=== PATIENT | male | born 1955 | race Caucasian/White ===

== ENCOUNTER 2020-04-01 22:59 | Inpatient (IN) | payer OTHER, SELFPAY ==
[2020-04-01 23:00] VITALS: BP 103/87; PULSE 112; RESP 13; TEMP 36.2; O2SAT 100; BMI 22.0
--- NOTE | 2020-04-01 23:01 | ECG_ITS ---
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
--- NOTE | 2020-04-01 23:01 | CTR_ITS ---
PROCEDURE INFORMATION: Exam: CT Head Without Contrast Exam date and time: 04/01/2020 11:46 PM Age: 64 years old Clinical indication: Altered mental status/memory loss; Confusion or disorientation; Additional info: Od TECHNIQUE: Imaging protocol: Computed tomography of the head without contrast. Radiation optimization: All CT scans at this facility use at least one of these dose optimization techniques: automated exposure control; mA and/or kV adjustment per patient size (includes targeted exams where dose is matched to clinical indication); or iterative reconstruction. COMPARISON: No relevant prior studies available. RADIATION DOSE METRICS: Total DLP (mGy-cm): 761.42 FINDINGS: Brain: No acute intracranial hemorrhage or mass effect. No definite acute infarct by CT. MRI could be more sensitive/specific for detection, as clinically directed. Cerebral ventricles: Ventricle size is normal for age. Bones/joints: No definite acute skull fracture. Paranasal sinuses: Included paranasal sinuses are essentially clear. Mastoid air cells: No significant acute finding. CT/CT head wo con* [id number] IMPRESSION: 1. No acute intracranial hemorrhage or mass effect. 2. No definite acute infarct by CT, see above. 3. Other findings discussed above. Radiation Dose CTDIVOL = (mGy): DLP = 761.42 (mGy-cm)
--- NOTE | 2020-04-01 23:01 | XRR_ITS ---
PROCEDURE INFORMATION: Exam: XR Chest, 1 View Exam date and time: 04/01/2020 11:12 PM Age: 64 years old Clinical indication: Device placement; Ett placement (vent status); Additional info: Od TECHNIQUE: Imaging protocol: XR of the chest Views: 1 view. COMPARISON: No relevant prior studies available. FINDINGS: Tubes, catheters and devices: Enteric tube loop position within the gastric fundus tip projected medially. Endotracheal tube tip resides 6.1 cm above the josselin. Lungs: Prominent pulmonary hyperinflation. Pleural space: Unremarkable. No pleural effusion. No pneumothorax. Heart/Mediastinum: Unremarkable. No cardiomegaly. Bones/joints: Degenerative arthritis of both shoulders. Calcified granuloma right lung. XR/XR chest 1V portable [id number] IMPRESSION: Hyperinflation.
--- NOTE | 2020-04-01 23:03 | W.ED.OVERDOS ---
HPI - Overdose General: Chief Complaint: Overdose Stated Complaint: UNRESPONSIVE / POSS OD Time Seen by Provider: 04/01/20 23:01 Source: EMS Mode of arrival: EMS Limitations: altered mental status History of Present Illness: HPI Narrative: 64-year-old male who was found by after he overdosed. Patient took an unknown amount of Xanax and Benadryl. He had an empty Benadryl bottle along with a Xanax bottle next to him. He was prescribed 0.5 mg of Xanax. called EMS and when EMS arrived patient was completely unresponsive with respiration 4-6 times per minute. They did give him Narcan with no response. Patient was intubated. Patient initially hypotensive but given IV fluids and blood pressure now 103/87. No history is available from patient due to altered mental status. Review of Systems General: Reports: ROS unobtainable due to medical condition [facility] ED PFSH: Medical History Chronic epigastric pain Gastritis Nausea and vomiting Physical deconditioning Surgical History History of bilateral carpal tunnel release History of circumcision History of colonoscopy Normal repeat in 10 years History of esophagogastroduodenoscopy (EGD) (02/26/17) Reflux, esophagitis, Gastritis History of hip replacement, total Right History of knee replacement Right History of laparoscopic cholecystectomy Family History Grandfather Cancer Grandmother Cancer Denies family history of Anesthesia complication Bleeding disorder Social History Smoking and tobacco status: former smoker Second hand smoke exposure: No Alcohol intake: former Desire information about alcohol rehabilitation?: No Adopted: No Caregiver/support person: Yes Lives independently: Yes Household members: spouse Housing: House Marital status: Highest education level completed: High School Graduate service: No Current occupational status: disabled Current occupational exposures/hazards: No Pets and animals: No History of recent travel: No Leisure activites: exercise Sexually active: Yes Current gender identity: Male and Female Verito/Yarsani: Sabianism Special verito needs: No Agree to transfusion: No Financial difficulty paying for basics: Not Very Hard Physical Exam Const: COMMON NORMALS: negative for patient oriented x3 OTHER: Patient is unresponsive and intubated HENMT: COMMON NORMALS: normocephalic and atraumatic HEAD & SCALP: normocephalic and atraumatic Eye: COMMON NORMALS: Equal, round and reactive pupils present and EOMs intact bilaterally PUPIL: Yes Equal, round and reactive pupils present Neck/C-Spine: COMMON NORMALS: full ROM and supple Chest: COMMONS NORMALS: normal inspection of the chest and normal palpation of entire chest wall Resp: COMMON NORMALS: normal respiratory effort, No retractions, No use of accessory muscles and clear to auscultation bilaterally AUSCULTATION: clear to auscultation bilaterally Cardio: COMMON NORMALS: regular rate, regular rhythm and No murmurs present (Cardio) RATE: regular rate RHYTHM: regular rhythm GI: COMMON NORMALS: Normal to inspection, nondistended, normoactive bowel sounds present, Soft to palpation, non-tender and no masses PALPATION: Yes Soft to palpation Extremity: COMMON NORMALS: normal to inspection and full ROM Neuro: COMMON NORMALS: negative for patient oriented x3 and negative for moves all extremities Psych: COMMON NORMALS: negative for mental status grossly normal Skin: COMMON NORMALS: no rashes or lesions noted and no wounds GENERAL SKIN EXAM: no rashes or lesions noted Course Vital Signs: Vital signs: Vital Signs Temperature 97.4 F L 04/02/20 02:00 Pulse Rate 102 H 04/02/20 02:58 Respiratory Rate 14 04/02/20 02:58 Blood Pressure 95/77 04/02/20 02:58 Pulse Oximetry 100 04/02/20 02:58 MDM - Overdose MDM Narrative: Medical decision making narrative: Patient presents here with an overdose and was intubated by EMS. Patient's vital signs here been stable. He does have an elevated lactate along with slightly elevated liver enzymes. He does have a history of hepatitis C. Patient's EKG is normal with no prolonged QT. I spoke to hospitalist will admit to the ICU. Lab Data: Labs: Lab Results 04/01/20 04/01/20 04/01/20 Range/Units 23:00 23:00 23:00 WBC 11.7 H (4.0-10.0) 10^3/ uL RBC 5.59 H (4.1-5.3) 10^6/u L Hgb 16.9 H (11.7-16.6) g/dL Hct 54.7 H (42.0-52.0) % MCV 97.9 H (80-94) fL MCH 30.2 (28.0-34.0) pg MCHC 30.9 (30.0-36.0) g/dL RDW 13.3 (12.1-15.1) % Plt Count 196 (130-400) 10^3/c mm MPV 9.2 (7.4-10.4) fL Neut % (Auto) 80.4 % Lymph % (Auto) 11.7 % [place] % (Auto) 2.3 % Eos % (Auto) 0.5 % Baso % (Auto) 0.7 % Neut # (Auto) 9.38 H (1.8-7.7) 10^3/u L Lymph # (Auto) 1.4 (0.8-4.8) 10^3/u L [place] # (Auto) 0.3 (0.2-0.9) 10^3/u L Eos # (Auto) 0.1 (0.0-0.8) 10^3/u L Baso # (Auto) 0.1 (0.0-0.1) 10^3/u L Nucleated RBC % (a uto) 0.2 % Nucleated RBCs # 0.0 /100WBC PT (12.1-14.9) SECO NDS INR (0.8-1.2) Specimen Type Sample Site ABG pH (7.35-7.45) ABG pCO2 (35-45) mmHg ABG pO2 (80.0-100.0) mmH g ABG HCO3 (22-26) mmol/L ABG O2 Saturation ABG Base Excess (-2.0-2.0) mmol/ L Canelo Test A-a O2 Gradient (5-10) mmHg Hematocrit (42-52) % Hgb O2 Saturation (95-100) % Carboxyhemoglobin (0.4-20.1) %THgb Methemoglobin (0.4-1.5) % Total Hemoglobin (14-18) g/dL Ionized Calcium (1.1-1.4) mmol/L O2 Delivery Device O2 Liters/Min % FiO2 % PEEP cmH20 Nurse Discharge ID Sodium 141 (136-145) mmol/L Potassium 3.8 (3.5-5.1) mmol/L Chloride 101 (98-107) mmol/L Carbon Dioxide 22 (22-29) mmol/L Anion Gap 21.8 H (5-19) BUN 10 (8-23) mg/dL Creatinine 1.3 H (0.7-1.2) mg/dL GFR Calculation 55.8 L (90-130) mL/min Glucose 30 L* (65-115) mg/dL POC Glucose (70-110) mg/dL Calculated Osmolal ity 287 (285-295) mOsm/k g Lactic Acid 6.4 H* (0.5-2.2) mmol/L Calcium 9.1 (8.5-10.5) mg/dL Total Bilirubin 1.0 (0.15-1.2) mg/dL AST 932 H (0-40) U/L ALT 999 H (0-41) U/L Alkaline Phosphata se 160 H (40-130) IU/L Total Protein 6.5 L (6.6-8.7) g/dL Albumin 3.9 (3.5-5.2) g/dL Globulin 2.6 (1.3-4.6) g/dL Salicylates < 0.3 L (3-10) mg/dL Urine Opiates Scre en (Negative) ng/mL Acetaminophen < 5.0 L (10-30) ug/mL Ur Barbiturates Sc reen (Negative) ng/mL Ur Phencyclidine S crn (Negative) ng/mL Ur Amphetamines Sc reen (Negative) ng/mL U Benzodiazepines Scrn (Negative) ng/mL Urine Cocaine Scre en (Negative) ng/mL U Marijuana (THC) Screen (Negative) ng/mL Ethyl Alcohol < 10 (0-10) mg/dL 04/01/20 04/01/20 04/02/20 Range/Units 23:10 23:28 00:04 WBC (4.0-10.0) 10^3/ uL RBC (4.1-5.3) 10^6/u L Hgb (11.7-16.6) g/dL Hct (42.0-52.0) % MCV (80-94) fL MCH (28.0-34.0) pg MCHC (30.0-36.0) g/dL RDW (12.1-15.1) % Plt Count (130-400) 10^3/c mm MPV (7.4-10.4) fL Neut % (Auto) % Lymph % (Auto) % [place] % (Auto) % Eos % (Auto) % Baso % (Auto) % Neut # (Auto) (1.8-7.7) 10^3/u L Lymph # (Auto) (0.8-4.8) 10^3/u L [place] # (Auto) (0.2-0.9) 10^3/u L Eos # (Auto) (0.0-0.8) 10^3/u L Baso # (Auto) (0.0-0.1) 10^3/u L Nucleated RBC % (a uto) % Nucleated RBCs # /100WBC PT 15.40 H (12.1-14.9) SECO NDS INR 1.18 (0.8-1.2) Specimen Type Arterial Sample Site Radial, left ABG pH 7.20 L (7.35-7.45) ABG pCO2 50.1 H (35-45) mmHg ABG pO2 190.0 H (80.0-100.0) mmH g ABG HCO3 19.6 L (22-26) mmol/L ABG O2 Saturation 99.6 ABG Base Excess -8.8 L (-2.0-2.0) mmol/ L Canelo Test Pos A-a O2 Gradient 22.7 H (5-10) mmHg Hematocrit 54.9 H (42-52) % Hgb O2 Saturation 98.1 (95-100) % Carboxyhemoglobin 0.7 (0.4-20.1) %THgb Methemoglobin 0.8 (0.4-1.5) % Total Hemoglobin 17.9 (14-18) g/dL Ionized Calcium 1.2 (1.1-1.4) mmol/L O2 Delivery Device Vent O2 Liters/Min 16.0 % FiO2 60.0 % PEEP 8.0 cmH20 Nurse Discharge ID Jlg Sodium 144.0 H (136-145) mmol/L Potassium 3.5 (3.5-5.1) mmol/L Chloride (98-107) mmol/L Carbon Dioxide (22-29) mmol/L Anion Gap (5-19) BUN (8-23) mg/dL Creatinine (0.7-1.2) mg/dL GFR Calculation (90-130) mL/min Glucose 11.0 L (65-115) mg/dL POC Glucose (70-110) mg/dL Calculated Osmolal ity (285-295) mOsm/k g Lactic Acid (0.5-2.2) mmol/L Calcium (8.5-10.5) mg/dL Total Bilirubin (0.15-1.2) mg/dL AST (0-40) U/L ALT (0-41) U/L Alkaline Phosphata se (40-130) IU/L Total Protein (6.6-8.7) g/dL Albumin (3.5-5.2) g/dL Globulin (1.3-4.6) g/dL Salicylates (3-10) mg/dL Urine Opiates Scre en Negative (Negative) ng/mL Acetaminophen (10-30) ug/mL Ur Barbiturates Sc reen Negative (Negative) ng/mL Ur Phencyclidine S crn Negative (Negative) ng/mL Ur Amphetamines Sc reen Negative (Negative) ng/mL U Benzodiazepines Scrn Positive H (Negative) ng/mL Urine Cocaine Scre en Negative (Negative) ng/mL U Marijuana (THC) Screen Positive H (Negative) ng/mL Ethyl Alcohol (0-10) mg/dL 04/02/20 04/02/20 Range/Units 00:05 00:29 WBC (4.0-10.0) 10^3/ uL RBC (4.1-5.3) 10^6/u L Hgb (11.7-16.6) g/dL Hct (42.0-52.0) % MCV (80-94) fL MCH (28.0-34.0) pg MCHC (30.0-36.0) g/dL RDW (12.1-15.1) % Plt Count (130-400) 10^3/c mm MPV (7.4-10.4) fL Neut % (Auto) % Lymph % (Auto) % [place] % (Auto) % Eos % (Auto) % Baso % (Auto) % Neut # (Auto) (1.8-7.7) 10^3/u L Lymph # (Auto) (0.8-4.8) 10^3/u L [place] # (Auto) (0.2-0.9) 10^3/u L Eos # (Auto) (0.0-0.8) 10^3/u L Baso # (Auto) (0.0-0.1) 10^3/u L Nucleated RBC % (a uto) % Nucleated RBCs # /100WBC PT (12.1-14.9) SECO NDS INR (0.8-1.2) Specimen Type Sample Site ABG pH (7.35-7.45) ABG pCO2 (35-45) mmHg ABG pO2 (80.0-100.0) mmH g ABG HCO3 (22-26) mmol/L ABG O2 Saturation ABG Base Excess (-2.0-2.0) mmol/ L Canelo Test A-a O2 Gradient (5-10) mmHg Hematocrit (42-52) % Hgb O2 Saturation (95-100) % Carboxyhemoglobin (0.4-20.1) %THgb Methemoglobin (0.4-1.5) % Total Hemoglobin (14-18) g/dL Ionized Calcium (1.1-1.4) mmol/L O2 Delivery Device O2 Liters/Min % FiO2 % PEEP cmH20 Nurse Discharge ID Sodium (136-145) mmol/L Potassium (3.5-5.1) mmol/L Chloride (98-107) mmol/L Carbon Dioxide (22-29) mmol/L Anion Gap (5-19) BUN (8-23) mg/dL Creatinine (0.7-1.2) mg/dL GFR Calculation (90-130) mL/min Glucose (65-115) mg/dL POC Glucose 295 H 222 H (70-110) mg/dL Calculated Osmolal ity (285-295) mOsm/k g Lactic Acid (0.5-2.2) mmol/L Calcium (8.5-10.5) mg/dL Total Bilirubin (0.15-1.2) mg/dL AST (0-40) U/L ALT (0-41) U/L Alkaline Phosphata se (40-130) IU/L Total Protein (6.6-8.7) g/dL Albumin (3.5-5.2) g/dL Globulin (1.3-4.6) g/dL Salicylates (3-10) mg/dL Urine Opiates Scre en (Negative) ng/mL Acetaminophen (10-30) ug/mL Ur Barbiturates Sc reen (Negative) ng/mL Ur Phencyclidine S crn (Negative) ng/mL Ur Amphetamines Sc reen (Negative) ng/mL U Benzodiazepines Scrn (Negative) ng/mL Urine Cocaine Scre en (Negative) ng/mL U Marijuana (THC) Screen (Negative) ng/mL Ethyl Alcohol (0-10) mg/dL Imaging Data^: CXR: Attestation: I personally reviewed and interpreted this imaging study as follows: Radiologist's impression: no acute abnormality CT Abd/Pel: Attestation: I personally reviewed and interpreted this imaging study as follows: Radiologist's impression: [employer] [address] [address] Scan Report Signed Patient: Michoacano Ball Unit #: [id number] : 1955 Age/Sex: 64 / M ADM Date: 04/01/20 Loc: ER Room/Bed: Attending Dr: Ordering Provider/Ordering MD: Amy Juarez MD Date of Service: 04/01/20 Procedure(s): CT head wo con* [id number] Accession Number(s): [id number] Report Number: [id number] PROCEDURE INFORMATION: Exam: CT Head Without Contrast Exam date and time: 04/01/2020 11:46 PM Age: 64 years old Clinical indication: Altered mental status/memory loss; Confusion or disorientation; Additional info: Od TECHNIQUE: Imaging protocol: Computed tomography of the head without contrast. Radiation optimization: All CT scans at this facility use at least one of these dose optimization techniques: automated exposure control; mA and/or kV adjustment per patient size (includes targeted exams where dose is matched to clinical indication); or iterative reconstruction. COMPARISON: No relevant prior studies available. RADIATION DOSE METRICS: Total DLP (mGy-cm): 761.42 FINDINGS: Brain: No acute intracranial hemorrhage or mass effect. No definite acute infarct by CT. MRI could be more sensitive/specific for detection, as clinically directed. Cerebral ventricles: Ventricle size is normal for age. Bones/joints: No definite acute skull fracture. Paranasal sinuses: Included paranasal sinuses are essentially clear. Mastoid air cells: No significant acute finding. CT/CT head wo con* [id number] IMPRESSION: 1. No acute intracranial hemorrhage or mass effect. 2. No definite acute infarct by CT, see above. 3. Other findings discussed above. EKG Data^: EKG 1: Attestation: I personally reviewed and interpreted this EKG as follows: EKG interpretation date: 04/01/20 EKG interpretation time: 23:29 Interpretation: sinus tach hr [address] or t wave abnormalities qrs 105 qtc 427 Critical Care Time Critical Care Time: Critical Care Time: Yes Total Critical Care Time: 35 Attestation: This case had a high probability of a clinically significant, sudden, or life threatening deterioration of this patient's condition which required my full and direct attention, intervention and personal management. Discharge Plan Discharge Patient Disposition: Admitted As Inpatient Admit Provider: Iglesia Shafer Clinical Impression: Drug overdose, Hypoglycemia Condition: Stable Coding Level of Care Code ED Slot Machine Key Person for Chg Fwd Exam Comprehensive
[2020-04-01 23:10] VITALS: BP 103/87; PULSE 112; RESP 12; RESP 16; O2SAT 100
[2020-04-01 23:29] LABS: Basophils # 0.1 10^3/uL (0.0-0.1); Basophils % 0.7 %; Eosinophils # 0.1 10^3/uL (0.0-0.8); Eosinophils % 0.5 %; Hematocrit 54.7 % (42.0-52.0); Hemoglobin 16.9 g/dL (11.7-16.6); Lymphocytes # 1.4 10^3/uL (0.8-4.8); Lymphocytes % 11.7 %; Mean Corpuscular HGB Conc 30.9 g/dL (30.0-36.0); Mean Corpuscular Hemoglobin 30.2 pg (28.0-34.0); Mean Corpuscular Volume 97.9 fL (80-94); Mean Platelet Volume 9.2 fL (7.4-10.4); Monocytes # 0.3 10^3/uL (0.2-0.9); Monocytes % 2.3 %; Neutrophils # 9.38 10^3/uL (1.8-7.7); Neutrophils % 80.4 %; Nucleated Red Blood Cells % 0.2 %; Platelet Count 196 10^3/cmm (130-400); Red Blood Count 5.59 10^6/uL (4.1-5.3); Red Cell Distribution Width 13.3 % (12.1-15.1); White Blood Count 11.7 10^3/uL (4.0-10.0)
[2020-04-01 23:42] LABS: ABG PCO2 50.1 mmHg (35-45); Alveolar-Arterial Oxygen Gradi 22.7 mmHg (5-10); Arterial Blood Gas Hematocrit 54.9 % (42-52); Base Excess ABG -8.8 mmol/L (-2.0-2.0); Blood Gas Allen Test Pos; Blood Gas Sample Site Radial, left; Blood Gas Sample Type Arterial; Carboxyhemoglobin 0.7 %THgb (0.4-20.1); HCO3 ABG 19.6 mmol/L (22-26); HGB O2 Sat 98.1 % (95-100); Ionized Calcium Level - ABG 1.2 mmol/L (1.1-1.4); Methemoglobin 0.8 % (0.4-1.5); Oxygen Device VENT; Oxygen Saturation ABG 99.6; Potassium Level - ABG 3.5 mmol/L (3.5-5.0); Total Hemoglobin 17.9 g/dL (14-18)
[2020-04-01] MEDS: sodium chloride 0.9% 1,000 ML 999 ML IV (23:43)
[2020-04-01 23:46] VITALS: RESP 16
[2020-04-01 23:48] LABS: Albumin Level 3.9 g/dL (3.5-5.2); Alkaline Phosphatase 160 IU/L (40-130); Anion Gap 21.8 (5-19); Blood Urea Nitrogen 10 mg/dL (8-23); Calcium 9.1 mg/dL (8.5-10.5); Carbon Dioxide 22 mmol/L (22-29); Chloride 101 mmol/L (98-107); Globulin 2.6 g/dL (1.3-4.6); Glomerular Filtration Rate 55.8 mL/min (90-130); Osmolality Calculated 287 mOsm/kg (285-295); Potassium 3.8 mmol/L (3.5-5.1); Sodium 141 mmol/L (136-145); Total Protein 6.5 g/dL (6.6-8.7)
[2020-04-01 23:52] LABS: Acetaminophen < 5.0 ug/mL (10-30); Alcohol Level < 10 mg/dL (0-10); Glucose 30 mg/dL (65-115); Salicylate < 0.3 mg/dL (3-10)
[2020-04-01 23:53] LABS: Lactic Sepsis W/Reflex 6.4 mmol/L (0.5-2.2)
--- NOTE | 2020-04-01 23:53 | PC.NURSE ---
lactic 6.4
[2020-04-02] VITALS (87 sets, daily range): BP systolic 67–124; BP diastolic 52–98; PULSE 85–108; RESP 14–21; TEMP 36.1–38.3; O2SAT 92–100; BMI 15.5
[2020-04-02 00:01] LABS: Alanine Aminotransferase 999 U/L (0-41)
[2020-04-02 00:07] LABS: Aspartate Amino Transferase 932 U/L (0-40)
[2020-04-02] MEDS: dextrose 50% syringe 50 mL 100 ML IVP (00:17)
[2020-04-02 00:30] LABS: INR 1.18 (0.8-1.2)
[2020-04-02 00:31] LABS: Amphetamines Screen Urine Negative (Negative); Barbiturates Screen Urine Negative (Negative); Benzodiazepines Screen Urine Positive (Negative); Cocaine Screen Urine Negative (Negative); Opiate Screen Urine Negative (Negative); PCP Screen Urine Negative (Negative); THC Screen Urine Positive (Negative)
[2020-04-02 00:41] LABS: Glucose Point of Care 295 mg/dL (70-110)
[2020-04-02 00:41] LABS: Glucose Point of Care 222 mg/dL (70-110)
[2020-04-02 01:14] LABS: Reflex Lactate Order REFLEX LACTIC ORDERD
[2020-04-02 01:40] LABS: Glucose Point of Care 139 mg/dL (70-110)
[2020-04-02 02:04] LABS: Lactic Acid level (Lactate) 7.4 mmol/L (0.5-2.2)
--- NOTE | 2020-04-02 02:32 | P.HP_ITS ---
Providers/Chief Complaint Admitting Physician: Iglesia Shafer Primary Care Provider: Richard Ulrich Chief Complaint: UNRESPONSIVE / POSS OD History of Present Illness 64-year-old gentleman is being admitted from ER to ICU, brought here after he was intubated by EMS due to respiratory suppression, obtundation, with lack of response to Narcan after he overdosed on unknown amount of Xanax and Benadryl with both bottles next to him. He has a history of prescribed 0.5 mg Xanax per report. EMS was called by his , due to unresponsiveness, with respiratory suppression with breathing rate down to 4-6 breaths/min. In ER he was initially hypotensive, received fluid resuscitation. Blood pressure was as low as 91/73. Responded to 2 L of fluid with blood pressure 115/90. On presentation noted in respiratory acidosis, CO2 50.1. pH 7.2, PO2 190. Noted also hypoglycemia, glucose of 34 which she received D50 push. Does not have history of diabetes. History of hepatitis C is reported. Noted creatinine 1.3, BUN 10. Lactic acid 6.4-7.4. AST 932, ALT 999, alk phos 160. T bili 1. INR 1.18. Platelets 196,000. WBC 11.7, hemoglobin 16.9. He is currently obtunded, on mechanical ventilation, 35% FiO2, PEEP of 8, RR 16, VT 400. Chest x-ray pending read, appears with hyperinflation, no obvious infiltrates. Noncontrast Head CT without acute abnormality. EKG without QRS widening. Sinus tachycardia. Review of Systems General: Reports: ROS unobtainable due to mental status Medications/Allergies Home Medications Medication Instructions Recorded Confirmed Last Taken Type ibuprofen 200 mg tablet 200 mg PO ONCE tab 04/12/19 04/12/19 Unknown History omega-3 fatty acids 1,000 mg 1,000 mg PO ONCE cap 04/12/19 04/12/19 Unknown History capsule pantoprazole 40 mg tablet,delayed 40 mg PO ONCE 04/12/19 04/12/19 Unknown History release tamsulosin 0.4 mg capsule 0.4 mg PO ONCE 04/12/19 04/12/19 Unknown History vitamin E mixed 1,000 unit capsule 1,000 unit PO DAILY cap 04/12/19 04/12/19 Unknown History Allergies Allergy/AdvReac Type Severity Reaction Status Date / Time citalopram Allergy Unknown Verified 04/01/20 23:10 codeine Allergy ADR-Itching Verified 04/01/20 23:10 esomeprazole [From Nexium] Allergy Unknown Verified 04/01/20 23:10 ketorolac [From Toradol] Allergy Unknown Verified 04/01/20 23:10 omeprazole Allergy Unknown Verified 04/01/20 23:10 Penicillins Allergy Unknown Verified 04/01/20 23:10 ranitidine AdvReac ADR-Headach Verified 04/01/20 23:10 e PFSH Acute PFSH: Medical History Chronic epigastric pain Gastritis Nausea and vomiting Physical deconditioning Surgical History History of bilateral carpal tunnel release History of circumcision History of colonoscopy Normal repeat in 10 years History of esophagogastroduodenoscopy (EGD) (02/26/17) Reflux, esophagitis, Gastritis History of hip replacement, total Right History of knee replacement Right History of laparoscopic cholecystectomy Family History Grandfather Cancer Grandmother Cancer Denies family history of Anesthesia complication Bleeding disorder Social History Smoking and tobacco status: former smoker Second hand smoke exposure: No Alcohol intake: former Desire information about alcohol rehabilitation?: No Adopted: No Caregiver/support person: Yes Lives independently: Yes Household members: spouse Housing: House Marital status: Highest education level completed: High School Graduate service: No Current occupational status: disabled Current occupational exposures/hazards: No Pets and animals: No History of recent travel: No Leisure activites: exercise Sexually active: Yes Current gender identity: Male and Female Verito/Hoahaoism: Rastafarian Special verito needs: No Agree to transfusion: No Financial difficulty paying for basics: Not Very Hard Vitals/I&O/Wt Last Vital Signs Temp 97.1 F L 04/01/20 23:00 Pulse 102 H 04/02/20 01:45 Resp 16 04/02/20 02:26 BP 115/90 04/02/20 01:45 Pulse Ox 99 04/02/20 01:45 Weight last 48 hrs Weight 65.771 kg Physical Exam Const: COMMON NORMALS: no acute distress; negative for patient oriented x3 ORIENTATION/CONSCIOUSNESS: Yes patient obtunded OTHER: Intubated HENMT: COMMON NORMALS: oropharynx normal Neck/C-Spine: GENERAL: Yes JVD Resp: COMMON NORMALS: normal respiratory effort and clear to auscultation bilaterally AUSCULTATION: clear to auscultation bilaterally Cardio: COMMON NORMALS: no JVD, regular rhythm, S1 normal heart sound present, S2 normal heart sound present and No murmurs present (Cardio) RHYTHM: regular rhythm HEART SOUNDS: S1 normal heart sound present and S2 normal heart sound present GI: COMMON NORMALS: Normal to inspection, nondistended, normoactive bowel sounds present, Soft to palpation and non-tender PALPATION: Yes Soft to palpation Extremity: COMMON NORMALS: no joint enlargement and no pedal edema Neuro: COMMON NORMALS: patient oriented x3 and moves all extremities Skin: COMMON NORMALS: no rashes or lesions noted GENERAL SKIN EXAM: no rashes or lesions noted and dry skin Urinary Catheter Management^: [place]: Cath Placed During This Visit: yes Urinary Catheter Date of Insertion: 04/02/20 Urinary Catheter Time of Insertion: 00:11 Data : 04/01/20 23:00 04/01/20 23:00 A&P Assessment and plan (1) Drug overdose: Xanax and benadryl with resultant hypoxic respiratory failure, acute encephalopathy secondary to drug overdose, hypercapnia, metabolic derangements, hypotension, appears also with resultant acute kidney injury, hepatocellular injury. Mildly hypothermic, temp 97.4. Blood pressure improved with fluid boluses. Monitor. Warming blankets. Monitor endorgan injury. Continue respiratory support, intubated by EMS. Monitor mental status. If becoming restless, add sedation. Due to possible anticholinergic effect of Benadryl Place, [place] catheter. Monitor JONATHAN. Will require psychiatric assessment once he is more stable, clearance, possibly admission to psychiatric unit. Status: Acute (2) Hypoglycemia: Severe hypoglycemia with glucose as low as 30 on presentation. Unclear duration of hypoglycemia. Does not appear to have history of diabetes, but appears to have perhaps history of liver disease. Reported history of hepatitis C (although unconfirmed, please confirm with his in the morning.) Would suspect that hypoglycemia may be secondary to acute hepatocellular injury with chronic liver disease. Improved with D50. Monitor glucose. Hypoglycemia protocol. Status: Acute (3) GI bleed: Noted small amount of bloody discharge in NG tube in ER. Appears to have history of GERD. On Protonix at home. Also reported taking ibuprofen. Possible trauma from gastric tube insertion. At this time started on PPI twice daily. Hold NSAIDs, and would recommend discontinuation. Recheck hemoglobin this morning. Monitor for any additional bleeding. Status: Acute (4) Transaminitis: Not entirely clear reason. History of hepatitis C is reported to me by ER physician. Please confirm this with his in the morning. Given he was hypotensive, may suspect element of shock liver, given also acute kidney injury, encephalopathy among other organ injury. INR is 1.18. Tylenol level is low. Will reassess liver parameters. Assess hepatobiliary ultrasound. Monitor for recovery of mental status. Hepatitis panel. Recheck tylenol level. CK checked and normal. Suspect hypoglycemia and lactic acidosis are related to acute hepatocellular injury on chronic liver disease. Status: Acute (5) Acute kidney injury: Received fluid challenge. Continue gentle IV hydration. Reassess renal function. Hold NSAIDs, and would DC entirely. Status: Acute (6) Hypotension: Improved. Gentle IV hydration D5-0.45. Monitor blood pressures. Supportive care. Status: Acute (7) Hypothermia: Warming blankets. Monitor temperature. Status: Acute (8) Acute hypercapnic respiratory failure: Mechanical ventilation. Recheck ABG. Status: Acute (9) Tachycardia: Suspect secondary to anticholinergic effect of Benadryl. Supportive care. Monitor on telemetry. At this time no signs of heart failure. Recheck ABG. Status: Acute (10) Lactic acidosis: Suspect this is secondary to hepatocellular injury superimposed on chronic liver disease. Does have sinus tachycardia, but otherwise does not fit sepsis criteria. Given known factors contributing to his current condition sepsis is currently significantly lower in differential. Aspiration could be considered, although his x-ray does not appear to show any obvious infiltrates per my interpretation, but please follow-up radiologic interpretation once available. Status: Acute Attestations Medical Necessity Statement*: Admission of over 2 midnights is continued for assessment of management of acute drug overdose, respiratory failure, acute encephalopathy, multiple organ injury, as well as GI bleeding and other comorbidities as outlined above after drug overdose and suicide attempt, also needing additional psychiatric evaluation once stable enough. Critical Care Time: In addition to known critical issues, 45 minutes critical care time spent on assessment management of immediately life-threatening issues including acute respiratory failure, acute encephalopathy secondary to drug overdose with multiple affected organ systems, including kidney injury, liver injury, kidney injury, acute encephalopathy, severe hypoglycemia, GI bleeding. Coding Level of Care Code Acute Refractory Manager for [facility] Fwd Exam Comprehensive Diagnoses Drug overdose T50.901A Hypoglycemia E16.2 GI bleed K92.2 Transaminitis R74.01 Acute kidney injury N17.9 Hypotension I95.9 Hypothermia T68.XXXA Acute hypercapnic respiratory failure J96.02 Tachycardia R00.0 Lactic acidosis E87.2
--- NOTE | 2020-04-02 02:42 | CTR_ITS ---
PROCEDURE INFORMATION: Exam: CT Abdomen And Pelvis With Contrast Exam date and time: 04/02/2020 2:54 AM Age: 64 years old Clinical indication: Abdominal pain; Generalized TECHNIQUE: Imaging protocol: Computed tomography of the abdomen and pelvis with intravenous contrast. Radiation optimization: All CT scans at this facility use at least one of these dose optimization techniques: automated exposure control; mA and/or kV adjustment per patient size (includes targeted exams where dose is matched to clinical indication); or iterative reconstruction. Contrast material: OMNI 300; Contrast volume: 95 ml; Contrast route: INTRAVENOUS (IV); COMPARISON: CT abdomen pelvis w con* [id number] 12/28/2018 11:01 AM RADIATION DOSE METRICS: Total DLP (mGy-cm): 338.73 FINDINGS: Tubes, catheters and devices: Enteric tube extends to the stomach. Lungs: Emphysematous changes in the lower lungs with hyper lucency. Punctate nodule or vessel right lower lung laterally series 2, image 3. Liver: Heterogeneity of the liver with non marginated areas of decreased attenuation. Small hypodensity in the superior left hepatic lobe measures 0.6 cm too small for definitive characterization. A lateral segment left hepatic lobe cyst measures 2.0 cm. Gallbladder and bile ducts: Postoperative cholecystectomy. Accentuation of partial intrahepatic and extrahepatic bile ducts with extrahepatic bile duct diameter 1.1 cm. Pancreas: Limited definition of the pancreas. Spleen: Granulomatous calcifications cc. No splenomegaly. Adrenal glands: Normal. No mass. Kidneys and ureters: Normal. No hydronephrosis. Small cyst right kidney. Stomach and bowel: Buhler of small bowel. Diffuse prominent fluid and air distention throughout the colon which is most prominent in dilatation within the right colon and transverse colon with most prominent expansion approaching 7.6 cm. Appendix: The appendix is not visualized. Intraperitoneal space: Unremarkable. No free air. No significant fluid collection. Vasculature: Tortuous calcified abdominal aorta. Lymph nodes: Unremarkable. No enlarged lymph nodes. Urinary bladder: [place] catheters position within the urinary bladder. Reproductive: Unremarkable as visualized. Bones/joints: Right hip prosthesis extends metallic artifact. Chronic fracture deformity of the left inferior pubic ramus. Soft tissues: Unremarkable. CT/CT abdomen pelvis w con* [id number] IMPRESSION: 1. Prominent fluid and gas expansion throughout the colon suggesting colonic ileus, colitis or underlying diarrheal condition. 2. Heterogeneity of attenuation throughout the liver which could be on the basis of phase of contrast administration or underlying altered perfusion pattern. 3. Stable hypodensities within the left hepatic lobe suspicious for hepatic cysts. 4. Cholecystectomy with persistent accentuation of intrahepatic and extrahepatic bile ducts. 5. Punctate vessel or nodule right lower lobe. Finding is unchanged compared to 12/28/2018. For patients at low risk (minimal or absent history of smoking and of other known risk factors), no routine follow-up is indicated. For patients at high risk (history of smoking or of other known risk factors), consider optional CT Chest at 12 months. (Reference: Lev) References: Lev H, et al. Guidelines for Management of Incidental Pulmonary Nodules Detected on CT Images: From the Fleischner Society 2017. Radiology. 2017;284(1):228-243. Radiation Dose CTDIVOL = (mGy): DLP = 338.73 (mGy-cm)
[2020-04-02] MEDS: pantoprazole 40 mg SDV IV ×2 (02:47→16:26)
[2020-04-02 02:48] LABS: Glucose Point of Care 141 mg/dL (70-110)
[2020-04-02] MEDS: sodium chloride 0.9% 1,000 ML 999 ML IV (02:48)
[2020-04-02 02:56] LABS: Creatine Phosphokinase 247 U/L (39-308)
--- NOTE | 2020-04-02 04:23 | US_ITS ---
WS: [id number] RIGHT UPPER QUADRANT ULTRASOUND HISTORY: Transaminitis. COMPARISON: 08/17/2018 Liver: 12.7 cm in length. Liver is small. There are numerous dilated ducts which have been previously described. Mild progression of the intrahepatic duct dilatation. No discrete mass identified. Gallbladder: Prior cholecystectomy. CBD: 1.2 cm Pancreas: Normal size pancreas. Common bile duct at the pancreatic head is dilated measuring up to 11 mm. Right kidney: 10.0 cm in length. Normal size and echogenicity. No hydronephrosis or mass. Aorta and IVC: Enlarged IVC. There is a tiny amount of fluid adjacent to the RIGHT lobe of the liver. US/US abdomen limited [id number] IMPRESSION: 1. Prior cholecystectomy. 2. Marked intrahepatic and extra hepatic duct dilatation. May be physiologic. No stone or mass identified.
[2020-04-02] MEDS: dextrose 5%-sod chloride 0.45% 1,000 ML 75 ML IV (04:28)
[2020-04-02 04:41] LABS: Basophils # 0.1 10^3/uL (0.0-0.1); Basophils % 0.5 %; Hematocrit 54.1 % (42.0-52.0); Hemoglobin 16.6 g/dL (11.7-16.6); Lymphocytes # 0.6 10^3/uL (0.8-4.8); Lymphocytes % 2.7 %; Mean Corpuscular HGB Conc 30.7 g/dL (30.0-36.0); Mean Corpuscular Hemoglobin 30.4 pg (28.0-34.0); Mean Corpuscular Volume 99.1 fL (80-94); Mean Platelet Volume 9.4 fL (7.4-10.4); Monocytes # 1.2 10^3/uL (0.2-0.9); Monocytes % 5.2 %; Neutrophils # 20.65 10^3/uL (1.8-7.7); Neutrophils % 89.6 %; Nucleated Red Blood Cells % 0 %; Platelet Count 169 10^3/cmm (130-400); Red Blood Count 5.46 10^6/uL (4.1-5.3); Red Cell Distribution Width 13.3 % (12.1-15.1); White Blood Count 23.1 10^3/uL (4.0-10.0)
[2020-04-02] MEDS: sodium chloride 0.9% 500 ML 999 ML IV ×2 (05:00→06:06)
[2020-04-02 05:14] LABS: ABG PCO2 46.4 mmHg (35-45); Arterial Blood Gas Hematocrit 51.5 % (42-52); Blood Gas Allen Test Pos; Blood Gas Sample Site Radial, left; Blood Gas Sample Type Arterial; HCO3 ABG 18.1 mmol/L (22-26); Oxygen Device VENT
[2020-04-02 05:21] LABS: INR 1.79 (0.8-1.2)
[2020-04-02 05:27] LABS: Albumin Level 3.6 g/dL (3.5-5.2); Alkaline Phosphatase 163 IU/L (40-130); Blood Urea Nitrogen 13 mg/dL (8-23); Carbon Dioxide 20 mmol/L (22-29); Chloride 105 mmol/L (98-107); Globulin 2.4 g/dL (1.3-4.6); Glomerular Filtration Rate 51.2 mL/min (90-130); Glucose 94 mg/dL (65-115); Osmolality Calculated 290 mOsm/kg (285-295); Sodium 140 mmol/L (136-145); Total Bilirubin 0.7 mg/dL (0.15-1.2)
[2020-04-02 05:40] LABS: Alanine Aminotransferase 1655 U/L (0-41)
[2020-04-02 05:49] LABS: Hepatitis A Antibody IgM Non-Reactive (Nonreactive); Hepatitis B Core IgM Non-Reactive (Nonreactive); Hepatitis B Surface Antigen Non-Reactive (Nonreactive); Hepatitis C Virus Antibody Reactive (Nonreactive)
[2020-04-02 06:03] LABS: Aspartate Amino Transferase 1741 U/L (0-40)
[2020-04-02 06:04] LABS: Anion Gap 18.1 (5-19); Potassium 3.1 mmol/L (3.5-5.1)
[2020-04-02 06:05] LABS: Acetaminophen < 5.0 ug/mL (10-30)
[2020-04-02 06:16] LABS: Lactate (Lactic Acid level) 5.6 mmol/L (0.5-2.2)
[2020-04-02] MEDS: metroNIDAZOLE IV 500 MG/100 ML PREMIX 100 MG IV ×3 (06:26→21:15)
[2020-04-02] MEDS: ciprofloxacin 400 MG/200 ML PREMIX 200 MG IV ×2 (06:26→17:07)
[2020-04-02] MEDS: potassium chloride premix 100 ML 50 MEQ IV (07:22)
[2020-04-02 07:59] LABS: Glucose Point of Care 165 mg/dL (70-110)
--- NOTE | 2020-04-02 08:16 | P.PN_ITS ---
Subjective Subjective: Interval history: Chart reviewed, on vent and pressor support. Patient seen several times during the day, initially seen this AM, minimal responsiveness noted, no sedation. Seen in the early afternoon, at bedside, indicates that she thinks patient may have accidentally taken more medications than he intended, is aware of Xanax prescription and usually dispenses this for him a week at a time; she is unsure if there are missing pills in bottle. Timeline for decreased responsiveness unclear. She indicates that patient has had some GI issues and has had multiple endoscopic evaluations over the past several years, has tried multiple medications with little if any improvement. As such, he has been frustrated and has had some noted weight loss. He does have hx of chronic hepatitis C, previously treated. By this afternoon, spiking fever, Tmax-101F, noted to have 2 bloody BMs, no other source of bleeding evident. Hypotension persists despite levophed, IVF. Anticipate need for second pressor. Medications: Reviewed: Yes Medication Review Details: Active Medications Generic Name Dose Route Start Last Admin Trade Name Freq PRN Reason Stop Dose Admin Dextrose 25 ml 04/02/20 03:59 Dextrose 50% Syr megan 50 Ml IVP ONCE PRN hypoglycemia prot ocol Protocol Dextrose 50 ml 04/02/20 03:59 Dextrose 50% Syr megan 50 Ml IVP PRN PRN hypoglycemia prot ocol Protocol Glucagon 1 mg 04/02/20 03:59 Glucagon 1 Mg/Ml Inj 1 Ml IM ONCE PRN Adult Acute Hypog lycemia Prot. Protocol Dextrose 500 mls @ 100 mls /hr 04/02/20 03:59 D5w IV ONCE PRN Adult Acute Hypog lycemia Prot Protocol Dextrose/Sodium Ch loride 1,000 mls @ 150 m ls/hr 04/02/20 03:59 04/02/20 06:00 Dextrose 5%-Sod Chloride 0.45% IV 04/03/20 03:58 150 mls/hr .Q6H40M OTILIA Infusion Ciprofloxacin/Dext kenrick 400 mg in 200 mls @ 200 mls/hr 04/02/20 05:00 04/02/20 07:33 Cipro IV Infused Q12H OTILIA Infusion Protocol Metronidazole 500 mg in 100 mls @ 100 mls/hr 04/02/20 05:00 04/02/20 07:33 Flagyl Iv IV Infused Q8H OTILIA Infusion Protocol Norepinephrine Bit artrate 4 mg 254 mls @ 0 mls/h r 04/02/20 05:30 04/02/20 07:25 / Dextrose IV 10 mcg/min .Q0M OTILIA 38.1 mls/hr Titration Protocol Per Protocol Potassium Chloride 100 mls @ 50 mls/ hr 04/02/20 06:25 04/02/20 07:22 K-Selvin Premix IV 04/02/20 08:24 50 mls/hr ONCE ONE Administration Pantoprazole Sodiu m 40 mg 04/02/20 02:45 04/02/20 02:47 Pantoprazole 40 Mg Sdv IV 40 mg Q12H OTILIA Administration citalopram Allergy (Verified 04/01/20 23:10) Unknown codeine Allergy (Verified 04/01/20 23:10) ADR-Itching esomeprazole [From Nexium] Allergy (Verified 04/01/20 23:10) Unknown ketorolac [From Toradol] Allergy (Verified 04/01/20 23:10) Unknown omeprazole Allergy (Verified 04/01/20 23:10) Unknown Penicillins Allergy (Verified 04/01/20 23:10) Unknown ranitidine Adverse Reaction (Verified 04/01/20 23:10) ADR-Headache Vitals/I&O/Wt Last Vital Signs Temp 97 F L 04/02/20 04:00 Pulse 95 04/02/20 04:00 Resp 16 04/02/20 08:09 BP 76/61 04/02/20 04:00 Pulse Ox 100 04/02/20 04:16 04/01/20 04/02/20 04/02/20 22:59 06:59 14:59 Intake Total 1115 / 1115 315.233 / 315.233 Balance 1115 / 1115 315.233 / 315.233 Weight last 48 hrs Weight 46.493 kg Weight 46.493 kg Weight 65.771 kg Physical Exam Const: COMMON NORMALS: no acute distress GENERAL APPEARANCE: comfortable and patient mechanically ventilated NUTRITIONAL APPEARANCE: thin ORIENTATION/CONSCIOUSNESS: Yes patient obtunded HENMT: COMMON NORMALS: normocephalic, atraumatic and moist oral mucous membranes HEAD & SCALP: normocephalic and atraumatic OTHER: -NGT in place, bilious drainage Eye: COMMON NORMALS: EOMs intact bilaterally and conjunctivae normal CONJUNCTIVA: Yes conjunctivae normal PUPIL: Yes Fixed pupils bilaterally Neck/C-Spine: GENERAL: Yes normal visual inspection and Yes trachea midline Resp: COMMON NORMALS: normal respiratory effort, No retractions and No use of accessory muscles EFFORT & INSPECTION: Yes able to speak in complete sentences, Yes symmetric chest movement and No tachypneic OTHER: -diminished breath sounds bilaterally though symmetrical air entry -on vent support: 400/24%/5 Cardio: COMMON NORMALS: regular rate, regular rhythm, S1 normal heart sound present, S2 normal heart sound present and No murmurs present (Cardio) RATE: regular rate RHYTHM: regular rhythm HEART SOUNDS: S1 normal heart sound present and S2 normal heart sound present OTHER: -hypotensive; on levophed @ 10 mcg/hr GI: COMMON NORMALS: Normal to inspection, nondistended, normoactive bowel sounds present and Soft to palpation PALPATION: Yes Soft to palpation RECTAL EXAM: Yes visual inspection normal (brown stool in rectal vault), Yes normal sphincter tone and No hemorrhoids : BLADDER/KIDNEY EXAM: Yes catheter in place Catheter type (Male): urethral Extremity: COMMON NORMALS: normal to inspection, no clubbing, cyanosis or edema and no pedal edema Neuro: PUPIL EXAM: Fixed/non-reactive: bilateral OTHER: -unable to assess due to sedation Psych: OTHER: -unable to assess due to sedation Skin: COMMON NORMALS: no rashes or lesions noted, no jaundice, no petechiae and no mottling GENERAL SKIN EXAM: no rashes or lesions noted Urinary Catheter Management^: [place]: Cath Placed During This Visit: yes Reason for Continuing Indwelling Catheter: Accurate Measurement of Urinary Output in Critically Ill Patients Urinary Catheter Date of Insertion: 04/02/20 Urinary Catheter Time of Insertion: 00:11 Sepsis: Is patient septic: Yes Focused sepsis exam performed: Yes Date exam was performed: 04/02/20 Time exam was performed: 10:30 Data : 04/02/20 14:25 04/02/20 14:25 A&P Assessment and plan (1) Acute hypercapnic respiratory failure: -vent support, intubated in the field prior to arrival -ABGs noted, imaging reviewed -daily CXR, ABG while on vent -sedation while on vent -continue to monitor respiratory status -NPO -decreased responsiveness for unknown period of time so unclear what residual effects are currently including neuro Status: Acute (2) Septic shock: -as evidenced by lactic acidosis, leukocytosis, hypotension, hypothermia with noted MARIANA, acute hepatic impairment -on dual antibiotic therapy due to noted evidence of ileus, colitis, sepsis with ciprofloxacin, metronidazole -f/u blood cx, sputum cx -warming blanket, close monitoring of temp -on IVF, pressor support; monitor BP closely; anticipate need for second pressor ; wean off as tolerated -telemetry monitoring Status: Acute (3) Drug overdose: -Reported overdose on unknown quantity of Xanax and Benadryl; likely accidental per -Subsequently noted to have decreased responsiveness and intubated in the field by EMS prior to transfer to the hospital; remains on ventilator support -UDS: + benzos, THC; negative EtOH, salicylates, acetaminophen -will need Psychiatric evaluation once medically stable Status: Acute Qualifiers: Encounter type: initial encounter Injury intent: accidental or unintentional Qualified Code(s): T50.901A - Poisoning by unspecified drugs, medicaments and biological substances, accidental (unintentional), initial encounter (4) GI bleed: -small quantity of NGT bloody drainage noted in ED; noted blood in stool x 2 -prior hx of GERD -on PPI -hold NSAIDs (previously on ibuprofen), AC -stable Hg, continue to monitor -in light for hepatic impairment, will give FFPs and transfuse 1 unit of PRBCs for now with continued septic shock Status: Acute Qualifiers: GI bleed type/associated pathology: unspecified gastrointestinal hemorrhage type Qualified Code(s): K92.2 - Gastrointestinal hemorrhage, unspecified (5) Transaminitis: -unclear etiology though could be related to hx of hepatitis C, septic shock -continue to trend LFTs -imaging reviewed including US, CT scan -CPK wnl, negative salicylates and acetaminophen Status: Acute (6) Acute kidney injury: -on IVF -likely related to septic shock Status: Acute (7) Hypoglycemia: -BG as low as 30, received amp of D50 -hypoglycemia precautions, on D5, accuchecks -no prior hx of DM Status: Acute Additional A&P Information -Malnourished with noted unintentional weight loss; BMI-16 kg/m2 -NPO -GI ppx with PPI -DVT ppx with SCDs -Dispo: home -Code status: FULL code -guarded prognosis given critical illness, septic shock, mechanical ventilation, bleeding - Mary Anne updated at bedside Attestations Medical Necessity Statement*: Patient requires hospitalization for continued care given septic shock, continued pressor and vent support given drug overdose. Time Spent in Patient Care: Greater than 35 minutes (>than 50% of time spent in counselling and/or direct pt care on unit) . The high probability of a clinically significant, sudden or life threatening deterioration of the patient's [cardiovascular, respiratory, GI] system(s) required my full and direct attention, intervention and personal management. The critical care time is as shown. This time is in addition to time spent performing any reported procedures but includes the following: [x] Data and vital sign review and interpretation [x] Patient assessment, examination and intervention [x] Documentation [x] Medication orders and management Critical Care Time: Critical Care Time (min): 35 Coding Level of Care Code Acute Medical Case Worker for g Fwd Exam Comprehensive Diagnoses Acute hypercapnic respiratory failure J96.02 Septic shock A41.9; R65.21 Drug overdose T50.901A Encounter type: initial encounter Injury intent: accidental or unintentional GI bleed K92.2 GI bleed type/associated pathology: unspecified gastrointestinal hemorrhage type Transaminitis R74.01 Acute kidney injury N17.9 Hypoglycemia E16.2
[2020-04-02 09:09] LABS: INR 2.14 (0.8-1.2)
[2020-04-02 09:13] LABS: Albumin Level 3.4 g/dL (3.5-5.2); Alkaline Phosphatase 156 IU/L (40-130); Anion Gap 14.7 (5-19); Blood Urea Nitrogen 20 mg/dL (8-23); Calcium 7.6 mg/dL (8.5-10.5); Carbon Dioxide 19 mmol/L (22-29); Chloride 106 mmol/L (98-107); Globulin 1.8 g/dL (1.3-4.6); Glomerular Filtration Rate 51.2 mL/min (90-130); Glucose 175 mg/dL (65-115); Osmolality Calculated 289 mOsm/kg (285-295); Potassium 3.7 mmol/L (3.5-5.1); Sodium 136 mmol/L (136-145); Total Bilirubin 0.4 mg/dL (0.15-1.2); Total Protein 5.2 g/dL (6.6-8.7)
--- NOTE | 2020-04-02 09:19 | PC.CHAP ---
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 [] Patient/Family/Request visit [] Outpatient visit [] Follow-up visit [] Physician referral [] Code/Alert [] Routine visit [] Staff referral [] Actively dying [] Patient sleeping [] Family support [] [] Out of room [] Palliative care [] [] Receiving care in room [] Pre-surgical visit [] Trauma [] Long length of stay [x] ICU visit [] Other: Relational/Emotional Strength [] Patient feels connected with others/family/visitors/staff [] Distress [] Loneliness/isolation [] Abandonment Spirituality of Patient [] Person of Verito [] Attends Mandaeism of their Verito [] Believes in Prayer [] Reads Bible or Oriental Orthodox materials [] There are Spiritual issues to be addressed Manager Retention Interventions [x] Prayer [] Active listening [] Non-anxious presence [] Spiritual/emotional support [] Crisis/trauma care [] Spiritual counseling [] Bereavement support [] Provided bereavement packet [] Provided Bible/devotional materials [] Provided toy/stuffed animal, coloring book to patient or family member [] Provided Communion [] Anointing/[place] [] Salvation [x] Completed spiritual assessment [] Other: Impact on Illness or Injury [] Angry [] Fearful [] Anxious [] Often cries [] Exhaustion [] Unable to work [] Unable to attend religion [] Unable to walk/stand [] Unable to read [] Unable to drive [] Unable to eat/drink [] Unable to sleep [] Unable to be with family [] Patient intubated [] Other: Summary Time spent with patient
[2020-04-02 09:24] LABS: Alanine Aminotransferase 1494 U/L (0-41)
[2020-04-02 09:27] LABS: Aspartate Amino Transferase 1415 U/L (0-40)
[2020-04-02 10:48] LABS: Glucose Point of Care 140 mg/dL (70-110)
--- NOTE | 2020-04-02 10:53 | PC.NURSE ---
call to physician vitals signs HR: 92 BP:87/61 02: 96 on 24% FIO2 temp: 100.6 Called and informed of patient vital signs, Levophed at 12mcg. no new orders at this time.
[2020-04-02] MEDS: dextrose 5%-sod chloride 0.45% 1,000 ML 150 ML IV (11:57)
--- NOTE | 2020-04-02 12:35 | PC.NURSE ---
at bedside at bedside requesting to speak with Dr. Dr. Edwards informed. brought clothes, phone, dentures, lotion, shoes. left at bedside with patient.
[2020-04-02 12:46] LABS: Albumin Level 3.1 g/dL (3.5-5.2); Alkaline Phosphatase 152 IU/L (40-130); Blood Urea Nitrogen 23 mg/dL (8-23); Calcium 7.5 mg/dL (8.5-10.5); Carbon Dioxide 18 mmol/L (22-29); Chloride 109 mmol/L (98-107); Globulin 1.9 g/dL (1.3-4.6); Glomerular Filtration Rate 55.8 mL/min (90-130); Glucose 119 mg/dL (65-115); Osmolality Calculated 287 mOsm/kg (285-295); Sodium 136 mmol/L (136-145); Total Bilirubin 0.4 mg/dL (0.15-1.2)
[2020-04-02 13:05] LABS: Glucose Point of Care 100 mg/dL (70-110)
[2020-04-02 13:09] LABS: Alanine Aminotransferase 1404 U/L (0-41)
[2020-04-02 13:11] LABS: INR 2.28 (0.8-1.2)
[2020-04-02 13:13] LABS: Anion Gap 12.6 (5-19); Potassium 3.6 mmol/L (3.5-5.1)
[2020-04-02 13:14] LABS: Aspartate Amino Transferase 1055 U/L (0-40)
[2020-04-02 14:38] LABS: Hematocrit 45.4 % (42.0-52.0); Hemoglobin 15.1 g/dL (11.7-16.6)
[2020-04-02 14:50] LABS: Chloride 110 mmol/L (98-107); INR 2.43 (0.8-1.2); Potassium 3.6 mmol/L (3.5-5.1); Sodium 137 mmol/L (136-145)
[2020-04-02 15:13] LABS: Albumin Level 3.1 g/dL (3.5-5.2); Alkaline Phosphatase 146 IU/L (40-130); Anion Gap 11.6 (5-19); Blood Urea Nitrogen 23 mg/dL (8-23); Calcium 7.5 mg/dL (8.5-10.5); Carbon Dioxide 19 mmol/L (22-29); Creatinine Clr Calc Pharmacy 41.4347; Globulin 1.8 g/dL (1.3-4.6); Glomerular Filtration Rate 61.1 mL/min (90-130); Glucose 117 mg/dL (65-115); Osmolality Calculated 289 mOsm/kg (285-295); Total Bilirubin 0.4 mg/dL (0.15-1.2); Total Protein 4.9 g/dL (6.6-8.7)
[2020-04-02] MEDS: sodium chloride 0.9% (100 ml) 100 ML (17:07)
[2020-04-02 17:17] LABS: Fibrinogen 151 mg/dL (174-498)
[2020-04-02 19:07] LABS: Alanine Aminotransferase 1225 U/L (0-41); Aspartate Amino Transferase 859 U/L (0-40)
[2020-04-02] MEDS: norepinephrine 8 MG in dextrose 5 % 500 ML 53.3 MG IV (20:11)
[2020-04-02 20:57] LABS: INR 2.07 (0.8-1.2)
[2020-04-02 21:08] LABS: Albumin Level 3.1 g/dL (3.5-5.2); Alkaline Phosphatase 134 IU/L (40-130); Anion Gap 11.7 (5-19); Aspartate Amino Transferase 598 U/L (0-40); Blood Urea Nitrogen 21 mg/dL (8-23); Calcium 7.7 mg/dL (8.5-10.5); Carbon Dioxide 20 mmol/L (22-29); Chloride 106 mmol/L (98-107); Glomerular Filtration Rate 75.5 mL/min (90-130); Glucose 121 mg/dL (65-115); Osmolality Calculated 282 mOsm/kg (285-295); Potassium 3.7 mmol/L (3.5-5.1); Sodium 134 mmol/L (136-145); Total Bilirubin 0.6 mg/dL (0.15-1.2); Total Protein 5.1 g/dL (6.6-8.7)
[2020-04-02 21:23] LABS: Glucose Point of Care 83 mg/dL (70-110)
[2020-04-02 21:23] LABS: Glucose Point of Care 78 mg/dL (70-110)
[2020-04-02 21:23] LABS: Glucose Point of Care 80 mg/dL (70-110)
[2020-04-02 21:30] LABS: Alanine Aminotransferase 1210 U/L (0-41)
[2020-04-02 21:48] LABS: Glucose Point of Care 86 mg/dL (70-110)
[2020-04-03] VITALS (24 sets, daily range): BP systolic 81–131; BP diastolic 56–79; PULSE 72–107; RESP 11–19; TEMP 36.7–37.5; O2SAT 77–99
[2020-04-03 00:11] LABS: Glucose Point of Care 86 mg/dL (70-110)
[2020-04-03] MEDS: pantoprazole 40 mg SDV IV ×2 (01:45→16:15)
[2020-04-03 04:24] LABS: ABG PCO2 36.3 mmHg (35-45); ABG PH Result 7.38 (7.35-7.45); Arterial Blood Gas Hematocrit 45.6 % (42-52); Base Excess ABG -3.4 mmol/L (-2.0-2.0); Blood Gas Allen Test Pos; Blood Gas Operator Identificat JB; Blood Gas Sample Site Radial, right; Blood Gas Sample Type Arterial; HCO3 ABG 21.2 mmol/L (22-26); Oxygen Device VENT; PO2 ABG 85.6 mmHg (80.0-100.0)
[2020-04-03] MEDS: ciprofloxacin 400 MG/200 ML PREMIX 200 MG IV ×2 (04:29→16:37)
[2020-04-03] MEDS: metroNIDAZOLE IV 500 MG/100 ML PREMIX 100 MG IV ×3 (04:30→20:44)
[2020-04-03] MEDS: lanolin oint 7 gm 1 APPLIC TOPICAL (04:30)
[2020-04-03 04:57] LABS: Hematocrit 43.9 % (42.0-52.0); Hemoglobin 14.4 g/dL (11.7-16.6); Mean Corpuscular HGB Conc 32.8 g/dL (30.0-36.0); Mean Corpuscular Hemoglobin 29.4 pg (28.0-34.0); Mean Corpuscular Volume 89.8 fL (80-94); Mean Platelet Volume 9.5 fL (7.4-10.4); Platelet Count 106 10^3/cmm (130-400); Red Blood Count 4.89 10^6/uL (4.1-5.3); Red Cell Distribution Width 15.2 % (12.1-15.1); White Blood Count 17.9 10^3/uL (4.0-10.0)
[2020-04-03 05:07] LABS: Fibrinogen 190 mg/dL (174-498)
[2020-04-03 05:17] LABS: Albumin Level 2.9 g/dL (3.5-5.2); Alkaline Phosphatase 115 IU/L (40-130); Aspartate Amino Transferase 435 U/L (0-40); Blood Urea Nitrogen 21 mg/dL (8-23); Calcium 7.3 mg/dL (8.5-10.5); Carbon Dioxide 21 mmol/L (22-29); Chloride 106 mmol/L (98-107); Globulin 1.8 g/dL (1.3-4.6); Glomerular Filtration Rate 97.6 mL/min (90-130); Glucose 78 mg/dL (65-115); Osmolality Calculated 286 mOsm/kg (285-295); Sodium 137 mmol/L (136-145); Total Bilirubin 0.8 mg/dL (0.15-1.2); Total Protein 4.7 g/dL (6.6-8.7)
[2020-04-03 05:24] LABS: Anion Gap 13.6 (5-19); Potassium 3.6 mmol/L (3.5-5.1)
[2020-04-03 05:28] LABS: Alanine Aminotransferase 1079 U/L (0-41)
[2020-04-03 05:36] LABS: Slide Review Slide Review Perform
[2020-04-03 05:38] LABS: Absolute Segmented Neutrophil 6.6 10/cmm (1.6-7.1); Band Neutrophils Absolute 9.5 10^3/cmm (0.0-1.2); Lymphocytes 5 %; Monocytes Absolute 0.7 10^3/cmm (0.1-0.6); Segmented Neutrophils 37 %; Total Cells Counted 100 (0-100)
[2020-04-03 05:39] LABS: Absolute Neutrophil 16.1 10^3/cmm (1.4-6.5); Dohle Bodies Trace; Eosinophils 0 %; Platelet Estimate Decreased (Normal); Toxic Granulation 1+
--- NOTE | 2020-04-03 06:00 | XR_ITS ---
WS: [id number] PORTABLE CHEST HISTORY: on vent support COMPARISON: 04/01/2020. Nasogastric and endotracheal tubes are in good position. Moderate pulmonary hyperinflation. Benign granuloma RIGHT lower lobe. No pneumonia. No pleural effusi on or pneumothorax. Cardiac size: Normal. Mediastinum/Aorta: Mildly enlarged pulmonary arteries probably related to pulmonary hypertension. No osseous abnormality seen. XR/XR chest 1V portable [id number] IMPRESSION: 1. Nasogastric and endotracheal tubes are in good position. 2. No pneumonia. 3. Severe chronic emphysema.
--- NOTE | 2020-04-03 07:37 | P.PN_ITS ---
Subjective Subjective: Interval history: Patient did well overnight, received 1 unit of PRBCs and 1 unit of FFPs, no further bleeding noted. Able to wean pressor requirement significantly, down to levophed at 2 mcg/hr. Awake, alert, consistently following commands, no requirement for sedation. Labs improved this AM, including LFTs. VSS, afebrile as of midnight. Had 900 mL urine output overnight. Anticipate extubation today. Medications: Reviewed: Yes Medication Review Details: Active Medications Generic Name Dose Route Start Last Admin Trade Name Freq PRN Reason Stop Dose Admin Acetaminophen 325 mg 04/02/20 14:12 Acetaminophen 32 5 Mg Tablet PO Q6H PRN Mild Pain or incr eased temp Dextrose 25 ml 04/02/20 03:59 Dextrose 50% Syr megan 50 Ml IVP ONCE PRN hypoglycemia prot ocol Protocol Dextrose 50 ml 04/02/20 03:59 Dextrose 50% Syr megan 50 Ml IVP PRN PRN hypoglycemia prot ocol Protocol Glucagon 1 mg 04/02/20 03:59 Glucagon 1 Mg/Ml Inj 1 Ml IM ONCE PRN Adult Acute Hypog lycemia Prot. Protocol Dextrose 500 mls @ 100 mls /hr 04/02/20 03:59 D5w IV ONCE PRN Adult Acute Hypog lycemia Prot Protocol Ciprofloxacin/Dext kenrick 400 mg in 200 mls @ 200 mls/hr 04/02/20 05:00 04/03/20 04:29 Cipro IV 200 mls/hr Q12H OTILIA Administration Protocol Metronidazole 500 mg in 100 mls @ 100 mls/hr 04/02/20 05:00 04/03/20 04:30 Flagyl Iv IV 100 mls/hr Q8H OTILIA Administration Protocol Vasopressin 100 un it/ Sodium 100 mls @ 0 mls/h r 04/02/20 16:30 04/03/20 01:15 Chloride IV 0 unit/min .Q0M OTILIA 0 mls/hr Titration Protocol Per Protocol Norepinephrine Bit artrate 8 mg 508 mls @ 0 mls/h r 04/02/20 20:00 04/03/20 05:29 / Dextrose IV 2 mcg/min .Q0M OTILIA 7.6 mls/hr Titration Protocol Per Protocol Lanolin 1 applic 04/03/20 04:19 04/03/20 04:30 Lanolin Oint 7 G m TOPICAL 1 applic PRN PRN Administration DRYNESS Pantoprazole Sodiu m 40 mg 04/02/20 02:45 04/03/20 01:45 Pantoprazole 40 Mg Sdv IV 40 mg Q12H OTILIA Administration citalopram Allergy (Verified 04/01/20 23:10) Unknown codeine Allergy (Verified 04/01/20 23:10) ADR-Itching esomeprazole [From Nexium] Allergy (Verified 04/01/20 23:10) Unknown ketorolac [From Toradol] Allergy (Verified 04/01/20 23:10) Unknown omeprazole Allergy (Verified 04/01/20 23:10) Unknown Penicillins Allergy (Verified 04/01/20 23:10) Unknown ranitidine Adverse Reaction (Verified 04/01/20 23:10) ADR-Headache Vitals/I&O/Wt Last Vital Signs Temp 99.1 F 04/03/20 04:00 Pulse 82 04/03/20 06:00 Resp 15 04/03/20 05:35 BP 104/71 04/03/20 04:00 Pulse Ox 98 04/03/20 04:00 04/02/20 04/03/20 04/03/20 22:59 06:59 14:59 Intake Total 1405.523 / 2879.534 183.484 / 3063.018 Output Total 850 / 1850 500 / 2350 Balance 555.523 / 1029.534 -316.516 / 713.018 Weight last 48 hrs Weight 46.266 kg Weight 46.493 kg Weight 46.493 kg Weight 65.771 kg Physical Exam Const: COMMON NORMALS: no acute distress and alert GENERAL APPEARANCE: comfortable and patient mechanically ventilated NUTRITIONAL APPEARANCE: thin ORIENTATION/CONSCIOUSNESS: Yes awake HENMT: COMMON NORMALS: normocephalic, atraumatic and moist oral mucous membranes HEAD & SCALP: normocephalic and atraumatic OTHER: -NGT in place, bilious drainage Eye: COMMON NORMALS: Equal, round and reactive pupils present, EOMs intact bilaterally and conjunctivae normal CONJUNCTIVA: Yes conjunctivae normal PUPIL: Yes Equal, round and reactive pupils present Neck/C-Spine: COMMON NORMALS: full ROM GENERAL: Yes normal visual inspection and Yes trachea midline Resp: COMMON NORMALS: normal respiratory effort, No retractions and No use of accessory muscles EFFORT & INSPECTION: Yes able to speak in complete sentences, Yes symmetric chest movement and No tachypneic OTHER: -diminished breath sounds bilaterally though symmetrical air entry -on vent support: 400/24%/5 Cardio: COMMON NORMALS: regular rate, regular rhythm, S1 normal heart sound pr esent, S2 normal heart sound present and No murmurs present (Cardio) RATE: regular rate RHYTHM: regular rhythm HEART SOUNDS: S1 normal heart sound present and S2 normal heart sound present OTHER: -normotensive; on levophed @ 2 mcg/hr GI: COMMON NORMALS: Normal to inspection, nondistended, normoactive bowel sounds present and Soft to palpation PALPATION: Yes Soft to palpation RECTAL EXAM: Yes visual inspection normal (brown stool in rectal vault), Yes normal sphincter tone and No hemorrhoids : BLADDER/KIDNEY EXAM: Yes catheter in place Extremity: COMMON NORMALS: normal to inspection, no clubbing, cyanosis or edema and no pedal edema Neuro: COMMON NORMALS: moves all extremities, no focal motor deficits and no sensory deficits noted SENSORIUM/ORIENTATION: Yes alert PUPIL EXAM: Fix ed/non-reactive: bilateral OTHER: -unable to assess due to sedation Psych: COMMON NORMALS: mental status grossly normal, Normal thought process present, cooperative and normal affect THOUGHT PROCESS: Normal thought process present Skin: COMMON NORMALS: no rashes or lesions noted, no jaundice, no petechiae and no mottling GENERAL SKIN EXAM: no rashes or lesions noted Urinary Catheter Management^: [place]: Cath Placed During This Visit: yes Reason for Continuing Indwelling Catheter: Accurate Measurement of Urinary Output in Critically Ill Patients Urinary Catheter Date of Insertion: 04/02/20 Urinary Catheter Time of Insertion: 00:11 Data : 04/03/20 04:12 04/03/20 04:12 Micro: Microbiology 04/02/20 08:25 Stool Lactoferrin - Final Stool - Stool Aspirate 04/02/20 08:46 Blood Culture - Preliminary Blood SPECIMEN COLLECTED 04/02/20 08:40 Blood Culture - Preliminary Blood SPECIMEN COLLECTED A&P Assessment and plan (1) Acute hypercapnic respiratory failure: -vent support, intubated in the field prior to arrival -ABGs noted, imaging reviewed; wnl today -daily CXR, ABG while on vent -has not required sedation while on vent -weaning trial today, anticipate extubation today -continue to monitor respiratory status -NPO -decreased responsiveness for unknown period of time so unclear what residual effects are currently including neuro but is alert, following commands consistently Status: Acute (2) Septic shock: -as evidenced by lactic acidosis, leukocytosis, hypotension, hypothermia with noted MARIANA, acute hepatic impairment. Temp normalized, BP improved, leukocytosis decreasing -on dual antibiotic therapy due to noted evidence of ileus, colitis, sepsis with ciprofloxacin, metronidazole -f/u blood cx, sputum cx -off warming protocol -off IVF, weaning off pressor support; continue to monitor BP closely -telemetry monitoring Status: Acute (3) Drug overdose: -Reported overdose on unknown quantity of Xanax and Benadryl; likely accidental per -Subsequently noted to have decreased responsiveness and intubated in the field by EMS prior to transfer to the hospital; remains on ventilator support -UDS: + benzos, THC; negative EtOH, salicylates, acetaminophen -will need Psychiatric evaluation once medically stable Status: Acute Qualifiers: Encounter type: initial encounter Injury intent: accidental or unintent ional Qualified Code(s): T50.901A - Poisoning by unspecified drugs, medicaments and biological substances, accidental (unintentional), initial encounter (4) GI bleed: -small quantity of NGT bloody drainage noted in ED; noted blood in stool x 2 -prior hx of GERD -on PPI -hold NSAIDs (previously on ibuprofen), AC -stable Hg, continue to monitor -in light for hepatic impairment, s/p 1 unit of FFPs and 1 unit of PRBCs; stable Hg, no further bleeding noted overnight Status: Acute Qualifiers: GI bleed type/associated pathology: unspecified gastrointestinal hemorrhage type Qualified Code(s): K92.2 - Gastrointestinal hemorrhage, unspecified (5) Transaminitis: -unclear etiology though could be related to hx of hepatitis C, septic shock -continue to trend LFTs; improving -imaging reviewed including US, CT scan -CPK wnl, negative salicylates and acetaminophen Status: Acute (6) Acute kidney injury: -off IVF -likely related to septic shock -renal function normalized, urine output appropriate Status: Resolved (7) Hypoglycemia: -BG as low as 30, received amp of D50 -hypoglycemia precautions, on D5, accuchecks -no prior hx of DM Status: Resolved Additional A&P Information -Malnourished with noted unintentional weight loss; BMI-16 kg/m2 -CLD after extubation, advance diet as tolerated -GI ppx with PPI -DVT ppx with SCDs -Dispo: home -Code status: FULL code - Mary Anne updated at bedside -continue ICU care Attestations Medical Necessity Statement*: Patient requires hospitalization for continued management of critical illness, weaning trial today, needs continued IV antibiotics, monitoring of hemodynamic status, LFTs. Time Spent in Patient Care: 16 - 35 minutes (>than 50% of time spent in counselling and/or direct pt care on unit) . Coding Level of Care Code Acute Supervisor Forming And Tempering for [facility]g Fwd Diagnoses Acute hypercapnic respiratory failure J96.02 Septic shock A41.9; R65.21 Drug overdose T50.901A Encounter type: initial encounter Injury intent: accidental or unintentional GI bleed K92.2 GI bleed type/associated pathology: unspecified gastrointestinal hemorrhage type Transaminitis R74.01 Acute kidney injury N17.9 Hypoglycemia E16.2
--- NOTE | 2020-04-03 08:24 | PC.RESP ---
extubated pt extubated to room air. tolerated well
--- NOTE | 2020-04-03 08:26 | PC.NURSE ---
Extubation Patient was extubated at 0820 and oxygen level was 96% on room air. All other vitals are within normal limits. Norepinephrine is still running per orders. No complaints were noted. Patient tolerated well
[2020-04-03 12:24] LABS: Glucose Point of Care 74 mg/dL (70-110)
[2020-04-03 12:24] LABS: Glucose Point of Care 88 mg/dL (70-110)
--- NOTE | 2020-04-03 18:30 | PC.NURSE ---
This nurse noted that patients eyes were red and puffy. When nurse asked patient he stated that they were itching and they are like that at home. notified. New orders.
[2020-04-03] MEDS: diphenhydrAMINE 25 mg Capsule PO (20:44)
[2020-04-04] VITALS (8 sets, daily range): BP systolic 83–115; BP diastolic 55–74; PULSE 60–79; RESP 16–20; TEMP 35.3–36.9; O2SAT 87–96
[2020-04-04 00:07] LABS: Glucose Point of Care 82 mg/dL (70-110)
[2020-04-04 04:42] LABS: Basophils % 0.3 %; Eosinophils % 0.1 %; Hematocrit 41.3 % (42.0-52.0); Hemoglobin 13.9 g/dL (11.7-16.6); Lymphocytes % 6.1 %; Mean Corpuscular HGB Conc 33.7 g/dL (30.0-36.0); Mean Corpuscular Volume 89.2 fL (80-94); Mean Platelet Volume 9.7 fL (7.4-10.4); Monocytes # 0.7 10^3/uL (0.2-0.9); Monocytes % 4.5 %; Neutrophils % 88.1 %; Nucleated Red Blood Cells % 0 %; Platelet Count 98 10^3/cmm (130-400); Red Blood Count 4.63 10^6/uL (4.1-5.3); White Blood Count 15.9 10^3/uL (4.0-10.0)
[2020-04-04 05:04] LABS: INR 1.65 (0.8-1.2)
[2020-04-04 05:07] LABS: Lactate (Lactic Acid level) 1.8 mmol/L (0.5-2.2)
--- NOTE | 2020-04-04 05:09 | PC.NURSE ---
Patient refusing anymore IV antibiotics. States I has had my stomach upset and I could not sleep because I have been up all night .
[2020-04-04 05:11] LABS: Albumin Level 3.2 g/dL (3.5-5.2); Alkaline Phosphatase 101 IU/L (40-130); Anion Gap 8.7 (5-19); Aspartate Amino Transferase 261 U/L (0-40); Blood Urea Nitrogen 15 mg/dL (8-23); Calcium 8.4 mg/dL (8.5-10.5); Carbon Dioxide 28 mmol/L (22-29); Chloride 102 mmol/L (98-107); Globulin 2.2 g/dL (1.3-4.6); Glomerular Filtration Rate 113.9 mL/min (90-130); Glucose 75 mg/dL (65-115); Osmolality Calculated 280 mOsm/kg (285-295); Potassium 3.7 mmol/L (3.5-5.1); Sodium 135 mmol/L (136-145); Total Bilirubin 1.3 mg/dL (0.15-1.2); Total Protein 5.4 g/dL (6.6-8.7)
[2020-04-04 05:24] LABS: Alanine Aminotransferase 949 U/L (0-41)
--- NOTE | 2020-04-04 07:47 | PM.PN ---
Subjective Subjective: Interval history: Weaned off levophed, hemodynamically stable, afebrile, on RA, had 650 mL urine output and 4 BMs overnight. Declined AM antibiotic doses. No apparent distress, no acute overnight events reported, eager to go home today. Pending psychiatric evaluation. Medications: Reviewed: Yes Medication Review Details: Active Medications Generic Name Dose Route Start Last Admin Trade Name Freq PRN Reason Stop Dose Admin Acetaminophen 325 mg 04/02/20 14:12 Acetaminophen 32 5 Mg Tablet PO Q6H PRN Mild Pain or incr eased temp Dextrose 25 ml 04/02/20 03:59 Dextrose 50% Syr megan 50 Ml IVP ONCE PRN hypoglycemia prot ocol Protocol Dextrose 50 ml 04/02/20 03:59 Dextrose 50% Syr megan 50 Ml IVP PRN PRN hypoglycemia prot ocol Protocol Diphenhydramine HC l 25 mg 04/03/20 20:14 04/03/20 20:44 Diphenhydramine 25 Mg Capsule PO 25 mg Q6H PRN Administration ITCHING Glucagon 1 mg 04/02/20 03:59 Glucagon 1 Mg/Ml Inj 1 Ml IM ONCE PRN Adult Acute Hypog lycemia Prot. Protocol Dextrose 500 mls @ 100 mls /hr 04/02/20 03:59 D5w IV ONCE PRN Adult Acute Hypog lycemia Prot Protocol Ciprofloxacin/Dext kenrick 400 mg in 200 mls @ 200 mls/hr 04/02/20 05:00 04/04/20 05:08 Cipro IV Not Given Q12H OTILIA Protocol Metronidazole 500 mg in 100 mls @ 100 mls/hr 04/02/20 05:00 04/04/20 05:08 Flagyl Iv IV Not Given Q8H TOILIA Protocol Norepinephrine Bit artrate 8 mg 508 mls @ 0 mls/h r 04/02/20 20:00 04/03/20 14:00 / Dextrose IV 0 mcg/min .Q0M OTILIA 0 mls/hr Titration Protocol Per Protocol Lanolin 1 applic 04/03/20 04:19 04/03/20 04:30 Lanolin Oint 7 G m TOPICAL 1 applic PRN PRN Administration DRYNESS Naphazoline HCl/Ph eniramine Maleate 1 drop 04/03/20 20:14 Naphazoline/Phen iramine Op Soln 15 Ml Btl EYE-BOTH QID PRN ITCHING Pantoprazole Sodiu m 40 mg 04/04/20 09:[address] 40 Mg Tablet PO DAILY OTILIA citalopram Allergy (Verified 04/01/20 23:10) Unknown codeine Allergy (Verified 04/01/20 23:10) ADR-Itching esomeprazole [From Nexium] Allergy (Verified 04/01/20 23:10) Unknown ketorolac [From Toradol] Allergy (Verified 04/01/20 23:10) Unknown omeprazole Allergy (Verified 04/01/20 23:10) Unknown Penicillins Allergy (Verified 04/01/20 23:10) Unknown ranitidine Adverse Reaction (Verified 04/01/20 23:10) ADR-Headache Vitals/I&O/Wt Last Vital Signs Temp 97.9 F 04/04/20 04:00 Pulse 60 04/04/20 06:00 Resp 16 04/04/20 00:00 BP 105/70 04/04/20 04:00 Pulse Ox 96 04/04/20 04:00 04/03/20 04/04/20 04/04/20 22:59 06:59 14:59 Intake Total 650 / 705.607 Output Total 300 / 800 450 / 1250 Balance 350 / -94.393 -450 / -544.393 Weight last 48 hrs Weight 49.169 kg Weight 46.266 kg Physical Exam Const: COMMON NORMALS: no acute distress, patient oriented x3 and alert GENERAL APPEARANCE: cooperative and comfortable NUTRITIONAL APPEARANCE: thin ORIENTATION/CONSCIOUSNESS: Yes awake HENMT: COMMON NORMALS: normocephalic, atraumatic and moist oral mucous membranes HEAD & SCALP: normocephalic and atraumatic Eye: COMMON NORMALS: Equal, round and reactive pupils present, EOMs intact bilaterally and conjunctivae normal CONJUNCTIVA: Yes conjunctivae normal PUPIL: Yes Equal, round and reactive pupils present Neck/C-Spine: COMMON NORMALS: full ROM GENERAL: Yes normal visual inspection and Yes trachea midline Resp: COMMON NORMALS: normal respiratory effort, No retractions and No use of accessory muscles EFFORT & INSPECTION: Yes able to speak in complete sentences, Yes symmetric chest movement and No tachypneic OTHER: -diminished breath sounds bilaterally though symmetrical air entry -on RA Cardio: COMMON NORMALS: regular rate, regular rhythm, S1 normal heart sound present, S2 normal heart sound present and No murmurs present (Cardio) RATE: regular rate RHYTHM: regular rhythm HEART SOUNDS: S1 normal heart sound present and S2 normal heart sound present OTHER: -normotensive GI: COMMON NORMALS: Normal to inspection, nondistended, normoactive bowel sounds present Extremity: COMMON NORMALS: normal to inspection, no clubbing, cyanosis or edema and no pedal edema Neuro: COMMON NORMALS: patient oriented x3, moves all extremities, no focal motor deficits and no sensory deficits noted SENSORIUM/ORIENTATION: Yes alert PUPIL EXAM: Fixed/non-reactive: bilateral Psych: COMMON NORMALS: mental status grossly normal, Normal thought process present, cooperative and normal affect THOUGHT PROCESS: Normal thought process present Skin: COMMON NORMALS: no rashes or lesions noted, no jaundice, no petechiae and no mottling GENERAL SKIN EXAM: no rashes or lesions noted Urinary Catheter Management^: [place]: Cath Placed During This Visit: yes, but has since been removed by the nurse Reason for Continuing Indwelling Catheter: Accurate Measurement of Urinary Output in Critically Ill Patients Urinary Catheter Date of Insertion: 04/02/20 Urinary Catheter Time of Insertion: 00:11 Date Urinary Catheter Removed: 04/03/20 Time Urinary Catheter Discontinued: 12:00 Data : 04/04/20 04:15 04/04/20 04:15 Micro: Microbiology 04/02/20 08:46 Blood Culture - Preliminary Blood NEGATIVE TO DATE 04/02/20 08:40 Blood Culture - Preliminary Blood NEGATIVE TO DATE A&P Assessment and plan (1) Drug overdose: -Reported overdose on unknown quantity of Xanax and Benadryl; likely accidental per -Subsequently noted to have decreased responsiveness and intubated in the field by EMS prior to transfer to the hospital; remains on ventilator support -UDS: + benzos, THC; negative EtOH, salicylates, acetaminophen -Psychiatric evaluation today Status: Acute Qualifiers: Encounter type: initial encounter Injury intent: accidental or unintentional Qualified Code(s): T50.901A - Poisoning by unspecified drugs, medicaments and biological substances, accidental (unintentional), initial encounter (2) Acute hypercapnic respiratory failure: -off vent support, extubated on 04/03 -on RA -continue to monitor respiratory status Status: Acute (3) Septic shock: -as evidenced by lactic acidosis, leukocytosis, hypotension, hypothermia with noted MARIANA, acute hepatic impairment. Temp normalized, BP improved, leukocytosis decreasing, LFTs improving, MARIANA and lactic acidosis resolved -on dual antibiotic therapy due to noted evidence of ileus, colitis, sepsis with ciprofloxacin, metronidazole -blood cx: prelim negative -off IVF, weaned off pressor support -telemetry monitoring Status: Resolved (4) GI bleed: -small quantity of NGT bloody drainage noted in ED; noted blood in stool x 2; no further bleeding x > 24 hrs -s/p 1 unit of FFPs and 1 unit of PRBCs -prior hx of GERD -on PPI -hold NSAIDs (previously on ibuprofen), AC -stable Hg, continue to monitor Status: Resolved Qualifiers: GI bleed type/associated pathology: unspecified gastrointestinal hemorrhage type Qualified Code(s): K92.2 - Gastrointestinal hemorrhage, unspecified (5) Transaminitis: -unclear etiology though could be related to hx of hepatitis C, septic shock -continue to trend LFTs; improving -imaging reviewed including US, CT scan -CPK wnl, negative salicylates and acetaminophen Status: Acute (6) Acute kidney injury: -off IVF -likely related to septic shock -renal function normalized, urine output appropriate Status: Resolved (7) Hypoglycemia: -BG as low as 30, received amp of D50 -hypoglycemia precautions, on D5, accuchecks -no prior hx of DM Status: Resolved Additional A&P Information -Malnourished with noted unintentional weight loss; BMI-16 kg/m2 -GI soft diet as tolerated -GI ppx with PPI -DVT ppx with SCDs, no AC for now due to thrombocytopenia -Dispo: home -Code status: FULL code - Mary Anne updated at bedside -possible d/c home if cleared by psychiatry Attestations Medical Necessity Statement*: Patient requires hospitalization for continued monitoring of LFTs, hemodynamic status, continued antibiotic treatment, pending psychiatry evaluation. Time Spent in Patient Care: 16 - 35 minutes (>than 50% of time spent in counselling and/or direct pt care on unit). Coding Level of Care Code Acute Privacy Director for [facility] Fwd Exam Comprehensive Diagnoses Drug overdose T50.903N Encounter type: initial encounter Injury intent: accidental or unintentional Acute hypercapnic respiratory failure J96.02 Septic shock A41.9; R65.21 GI bleed K92.2 GI bleed type/associated pathology: unspecified gastrointestinal hemorrhage type Transaminitis R74.01 Acute kidney injury N17.9 Hypoglycemia E16.2
[2020-04-04 08:33] LABS: Glucose Point of Care 75 mg/dL (70-110)
[2020-04-04] MEDS: pantoprazole DR 40 mg Tablet PO (10:10)
[2020-04-04 12:00] LABS: Glucose Point of Care 100 mg/dL (70-110)
--- NOTE | 2020-04-04 12:44 | PC.NURSE ---
Dr. Rahman called to see if he will see pt so they can be discharged.
--- NOTE | 2020-04-04 13:02 | P.DS_ITS ---
Discharge Providers Date of Admission: 04/02/20 03:59 Date of Discharge: April 04, 2020 Attending Provider at Admission: Iglesia Shafer Attending Provider at Discharge: Annel Edwards MD Consults: Psychiatry, Dr. Rahman Primary Care Provider: Richard Ulrich Diagnoses at Discharge Discharge Diagnosis (1) Drug overdose: Status: Acute Permanent problem details: -Reported overdose on unknown quantity of Xanax and Benadryl; likely accidental per -Subsequently noted to have decreased responsiveness and intubated in the field by EMS prior to transfer to the hospital; weaned off ventilator support, stable on RA -UDS: + benzos, THC; negative EtOH, salicylates, acetaminophen -Psychiatric evaluation today; ok to d/c home, at home can provide appropriate supervision and takes care of dispensing his medications Qualifiers: Encounter type: initial encounter Injury intent: accidental or unintentional Qualified Code(s): T50.901A - Poisoning by unspecified drugs, medicaments and biological substances, accidental (unintentional), initial encounter (2) Acute hypercapnic respiratory failure: Status: Resolved (3) Septic shock: Status: Resolved (4) GI bleed: Status: Resolved Qualifiers: GI bleed type/associated pathology: unspecified gastrointestinal hemorrhage type Qualified Code(s): K92.2 - Gastrointestinal hemorrhage, unspecified (5) Transaminitis: Status: Acute Permanent problem details: -unclear etiology though could be related to hx of hepatitis C, septic shock -continue to trend LFTs; improving -imaging reviewed including US, CT scan -CPK wnl, negative salicylates and acetaminophen (6) Acute kidney injury: Status: Resolved (7) Hypoglycemia: Status: Resolved Other Information Additional DC diagnoses/information: -Malnourished with noted unintentional weight loss; BMI-16 kg/m2. Has been following up with GI specialist Reason for Visit Reason for Visit: UNRESPONSIVE / POSS OD Hospital Course Hospital Course Patient was admitted to the ICU on vent support after having been intubated in the field secondary to decreased responsiveness and noted respiratory depression. It seems that he had overdosed on unknown quantity of Xanax and Benadryl with noted evidence of benzodiazepines on his urine drug screen. He developed septic shock as evidenced by lactic acidosis, leukocytosis, hyp otension, hypothermia with associated acute kidney injury and acute liver impairment. Temperature normalized following warming protocol, he required pressor support, IV fluid hydration and was started on broad-spectrum IV antibiotics. He then was noted to develop bloody stools and a small amount of bloody drainage from his NG tube at which point he received 1 unit of FFP's and 1 unit of PRBCs particularly in light of septic shock and noted acute liver failure. He subsequently improved, hemodynamically stabilized with discontinuation of pressor support and IV fluid hydration. He was then weaned off ventilator support and has been on room air since then. Liver function has continued to improve consistently, renal function has normalized. Of note, he had significant hypoglycemia on admission which improved following an amp of D50 and BG has been normal for the rest of his hospital stay. Following transfusion of blood products, patient has had no further bleeding and Hg has been normal. He required psychiatric evaluation due to medication overdose. [place] catheter was discontinued once he was extubated and medically stable, he has been able to void independently without difficulty. Oral intake has been appropriate and he has remained hemodynamically stable throughout the tail end of his hospitalization. Once cleared by psychiatry he was discharged home with continued antibiotic therapy and instructions to follow-up with his primary care provider. He is counseled on need to seek medical attention immediately should any of his symptoms recur. Physical Exam Const: COMMON NORMALS: no acute distress, patient oriented x3 and alert GENERAL APPEARANCE: cooperative and comfortable NUTRITIONAL APPEARANCE: thin ORIENTATION/CONSCIOUSNESS: Yes awake HENMT: COMMON NORMALS: normocephalic, atraumatic and moist oral mucous membranes HEAD & SCALP: normocephalic and atraumatic Eye: COMMON NORMALS: Equal, round and reactive pupils present, EOMs intact bilaterally and conjunctivae normal CONJUNCTIVA: Yes conjunctivae normal PUPIL: Yes Equal, round and reactive pupils present Neck/C-Spine: COMMON NORMALS: full ROM GENERAL: Yes normal visual inspection and Yes trachea midline Resp: COMMON NORMALS: normal respiratory effort, No retractions and No use of accessory muscles EFFORT & INSPECTION: Yes able to speak in complete sentences, Yes symmetric chest movement and No tachypneic OTHER: -diminished breath sounds bilaterally though symmetrical air entry -on RA Cardio: COMMON NORMALS: regular rate, regular rhythm, S1 normal heart sound present, S2 normal heart sound present and No murmurs present (Cardio) RATE: regular rate RHYTHM: regular rhythm HEART SOUNDS: S1 normal heart sound present and S2 normal heart sound present OTHER: -normotensive GI: COMMON NORMALS: Normal to inspection, nondistended, normoactive bowel sounds present RECTAL EXAM: Yes visual inspection normal (brown stool in rectal vault), Yes normal sphincter tone and No hemorrhoids Extremity: COMMON NORMALS: normal to inspection, no clubbing, cyanosis or edema and no pedal edema Neuro: COMMON NORMALS: patient oriented x3, moves all extremities, no focal motor deficits and no sensory deficits noted SENSORIUM/ORIENTATION: Yes alert PUPIL EXAM: Fixed/non-reactive: bilateral Psych: COMMON NORMALS: mental status grossly normal, Normal thought process present, cooperative and normal affect THOUGHT PROCESS: Normal thought process present Skin: COMMON NORMALS: no rashes or lesions noted, no jaundice, no petechiae and no mottling GENERAL SKIN EXAM: no rashes or lesions noted Urinary Catheter Management^: [place]: Cath Placed During This Visit: yes, but has since been removed by the nurse Reason for Continuing Indwelling Catheter: Accurate Measurement of Urinary Output in Critically Ill Patients Urinary Catheter Date of Insertion: 04/02/20 Urinary Catheter Time of Insertion: 00:11 Date Urinary Catheter Removed: 04/03/20 Time Urinary Catheter Discontinued: 12:00 Discharge Data Data Completed and Pending: Completed Studies During Hospitalization Category Date Time Status CT abdomen pelvis w con* [id number] Rout ine Cat Scan 04/02/20 02:[address] head wo con* [id number] 0450 Urgent Cat Scan 04/01/20 23:01 Completed XR chest 1V migel ble [id number] Routine Exams 04/03/20 06:00 Completed XR chest 1V migel ble [id number] Urgent Exams 04/01/20 23:01 Completed US abdomen limite d [id number] Routine Ultrasound 04/02/20 04:23 Completed Pending at discharge Category Date Time Status ABO/Rh Type Stat Lab 04/02/20 14:25 Results Blood Culture Sta t Lab 04/02/20 08:46 Results Complete Blood Co unt w/Auto AM LABS Lab 04/05/20 04:00 Ordered Complete Crossmat ch Stat Lab 04/02/20 14:25 Results Comprehensive Met abolic Panel AM LA BS Lab 04/05/20 04:00 Ordered Frozen Plasma FZ <24 1st Cont Routi ne Lab 04/02/20 14:25 Results Leukocyte Reduced RBC Routine Lab 04/02/20 14:25 Results Miscellaneous Ayleen t Routine Lab 04/02/20 08:25 Ordered Miscellaneous Ayleen t Routine Lab 04/02/20 08:25 Ordered Sputum Culture an d Gram Stain Stat Lab 04/02/20 08:23 Uncollected Type and Screen S tat Lab 04/02/20 14:25 Results Labs from last 24 hours 04/04/20 04/04/20 04/04/20 11:58 08:30 04:15 WBC RBC Hgb Hct MCV MCH MCHC RDW Plt Count MPV Neut % (Auto) Lymph % (Auto) [place] % (Auto) Eos % (Auto) Baso % (Auto) Neut # (Auto) Lymph # (Auto) [place] # (Auto) Eos # (Auto) Baso # (Auto) Nucleated RBC % (a uto) Nucleated RBCs # PT INR Sodium Potassium Chloride Carbon Dioxide Anion Gap BUN Creatinine GFR Calculation Glucose POC Glucose 100 75 Calculated Osmolal ity Lactate 1.8 Calcium Total Bilirubin AST ALT Alkaline Phosphata se Total Protein Albumin Globulin 04/04/20 04/04/20 04/04/20 04:15 04:15 04:15 WBC 15.9 H RBC 4.63 Hgb 13.9 Hct 41.3 L MCV 89.2 MCH 30.0 MCHC 33.7 RDW 15.0 Plt Count 98 L MPV 9.7 Neut % (Auto) 88.1 Lymph % (Auto) 6.1 [place] % (Auto) 4.5 Eos % (Auto) 0.1 Baso % (Auto) 0.3 Neut # (Auto) 14.00 H Lymph # (Auto) 1.0 [place] # (Auto) 0.7 Eos # (Auto) 0.0 Baso # (Auto) 0.0 Nucleated RBC % (a uto) 0 Nucleated RBCs # 0.0 PT 20.10 H INR 1.65 H Sodium 135 L Potassium 3.7 Chloride 102 Carbon Dioxide 28 Anion Gap 8.7 BUN 15 Creatinine 0.7 GFR Calculation 113.9 Glucose 75 POC Glucose Calculated Osmolal ity 280 L Lactate Calcium 8.4 L Total Bilirubin 1.3 H AST 261 H ALT 949 H Alkaline Phosphata se 101 Total Protein 5.4 L Albumin 3.2 L Globulin 2.2 04/04/20 00:03 WBC RBC Hgb Hct MCV MCH MCHC RDW Plt Count MPV Neut % (Auto) Lymph % (Auto) [place] % (Auto) Eos % (Auto) Baso % (Auto) Neut # (Auto) Lymph # (Auto) [place] # (Auto) Eos # (Auto) Baso # (Auto) Nucleated RBC % (a uto) Nucleated RBCs # PT INR Sodium Potassium Chloride Carbon Dioxide Anion Gap BUN Creatinine GFR Calculation Glucose POC Glucose 82 Calculated Osmolal ity Lactate Calcium Total Bilirubin AST ALT Alkaline Phosphata se Total Protein Albumin Globulin Vitals: Last Vital Signs Temp 95.5 F L 04/04/20 12:00 Pulse 79 04/04/20 10:00 Resp 16 04/04/20 00:00 BP 109/74 04/04/20 12:00 Pulse Ox 87 L 04/04/20 12:00 Discharge Plan Discharge Patient Disposition: Home Condition: Stable Prescriptions: New metronidazole 500 mg Tablet 500 mg PO TID 5 Days Qty: 15 RF: 0 ciprofloxacin HCl 500 mg Tablet 500 mg PO BID Qty: 10 RF: 0 Continued tamsulosin 0.4 mg capsule 0.4 mg PO DAILY RF: 0 omega-3 fatty acids [Fish Oil Concentrate] 1,000 mg capsule 1,000 mg PO DAILY RF: 0 vitamin E mixed 1,000 unit capsule 1,000 unit PO DAILY RF: 0 pantoprazole 40 mg tablet,delayed release (DR/EC) 40 mg PO DAILY Qty: 30 RF: 0 Discontinued ibuprofen [Advil] 200 mg tablet 200 mg PO DAILY RF: 0 Discharge Orders: Discharge Order (Routine); Ordered 04/04/20 Ordered By: Annel Edwards Referrals: Richard Ulrich [Primary Care Provider] - 4-7 days Discharge Diet: Advance as tolerated, Low Fat and GI Soft Discharge Activity: Increase activity as tolerated Activity Restrictions/Additional Instructions: -Please continue to eat small frequent low-fat meals as tolerated Discharge Attestations Time Spent in Discharge Care*: greater than 30 min Specific Discharge Activities: educating patient, educating and/or supporting family/caregiver, discussing with pcp/other providers, discussing with case folder/social workers/dc planners, documenting/other paperwork and evaluating patient/reviewing data Status at Discharge: Cognitive status at discharge: cognitively intact , Behavioral status at discharge: cooperative and independent in ADL's , Functional status at discharge: independent ambulation Overall status at discharge: patient is progressing back to baseline Quality Metrics Clinical Quality Measures During this hospital stay, did patient experience: None Coding Level of Care Code Acute Wet Process Miller for [place] Fwd Exam Comprehensive Diagnoses Drug overdose T50.901A Encounter type: initial encounter Injury intent: accidental or unintentional Acute hypercapnic respiratory failure J96.02 Septic shock A41.9; R65.21 GI bleed K92.2 GI bleed type/associated pathology: unspecified gastrointestinal hemorrhage type Transaminitis R74.01 Acute kidney injury N17.9 Hypoglycemia E16.2
== END 2020-04-04 16:09 | disposition home or self-care (01) | DRG 917 ==
LOC: ER 04-02 01:19 → ICU 04-02 02:20
PROVIDERS: Admitting Provider Internal Medicine; Emergency Provider Emergency Medicine; PCP Family Medicine; Visit Provider Family Medicine
DX: T42.4X1A Poisoning by benzodiazepines, accidental (unintentional), initial encounter (principal); A41.9 Sepsis, unspecified organism; R65.21 Severe sepsis with septic shock; J96.02 Acute respiratory failure with hypercapnia; K56.7 Ileus, unspecified; E87.4 Mixed disorder of acid-base balance; G93.40 Encephalopathy, unspecified; N17.9 Acute kidney failure, unspecified; S36.119A Unspecified injury of liver, initial encounter; K92.2 Gastrointestinal hemorrhage, unspecified; E46 Unspecified protein-calorie malnutrition; Z68.1 Body mass index [BMI] 19.9 or less, adult; T45.0X1A Poisoning by antiallergic and antiemetic drugs, accidental (unintentional), initial encounter; B18.2 Chronic viral hepatitis C; K52.9 Noninfective gastroenteritis and colitis, unspecified; I95.9 Hypotension, unspecified; E16.2 Hypoglycemia, unspecified; Z96.641 Presence of right artificial hip joint; Z96.651 Presence of right artificial knee joint; Z87.891 Personal history of nicotine dependence; T68.XXXA Hypothermia, initial encounter; X58.XXXA Exposure to other specified factors, initial encounter; K21.9 Gastro-esophageal reflux disease without esophagitis; F12.90 Cannabis use, unspecified, uncomplicated
CPT/HCPCS: 12345; 36415; 36416; 36430; 36600; 51702; 70450; 71045; 74177; 76705; 80051; 80053; 80074; 80306; 80307; 82330; 82550; 82803; 82805; 82962; 83605; 83630; 85007; 85014; 85018; 85025; 85384; 85610; 86850; 86900; 86920; 86927; 87040; 87046; 87493; 93005; 94002; 94003; 94664; 94799; 97161; 99282; C9113; J0744; J3480; J3490; J7030; J7040; J7799; P9016; P9017; Q9967; S0030

== ENCOUNTER 2020-04-25 08:39 | Outpatient (CLI) | payer OTHER, SELFPAY ==
--- NOTE | 2020-04-25 08:45 | MR_ITS ---
WS: [id number] MRI/MRCP OF THE ABDOMEN WITHOUT GADOLINIUM ENHANCEMENT TECHNIQUE: Thin and thick slab MRCP, Axial T2, Coronal MRCP, Axial Dual Echo, and Axial 2-D Fiesta imaging was obtained. Coronal 2-D Fiesta imaging. CLINICAL INFORMATION: ACUTE PANCREATITIS;RT UPPER QUADRANT PAIN COMPARISON: None. FINDINGS: Prior cholecystectomy. Mild intrahepatic biliary ductal dilatation. Portal vein and splenic vein are normal. No evidence of pancreatic head mass or obstructing lesion. Prominent common bile duct proxima lly which tapers normally at the pancreatic head. No evidence of choledocholithiasis. Previously desc ribed pancreatitis appears improved. No significant pancreatic duct dilatation. Normal renal parenchymal enhancement. Tiny bilateral renal cysts. Normal adrenal glands. Normal calib er abdominal aorta. MR/MR MRCP [id number] Impression: 1. Prior cholecystectomy. No evidence of choledocholithiasis. 2. Common bile duct tapers normally at the pancreatic head. No pancreatic head mass or obstructing lesion. 3. Small hepatic cyst and renal cysts. 4. Improved findings of pancreatitis. No drainable fluid collections.
== END 2020-04-25 08:40 | disposition home or self-care (01) ==
LOC: RADSHAW 08:39
PROVIDERS: PCP Nurse Practitioner; Visit Provider Nurse Practitioner
DX: R10.11 Right upper quadrant pain (principal); K85.90 Acute pancreatitis without necrosis or infection, unspecified; Z90.49 Acquired absence of other specified parts of digestive tract; K76.89 Other specified diseases of liver; N28.1 Cyst of kidney, acquired
CPT/HCPCS: 74181

== ENCOUNTER 2020-12-11 11:13 | Outpatient (CLI) | payer OTHER, SELFPAY ==
--- NOTE | 2020-12-11 11:41 | XR_ITS ---
WS: [id number] ABDOMEN KUB CLINICAL INFORMATION: Abdominal pain COMPARISON: None. FINDINGS: Normal bowel gas pattern. Scattered air normal caliber small and large bowel. Mild fecal retention ri ght colon. 2 radiopaque reported SITZ markers overlying the right colon. Prior postoperative changes right SHANI. Osteopenia. Lumbar curve convex left. Hyperinflation with adva nced chronic emphysematous changes. Flattening of the hemidiaphragms. XR/XR KUB [id number] Impression: 2 residual presumed SITZ markers overlying the right colon.
== END 2020-12-11 11:14 | disposition home or self-care (01) ==
PROVIDERS: Visit Provider Internal Medicine
DX: K59.39 Other megacolon (principal); K59.00 Constipation, unspecified; R10.9 Unspecified abdominal pain
CPT/HCPCS: 74018

== ENCOUNTER 2020-12-13 13:29 | Outpatient (CLI) | payer OTHER, SELFPAY ==
--- NOTE | 2020-12-13 13:42 | XR_ITS ---
WS: [id number] ABDOMEN KUB CLINICAL INFORMATION: Colon transit study COMPARISON: December 11, 2020 FINDINGS: Normal bowel gas pattern. Previously described Sitz markers the right lower quadrant are no longer vi sualized. Right SHANI. Osteopenia. Emphysematous change in the lung bases with hyperinflation and jennifer ening of the hemidiaphragms. Mild right colon constipation. XR/XR KUB [id number] Impression: Previously described Sitz markers right lower quadrant have passed. No visualiz ed markers today.
== END 2020-12-13 13:30 | disposition home or self-care (01) ==
PROVIDERS: Visit Provider Internal Medicine
DX: K59.39 Other megacolon (principal); K59.00 Constipation, unspecified
CPT/HCPCS: 74018

== ENCOUNTER 2021-01-19 10:07 | Inpatient (IN) | payer OTHER, MEDICARE, SELFPAY ==
[2021-01-19] VITALS (23 sets, daily range): BP systolic 70–121; BP diastolic 52–87; PULSE 74–93; RESP 14–26; TEMP 36.3–37.2; O2SAT 95–100; BMI 15.2
--- NOTE | 2021-01-19 10:13 | ECG_ITS ---
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 Measurements Intervals [place] Rate: 93 P: 87 NE: 158 QRS: 93 QRSD: 96 T: 81 QT: 393 QTc: 489 Interpretive Statements SINUS RHYTHM BORDERLINE RIGHT AXIS DEVIATION [QRS AXIS > 90] PATTERN CONSISTENT WITH PULMONARY DISEASE Compared to ECG 04/01/2020 23:29:44 Sinus tachycardia no longer present Electronically Signed On 01-19-2021 18:15:10 CDT by Henry Loving M.D. [id number]
--- NOTE | 2021-01-19 10:13 | XRR_ITS ---
PROCEDURE INFORMATION: Exam: XR Chest Exam date and time: 01/19/2021 10:13 AM Age: 65 years old Clinical indication: Device placement; Other: Et and ng placement; Additional info: S/P intubation TECHNIQUE: Imaging protocol: XR of the chest. Views: 1 view. COMPARISON: CR XR chest 1V portable [id number] 04/03/2020 6:00 AM FINDINGS: Tubes, catheters and devices: An endotracheal tube is present with the tip 8 cm above the josselin. A nasogastric tube is present with the tip in the distal esophagus about 4 cm above the GE junction. Further advancement into the stomach is advised. Lungs: The lungs are over-inflated indicating emphysema. A benign calcified granuloma is present in the right base. There is no acute pneumonia. Pleural spaces: Unremarkable. No pleural effusion. No pneumothorax. Heart/Mediastinum: Unremarkable. No cardiomegaly. Bones/joints: Unremarkable. XR/XR chest 1V portable [id number] IMPRESSION: 1. The tip of the endotracheal tube is present in the distal esophagus and advancement into the stomach is advised. 2. Overinflated lungs consistent with emphysema. No pneumonia. Radiation Dose CTDIVOL = (mGy): DLP = (mGy-cm)
--- NOTE | 2021-01-19 10:14 | CTR_ITS ---
PROCEDURE INFORMATION: Exam: CT Head Without Contrast Exam date and time: 01/19/2021 10:14 AM Age: 65 years old Clinical indication: Altered mental status/memory loss; Additional info: AMS TECHNIQUE: Imaging protocol: Computed tomography of the head without contrast. Radiation optimization: All CT scans at this facility use at least one of these dose optimization techniques: automated exposure control; mA and/or kV adjustment per patient size (includes targeted exams where dose is matched to clinical indication); or iterative reconstruction. COMPARISON: CT head wo con* [id number] 04/01/2020 11:38 PM RADIATION DOSE METRICS: Total DLP (mGy-cm): 680.89 FINDINGS: Brain: Normal. No hemorrhage. Unremarkable white matter. No mass effect. Cerebral ventricles: No ventriculomegaly. Paranasal sinuses: Visualized sinuses are unremarkable. No fluid levels. Mastoid air cells: Visualized mastoid air cells are well aerated. Bones/joints: Unremarkable. No acute fracture. Soft tissues: Unremarkable. CT/CT head wo con* [id number] IMPRESSION: No acute intracranial abnormality. Radiation Dose CTDIVOL = (mGy): DLP = 680.89 (mGy-cm)
[2021-01-19 10:30] LABS: ABG PCO2 47.5 mmHg (35-45); ABG PH Result 7.22 (7.35-7.45); Alveolar-Arterial Oxygen Gradi 11.6 mmHg (5-10); Base Excess ABG -8.6 mmol/L (-2.0-2.0); Blood Gas Allen Test Pos; Blood Gas Operator Identificat CAK; Blood Gas Sample Site Radial, right; Blood Gas Sample Type Arterial; Carboxyhemoglobin 1.4 %THgb (0.4-20.1); HCO3 ABG 19.3 mmol/L (22-26); Ionized Calcium Level - ABG 1.2 mmol/L (1.1-1.4); Methemoglobin 0.8 % (0.4-1.5); Oxygen Device VENT; Oxygen Saturation ABG > 100.0; Potassium Level - ABG 3.5 mmol/L (3.5-5.0)
[2021-01-19 11:32] LABS: Blood Urine 2+ (Negative); Glucose Urine UA Norm (Normal); Ketones Urine Negative (Negative); Protein Urine Trace (Negative); Urine Appearance Clear (CLEAR); Urine Color Yellow (Yellow); pH Urine 5 (5-7)
[2021-01-19 11:33] LABS: Add Urine Microscopic? YES; Bacteria Urine 1+ /hpf; Bilirubin Urine Neg (Negative); Leukocyte Esterase Urine Negative (Negative); Mucus Urine TRACE /hpf; Nitrate Urine Negative (Negative); RBC Urine 0-4 /hpf (0-2); Urobilinogen Urine Norm (Negative); WBC Urine 0-4 /hpf (0-5)
[2021-01-19 11:34] LABS: Add Urine Culture? No; Sperm Urine 1+ /hpf
[2021-01-19 11:37] LABS: Amphetamines Screen Urine Negative (Negative); Barbiturates Screen Urine Negative (Negative); Benzodiazepines Screen Urine Positive (Negative); Cocaine Screen Urine Negative (Negative); Opiate Screen Urine Positive (Negative); PCP Screen Urine Negative (Negative); THC Screen Urine Positive (Negative)
[2021-01-19 11:41] LABS: Basophils # 0.1 10^3/uL (0.0-0.1); Basophils % 0.6 %; Eosinophils % 0.3 %; Hematocrit 50.3 % (42.0-52.0); Hemoglobin 15.8 g/dL (11.7-16.6); Lymphocytes # 0.7 10^3/uL (0.8-4.8); Lymphocytes % 5.6 %; Mean Corpuscular HGB Conc 31.4 g/dL (30.0-36.0); Mean Corpuscular Hemoglobin 30.9 pg (28.0-34.0); Mean Corpuscular Volume 98.4 fl (80-94); Mean Platelet Volume 9.5 fL (7.4-10.4); Monocytes # 0.5 10^3/uL (0.2-0.9); Monocytes % 4.2 %; Neutrophils # 10.38 10^3/uL (1.8-7.7); Neutrophils % 85.7 %; Nucleated Red Blood Cells % 0 %; Platelet Count 236 10^3/cmm (130-400); Red Blood Count 5.11 10^6/uL (4.1-5.3); Red Cell Distribution Width 13.2 % (12.1-15.1); White Blood Count 12.1 10^3/uL (4.0-10.0)
[2021-01-19 11:43] LABS: INR 0.99 (0.8-1.2)
[2021-01-19 11:57] LABS: Alanine Aminotransferase 193 U/L (0-41); Albumin Level 3.9 g/dL (3.5-5.2); Alkaline Phosphatase 88 IU/L (40-130); Anion Gap 20.9 (5-19); Aspartate Amino Transferase 258 U/L (0-40); Blood Urea Nitrogen 13 mg/dL (8-23); Calcium 8.9 mg/dL (8.5-10.5); Carbon Dioxide 16 mmol/L (22-29); Chloride 106 mmol/L (98-107); Creatine Phosphokinase 87 U/L (39-308); Globulin 3.2 g/dL (1.3-4.6); Glomerular Filtration Rate 67.4 mL/min (90-130); Glucose 68 mg/dL (65-115); Osmolality Calculated 284 mOsm/kg (285-295); Potassium 4.9 mmol/L (3.5-5.1); Sodium 138 mmol/L (136-145); Total Bilirubin 0.5 mg/dL (0.15-1.2); Total Protein 7.1 g/dL (6.6-8.7)
--- NOTE | 2021-01-19 12:02 | ED_ITS ---
HPI - Overdose General: Chief Complaint: Overdose Stated Complaint: UNRESPONSIVE Time Seen by Provider: 01/19/21 10:12 Source: EMS Mode of arrival: EMS History of Present Illness: HPI Narrative: 65-year-old male brought in by EMS after his family member found him unresponsive. stated that the patient has been depressed recently, she was worried that he may have overdosed. When EMS arrived he had agonal breathing, pupils were fixed and constricted, they administered Narcan with no definite improvement, administered ketamine and intubated in the field. His does take methadone, she did not immediately notice that any was missing. last observed him to be at baseline last night. This morning at 5 am she heard him up and about and spoke to him but it was dark and she didnt see him clearly. Denies daily alcohol use no known drug use. Review of Systems General: Reports: ROS unobtainable due to endotracheal tube [facility] ED PFSH: Medical History Chronic epigastric pain Gastritis Hepatitis C Nausea and vomiting Physical deconditioning Suicidal overdose Surgical History History of bilateral carpal tunnel release History of circumcision History of colonoscopy Normal repeat in 10 years History of esophagogastroduodenoscopy (EGD) (02/26/17) Reflux, esophagitis, Gastritis History of hip replacement, total Right History of knee replacement Right History of laparoscopic cholecystectomy Family History Grandfather Cancer Grandmother Cancer Denies family history of Anesthesia complication Bleeding disorder Social History Smoking and tobacco status: former smoker Second hand smoke exposure: No Alcohol intake: former Desire information about alcohol rehabilitation?: No Adopted: No Caregiver/support person: Yes Lives independently: Yes Household members: spouse Housing: House Marital status: Highest education level completed: High School Graduate service: No Current occupational status: disabled Current occupational exposures/hazards: No Pets and animals: No History of recent travel: No Leisure activites: exercise Sexually active: Yes Current gender identity: Male and Female Verito/Zoroastrian: Orthodox Special verito needs: No Agree to transfusion: No Financial difficulty paying for basics: Not Very Hard Course Vital Signs: Vital signs: Vital Signs Temperature 97.3 F L 01/19/21 14:50 Pulse Rate 82 01/19/21 16:00 Respiratory Rate 26 H 01/19/21 16:40 Blood Pressure 87/65 01/19/21 16:00 Pulse Oximetry 98 01/19/21 16:40 MDM - Overdose MDM Narrative: Medical decision making narrative: 65-year-old male brought in by EMS from home. Decreased respiratory drive and minimally responsive at the scene so he was intubated prior to transport. His is concerned that he may have overdosed because he has been depressed lately. Looking back in his records he has had a previous admission this year for acute hypercapnic respiratory failure; with a very similar presentation. Mildly elevated PCO2 on initial ABG, but he had already been on invasive ventilation for quite some time at that point. Lactic acid was elevated at 4.7, improved to 2.3 on repeat following fluid bolus. He maintained his MAP above 65 on low-dose Levophed. CT head without contrast negative for hemorrhage or any other acute abnormality. Empirically started on broad-spectrum antibiotics for possible sepsis. Contacted the on-call hospitalist to discuss admission to the ICU; he will undergo CTA head, neck, chest abdomen and pelvis as well as an echo for further evaluation. He did open his eyes to voice on reexamination. Did not follow commands, however. Pupils were noted to be equal and reactive.He did require another bolus of ketamine prior to starting on the precedex drip. DDX; stroke, metabolic encephalopathy, CO2 narcosis, sepsis, pulmonary embolism, Differential Diagnosis: Overdose Differential Diagnosis: Likely suicide attempt by multiple drug overdose, poisoning by opiate or related narcotic, drug overdose and accidental drug ingestion Medical Records: Attestation: I reviewed the patient's medical records. Lab Data: Attestation: I reviewed the patient's lab results. Labs: Lab Results 01/19/21 01/19/21 01/19/21 10:17 11:11 11:11 WBC RBC Hgb Hct MCV MCH MCHC RDW Plt Count MPV Neut % (Auto) Lymph % (Auto) Kendall % (Auto) Eos % (Auto) Baso % (Auto) Neut # (Auto) Lymph # (Auto) Kendall # (Auto) Eos # (Auto) Baso # (Auto) Nucleated RBC % (a uto) Nucleated RBCs # PT INR D-Dimer Specimen Type Arterial Sample Site Radial, right ABG pH 7.22 L (7.35-7.45) ABG pCO2 47.5 mmHg H mmHg (35-45) ABG pO2 342.0 mmHg H mmHg (80.0-100.0) ABG HCO3 19.3 mmol/L L mmo l/L (22-26) ABG O2 Saturation > 100.0 ABG Base Excess -8.6 mmol/L L mmo l/L (-2.0-2.0) Canelo Test Pos A-a O2 Gradient 11.6 mmHg H mmHg (5-10) Hematocrit 49.0 % % (42-52) Hgb O2 Saturation 98.0 % % (95-100) Carboxyhemoglobin 1.4 %THgb %THgb (0.4-20.1) Methemoglobin 0.8 % % (0.4-1.5) Total Hemoglobin 16.0 g/dL g/dL (14-18) Sodium 144.0 mmol/L H mm ol/L (131-143) Potassium 3.5 mmol/L mmol/L (3.5-5.0) Glucose 116.0 mg/dL H mg/ dL (70-115) Ionized Calcium 1.2 mmol/L mmol/L (1.1-1.4) O2 Delivery Device Vent FiO2 70.0 % % Tidal Volume 0.40 PEEP 8.0 cmH20 cmH20 Automatic Silk Screen Printer ID Cak Chloride Carbon Dioxide Anion Gap BUN Creatinine GFR Calculation Calculated Osmolal ity Lactic Acid Calcium Iron TIBC % Saturation Unsat Iron Binding Total Bilirubin AST ALT Alkaline Phosphata se Creatine Kinase Troponin T Baselin e Troponin T 120 Min [place] Troponin T NT-Pro-B Natriuret Pep Total Protein Albumin Globulin Procalcitonin TSH Urine Color Yellow (Yellow) Urine Appearance Clear (CLEAR) Urine pH 5 (5-7) Ur Specific Gravit y 1.020 (1.005-1.030) Urine Protein Trace (Negative) Urine Glucose (UA) Norm (Normal) Urine Ketones Negative (Negative) Urine Blood 2+ H (Negative) Urine Nitrate Negative (Negative) Urine Bilirubin Neg (Negative) Urine Urobilinogen Norm mg/dL mg/dL (Negative) Ur Leukocyte Rita ase Negative (Negative) Urine RBC 0-4 /hpf H /hpf (0-2) Urine WBC 0-4 /hpf H /hpf (0-5) Ur Squamous Epith Cells 5-10 /hpf H /hpf (0-5) Amorphous Sediment Not Reportable Urine Bacteria 1+ /hpf H /hpf (NONE) Coarse Granular Ca sts 5-10 /lpf H /lpf Urine Mucus Trace /hpf /hpf Urine Sperm 1+ /hpf /hpf Urine Opiates Scre en Positive ng/mL H ng/mL (Negative) Ur Barbiturates Sc reen Negative ng/mL ng /mL (Negative) Ur Phencyclidine S crn Negative ng/mL ng /mL (Negative) Ur Amphetamines Sc reen Negative ng/mL ng /mL (Negative) U Benzodiazepines Scrn Positive ng/mL H ng/mL (Negative) Urine Cocaine Scre en Negative ng/mL ng /mL (Negative) U Marijuana (THC) Screen Positive ng/mL H ng/mL (Negative) Ethyl Alcohol Hepatitis A IgM Ab Hep Bs Antigen Hep Bs Antibody Hep B Core Total A b Hepatitis C Antibo dy HIV 1&2 Ab & HIV 1 Ag HIV 1&2 Antibody 01/19/21 01/19/21 01/19/21 11:24 11:24 11:24 WBC 12.1 10^3/uL H 10 ^3/uL (4.0-10.0) RBC 5.11 10^6/uL 10^6 /uL (4.1-5.3) Hgb 15.8 g/dL g/dL (11.7-16.6) Hct 50.3 % % (42.0-52.0) MCV 98.4 fl H fl (80-94) MCH 30.9 pg pg (28.0-34.0) MCHC 31.4 g/dL g/dL (30.0-36.0) RDW 13.2 % % (12.1-15.1) Plt Count 236 10^3/cmm 10^3 /cmm (130-400) MPV 9.5 fL fL (7.4-10.4) Neut % (Auto) 85.7 % % Lymph % (Auto) 5.6 % % Kendall % (Auto) 4.2 % % Eos % (Auto) 0.3 % % Baso % (Auto) 0.6 % % Neut # (Auto) 10.38 10^3/uL H 1 0^3/uL (1.8-7.7) Lymph # (Auto) 0.7 10^3/uL L 10^ 3/uL (0.8-4.8) Kendall # (Auto) 0.5 10^3/uL 10^3/ uL (0.2-0.9) Eos # (Auto) 0.0 10^3/uL 10^3/ uL (0.0-0.8) Baso # (Auto) 0.1 10^3/uL 10^3/ uL (0.0-0.1) Nucleated RBC % (a uto) 0 % % Nucleated RBCs # 0.0 /100WBC /100W BC PT 13.40 SECONDS SEC ONDS (12.1-14.9) INR 0.99 (0.8-1.2) D-Dimer Specimen Type Sample Site ABG pH ABG pCO2 ABG pO2 ABG HCO3 ABG O2 Saturation ABG Base Excess Canelo Test A-a O2 Gradient Hematocrit Hgb O2 Saturation Carboxyhemoglobin Methemoglobin Total Hemoglobin Sodium 138 mmol/L mmol/L (136-145) Potassium 4.9 mmol/L mmol/L (3.5-5.1) Glucose 68 mg/dL mg/dL (65-115) Ionized Calcium O2 Delivery Device FiO2 Tidal Volume PEEP Automatic Silk Screen Printer ID Chloride 106 mmol/L mmol/L (98-107) Carbon Dioxide 16 mmol/L L mmol/ L (22-29) Anion Gap 20.9 H (5-19) BUN 13 mg/dL mg/dL (8-23) Creatinine 1.1 mg/dL mg/dL (0.7-1.2) GFR Calculation 67.4 mL/min L mL/ min (90-130) Calculated Osmolal ity 284 mOsm/kg L mOs m/kg (285-295) Lactic Acid Calcium 8.9 mg/dL mg/dL (8.5-10.5) Iron TIBC % Saturation Unsat Iron Binding Total Bilirubin 0.5 mg/dL mg/dL (0.15-1.2) AST 258 U/L H U/L (0-40) ALT 193 U/L H U/L (0-41) Alkaline Phosphata se 88 IU/L IU/L (40-130) Creatine Kinase 87 U/L U/L (39-308) Troponin T Baselin e Troponin T 120 Min [place] Troponin T NT-Pro-B Natriuret Pep Total Protein 7.1 g/dL g/dL (6.6-8.7) Albumin 3.9 g/dL g/dL (3.5-5.2) Globulin 3.2 g/dL g/dL (1.3-4.6) Procalcitonin TSH Urine Color Urine Appearance Urine pH Ur Specific Gravit y Urine Protein Urine Glucose (UA) Urine Ketones Urine Blood Urine Nitrate Urine Bilirubin Urine Urobilinogen Ur Leukocyte Rita ase Urine RBC Urine WBC Ur Squamous Epith Cells Amorphous Sediment Urine Bacteria Coarse Granular Ca sts Urine Mucus Urine Sperm Urine Opiates Scre en Ur Barbiturates Sc reen Ur Phencyclidine S crn Ur Amphetamines Sc reen U Benzodiazepines Scrn Urine Cocaine Scre en U Marijuana (THC) Screen Ethyl Alcohol < 10 mg/dL mg/dL (0-10) Hepatitis A IgM Ab Hep Bs Antigen Hep Bs Antibody Hep B Core Total A b Hepatitis C Antibo dy HIV 1&2 Ab & HIV 1 Ag HIV 1&2 Antibody 01/19/21 01/19/21 01/19/21 11:24 11:24 11:24 WBC RBC Hgb Hct MCV MCH MCHC RDW Plt Count MPV Neut % (Auto) Lymph % (Auto) Kendall % (Auto) Eos % (Auto) Baso % (Auto) Neut # (Auto) Lymph # (Auto) Kendall # (Auto) Eos # (Auto) Baso # (Auto) Nucleated RBC % (a uto) Nucleated RBCs # PT INR D-Dimer Specimen Type Sample Site ABG pH ABG pCO2 ABG pO2 ABG HCO3 ABG O2 Saturation ABG Base Excess Canelo Test A-a O2 Gradient Hematocrit Hgb O2 Saturation Carboxyhemoglobin Methemoglobin Total Hemoglobin Sodium Potassium Glucose Ionized Calcium O2 Delivery Device FiO2 Tidal Volume PEEP Automatic Silk Screen Printer ID Chloride Carbon Dioxide Anion Gap BUN Creatinine GFR Calculation Calculated Osmolal ity Lactic Acid 4.7 mmol/L H* mmo l/L (0.5-2.2) Calcium Iron 238 ug/dL H ug/dL (59-158) TIBC 286 mcg/dl mcg/dl % Saturation 83.2 % H % (20-50) Unsat Iron Binding 48 ug/dL L ug/dL (112-347) Total Bilirubin AST ALT Alkaline Phosphata se Creatine Kinase Troponin T Baselin e 69 ng/L H ng/L (0-15) Troponin T 120 Min [place] Troponin T NT-Pro-B Natriuret Pep 52 pg/mL pg/mL (0-125) Total Protein Albumin Globulin Procalcitonin 0.07 ng/mL ng/mL (0-0.5) TSH Urine Color Urine Appearance Urine pH Ur Specific Gravit y Urine Protein Urine Glucose (UA) Urine Ketones Urine Blood Urine Nitrate Urine Bilirubin Urine Urobilinogen Ur Leukocyte Rita ase Urine RBC Urine WBC Ur Squamous Epith Cells Amorphous Sediment Urine Bacteria Coarse Granular Ca sts Urine Mucus Urine Sperm Urine Opiates Scre en Ur Barbiturates Sc reen Ur Phencyclidine S crn Ur Amphetamines Sc reen U Benzodiazepines Scrn Urine Cocaine Scre en U Marijuana (THC) Screen Ethyl Alcohol Hepatitis A IgM Ab Hep Bs Antigen Hep Bs Antibody Hep B Core Total A b Hepatitis C Antibo dy HIV 1&2 Ab & HIV 1 Ag HIV 1&2 Antibody 01/19/21 01/19/21 01/19/21 11:24 11:24 11:24 WBC RBC Hgb Hct MCV MCH MCHC RDW Plt Count MPV Neut % (Auto) Lymph % (Auto) Kendall % (Auto) Eos % (Auto) Baso % (Auto) Neut # (Auto) Lymph # (Auto) Kendall # (Auto) Eos # (Auto) Baso # (Auto) Nucleated RBC % (a uto) Nucleated RBCs # PT INR D-Dimer 4.38 ug/mIFEU H u g/mIFEU (0-0.59) Specimen Type Sample Site ABG pH ABG pCO2 ABG pO2 ABG HCO3 ABG O2 Saturation ABG Base Excess Canelo Test A-a O2 Gradient Hematocrit Hgb O2 Saturation Carboxyhemoglobin Methemoglobin Total Hemoglobin Sodium Potassium Glucose Ionized Calcium O2 Delivery Device FiO2 Tidal Volume PEEP Automatic Silk Screen Printer ID Chloride Carbon Dioxide Anion Gap BUN Creatinine GFR Calculation Calculated Osmolal ity Lactic Acid Calcium Iron TIBC % Saturation Unsat Iron Binding Total Bilirubin AST ALT Alkaline Phosphata se Creatine Kinase Troponin T Baselin e Troponin T 120 Min [place] Troponin T NT-Pro-B Natriuret Pep Total Protein Albumin Globulin Procalcitonin TSH 4.93 uIU/mL H uIU /mL (0.27-4.20) Urine Color Urine Appearance Urine pH Ur Specific Gravit y Urine Protein Urine Glucose (UA) Urine Ketones Urine Blood Urine Nitrate Urine Bilirubin Urine Urobilinogen Ur Leukocyte Rita ase Urine RBC Urine WBC Ur Squamous Epith Cells Amorphous Sediment Urine Bacteria Coarse Granular Ca sts Urine Mucus Urine Sperm Urine Opiates Scre en Ur Barbiturates Sc reen Ur Phencyclidine S crn Ur Amphetamines Sc reen U Benzodiazepines Scrn Urine Cocaine Scre en U Marijuana (THC) Screen Ethyl Alcohol Hepatitis A IgM Ab Non-reactive (Nonreactive) Hep Bs Antigen Non-reactive (Nonreactive) Hep Bs Antibody < 3.5 L (11.5-1000) Hep B Core Total A b Non-reactive (Nonreactive) Hepatitis C Antibo dy Reactive H (Nonreactive) HIV 1&2 Ab & HIV 1 Ag HIV 1&2 Antibody 01/19/21 01/19/21 11:24 13:22 WBC RBC Hgb Hct MCV MCH MCHC RDW Plt Count MPV Neut % (Auto) Lymph % (Auto) Kendall % (Auto) Eos % (Auto) Baso % (Auto) Neut # (Auto) Lymph # (Auto) Kendall # (Auto) Eos # (Auto) Baso # (Auto) Nucleated RBC % (a uto) Nucleated RBCs # PT INR D-Dimer Specimen Type Sample Site ABG pH ABG pCO2 ABG pO2 ABG HCO3 ABG O2 Saturation ABG Base Excess Canelo Test A-a O2 Gradient Hematocrit Hgb O2 Saturation Carboxyhemoglobin Methemoglobin Total Hemoglobin Sodium Potassium Glucose Ionized Calcium O2 Delivery Device FiO2 Tidal Volume PEEP Automatic Silk Screen Printer ID Chloride Carbon Dioxide Anion Gap BUN Creatinine GFR Calculation Calculated Osmolal ity Lactic Acid Calcium Iron TIBC % Saturation Unsat Iron Binding Total Bilirubin AST ALT Alkaline Phosphata se Creatine Kinase Troponin T Baselin e Troponin T 120 Min [place] 82.55 ng/L H ng/L (0-15) Delta Troponin T 13.55 ABS# H* ABS # (0-10) NT-Pro-B Natriuret Pep Total Protein Albumin Globulin Procalcitonin TSH Urine Color Urine Appearance Urine pH Ur Specific Gravit y Urine Protein Urine Glucose (UA) Urine Ketones Urine Blood Urine Nitrate Urine Bilirubin Urine Urobilinogen Ur Leukocyte Rita ase Urine RBC Urine WBC Ur Squamous Epith Cells Amorphous Sediment Urine Bacteria Coarse Granular Ca sts Urine Mucus Urine Sperm Urine Opiates Scre en Ur Barbiturates Sc reen Ur Phencyclidine S crn Ur Amphetamines Sc reen U Benzodiazepines Scrn Urine Cocaine Scre en U Marijuana (THC) Screen Ethyl Alcohol Hepatitis A IgM Ab Hep Bs Antigen Hep Bs Antibody Hep B Core Total A b Hepatitis C Antibo dy HIV 1&2 Ab & HIV 1 Ag Non-reactive (Non-Reactiv) HIV 1&2 Antibody Non-reactive (Non-Reactiv) EKG Data^: EKG 1: Attestation: I personally reviewed and interpreted this EKG as follows: EKG interpretation date: 01/19/21 EKG interpretation time: 10:40 Prior EKG tracings: available for review Interpretation: Right axis deviation, rate 93, sinus rhythm, NH 158, QRS 96, no acute ST changes when compared to previous. Critical Care Time Critical Care Time: Critical Care Time: Yes Total Critical Care Time: 50 Attestation: This case had a high probability of a clinically significant, sudden, or life threatening deterioration of this patient's condition which required my full and direct attention, intervention and personal management. Hypotension requiring vasopressor infusion, acute mental status change, intubated, metabolic derangements Discharge Plan Discharge Patient Disposition: Admitted As Inpatient Admit Provider: Humberto Winter Clinical Impression: High anion gap metabolic acidosis, Unresponsiveness, Endotracheally intubated, Polysubstance abuse, Shock Respiratory failure with hypercapnia Qualifiers: Chronicity: acute on chronic Qualified Code(s): J96.22 - Acute and chronic respiratory failure with hypercapnia Condition: Critical Coding Level of Care Code ED Human Services Program Specialist for Dawood Pina
[2021-01-19 12:04] LABS: Alcohol Level < 10 mg/dL (0-10)
[2021-01-19 12:08] LABS: Lactic Sepsis W/Reflex 4.7 mmol/L (0.5-2.2)
[2021-01-19 12:10] LABS: Reflex Lactate Order REFLEX LACTIC ORDERD
--- NOTE | 2021-01-19 12:30 | PC.NURSE ---
At approximately 1022, this RN asked ERP if more sedation would be ordered. No new orders at that time. At approximately 1230, pt opens eyes. ERP asked for more sedation. No new orders at this time.
[2021-01-19] MEDS: cefTRIAXone 1,000 MG in sodium chloride 0.9% (plus) 50 ML 100 MG IV (12:36)
[2021-01-19] MEDS: sodium chloride 0.9% 1,000 ML 999 ML IV (12:36)
--- NOTE | 2021-01-19 12:46 | USCV_ITS ---
Michoacano Ball Age: 65 Gender: M : 1955 Exam Date: 01/19/2021 13:27 Ordering Phys: Lisa Nobles MD Technologist: Chiara Daily Exam Location: [facility] [place] Indication: HYPOTENSION BP: 105 / 75 HR: 84 Rhythm: Sinus Technical Quality: Adequate MEASUREMENTS (Male / Female) Normal Values 2D ECHO LV Diastolic Diameter PLAX 3.7 cm 4.2 - 5.9 / 3.9 - 5.3 cm LV Systolic Diameter PLAX 3.0 cm IVS Diastolic Thickness 1.3 cm 0.6 - 1.0 / 0.6 - 0.9 cm IVS Systolic Thickness 1.6 cm LVPW Diastolic Thickness 1.9 cm 0.6 - 1.0 / 0.6 - 0.9 cm LVPW Systolic Thickness 2.3 cm LVOT Diameter 2.0 cm LV Ejection Fraction 2D Teich 38.6 % LA Diameter 1.8 cm LA Width 1.9 cm LA Height 2.6 cm RA Width 2.2 cm RA Height 2.7 cm Aorta at Sinotubular Diameter 1.5 cm M-MODE MV E Point Septal Separation 0.7 cm DOPPLER AV Peak Velocity 93.0 cm/s LVOT Peak Velocity 56.0 cm/s AV Area Cont Eq vti 1.7 cm squared AV Area Cont Eq pk 1.9 cm squared MV Peak Velocity 64.0 cm/s MV Area PHT 3.3 cm squared Mitral E to A Ratio 1.1 MV E' Velocity 28.0 cm/s Mitral E to MV E' Ratio 8.0 Mitral E to LV E' Lateral Ratio 10.2 Mitral E to LV E' Septal Ratio 6.5 TV Peak E Velocity 40.0 cm/s Right Atrial Pressure 8.0 mmHg PV Peak Velocity 87.0 cm/s RV Acceleration Time 0.1 s RV Ejection Time 0.2 s RV AcT/ET 0.3 FINDINGS Left Ventricle Diffuse hypokinesis of the left ventricle with an ejection fraction of around 45% Right Ventricle Mildly dilated right ventricle with slightly diminished ejection fraction Right Atrium The right atrium is normal in size. Left Atrium The left atrium is normal in size. Mitral Valve No gross abnormalities noted Aortic Valve No gross abnormalities noted Tricuspid Valve Mild tricuspid valve regurgitation. Pulmonic Valve Pulmonic valve not well visualized. Pericardium Normal pericardium without effusion. Aorta Normal aortic annulus size. CONCLUSIONS Diffuse hypokinesis of the left ventricle with an ejection fraction of around 45% . Mmildly dilated right ventricle with slightly diminished ejection fraction. No significant stenotic or regurgitant lesions. Normal cardiac chamber sizes.there are no intracardiac masses. There is no pericardial effusion. There are no intracardiac masses. No previous study is available for comparison. Technically difficult study because of poor ultrasonic window Dr Henry Loving MD FACC (Electronically Signed) Final Date: 19 January 2021 17:37 S
--- NOTE | 2021-01-19 12:46 | CTR_ITS ---
PROCEDURE INFORMATION: Exam: CT Angiography Head With Contrast, Arteriography Exam date and time: 01/19/2021 12:46 PM Age: 65 years old Clinical indication: Other: Unresponsive; Additional info: AMS TECHNIQUE: Imaging protocol: Computed tomography angiography of the head with contrast. Exam focused on the arteries. 3D rendering (Not supervised by radiologist): MIP and/or 3D reconstructed images were created by the technologist. Radiation optimization: All CT scans at this facility use at least one of these dose optimization techniques: automated exposure control; mA and/or kV adjustment per patient size (includes targeted exams where dose is matched to clinical indication); or iterative reconstruction. Contrast material: OMNI 350; Contrast volume: 70 ml; Contrast route: INTRAVENOUS (IV); COMPARISON: CT head wo con* [id number] 01/19/2021 10:42 AM RADIATION DOSE METRICS: Total DLP (mGy-cm): 1592.06 FINDINGS: ANTERIOR CIRCULATION: Right internal carotid artery: Unremarkable. Intracranial segment is patent with no significant stenosis. No aneurysm. Right middle cerebral artery: Unremarkable. No occlusion or significant stenosis. No aneurysm. Right anterior cerebral artery: Unremarkable. No occlusion or significant stenosis. No aneurysm. Left internal carotid artery: Unremarkable. Intracranial segment is patent with no significant stenosis. No aneurysm. Left middle cerebral artery: Unremarkable. No occlusion or significant stenosis. No aneurysm. Left anterior cerebral artery: Unremarkable. No occlusion or significant stenosis. No aneurysm. POSTERIOR CIRCULATION: Right vertebral artery: Unremarkable. No occlusion or significant stenosis. No aneurysm. Left vertebral artery: Unremarkable. No occlusion or significant stenosis. No aneurysm. Basilar artery: Unremarkable. No occlusion or significant stenosis. No aneurysm. Right posterior cerebral artery: Unremarkable. No occlusion or significant stenosis. No aneurysm. Left posterior cerebral artery: Unremarkable. No occlusion or significant stenosis. No aneurysm. Brain: No enhancing mass. No edema. No midline shift. No extra-axial fluid collection. Cerebral ventricles: No ventriculomegaly. Bones/joints: Unremarkable. No acute fracture. The patient is edentulous. Soft tissues: Unremarkable. IMPRESSION: No acute findings. No vascular occlusion or stenosis. PROCEDURE INFORMATION: Exam: CT Angiography Neck With Contrast Exam date and time: 01/19/2021 12:46 PM Age: 65 years old Clinical indication: Other: Unresponsive; Additional info: AMS TECHNIQUE: Imaging protocol: Computed tomography angiography of the neck with contrast. 3D rendering (Not supervised by radiologist): MIP and/or 3D reconstructed images were created by the technologist. Radiation optimization: All CT scans at this facility use at least one of these dose optimization techniques: automated exposure control; mA and/or kV adjustment per patient size (includes targeted exams where dose is matched to clinical indication); or iterative reconstruction. Contrast material: OMNI 350; Contrast volume: 70 ml; Contrast route: INTRAVENOUS (IV); COMPARISON: CT head wo con* [id number] 01/19/2021 10:42 AM RADIATION DOSE METRICS: Total DLP (mGy-cm): 1592.06 FINDINGS: Tubes, catheters and devices: Endotracheal tube and NG tube incidentally noted. Right common carotid artery: No stenosis. No dissection or occlusion. Right internal carotid artery: No stenosis of the extracranial segment. No dissection or occlusion. Right external carotid artery: No occlusion or stenosis of the origin. Left common carotid artery: No stenosis. No dissection or occlusion. Left internal carotid artery: No stenosis of the extracranial segment. No dissection or occlusion. Left external carotid artery: No occlusion or stenosis of the origin. Right vertebral artery: No stenosis. No dissection or occlusion. Left vertebral artery: No stenosis. No dissection or occlusion. Soft tissues: Normal. No significant soft tissue swelling. Bones/joints: No acute fracture. Disc space narrowing and small osteophytes at C5 through 7. No high-grade stenosis. Lungs: Advanced emphysema. No acute findings within the included upper thorax. CT/CT angio headneck* [id number] IMPRESSION: No acute findings. Bilateral carotid and vertebral arteries patent. No stenosis. REFERENCES: NASCET CRITERIA. The degree of internal carotid artery stenosis is based on NASCET criteria. Normal is no stenosis. Mild is less than 50% stenosis. Moderate is 50-69% stenosis. Severe is 70% to 99% stenosis. Total occlusion is no detectable patent lumen. Radiation Dose CTDIVOL = (mGy): DLP = 1592.06~1592.06 (mGy-cm)
--- NOTE | 2021-01-19 12:46 | CTR_ITS ---
PROCEDURE INFORMATION: Exam: CTA Chest With Contrast Exam date and time: 01/19/2021 12:46 PM Age: 65 years old Clinical indication: Other: Unresponsive; Shortness of breath; Additional info: Resp failure, sepsis TECHNIQUE: Imaging protocol: Computed tomographic angiography of the chest with contrast. 3D rendering (Not supervised by radiologist): MIP and/or 3D reconstructed images were created by the technologist. Radiation optimization: All CT scans at this facility use at least one of these dose optimization techniques: automated exposure control; mA and/or kV adjustment per patient size (includes targeted exams where dose is matched to clinical indication); or iterative reconstruction. Contrast material: OMNI 350; Contrast volume: 80 ml; Contrast route: INTRAVENOUS (IV); COMPARISON: CR (CHEST, ) 01/19/2021 10:25 AM RADIATION DOSE METRICS: Total DLP (mGy-cm): 1224.89 FINDINGS: Tubes, catheters and devices: Endotracheal tube with its tip above the josselin. Nasogastric tube with its tip in the stomach. Pulmonary arteries: Normal. No pulmonary emboli. Aorta: Unremarkable. No aortic aneurysm. No aortic dissection. Lungs: Emphysematous changes. Pleural spaces: Unremarkable. No pneumothorax. No pleural effusion. Heart: Unremarkable. No cardiomegaly. No pericardial effusion. Lymph nodes: Unremarkable. No enlarged lymph nodes. Bones/joints: Unremarkable. No acute fracture. Soft tissues: Unremarkable. IMPRESSION: No pulmonary embolism. PROCEDURE INFORMATION: Exam: CT Abdomen And Pelvis With Contrast Exam date and time: 01/19/2021 12:46 PM Age: 65 years old Clinical indication: Other: Unresponsive; Shortness of breath; Additional info: Resp failure, sepsis TECHNIQUE: Imaging protocol: Computed tomography of the abdomen and pelvis with contrast. Radiation optimization: All CT scans at this facility use at least one of these dose optimization techniques: automated exposure control; mA and/or kV adjustment per patient size (includes targeted exams where dose is matched to clinical indication); or iterative reconstruction. Contrast material: OMNI 350; Contrast volume: 80 ml; Contrast route: INTRAVENOUS (IV); COMPARISON: CR (CHEST, ) 01/19/2021 10:25 AM RADIATION DOSE METRICS: Total DLP (mGy-cm): 1224.89 FINDINGS: Tubes, catheters and devices: Nasogastric tube with its tip in the stomach. Covington's catheter in the bladder. Liver: Normal. No mass. Gallbladder and bile ducts: Cholecystectomy clips. Common bile duct measures 1.2 cm. Pancreas: Normal. No ductal dilation. Spleen: Normal. No splenomegaly. Adrenal glands: Normal. No mass. Kidneys and ureters: Normal. No hydronephrosis. Stomach and bowel: Unremarkable. No obstruction. No mucosal thickening. Appendix: No evidence of appendicitis. Intraperitoneal space: Unremarkable. No free air. No significant fluid collection. Vasculature: Unremarkable. No abdominal aortic aneurysm. Lymph nodes: Unremarkable. No enlarged lymph nodes. Urinary bladder: Unremarkable as visualized. Reproductive: Unremarkable as visualized. Bones/joints: Degenerative changes of the spine. Total right hip arthroplasty. Soft tissues: Unremarkable. CT/CT angio chest abdomen pelvis IMPRESSION: 1. No acute abdominal or pelvic abnormality. 2. Common bile duct is enlarged measuring 1.2 cm, likely post cholecystectomy ectasia. Radiation Dose CTDIVOL = (mGy): DLP = 1224.89~1224.89 (mGy-cm)
[2021-01-19] MEDS: dexmedetomidine 400 MCG in sodium chloride 0.9% (100 ml) 100 ML IV (13:11)
--- NOTE | 2021-01-19 13:24 | P.HP_ITS ---
Providers/Chief Complaint Chief Complaint: UNRESPONSIVE History of Present Illness Found Lesa Ball is a 65 year old male with a history of suicidal ideation, overdose in March when he was intubated as well was brought into the ER today through EMS. As per the conversation with when she spoke with him at around 5 AM he was responding appropriately. At around 9 AM when she was trying to wake him up patient was unresponsive with what is described as agonal breathing so EMS was called. Patient was given Narcan in the field to which he did not respond and hence he was intubated. Have low blood pressure for which she was given 2 pushes of pressors. As per my conversation with the patient currently is on Vicodin, Remeron, Xanax which has been started to him by psychiatrist at [place]. Patient has had suicidal ideations for over few months. Patient's states she has been trying to control the medications which he takes and is surprised that he was not able to overdose himself again. In the ER patient was found to be on mechanical ventilator and was started on IV Levophed after giving 1 L of IV fluids, given 1 dose of ketamine. Blood work in the ER showed a white count 12,000, hemoglobin of 15.8, ABG showing a pH of 7.2, PCO2 of 47, PO2 of 342 on 70% FiO2, 400 tidal volume, PEEP of 8, chemistry showing sodium 138, chloride of 106, BUN of 13, creatinine of 1.1, lactate of 4.7, AST/ALT of 258/193, glucose of 68 which has not been corrected, UA showing 2+ blood, 0-4 WBC with drug screen positive for opiates, benzos, marijuana. CT head was done which was negative for any acute abnormality. I have requested for troponin cycle, D-dimer, CTA head and neck, CTA chest abdomen pelvis, 1 L IV bolus, for patient to be started on low-dose Precedex. Review of Systems General: Reports: ROS unobtainable due to endotracheal tube Medications/Allergies Home Medications Medication Instructions Recorded Confirmed Last Taken Type omega-3 fatty acids 1,000 mg 1,000 mg PO DAILY cap 04/12/19 01/19/21 Unknown History capsule tamsulosin 0.4 mg capsule 0.4 mg PO DAILY 04/12/19 01/19/21 Unknown History vitamin E mixed 1,000 unit capsule 1,000 unit PO DAILY cap 04/12/19 01/19/21 Unknown History pantoprazole 40 mg PO DAILY #30 tab 04/04/20 01/19/21 Unknown Rx Allergies Allergy/AdvReac Type Severity Reaction Status Date / Time citalopram Allergy Unknown Verified 04/01/20 23:10 codeine Allergy ADR-Itching Verified 04/01/20 23:10 esomeprazole [From Nexium] Allergy Unknown Verified 04/01/20 23:10 ketorolac [From Toradol] Allergy Unknown Verified 04/01/20 23:10 omeprazole Allergy Unknown Verified 04/01/20 23:10 Penicillins Allergy Unknown Verified 04/01/20 23:10 ranitidine AdvReac ADR-Headach Verified 04/01/20 23:10 e PFSH Acute PFSH: Medical History (Updated 01/19/21 @ 15:42 by Humberto Winter MD) Chronic epigastric pain Gastritis Hepatitis C Nausea and vomiting Physical deconditioning Suicidal overdose Surgical History History of bilateral carpal tunnel release History of circumcision History of colonoscopy Normal repeat in 10 years History of esophagogastroduodenoscopy (EGD) (02/26/17) Reflux, esophagitis, Gastritis History of hip replacement, total Right History of knee replacement Right History of laparoscopic cholecystectomy Family History Grandfather Cancer Grandmother Cancer Denies family history of Anesthesia complication Bleeding disorder Social History Smoking and tobacco status: former smoker Second hand smoke exposure: No Alcohol intake: former Desire information about alcohol rehabilitation?: No Adopted: No Caregiver/support person: Yes Lives independently: Yes Household members: spouse Housing: House Marital status: Highest education level completed: High School Graduate service: No Current occupational status: disabled Current occupational exposures/hazards: No Pets and animals: No History of recent travel: No Leisure activites: exercise Sexually active: Yes Current gender identity: Male and Female Verito/Zoroastrianism: Rastafarian Special verito needs: No Agree to transfusion: No Financial difficulty paying for basics: Not Very Hard Vitals/I&O/Wt Last Vital Signs Temp 98.1 F 01/19/21 10:07 Pulse 93 01/19/21 12:05 Resp 16 01/19/21 12:30 BP 97/80 01/19/21 12:05 Pulse Ox 98 01/19/21 12:05 Weight last 48 hrs Weight 45.359 kg Physical Exam Narrative: EXAM NARRATIVE: General: Intubated, not on sedation, cachectic, NG tube in place with bloody secretion HEENT: PERRLA, pupils bilaterally equal and reactive Chest: Normal vesicular breath sounds, no added sounds, equal good air entry bilaterally CVS: S1-S2 regular, no murmurs, no tachycardia, no gallops, no rubs Abdomen: Soft, nontender, no organomegaly, bowel sounds present Neuro: Sedated, intubated Data : 01/19/21 11:24 01/19/21 11:24 Other Labs: Laboratory Results WBC 12.1 10^3/uL (4.0-10.0) H 01/19/21 11:24 RBC 5.11 10^6/uL (4.1-5.3) 01/19/21 11:24 Hgb 15.8 g/dL (11.7-16.6) 01/19/21 11:24 Hct 50.3 % (42.0-52.0) 01/19/21 11:24 MCV 98.4 fl (80-94) H 01/19/21 11:24 MCH 30.9 pg (28.0-34.0) 01/19/21 11:24 MCHC 31.4 g/dL (30.0-36.0) 01/19/21 11:24 RDW 13.2 % (12.1-15.1) 01/19/21 11:24 Plt Count 236 10^3/cmm (130-400) 01/19/21 11:24 MPV 9.5 fL (7.4-10.4) 01/19/21 11:24 Neut % (Auto) 85.7 % 01/19/21 11:24 Lymph % (Auto) 5.6 % 01/19/21 11:24 Alexander % (Auto) 4.2 % 01/19/21 11:24 Eos % (Auto) 0.3 % 01/19/21 11:24 Baso % (Auto) 0.6 % 01/19/21 11:24 Neut # (Auto) 10.38 10^3/uL (1.8-7.7) H 01/19/21 11:24 Lymph # (Auto) 0.7 10^3/uL (0.8-4.8) L 01/19/21 11:24 Alexander # (Auto) 0.5 10^3/uL (0.2-0.9) 01/19/21 11:24 Eos # (Auto) 0.0 10^3/uL (0.0-0.8) 01/19/21 11:24 Baso # (Auto) 0.1 10^3/uL (0.0-0.1) 01/19/21 11:24 Nucleated RBC % (auto) 0 % 01/19/21 11: Nucleated RBCs # 0.0 /100WBC 01/19/21 11:24 PT 13.40 SECONDS (12.1-14.9) 01/19/21 11:24 INR 0.99 (0.8-1.2) 01/19/21 11:24 Specimen Type Arterial 01/19/21 10:17 Sample Site Radial, right 01/19/21 10:17 ABG pH 7.22 (7.35-7.45) L 01/19/21 10:17 ABG pCO2 47.5 mmHg (35-45) H 01/19/21 10:17 ABG pO2 342.0 mmHg (80.0-100.0) H 01/19/21 10:17 ABG HCO3 19.3 mmol/L (22-26) L 01/19/21 10:17 ABG O2 Saturation > 100.0 01/19/21 10:17 ABG Base Excess -8.6 mmol/L (-2.0-2.0) L 01/19/21 10:17 Canelo Test Pos 01/19/21 10:17 A-a O2 Gradient 11.6 mmHg (5-10) H 01/19/21 10:17 Hematocrit 49.0 % (42-52) 01/19/21 10:17 Hgb O2 Saturation 98.0 % (95-100) 01/19/21 10:17 Carboxyhemoglobin 1.4 %THgb (0.4-20.1) 01/19/21 10:17 Methemoglobin 0.8 % (0.4-1.5) 01/19/21 10:17 Total Hemoglobin 16.0 g/dL (14-18) 01/19/21 10:17 Sodium 144.0 mmol/L (131-143) H 01/19/21 10:17 Potassium 3.5 mmol/L (3.5-5.0) 01/19/21 10:17 Glucose 116.0 mg/dL (70-115) H 01/19/21 10:17 Ionized Calcium 1.2 mmol/L (1.1-1.4) 01/19/21 10:17 O2 Delivery Device Vent 01/19/21 10:17 FiO2 70.0 % 01/19/21 10:17 Tidal Volume 0.40 01/19/21 10:17 PEEP 8.0 cmH20 01/19/21 10:17 Radiation / Chemistry Technician ID Cak 01/19/21 10:17 Sodium 138 mmol/L (136-145) 01/19/21 11:24 Potassium 4.9 mmol/L (3.5-5.1) 01/19/21 11:24 Chloride 106 mmol/L (98-107) 01/19/21 11:24 Carbon Dioxide 16 mmol/L (22-29) L 01/19/21 11:24 Anion Gap 20.9 (5-19) H 01/19/21 11:24 BUN 13 mg/dL (8-23) 01/19/21 11:24 Creatinine 1.1 mg/dL (0.7-1.2) 01/19/21 11:24 GFR Calculation 67.4 mL/min (90-130) L 01/19/21 11:24 Glucose 68 mg/dL (65-115) 01/19/21 11:24 Calculated Osmolality 284 mOsm/kg (285-295) L 01/19/21 11:24 Lactic Acid 4.7 mmol/L (0.5-2.2) H* 01/19/21 11:24 Calcium 8.9 mg/dL (8.5-10.5) 01/19/21 11:24 Total Bilirubin 0.5 mg/dL (0.15-1.2) 01/19/21 11:24 AST 258 U/L (0-40) H 01/19/21 11:24 ALT 193 U/L (0-41) H 01/19/21 11:24 Alkaline Phosphatase 88 IU/L (40-130) 01/19/21 11:24 Creatine Kinase 87 U/L (39-308) 01/19/21 11:24 Total Protein 7.1 g/dL (6.6-8.7) 01/19/21 11:24 Albumin 3.9 g/dL (3.5-5.2) 01/19/21 11:24 Globulin 3.2 g/dL (1.3-4.6) 01/19/21 11:24 Urine Color Yellow (Yellow) 01/19/21 11:11 Urine Appearance Clear (CLEAR) 01/19/21 11:11 Urine pH 5 (5-7) 01/19/21 11:11 Ur Specific [place] 1.020 (1.005-1.030) 01/19/21 11:11 Urine Protein Trace (Negative) 01/19/21 11:11 Urine Glucose (UA) Norm (Normal) 01/19/21 11:11 Urine Ketones Negative (Negative) 01/19/21 11:11 Urine Blood 2+ (Negative) H 01/19/21 11:11 Urine Nitrate Negative (Negative) 01/19/21 11:11 Urine Bilirubin Neg (Negative) 01/19/21 11:11 Urine Urobilinogen Norm mg/dL (Negative) 01/19/21 11:11 Ur Leukocyte Esterase Negative (Negative) 01/19/21 11:11 Urine RBC 0-4 /hpf (0-2) H 01/19/21 11:11 Urine WBC 0-4 /hpf (0-5) H 01/19/21 11:11 Ur Squamous Epith Cells 5-10 /hpf (0-5) H 01/19/21 11:11 Amorphous Sediment Not Reportable 01/19/21 11:11 Urine Bacteria 1+ /hpf (NONE) H 01/19/21 11:11 Coarse Granular Casts 5-10 /lpf H 01/19/21 11:11 Urine Mucus Trace /hpf 01/19/21 11:11 Urine Sperm 1+ /hpf 01/19/21 11:11 Urine Opiates Screen Positive ng/mL (Negative) H 01/19/21 11:11 Ur Barbiturates Screen Negative ng/mL (Negative) 01/19/21 11:11 Ur Phencyclidine Scrn Negative ng/mL (Negative) 01/19/21 11:11 Ur Amphetamines Screen Negative ng/mL (Negative) 01/19/21 11:11 U Benzodiazepines Scrn Positive ng/mL (Negative) H 01/19/21 11:11 Urine Cocaine Screen Negative ng/mL (Negative) 01/19/21 11:11 U Marijuana (THC) Screen Positive ng/mL (Negative) H 01/19/21 11:11 Ethyl Alcohol < 10 mg/dL (0-10) 01/19/21 11:24 Impressions Chest X-Ray 01/19/21 10:13 IMPRESSION: 1. The tip of the endotracheal tube is present in the distal esophagus and advan cement into the stomach is advised. 2. Overinflated lungs consistent with emphysema. No pneumonia. Radiation Dose CTDIVOL = (mGy): DLP = (mGy-cm) Head CT 01/19/21 10:14 IMPRESSION: No acute intracranial abnormality. Radiation Dose CTDIVOL = (mGy): DLP = 680.89 (mGy-cm) Micro: Microbiology 01/19/21 10:30 Gram Stain - Final Sputum - Endotracheal Tube Aspirate 01/19/21 11:24 Blood Culture - Preliminary Blood SPECIMEN COLLECTED 01/19/21 11:26 Blood Culture - Preliminary Blood SPECIMEN COLLECTED A&P Assessment and plan (1) Unresponsiveness: Status: Acute (2) Endotracheally intubated: Status: Acute (3) Drug overdose: Status: Suspected (4) High anion gap metabolic acidosis: Status: Acute (5) Transaminitis: Status: Acute (6) Suicidal overdose: Status: Acute (7) Septic shock: Status: Acute (8) Hypoglycemia: Status: Acute Additional A&P Information Unresponsiveness/endotracheally intubated: Most likely secondary to drug overdose. Cannot rule out any other etiology. Check D-dimer, CTA head and neck, CTA chest abdomen pelvis, ammonia levels, troponin cycle with EKG. For now continue with low-dose Precedex. If patient wakes up and mentating well can plan to extubate otherwise we will start him on fentanyl. Keep saturation over 88%. DuoNebs every 6 hour, budesonide twice daily. Seizure precautions. Telemetry. We will change treatment as per the results of investigations requested. Hypoglycemia: Check HbA1c. Can be secondary to drug overdose. Insulin sliding scale every 4 hourly for correction of hypoglycemia. D5 NS at 75 cc/h. Septic shock: Cannot rule out. Check blood culture, urine culture, rapid flu swab, COVID-19 antigen, COVID-19 PCR, sputum culture. For now start patient on vancomycin and imipenem. Patient is allergic to penicillin. Will de-escalate antibiotics rapidly if patient remains afebrile and comes of Levophed. Keep mean over 65. Wean off Levophed accordingly. High anion gap metabolic acidosis: Lactic acid elevated. Most likely secondary to shock, possible overdose, possible starvation ketosis. Treatment as above. Monitor BMP daily. Suicidal ideation: 96-hour hold once patient wakes up and is extubated. Psychiatric evaluation. Most likely patient will need to be transferred to [facility]. Transaminitis: History of hepatitis C. Can be secondary to shock as well. Check hepatitis panel, HIV. Bloody discharge from NG tube: No apparent history of varices. Continue to monitor hemoglobin daily. Protonix 40 mg IV twice daily. If hemoglobin drops can consult surgery for possible endoscopy. Full code. NPO. Protonix for PUD prophylaxis. Heparin for DVT prophylaxis. Attestations Medical Necessity Statement*: Admission for more than 2 midnights for unresponsiveness, possible drug overdose, possible suicidal attempt, endotracheally intubated in field, shock Critical Care Time: The high probability of a clinically significant, sudden or life threatening deterioration of the patient's [pulmonary, cardiac, ID, drug overdose] system(s) required my full and direct attention, intervention and personal management. The critical care time is as shown. This time is in addition to time spent performing any reported procedures but includes the following: [x] Data and vital sign review and interpretation [x] Patient assessment, examination and intervention [x] Documentation [x] Medication orders and management Critical Care Time (min): 90 Coding Level of Care Code Acute Social Services Director for [facility] Diagnoses Unresponsiveness R41.89 Endotracheally intubated Z97.8 Drug overdose T50.901A High anion gap metabolic acidosis E87.2 Transaminitis R74.01 Suicidal overdose T50.902A Septic shock A41.9; R65.21 Hypoglycemia E16.2
[2021-01-19 13:30] LABS: Troponin(5th) Baseline 69 ng/L (0-15)
[2021-01-19] MEDS: dextrose 50% syringe 50 mL 25 ML IVP (13:37)
[2021-01-19 13:44] LABS: D Dimer 4.38 ug/mIFEU (0-0.59)
[2021-01-19 13:50] LABS: NT Pro B Type Natriuretic Pept 52 pg/mL (0-125); Procalcitonin 0.07 ng/mL (0-0.5)
[2021-01-19 14:01] LABS: Iron 238 ug/dL (59-158); Percent Saturation 83.2 % (20-50); Total Iron Binding Capacity 286 mcg/dl; Unsaturated Iron Binding 48 ug/dL (112-347)
[2021-01-19 14:02] LABS: Glucose Point of Care 63 mg/dL (70-110)
[2021-01-19 14:19] LABS: Troponin 5 2HR 82.55 ng/L (0-15)
[2021-01-19] MEDS: iohexol 350 mg/mL 100 mL Btl IV ×2 (14:19→14:20)
[2021-01-19 14:26] LABS: HIV 1 & 2 Antibody Non-Reactive (Non-Reactiv); HIV 1 & 2 Antigen Non-Reactive (Non-Reactiv)
[2021-01-19 14:41] LABS: Thyroid Stimulating Hormone 4.93 uIU/mL (0.27-4.20)
[2021-01-19 14:45] LABS: Hepatitis A Antibody IgM Non-Reactive (Nonreactive); Hepatitis B Core AB, Total Non-Reactive (Nonreactive); Hepatitis B Surface Antigen Non-Reactive (Nonreactive); Hepatitis C Virus Antibody Reactive (Nonreactive)
[2021-01-19 14:47] LABS: Troponin 5 2HR Delta 13.55 ABS# (0-10)
[2021-01-19 14:53] LABS: Glucose Point of Care 101 mg/dL (70-110)
--- NOTE | 2021-01-19 14:53 | ECG_ITS ---
[facility] Test Date: 2021-01-19 Pat Name: Michoacano Ball Department: Room: ICU03 Gender: Male Vocational Rehabilitation Counselor: : 1955 Requested By: Lisa Nobles Order Number: [id number] Divya MD: Henry Loving M.D. Measurements Intervals [place] Rate: 84 P: 86 AR: 155 QRS: 96 QRSD: 90 T: 67 QT: 384 QTc: 456 Interpretive Statements SINUS RHYTHM BORDERLINE RIGHT AXIS DEVIATION [QRS AXIS > 90] PATTERN CONSISTENT WITH PULMONARY DISEASE Compared to ECG 01/19/2021 10:34:24 No significant changes Electronically Signed On 01-19-2021 18:41:57 CDT by Henry Loving M.D. [id number]
[2021-01-19] MEDS: ipratropium-albuterol 3 mL Neb INHALATION ×2 (15:08→20:09)
[2021-01-19] MEDS: pantoprazole 40 mg SDV IVP (15:11)
[2021-01-19] MEDS: dextrose 5%-sod chloride 0.9% 1,000 ML 75 ML IV (15:11)
[2021-01-19 15:18] LABS: Ammonia 44 umol/L (16-60)
[2021-01-19 15:37] LABS: Hepatitis B Surface AB < 3.5 (11.5-1000)
[2021-01-19 16:07] LABS: Potassium, Radom Urine 25 mmol/L; Urine Random Chloride 62 mmol/L; Urine Random Sodium 55 mmol/L
[2021-01-19] MEDS: vancomycin 750 MG in sodium chloride 0.9% 250 ML 250 MG IV (16:09)
[2021-01-19 16:12] LABS: Lactic Acid level (Lactate) 2.3 mmol/L (0.5-2.2)
[2021-01-19 17:04] LABS: Free T4 Free Thyroxine 1.96 ng/dL (0.82-1.77); T3 Free 4.7 PG/ML (2.0-4.4)
[2021-01-19 18:05] LABS: Alveolar-Arterial Oxygen Gradi 5.1 mmHg (5-10); Blood Gas Allen Test Pos; Blood Gas Operator Identificat CAK; Blood Gas Sample Site Brachial, left; Blood Gas Sample Type Arterial; Blood Gas Tidal Volume 0.43; Carboxyhemoglobin 0.9 %THgb (0.4-20.1); Oxygen Device VENT; Total Hemoglobin 14.7 g/dL (14-18)
[2021-01-19 18:13] LABS: Troponin 5 6HR 61.06 ng/L (0-15)
[2021-01-19 18:13] LABS: Influenza A by IFA Negative (Negative); Influenza B by IFA Negative (Negative); SARS Covid-2 Antigen Negative (Negative)
[2021-01-19 18:31] LABS: Troponin 5 6HR Delta -7.94 ng/L (0-12)
[2021-01-19 18:35] LABS: Rapid Plasma Reagin Syphilis Nonreactive (Nonreactive)
[2021-01-19 18:35] LABS: Glucose Point of Care 105 mg/dL (70-110)
--- NOTE | 2021-01-19 18:53 | ECG_ITS ---
[facility] Test Date: 2021-01-19 Pat Name: Michoacano Ball Department: Room: ICU03 Gender: Male Cloth Baler: : 1955 Requested By: Lisa Nobles Order Number: [id number] Divya MD: Henry Loving M.D. Measurements Intervals [place] Rate: 81 P: 94 MS: 155 QRS: 95 QRSD: 89 T: 72 QT: 383 QTc: 447 Interpretive Statements SINUS RHYTHM BORDERLINE RIGHT AXIS DEVIATION [QRS AXIS > 90] PATTERN CONSISTENT WITH PULMONARY DISEASE Compared to ECG 01/19/2021 15:30:03 No significant changes Electronically Signed On 01-19-2021 18:42:19 CDT by Henry Loving M.D. [id number]
--- NOTE | 2021-01-19 19:12 | PC.NURSE ---
Received patient from ED staff: BP: 114/84, HR: 94 SPO2: 94%, RR: 16. Patient on a ventilator. No apparent needs at this time. Rober maldonadoue to monitor. Waiting on new orders from Dr reese. Nurse alerted musa that patient is now in the ICU, resting comfortably, on a ventilator. Plan at this time is to reduce sedation and see how patient responds, possible extubation tonight and nurse will call and give an update.
--- NOTE | 2021-01-19 19:15 | PC.NURSE ---
Patient;s precedex was turned off for a weaning trial. Patient became more responsive, but his mental status was variable. SOmetimes able to follow commands, other times he was unresponsive. Patient also was mostly breathing on his own, but was having occasional periods of apnea lasting 4-5 minutes. Not ready for extubation. Per Dr Winter we will assess again tommorow. Nurse updated musa to this.
[2021-01-19] MEDS: propofol 1,000 MG/100 ML INJ 1.5 MG IV (19:45)
--- NOTE | 2021-01-19 19:45 | PC.NURSE ---
Patient was supposed to be extubated at 1800 today. Patient was ubale to be extubated, sedation only 0.2mcg/kg/hr of precedex. Patient woke up and became very aggravated and aggressive. Kicking bed with feel trying to extubate self. Patient over breathing the vent at 50 times a min, gagging, coughing, and choking. Called Dr. Whitman and received orders to start propofol and fentanyl. Continue care.
[2021-01-19] MEDS: budesonide 0.5 mg/2 mL Neb INHALATION (20:10)
[2021-01-19 23:23] LABS: Vitamin B12 1077 pg/mL (232-1245)
[2021-01-20] VITALS (18 sets, daily range): BP systolic 88–131; BP diastolic 56–84; PULSE 67–98; RESP 10–22; TEMP 36.6–37.1; O2SAT 89–98
[2021-01-20] MEDS: pantoprazole 40 mg SDV IVP ×2 (02:52→15:32)
[2021-01-20] MEDS: dextrose 5%-sod chloride 0.9% 1,000 ML 75 ML IV ×2 (03:37→15:33)
[2021-01-20] MEDS: propofol 1,000 MG/100 ML INJ 7.49 MG IV (03:39)
--- NOTE | 2021-01-20 03:59 | PC.NURSE ---
Shift Note Frequent safety and comfort rounds continue. Orders and/or nursing care completed as indicated. Patient monitored for response to intervention and treatment(s). Education provided includes pain control. Patient and/or ocean import representative reinforcement needed. Will continue to monitor.
[2021-01-20 04:24] LABS: Basophils % 0.2 %; Eosinophils % 0.1 %; Hematocrit 40.1 % (42.0-52.0); Hemoglobin 13.1 g/dL (11.7-16.6); Lymphocytes # 1.1 10^3/uL (0.8-4.8); Lymphocytes % 6.7 %; Mean Corpuscular HGB Conc 32.7 g/dL (30.0-36.0); Mean Corpuscular Hemoglobin 30.8 pg (28.0-34.0); Mean Corpuscular Volume 94.4 fl (80-94); Mean Platelet Volume 9.6 fL (7.4-10.4); Monocytes # 1.1 10^3/uL (0.2-0.9); Monocytes % 6.5 %; Neutrophils # 13.94 10^3/uL (1.8-7.7); Neutrophils % 86.1 %; Nucleated Red Blood Cells % 0 %; Platelet Count 198 10^3/cmm (130-400); Red Blood Count 4.25 10^6/uL (4.1-5.3); Red Cell Distribution Width 13.5 % (12.1-15.1); White Blood Count 16.2 10^3/uL (4.0-10.0)
[2021-01-20] MEDS: ipratropium-albuterol 3 mL Neb INHALATION ×2 (04:57→08:02)
[2021-01-20 05:00] LABS: Alanine Aminotransferase 157 U/L (0-41); Albumin Level 3.4 g/dL (3.5-5.2); Alkaline Phosphatase 67 IU/L (40-130); Anion Gap 12.2 (5-19); Aspartate Amino Transferase 76 U/L (0-40); Blood Urea Nitrogen 10 mg/dL (8-23); Calcium 8.2 mg/dL (8.5-10.5); Carbon Dioxide 23 mmol/L (22-29); Chloride 111 mmol/L (98-107); Globulin 2.3 g/dL (1.3-4.6); Glomerular Filtration Rate 113.5 mL/min (90-130); Glucose 130 mg/dL (65-115); Osmolality Calculated 295 mOsm/kg (285-295); Potassium 4.2 mmol/L (3.5-5.1); Sodium 142 mmol/L (136-145); Total Bilirubin 0.3 mg/dL (0.15-1.2); Total Protein 5.7 g/dL (6.6-8.7)
[2021-01-20 05:08] LABS: Chol HDL Ratio 2.37 mg/dL (1.0-5.00); Cholesterol 140 mg/dL (0-200); Estmated Average Glucose 103; HDL Cholesterol 59 mg/dL (60-100); Hemoglobin A1C 5.2 % (4.0-6.0); LDL Cholesterol Calculated 69 mg/dL (50-129); Triglycerides 59 mg/dL (0-150); VLDL Cholestrol Calculation 12 mg/dL (0-30)
[2021-01-20 05:17] LABS: Cortisol Random 11.47 ug/dL (2.47-19.5)
[2021-01-20 05:27] LABS: Folate Level 15.1 ng/mL (4.5-32.2)
[2021-01-20 06:01] LABS: Glucose Point of Care 124 mg/dL (70-110)
[2021-01-20 07:51] LABS: Glucose Point of Care 119 mg/dL (70-110)
[2021-01-20] MEDS: budesonide 0.5 mg/2 mL Neb INHALATION (08:02)
--- NOTE | 2021-01-20 09:11 | PC.RESP ---
extubated pt extubated, tolerated well
--- NOTE | 2021-01-20 09:27 | PC.CHAP ---
Pastoral Care Encounter/Spiritual Assessment Type of Contact [] Declined dining room manager visit [] Patient/Family/Request visit [] Outpatient visit [] Follow-up visit [] Physician referral [] Code/Alert [x] Routine visit [] Staff referral [] Actively dying [] Patient sleeping [] Family support [] [] Out of room [] Palliative care [] [x] Receiving care in room [] Pre-surgical visit [] Trauma [] Long length of stay [x] ICU visit [x] Other: was awake setting up in bed Relational/Emotional Strength [] Patient feels connected with others/family/visitors/staff [] Distress [] Loneliness/isolation [] Abandonment Spirituality of Patient [] Person of Verito [] Attends Synagogue of their Verito [] Believes in Prayer [] Reads Bible or Episcopal materials [] There are Spiritual issues to be addressed Section Forest Fire Warden Interventions [x] Prayer [] Active listening [] Non-anxious presence [] Spiritual/emotional support [] Crisis/trauma care [] Spiritual counseling [] Bereavement support [] Provided bereavement packet [] Provided Bible/devotional materials [] Provided toy/stuffed animal, coloring book to patient or family member [] Provided Communion [] Anointing/[place] [] Salvation [x] Completed spiritual assessment [] Other: Impact on Illness or Injury [] Angry [] Fearful [] Anxious [] Often cries [] Exhaustion [] Unable to work [] Unable to attend islam [] Unable to walk/stand [] Unable to read [] Unable to drive [] Unable to eat/drink [] Unable to sleep [] Unable to be with family [] Patient intubated [] Other: Summary Time spent with patient
[2021-01-20] MEDS: ondansetron 2 mg/ML SDV 2 mL 4 MG IVP ×2 (09:48→14:41)
[2021-01-20] MEDS: levoFLOXacin 750 mg Tablet PO (10:33)
[2021-01-20] MEDS: ALPRAZolam 0.5 mg Tablet PO (10:33)
[2021-01-20] MEDS: BuSPIRONE 10 mg Tablet 5 MG PO ×3 (10:33→20:33)
--- NOTE | 2021-01-20 11:07 | PC.NURSE ---
Patient is intubated. Upon morning assessment patient is alert, is oriented as he can follow all commands and mouths words to answer questions. Patient is able to follow commands and was able to demonstrate that he is able to control his breathing rate and volumes. He is receiving 30% FIO2. Nurse leted Dr reese and was received orders to change patient to pressure support and extubate if he tolerates it. Nurse turned off all sedation and alerted Respiratory therapy.
--- NOTE | 2021-01-20 11:09 | PC.NURSE ---
Patient was extubated at approximately 0930 today without incident. placed on 2L NC. Patient is A/Ox4. NUrse updated musa on successful extubation.
--- NOTE | 2021-01-20 11:11 | PC.NURSE ---
Patient is now awake, alert and oriented. Able to talk since vent has been discontinued. Nurse questioned patient on the events leading to him being admitted. Patient said that he did attempt suicide. He does not know exactly what medications he took, but it was intentional. He said he did it because his has significant medical issues related to COPD and she has trouble taking care of herself and he has medical issues that require care and he feels like he is a burden to her. He thinks he would be making her life easier if she didn't have to take care of him as well. He also said it depressed him to see her having difficulty breathing and being unable to do anything to help her. Patient is currently being observed 1:1 and is pending a consult with the psychiatrist. Nurse asked about home health services and the patient says he has home health provided by the [facility]. But they are only allowed take care of his needs. THey normally come twice a week, but he feels like they need to come more frequently or that his needs home health, which they have not been able to get approved for. He also said that covid restrictions have prevented home health from coming to his house liek they used to and it has been 2 weeks since they were last there.
[2021-01-20] MEDS: methIMAzole 5 MG Tablet PO (11:38)
[2021-01-20 13:59] LABS: Glucose Point of Care 103 mg/dL (70-110)
--- NOTE | 2021-01-20 14:30 | PM.PN ---
Subjective Subjective: Interval history: Overnight patient woke up and was put on full sedation with propofol and fentanyl. Today morning on weaning off sedation patient woke up appropriately and was extubated to room air. Post extubation patient has been doing well and is able to swallow mechanical soft diet. He states this is the best he has felt over 4 years post extubation. He also states he intentionally took multiple pills yesterday including hydrocodone, Xanax and some medications he does not know to kill himself and is disappointed that his saved him again. He states he would want to kill himself so his would not have to take care of him as well along with her chronic health issues and hoping that if he dies his and his son will get closer. Currently denies any nausea, vomiting, headache. Vitals/I&O/Wt Last Vital Signs Temp 98.4 F 01/20/21 12:00 Pulse 98 01/20/21 12:42 Resp 10 L 01/20/21 12:42 BP 111/68 01/20/21 12:42 Pulse Ox 89 L 01/20/21 12:42 01/19/21 01/20/21 01/20/21 22:59 06:59 14:59 Intake Total 1364.322 / 2102.103 3039.047 / 2630.369 219.511 / 219.511 Output Total 650 / 650 Balance 1364.322 / 1364.322 616.047 / 1980.369 219.511 / 219.511 Weight last 48 hrs Weight 50.916 kg Weight 49.913 kg Weight 45.359 kg Physical Exam Narrative: EXAM NARRATIVE: General: Post extubation AOx3, no acute distress, tremulous, anxious HEENT: PERRLA, pupils bilaterally equal and reactive Chest: Normal vesicular breath sounds, no added sounds, equal good air entry bilaterally CVS: S1-S2 regular, no murmurs, no tachycardia, no gallops, no rubs Abdomen: Soft, nontender, no organomegaly, bowel sounds present Neuro: AOx3, moving all limbs, walking in room post extubation Urinary Catheter Management^: [place]: Cath Placed During This Visit: yes Reason for Continuing Indwelling Catheter: Accurate Measurement of Urinary Output in Critically Ill Patients Urinary Catheter Date of Insertion: 01/19/21 Urinary Catheter Time of Insertion: 18:48 Data : 01/20/21 04:08 01/20/21 04:08 Micro: Microbiology 01/19/21 11:26 Blood Culture - Preliminary Blood NEGATIVE TO DATE 01/19/21 11:24 Blood Culture - Preliminary Blood NEGATIVE TO DATE 01/19/21 15:30 MRSA Culture - Final Nose 01/19/21 10:30 Gram Stain - Final Sputum - Endotracheal Tube Aspirate Sputum Culture - Preliminary 01/19/21 11:11 Legionella Urinary Antigen - Final Urine Catheterized 01/19/21 11:11 Bacterial Antigens - Final Urine Kidney A&P Assessment and plan (1) Unresponsiveness: Status: Acute (2) Endotracheally intubated: Status: Acute (3) Drug overdose: Status: Suspected (4) High anion gap metabolic acidosis: Status: Acute (5) Transaminitis: Status: Acute (6) Suicidal overdose: Status: Acute (7) Septic shock: Status: Acute (8) Hypoglycemia: Status: Acute Additional A&P Information Unresponsiveness/endotracheally intubated: Most likely secondary to drug overdose. CTA head and neck, abdomen pelvis results appreciated. Ammonia levels within normal limits. Troponin cycle and EKG within normal limits. Extubated on January 20. Restart chronic psych medications confirmed through pharmacy. Start on BuSpar 5 mg 3 times a day, Remeron 15 mg daily, change home dose of Xanax to 0.5 mg every 12 hourly as needed. 96-hour hold. One-to-one sitter. Psychiatry evaluation. Once stable can transfer to neuropsych lepe. Less likely infectious cause. Urine Legionella, bacterial antigen, MRSA swab negative. Stop vancomycin. Start patient on doxycycline and Levaquin to finish a 5-day course. COPD: Seen on chest CT scan. No exacerbation. Start on Combivent inhaler with DuoNebs as needed. Seizure precaution, fall precaution. Telemetry. Hypoglycemia: A1c 5.2. Continue with hypoglycemic protocol. D5 NS at 75 cc/h. Hyperthyroidism: TSH elevated. Free T3 free T4 elevated. Check thyroid peroxidase antibody, thyroid ultrasound. Start patient on methimazole 10 mg oral daily for mild hyperthyroidism. Hyperthyroidism can explain most of her symptoms including anxiety, hypoglycemia, chronic GI issues. Septic shock: Weaned off Levophed. Most likely secondary to overdose. High anion gap metabolic acidosis: Lactic acid elevated. Resolved. Monitor BMP daily. Transaminitis: History of hepatitis C. Trending down. Check hepatitis C viral load. Full code. Mechanical soft diet. Protonix for PUD prophylaxis. Heparin for DVT prophylaxis. If patient is doing well can plan to transfer him to neuropsych lepe tomorrow. Attestations Medical Necessity Statement*: Requires further hospitalization for 96-hour hold, suicidal ideation, post extubation care Critical Care Time: The high probability of a clinically significant, sudden or life threatening deterioration of the patient's [respiratory] system(s) required my full and direct attention, intervention and personal management. The critical care time is as shown. This time is in addition to time spent performing any reported procedures but includes the following: [x] Data and vital sign review and interpretation [x] Patient assessment, examination and intervention [x] Documentation [x] Medication orders and management Critical Care Time (min): 70 Coding Level of Care Code Acute Population Health Manager for [facility] Fwd Diagnoses Unresponsiveness R41.89 Endotracheally intubated Z97.8 Drug overdose T50.901A High anion gap metabolic acidosis E87.2 Transaminitis R74.01 Suicidal overdose T50.902A Septic shock A41.9; R65.21 Hypoglycemia E16.2
[2021-01-20] MEDS: heparin 5,000 unit/mL INJ 1 mL 5000 UNIT SUBCUT (15:32)
--- NOTE | 2021-01-20 16:10 | PC.NURSE ---
Patient placed on 96 hour hold. Notice of rights of involuntary patient were read to the patient as he doesn't have his reading glasses and stated he cannot read well either. Nurse called patient's and alerted her to 96 hour hold status.
--- NOTE | 2021-01-20 16:13 | PC.NURSE ---
Patient's dropped of belongings. Belongings included a jodi of slippers, a pair of shoes, clothing, a cellphone machine room operator, cellphone, dentures, and $22.00 in villa. Dentures given to patient. All other belongings placed in a bag with patient's name labled on it and keep in ICU dictation room. Nurse advised the patient's that he won't be able to have belonings while on a 96 hour hold. She dropped the items off so he would have them on discharge.
[2021-01-20] MEDS: lanolin oint 7 gm 1 APPLIC TOPICAL (16:56)
[2021-01-20] MEDS: bisacodyl 5 mg Tablet 10 MG PO (17:23)
[2021-01-20] MEDS: doxycycline 100 mg Tablet PO (17:24)
[2021-01-20] MEDS: mirtazapine 15 mg Tablet PO (20:33)
[2021-01-21] VITALS (9 sets, daily range): BP systolic 130–160; BP diastolic 77–89; PULSE 61–100; RESP 16–20; TEMP 36.1–37.3; O2SAT 95–98
[2021-01-21] MEDS: pantoprazole 40 mg SDV IVP (03:26)
[2021-01-21] MEDS: heparin 5,000 unit/mL INJ 1 mL 5000 UNIT SUBCUT (03:26)
[2021-01-21] MEDS: dextrose 5%-sod chloride 0.9% 1,000 ML 75 ML IV (05:09)
[2021-01-21] MEDS: levoFLOXacin 750 mg Tablet PO (05:09)
[2021-01-21 06:34] LABS: Basophils % 0.4 %; Eosinophils # 0.2 10^3/uL (0.0-0.8); Hematocrit 38.1 % (42.0-52.0); Hemoglobin 12.4 g/dL (11.7-16.6); Lymphocytes % 13.7 %; Mean Corpuscular HGB Conc 32.5 g/dL (30.0-36.0); Mean Corpuscular Hemoglobin 30.5 pg (28.0-34.0); Mean Corpuscular Volume 93.8 fl (80-94); Mean Platelet Volume 10.4 fL (7.4-10.4); Monocytes # 0.6 10^3/uL (0.2-0.9); Monocytes % 7.7 %; Neutrophils # 5.65 10^3/uL (1.8-7.7); Neutrophils % 76.1 %; Nucleated Red Blood Cells % 0 %; Platelet Count 165 10^3/cmm (130-400); Red Blood Count 4.06 10^6/uL (4.1-5.3); Red Cell Distribution Width 13.2 % (12.1-15.1); White Blood Count 7.4 10^3/uL (4.0-10.0)
[2021-01-21 07:06] LABS: Alanine Aminotransferase 143 U/L (0-41); Albumin Level 3.6 g/dL (3.5-5.2); Alkaline Phosphatase 72 IU/L (40-130); Anion Gap 9.4 (5-19); Aspartate Amino Transferase 61 U/L (0-40); Blood Urea Nitrogen 4 mg/dL (8-23); Calcium 8.7 mg/dL (8.5-10.5); Carbon Dioxide 28 mmol/L (22-29); Chloride 105 mmol/L (98-107); Globulin 2.6 g/dL (1.3-4.6); Glomerular Filtration Rate 216.6 mL/min (90-130); Glucose 83 mg/dL (65-115); Osmolality Calculated 284 mOsm/kg (285-295); Potassium 3.4 mmol/L (3.5-5.1); Sodium 139 mmol/L (136-145); Total Bilirubin 0.7 mg/dL (0.15-1.2); Total Protein 6.2 g/dL (6.6-8.7)
[2021-01-21] MEDS: doxycycline 100 mg Tablet PO (08:06)
[2021-01-21] MEDS: tamsulosin 0.4 mg Capsule PO (08:07)
[2021-01-21] MEDS: BuSPIRONE 10 mg Tablet 5 MG PO ×3 (08:07→20:30)
[2021-01-21] MEDS: pantoprazole DR 40 mg Tablet PO (08:07)
[2021-01-21] MEDS: budesonide 0.5 mg/2 mL Neb INHALATION (08:19)
[2021-01-21 08:38] LABS: Coronavirus Test Green County Not Detected
[2021-01-21] MEDS: methIMAzole 5 MG Tablet 10 MG PO (10:02)
[2021-01-21] MEDS: amlodipine 10 mg Tablet 5 MG PO (11:09)
[2021-01-21] MEDS: artificial tears Op Soln 15 mL Btl 1 DROP EYE-BOTH (11:20)
--- NOTE | 2021-01-21 11:20 | P.PN_ITS ---
Subjective Subjective: Interval history: No acute events overnight. Patient was transferred to [facility] floor. Complaining of itching in his eyes. Sitter at bedside. Denies any nausea vomiting, headache. Blood pressure better controlled. Vitals/I&O/Wt Last Vital Signs Temp 99.1 F 01/21/21 08:00 Pulse 81 01/21/21 08:19 Resp 16 01/21/21 08:19 BP 150/80 01/21/21 08:00 Pulse Ox 95 01/21/21 08:19 01/20/21 01/21/21 01/21/21 22:59 06:59 14:59 Intake Total 1395 / 1713.954 9097 / 2614.511 229.382 / 229.382 Output Total 300 / 300 Balance 1095 / 7402.220 1865 / 2314.511 229.382 / 229.382 Weight last 48 hrs Weight 50.916 kg Weight 49.913 kg Physical Exam Narrative: EXAM NARRATIVE: General: Post extubation AOx3, no acute distress, tremulous, anxious HEENT: PERRLA, pupils bilaterally equal and reactive Chest: Normal vesicular breath sounds, no added sounds, equal good air entry bilaterally CVS: S1-S2 regular, no murmurs, no tachycardia, no gallops, no rubs Abdomen: Soft, nontender, no organomegaly, bowel sounds present Neuro: AOx3, moving all limbs, walking in room post extubation Urinary Catheter Management^: [place]: Cath Placed During This Visit: yes Reason for Continuing Indwelling Catheter: Other Urinary Catheter Date of Insertion: 01/19/21 Urinary Catheter Time of Insertion: 18:48 Data : 01/21/21 05:55 01/21/21 05:55 Micro: Microbiology 01/19/21 11:26 Blood Culture - Preliminary Blood NEGATIVE TO DATE 01/19/21 11:24 Blood Culture - Preliminary Blood NEGATIVE TO DATE 01/19/21 15:30 MRSA Culture - Final Nose 01/19/21 10:30 Gram Stain - Final Sputum - Endotracheal Tube Aspirate Sputum Culture - Preliminary A&P Assessment and plan (1) Unresponsiveness: Status: Acute (2) Endotracheally intubated: Status: Acute (3) Drug overdose: Status: Suspected (4) High anion gap metabolic acidosis: Status: Acute (5) Transaminitis: Status: Acute (6) Suicidal overdose: Status: Acute (7) Septic shock: Status: Acute (8) Hypoglycemia: Status: Acute Additional A&P Information Unresponsiveness/endotracheally intubated: Most likely secondary to drug overdose. CTA head and neck, abdomen pelvis results appreciated. Ammonia levels within normal limits. Troponin cycle and EKG within normal limits. Extubated on January 20. Restart chronic psych medications confirmed through pharmacy. Start on BuSpar 5 mg 3 times a day, Remeron 15 mg daily, change home dose of Xanax to 0.5 mg every 12 hourly as needed. 96-hour hold. One-to-one sitter. Psychiatry evaluation. Transfer to neuropsych lepe. Continue Levaquin and doxycycline for 7 days. COPD: Seen on chest CT scan. No exacerbation. Start on Combivent inhaler with DuoNebs as needed. Seizure precaution, fall precaution. Telemetry. Hypoglycemia: Insulin sliding scale AC at bedtime. Hyperthyroidism: Continue with methimazole 10 mg daily. Repeat thyroid panel in 1 week. Septic shock: Resolved. Most likely secondary to overdose. High anion gap metabolic acidosis: Lactic acid elevated. Resolved. Monitor BMP daily. Transaminitis: History of hepatitis C. Trending down. Check hepatitis C viral load. Hypertension: Goal blood pressure less than 140/9090. Start on amlodipine 5 mg and metoprolol 25 mg twice daily. Congestive heart failure: EF of 45% with global LV hypokinesia. Euvolemic. Should have outpatient evaluation of ischemic cardiomyopathy given new EF of 45% . Is quite possible patient's EF 45% secondary to long-term hypothyroidism. Full code. Mechanical soft diet. Protonix for PUD prophylaxis. Heparin for DVT prophylaxis. Patient can be transferred to neuropsych lepe. He is to continue taking doxycycline Levaquin to finish off a 7-day course. Last dose of medication on January 27. Continue blood pressure medications with amlodipine 5 mg daily and metoprolol 25 mg twice daily. He has been started on methimazole 10 mg daily for hyperthyroidism. Patient should have repeat thyroid panel in 1 week. Patient is due for a thyroid ultrasound. Patient should follow-up as an outpatient with septic tank servicer with flotation tender for further work-up and ruling out of ischemic cardiomyopathy with a new EF of 45%. Continue with Combivent on discharge Attestations Medical Necessity Statement*: 96 For hold, suicide attempt with overdose of medications Time Spent in Patient Care: Greater than 35 minutes (>than 50% of time spent in counselling and/or direct pt care on unit) . Coding Level of Care Code Acute Printed Circuit Boards Laminator for g Fwd Diagnoses Unresponsiveness R41.89 Endotracheally intubated Z97.8 Drug overdose T50.901A High anion gap metabolic acidosis E87.2 Transaminitis R74.01 Suicidal overdose T50.902A Septic shock A41.9; R65.21 Hypoglycemia E16.2
--- NOTE | 2021-01-21 11:27 | US_ITS ---
WS: [id number] THYROID ULTRASOUND HISTORY: hyperthyroidism COMPARISON: None available. Right lobe: 1.9 cm x 1.6 cm x 5.9 cm (w x ap x l). Volume: 9.2 cm3. Normal size and echotexture. No significant are dominant nodules are present. Left lobe: 1.5 cm x 1.8 cm x 5.2 cm (w x ap x l). Volume: 7.3 cm3. Normal size with mild heterogeneity in the posterior thyroid. No discrete nodule. No significant or d ominant nodules are present. Multiple colloid cysts are present within the LEFT thyroid which are reina ign. Isthmus: 0.1 cm. US/US thyroid 46148 IMPRESSION: 1. No suspicious mass is identified for which biopsy should be recommended. Co lloid cysts LEFT thyroid. 2. Normal RIGHT thyroid.
--- NOTE | 2021-01-21 12:06 | PC.NURSE ---
Giovany with security helped with transporting patient to NPU.
[2021-01-21 16:08] LABS: Thyroid Peroxidase Antobodies 1 IU/mL (<9)
--- NOTE | 2021-01-21 16:20 | NPU.GN ---
[facility] Group Topic: Rashawn (Addiction) General Mood of Group: Patient refused group today.
--- NOTE | 2021-01-21 16:57 | PM.NHP ---
Providers/Chief Complaint Admitting Physician: Humberto Winter MD Chief Complaint: UNRESPONSIVE HPI NPU History of Present Illness Michoacano Ball is a 65 year old male with a past medical history of COPD, hypoglycemia, hyperthyroidism, hepatitis C, CHF, and recent septic shock who was admitted to the ICU on 01/19/21 after intentional serious medication overdose. He is transferred today to the neuropsychiatric unit for treatment of his depression. He says he has been upset because his is been told she has just 1 or 2 years of life left, due to her stage IV emphysema. He says he tried to kill himself because I did not want to lose my . He says he only had been depressed for 2 days prior to that. Now he says, I know I made a big mistake. I want to go home with my . He says prior to the overdose, at home he was sleeping and eating well, and had good energy and motivation levels. This is his first psychiatric hospitalization. He has been treated with psychiatric medications, although it is not exactly clear who was prescribing them. He also has a history of therapy, but does not want to engage in therapy again. No history of auditory or visual hallucinations. He says he quit drinking alcohol in 1989 and quit smoking marijuana in 1997. He quit smoking cigarettes 3 years ago. No other drug use is reported. Case discussed with Dr. Remy. Dr. Winter's transfer note states in part: Patient can be transferred to neuropsych lepe. He is to continue taking doxycycline Levaquin to finish off a 7-day course. Last dose of medication on January 27. Continue blood pressure medications with amlodipine 5 mg daily and metoprolol 25 mg twice daily. He has been started on methimazole 10 mg daily for hyperthyroidism. Patient should have repeat thyroid panel in 1 week. Patient is due for a thyroid ultrasound. Patient should follow-up as an outpatient with winder tender with bilingual interpreter for further work-up and ruling out of ischemic cardiomyopathy with a new EF of 45%. Continue with Combivent on discharge. Psychiatric history: As above. Substance use history: As above. Family history: Patient denies mental health or addiction issues on either side of the family and denies suicide attempts or completions in the family. Psychosocial history: The patient says he was born in [place], [place] and attended high school in [place], [place] until about the 11th grade, when he dropped out so he could join the [employer]. He says at that time high school diploma was not required, and he got his GED while in the . 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 Legal history: No legal difficulties. Meds NPU Home Medications Medication Instructions Recorded Confirmed Last Taken Type omega-3 fatty acids 1,000 mg 1,000 mg PO DAILY cap 04/12/19 01/19/21 Unknown History capsule tamsulosin 0.4 mg capsule 0.4 mg PO DAILY 04/12/19 01/19/21 Unknown History vitamin E mixed 1,000 unit capsule 1,000 unit PO DAILY cap 04/12/19 01/19/21 Unknown History pantoprazole 40 mg PO DAILY #30 tab 04/04/20 01/19/21 Unknown Rx Allergies Allergy/AdvReac Type Severity Reaction Status Date / Time citalopram Allergy Unknown Verified 04/01/20 23:10 codeine Allergy ADR-Itching Verified 04/01/20 23:10 esomeprazole [From Nexium] Allergy Unknown Verified 04/01/20 23:10 ketorolac [From Toradol] Allergy Unknown Verified 04/01/20 23:10 omeprazole Allergy Unknown Verified 04/01/20 23:10 Penicillins Allergy Unknown Verified 04/01/20 23:10 ranitidine AdvReac ADR-Headach Verified 04/01/20 23:10 e PFSH NPU PFSH: Medical History Chronic epigastric pain Gastritis Hepatitis C Nausea and vomiting Physical deconditioning Suicidal overdose Surgical History History of bilateral carpal tunnel release History of circumcision History of colonoscopy Normal repeat in 10 years History of esophagogastroduodenoscopy (EGD) (02/26/17) Reflux, esophagitis, Gastritis History of hip replacement, total Right History of knee replacement Right History of laparoscopic cholecystectomy Family History Grandfather Cancer Grandmother Cancer Denies family history of Anesthesia complication Bleeding disorder Social History Smoking and tobacco status: former smoker Second hand smoke exposure: No Alcohol intake: former Desire information about alcohol rehabilitation?: No Adopted: No Caregiver/support person: Yes Lives independently: Yes Household members: spouse Housing: House Marital status: Highest education level completed: High School Graduate service: No Current occupational status: disabled Current occupational exposures/hazards: No Pets and animals: No History of recent travel: No Leisure activites: exercise Sexually active: Yes Current gender identity: Male and Female Verito/Holiness: [employer] Special verito needs: No Agree to transfusion: No Financial difficulty paying for basics: Not Very Hard Vitals/I&O/Wt Last Vital Signs Temp 96.9 F L 01/21/21 13:17 Pulse 82 01/21/21 13:17 Resp 16 01/21/21 13:17 BP 160/89 01/21/21 13:17 Pulse Ox 98 01/21/21 13:17 01/21/21 01/21/21 01/21/21 06:59 14:59 22:59 Intake Total 1000 / 2614.511 1709.382 / 1709.382 Balance 1000 / 2314.511 1709.382 / 1709.382 Weight last 48 hrs Weight 50.916 kg Physical Exam Urinary Catheter Management^: [place]: Cath Placed During This Visit: yes Reason for Continuing Indwelling Catheter: Other Urinary Catheter Date of Insertion: 01/19/21 Urinary Catheter Time of Insertion: 18:48 Data NPU : 01/21/21 05:55 01/21/21 05:55 Micro: Microbiology 01/19/21 10:30 Gram Stain - Final Sputum - Endotracheal Tube Aspirate Sputum Culture - Final Microbiology 01/19/21 10:30 Sputum - Endotracheal Tube Aspirate Gram Stain - Final 01/19/21 10:30 Sputum - Endotracheal Tube Aspirate Sputum Culture - Final A&P Assessment and plan (1) Adjustment disorder with depressed mood: Status: Acute (2) Suicidal overdose: Status: Acute (3) Hypoglycemia: Status: Acute (4) Transaminitis: Status: Acute Additional A&P Information This is a 65 year old male with a past medical history of COPD, hypoglycemia, hyperthyroidism, hepatitis C, CHF, and recent septic shock who was admitted to the ICU on 01/19/21 after intentional serious medication overdose. He is transferred to the neuropsychiatric unit for treatment of his depression. He says he has been upset because his is been told she has just 1 or 2 years of life left, due to her stage IV emphysema. RECOMMENDATION AND PLAN: 1. Continue current medication. Home psych medications were confirmed by Dr. Remy through the pharmacy. Started on BuSpar 5 mg 3 times a day, Remeron 15 mg daily, change home dose of Xanax to 0.5 mg every 12 hourly as needed. 2. Continue every 15 minute checks for safety. 3. Encourage individual, group and milieu therapies. 4. Encourage sober living treatment after discharge at the highest level of care to which he is willing to commit. Involuntary Hold Information 96 Hour Hold: 96 Hour Involuntary Admission: Yes 96 Hour Hold Ending Date: 01/24/21 96 Hour Hold Ending Time: 14:00 Attestations NPU Medical Necessity Statement*: Psychiatric hospitalization is medically necessary to prevent access to lethal means, to reevaluate medication, and to coordinate a safe discharge. Patient has had 2 days in the hospital already. Likely discharge in the next 1 to 2 days. Coding Level of Care Code Acute Truck Driver for [facility] Diagnoses Adjustment disorder with depressed mood F43.21 Suicidal overdose T50.902A Hypoglycemia E16.2 Transaminitis R74.01
[2021-01-21 18:05] LABS: Glucose Point of Care 104 mg/dL (70-110)
[2021-01-21] MEDS: metoprolol tartrate 25 mg Tablet PO (20:30)
[2021-01-21] MEDS: mirtazapine 15 mg Tablet PO (20:30)
[2021-01-21 22:32] LABS: HEP C RNA Viral Load Quant <1.18 NOT DETECTED Log IU/mL (NOT DETECTED); HEP C RNA Viral Load Quant <15 NOT DETECTED IU/mL (NOT DETECTED)
--- NOTE | 2021-01-22 01:57 | PC.NURSE ---
Patient up at start of shift. Cooperative. Reported increase anxiety and was tearful at times but redirectable. Denies any SI/HI and AVH. States he is happy to be alive and that he needs to live for his , kids, and grandkids. Has been resting in bed with eyes closed throughout remainder of night. No further complaints voiced. No signs of distress noted
[2021-01-22] MEDS: levoFLOXacin 750 mg Tablet PO (05:56)
[2021-01-22 06:00] VITALS: BP 128/66; PULSE 80; RESP 14; TEMP 36.9; O2SAT 94
[2021-01-22 06:48] LABS: Glucose Point of Care 94 mg/dL (70-110)
[2021-01-22] MEDS: amlodipine 10 mg Tablet 5 MG PO (09:47)
[2021-01-22] MEDS: tamsulosin 0.4 mg Capsule PO (09:47)
[2021-01-22] MEDS: doxycycline 100 mg Tablet PO (09:47)
[2021-01-22] MEDS: BuSPIRONE 10 mg Tablet 5 MG PO ×2 (09:48→14:41)
[2021-01-22] MEDS: pantoprazole DR 40 mg Tablet PO (09:48)
[2021-01-22] MEDS: metoprolol tartrate 25 mg Tablet PO (09:48)
[2021-01-22 11:21] LABS: Glucose Point of Care 103 mg/dL (70-110)
--- NOTE | 2021-01-22 11:22 | NPU.GN ---
[facility] Group Topic:Stress Map General Mood of Group: Michoacano did not attend group today he reported to this comic writer that he was sick.
[2021-01-22 12:58] VITALS: BP 113/73; PULSE 65; RESP 17; TEMP 36.8; O2SAT 96
--- NOTE | 2021-01-22 13:39 | PC.SOCIAL ---
IMM Update Discussed medicare rights with patient. Verbalized understanding. Gave patient a copy and placed initialed, dated, signed copy in chart.
--- NOTE | 2021-01-22 14:04 | PM.NDC ---
Diagnoses at Discharge Discharge Diagnosis (1) Adjustment disorder with depressed mood: Status: Acute (2) Suicidal overdose: Status: Acute (3) Hypoglycemia: Status: Acute (4) Transaminitis: Status: Acute Permanent problem details: -unclear etiology though could be related to hx of hepatitis C, septic shock -continue to trend LFTs; improving -imaging reviewed including US, CT scan -CPK wnl, negative salicylates and acetaminophen Reason for Visit Reason for Visit: UNRESPONSIVE Brief History: Michoacano Ball is a 65 year old male with a past medical history of COPD, hypoglycemia, hyperthyroidism, hepatitis C, CHF, and recent septic shock who was admitted to the ICU on 01/19/21 after intentional serious medication overdose. He is transferred today to the neuropsychiatric unit for treatment of his depression. He says he has been upset because his is been told she has just 1 or 2 years of life left, due to her stage IV emphysema. He says he tried to kill himself because I did not want to lose my . He says he only had been depressed for 2 days prior to that. Now he says, I know I made a big mistake. I want to go home with my . He says prior to the overdose, at home he was sleeping and eating well, and had good energy and motivation levels. This is his first psychiatric hospitalization. He has been treated with psychiatric medications, although it is not exactly clear who was prescribing them. He also has a history of therapy, but does not want to engage in therapy again. No history of auditory or visual hallucinations. He says he quit drinking alcohol in 1989 and quit smoking marijuana in 1997. He quit smoking cigarettes 3 years ago. No other drug use is reported. Case discussed with Dr. Remy. Dr. Winter's transfer note states in part: Patient can be transferred to neuropsych lepe. He is to continue taking doxycycline Levaquin to finish off a 7-day course. Last dose of medication on January 27. Continue blood pressure medications with amlodipine 5 mg daily and metoprolol 25 mg twice daily. He has been started on methimazole 10 mg daily for hyperthyroidism. Patient should have repeat thyroid panel in 1 week. Patient is due for a thyroid ultrasound. Patient should follow-up as an outpatient with networking administrator with [facility] for further work-up and ruling out of ischemic cardiomyopathy with a new EF of 45%. Continue with Combivent on discharge. Psychiatric history: As above. Substance use history: As above. Family history: Patient denies mental health or addiction issues on either side of the family and denies suicide attempts or completions in the family. Psychosocial history: The patient says he was born in [place], [place] and attended high school in [place], [place] until about the 11th grade, when he dropped out so he could join the [employer]. He says at that time high school diploma was not required, and he got his GED while in the . 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 Legal history: No legal difficulties. Hospital Course Hospital Course The patient was admitted to the neuropsychiatric unit for definitive treatment of these issues. On the unit he slowly acclimated to the individual, group and milieu therapies. There were some mild depressive symptoms present initially which resolved with the medication being restarted. He had been restarted on his chronic psych medications on the medical floor, as confirmed through pharmacy??started on BuSpar 5 mg 3 times a day, Remeron 15 mg daily, change home dose of Xanax to 0.5 mg every 12 hourly as needed. He was receptive to treatment team recommendations and showed modest improvement and was able to contract for safety prior to discharge. He reports, and his confirms, that he had been greatly discouraged about his health condition, which she had been told was all in his head. Dr. Remy feels that hyperthyroidism could explain his symptoms. The patient now feels much more hopeful that there is both an identified cause and treatment for what has been plaguing him. Since this major stressor has been removed, he is in a much better space than how he was feeling when he took the overdose. During the hospitalization, patient had routine laboratory studies which were within normal limits except for few outliers. Additionally there was a general medical evaluation which was also within normal limits and revealed no new acute processes. Discharge Summary: At the time of discharge, psychosis and lethality were denied. Mood and anxiety were well managed. Patient endorsed a plan to avoid all drugs of abuse and follow-up with the aftercare recommendations of the treatment team. Patient was evaluated and deemed to be absent credible lethality, and had achieved the maximum benefit from an inpatient hospitalization, so was discharged. Involuntary Hold Information 96 Hour Hold: 96 Hour Involuntary Admission: Yes 96 Hour Hold Ending Date: 01/24/21 96 Hour Hold Ending Time: 14:00 Mental Status Exam MSE Comments: The patient made good eye contact and was cooperative and open to the exam. No psychomotor agitation or retardation. Speech was had a regular rate and rhythm without pressure. Alert and oriented to person, place, time, and situation. Attention and concentration were intact to exam Memory was fairly good to exam. Mood is improved without depression and anxiety. Affect is brighter. Thought process: Logical and goal directed. No racing thoughts or flight of ideas. Thought content: Denies auditory and visual hallucinations. There are no delusions noted. No suicidal or homicidal ideation. Has future-oriented goals. Insight and judgment are improved and adequate. Physical Exam Urinary Catheter Management^: [place]: Cath Placed During This Visit: yes Reason for Continuing Indwelling Catheter: Other Urinary Catheter Date of Insertion: 01/19/21 Urinary Catheter Time of Insertion: 18:48 Discharge Data Data Completed and Pending: Completed Studies During Hospitalization Category Date Time Status CT angio chest ab domen pelvis Urgen t Cat Scan 01/19/21 12:[address] angio headneck * 85122/13831 Urge nt Cat Scan 01/19/21 12:[address] head wo con* 7 0450 Urgent Cat Scan 01/19/21 10:14 Completed XR chest 1V migel ble 55299 Stat Exams 01/19/21 10:13 Completed CV. echo complete * [id number] Routine Ultrasound 01/19/21 12:46 Completed US thyroid 94661 Routine Ultrasound 01/21/21 11:27 Completed Pending at discharge Category Date Time Status Blood Culture Sta t Lab 01/19/21 11:24 Results Thyroid Profile R outine Lab 01/24/21 04:00 Ordered Labs from last 24 hours 01/22/21 01/22/21 01/21/21 11:18 06:41 18:00 POC Glucose 103 94 104 Thyroid Peroxidase Ab HCV RNA (PCR) IUs/ ml HCV RNA (PCR) IU l og10 01/20/21 01/19/21 04:08 14:51 POC Glucose Thyroid Peroxidase Ab 1 HCV RNA (PCR) IUs/ ml <1.18 not detecte d HCV RNA (PCR) IU l og10 <15 not detected Vitals: Last Vital Signs Temp 98.2 F 01/22/21 12:58 Pulse 65 01/22/21 12:58 Resp 17 01/22/21 12:58 BP 113/73 01/22/21 12:58 Pulse Ox 96 01/22/21 12:58 Discharge Plan Discharge Condition: Critical Prescriptions: New alprazolam 0.5 mg Tablet 0.5 mg PO Q12H PRN (Reason: Anxiety) 7 Days Qty: 14 RF: 0 budesonide 0.5 mg/2 mL Suspension For Nebulization 0.5 mg inhalation BID 30 Days Qty: 120 RF: 0 bisacodyl 5 mg Tablet,Delayed Release (Dr/Ec) 10 mg PO DAILY PRN (Reason: Constipation (see protocol)) 30 Days Qty: 60 RF: 0 mirtazapine 15 mg Tablet 15 mg PO BEDTIME 30 Days Qty: 30 RF: 0 levofloxacin 750 mg Tablet 750 mg PO DAILY@0600 6 Days Qty: 6 RF: 0 Lanolin (HPA) 100 % Cream 1 applic topical PRN PRN (Reason: Dryness) 30 Days Qty: 40 RF: 0 Isopto Tears 0.5 % Drops 1 drp eye-both Q4H PRN (Reason: Dry Eye(S)) 30 Days Qty: 15 RF: 0 doxycycline monohydrate 100 mg Tablet 100 mg PO 0900,2100 6 Days Qty: 12 RF: 0 buspirone 10 mg Tablet 5 mg PO TID 30 Days Qty: 45 RF: 0 Combivent Respimat 20-100 mcg/actuation Mist 1 puff inhalation QID.RESPIRATORY 30 Days Qty: 4 RF: 0 methimazole 5 mg Tablet 10 mg PO DAILY 30 Days Qty: 60 RF: 0 amlodipine 10 mg Tablet 5 mg PO DAILY 30 Days Qty: 15 RF: 0 metoprolol tartrate 25 mg Tablet 25 mg PO BID@0900,2100 30 Days Qty: 30 RF: 0 Continued tamsulosin 0.4 mg capsule 0.4 mg PO DAILY RF: 0 omega-3 fatty acids [Fish Oil Concentrate] 1,000 mg capsule 1,000 mg PO DAILY RF: 0 vitamin E mixed 1,000 unit capsule 1,000 unit PO DAILY RF: 0 pantoprazole 40 mg tablet,delayed release (DR/EC) 40 mg PO DAILY Qty: 30 RF: 0 Discharge Orders: Discharge Order (Routine); Ordered 01/22/21 Ordered By: Inder Deluca Referrals: Savanah Quintero MD [Physician] - (Hyperthyroidism) Audrey Collins MD [Physician] - (Work for new cardiomyopathy) Discharge Diet: Usual diet Discharge Activity: Resume usual activity Patient Instructions: Opioid Safety Activity Restrictions/Additional Instructions: From Dr. Remy: Congestive heart failure: EF of 45% with global LV hypokinesia. Euvolemic. Patient should follow-up as an outpatient with networking administrator with [facility] for outpatient evaluation of ischemic cardiomyopathy given new EF of 45%. Is quite possible patient's EF 45% secondary to long-term hyperthyroidism. He is to continue taking doxycycline and Levaquin to finish off a 7-day course. Continue blood pressure medications with amlodipine 5 mg daily and metoprolol 25 mg twice daily. He has been started on methimazole 10 mg daily for hyperthyroidism. Patient should have repeat thyroid panel in 1 week. Patient is due for a thyroid ultrasound. Patient should follow-up as an outpatient with networking administrator. Continue with [facility] on discharge From Dr. Deluca: Follow-up with the [facility] for outpatient psychotherapy, to address issues including the of his son and chronic illnesses and his and himself [facility] BuSpar, mirtazapine, and alprazolam Continue in-home services with [facility] [facility] twice a week [facility] with his [facility] Discharge Attestations NPU Time Spent in Discharge Care*: greater than 30 min Specific Discharge Activities: Specific discharge activities: educating patient, educating and/or supporting family/caregiver, discussing with case supervisor/social workers/dc planners, documenting/other paperwork and evaluating patient/reviewing data Status at Discharge: Cognitive status at discharge: cognitively intact, Behavioral status at discharge: cooperative and independent in ADL's, Functional status at discharge: independent ambulation Overall status at discharge: patient is back to baseline Coding Level of Care Code Acute Chg FW DC note Diagnoses Adjustment disorder with depressed mood F43.21 Suicidal overdose T50.902A Hypoglycemia E16.2 Transaminitis R74.01
[2021-01-22 14:42] VITALS: BP 113/73; PULSE 65; RESP 17; TEMP 36.8; O2SAT 96
--- NOTE | 2021-01-22 15:12 | DCPLANNER ---
IMM completed 01/22/21 @ 1516.
== END 2021-01-22 15:06 | disposition home or self-care (01) | DRG 918 ==
LOC: ER 13:10 → ICU 13:28 → ER IP 01-21 03:42 → MEDSURG 01-21 03:43 → NP 01-21 12:04
PROVIDERS: Admitting Provider Student in an Organized Health Care Education/Training Program; Emergency Provider Family Medicine; Visit Provider Psychiatry & Neurology Child & Adolescent Psychiatry
DX: T40.2X2A Poisoning by other opioids, intentional self-harm, initial encounter (principal); E87.2 Acidosis; T42.4X2A Poisoning by benzodiazepines, intentional self-harm, initial encounter; F43.21 Adjustment disorder with depressed mood; G89.29 Other chronic pain; B19.20 Unspecified viral hepatitis C without hepatic coma; Z96.641 Presence of right artificial hip joint; Z96.651 Presence of right artificial knee joint; Z87.891 Personal history of nicotine dependence; I95.9 Hypotension, unspecified; E16.2 Hypoglycemia, unspecified; J44.9 Chronic obstructive pulmonary disease, unspecified; I50.9 Heart failure, unspecified; F10.21 Alcohol dependence, in remission; E05.90 Thyrotoxicosis, unspecified without thyrotoxic crisis or storm
CPT/HCPCS: 36415; 36416; 36600; 51702; 70450; 70496; 70498; 71045; 71275; 74174; 76536; 80051; 80053; 80061; 80306; 80307; 81001; 82140; 82330; 82436; 82533; 82550; 82607; 82746; 82805; 82810; 82962; 83036; 83540; 83550; 83605; 83880; 84133; 84145; 84300; 84439; 84443; 84481; 84484; 85025; 85378; 85610; 86376; 86403; 86592; 86705; 86706; 86709; 86803; 87040; 87070; 87205; 87340; 87426; 87449; 87522; 87635; 87641; 87804; 87806; 92523; 92610; 93005; 93306; 94002; 94003; 94640; 94664; 94799; 96365; 96366; 96367; 96372; 97165; 99291; 99292; C9113; J0696; J1644; J2405; J2704; J3010; J3370; J3490; J3535; J7030; J7050; J7626; Q9967

== ENCOUNTER 2021-02-05 09:48 | Emergency (ER) | payer OTHER, MEDICARE, SELFPAY ==
[2021-02-05 09:55] VITALS: BP 112/79; PULSE 84; RESP 16; TEMP 36.5; O2SAT 96; BMI 14.4
--- NOTE | 2021-02-05 10:03 | ECG_ITS ---
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 Measurements Intervals B[place]um Rate: 70 P: 83 TN: 157 QRS: 88 QRSD: 88 T: 82 QT: 383 QTc: 413 Interpretive Statements SINUS RHYTHM Compared to ECG 01/19/2021 17:51:56 No significant changes Electronically Signed On 02-05-2021 20:41:48 SURGICAL DEVICE SALES REPRESENTATIVE by Henry Loving M.D. [email or web address] [email or web address] health behavioral medical [email or web address]/[id number]
--- NOTE | 2021-02-05 10:03 | XR_ITS ---
WS: [id number] Portable AP upright chest, 02/05/2021 Clinical Data: dyspnea/cough Comparison: Portable chest, 01/19/2021. Findings: No nodules, masses or effusions are seen. The heart is normal. The pulmonary vascularity is not increased. No pneumonia or pneumothorax is seen. The diaphragms are flattened. The aortic arch a nd descending thoracic aorta show minimal calcification and tortuosity. There is osteoarthritis of soraida th shoulders. XR/XR chest 1V portable 83535 Impression: Hyperinflation and atherosclerosis.
[2021-02-05 11:06] LABS: Basophils # 0.1 10^3/uL (0.0-0.1); Basophils % 0.9 %; Eosinophils % 0.7 %; Hematocrit 42.9 % (42.0-52.0); Hemoglobin 14.4 g/dL (11.7-16.6); Lymphocytes # 1.1 10^3/uL (0.8-4.8); Lymphocytes % 19.7 %; Mean Corpuscular HGB Conc 33.6 g/dL (30.0-36.0); Mean Corpuscular Hemoglobin 30.7 pg (28.0-34.0); Mean Corpuscular Volume 91.5 fl (80-94); Mean Platelet Volume 8.8 fL (7.4-10.4); Monocytes # 0.4 10^3/uL (0.2-0.9); Monocytes % 6.6 %; Neutrophils # 4.02 10^3/uL (1.8-7.7); Neutrophils % 71.9 %; Nucleated Red Blood Cells % 0 %; Platelet Count 276 10^3/cmm (130-400); Red Blood Count 4.69 10^6/uL (4.1-5.3); Red Cell Distribution Width 13.2 % (12.1-15.1); White Blood Count 5.6 10^3/uL (4.0-10.0)
[2021-02-05 11:25] LABS: Troponin(5th) Baseline 7 ng/L (0-15)
--- NOTE | 2021-02-05 11:26 | W.ED.GENADLT ---
HPI - General Adult General: Chief complaint: General Medical Stated complaint: THYROID STORM END OF DECEMBER/NOT DOING BETTER Time Seen by Provider: 02/05/21 09:50 History of Present Illness: HPI narrative: 65-year-old male presents emergency room complaining of thyroid storm. He states he has had thyroid storm for the last 2 years to weeks complaining of generalized body aches and joint pain. He is severely fatigued and has decreased appetite. States he is lost over 40 pounds since having cholecystectomy several years ago. He recently had a hospitalization for suicidal attempt by overdose he was initially intubated in the ICU and then transferred to the psychiatric unit. During that hospitalization he was started on methimazole and metoprolol. He did have free t4, TSH and T3 done during last hospitalization although initially I could not find it in the hospital record by checking with lab we found the TSH was 4.93 free T3 was 4.7 and his free T4 was 1.96. Onset (ago): day(s) Location: abdomen Radiation: non-radiation Severity: mild Quality: burning Pain Consistency: constant Relieving factors: none Exacerbating factors: none Associated symptoms: Reports decreased appetite, malaise, nausea and vomiting; Deny chest pain, confusion, cough, diaphoresis, dyspnea, fevers/chills, headache(s), rash, palpitations, seizures, short of breath, syncope or weakness Treatments prior to arrival: none Review of Systems Const: Reports: malaise; Denies: diaphoresis ENMT: Denies: throat pain, ear or mastoid pain, nasal discharge or nasal congestion Card: Denies: chest pain, palpitations or syncope Resp: Denies: dyspnea GI: Reports: nausea and vomiting : Denies: flank pain, dysuria, urinary frequency or urinary urgency Skin/Breast: Denies: rash Neuro: Denies: headache(s) or confusion PFSH ED PFSH: Medical History Chronic epigastric pain Drug overdose Endotracheally intubated Gastritis Hepatitis C Nausea and vomiting Physical deconditioning Polysubstance abuse Suicidal overdose Unresponsiveness Surgical History History of bilateral carpal tunnel release History of circumcision History of colonoscopy Normal repeat in 10 years History of esophagogastroduodenoscopy (EGD) (02/26/17) Reflux, esophagitis, Gastritis History of hip replacement, total Right History of knee replacement Right History of laparoscopic cholecystectomy Family History Grandfather Cancer Grandmother Cancer Denies family history of Anesthesia complication Bleeding disorder Social History Smoking and tobacco status: former smoker Second hand smoke exposure: No Alcohol intake: former Desire information about alcohol rehabilitation?: No Adopted: No Caregiver/support person: Yes Lives independently: Yes Household members: spouse Housing: House Marital status: Highest education level completed: High School Graduate service: No Current occupational status: disabled Current occupational exposures/hazards: No Pets and animals: No History of recent travel: No Leisure activites: exercise Sexually active: Yes Current gender identity: Male and Female Verito/Jainism: Orthodox Special verito needs: No Agree to transfusion: No Financial difficulty paying for basics: Not Very Hard Physical Exam Const: COMMON NORMALS: no acute distress GENERAL APPEARANCE: cooperative and comfortable ORIENTATION/CONSCIOUSNESS: Yes awake, Yes oriented to person, Yes oriented to place and Yes oriented to time HENMT: COMMON NORMALS: normocephalic, atraumatic, hearing grossly normal bilaterally, external ears normal, EAC's normal, TM's normal bilaterally and Normal nasal mucous membranes and turbinates present HEAD & SCALP: normocephalic and atraumatic NOSE: Normal nasal mucous membranes and turbinates present EXTERNAL EAR: Yes external ears normal EXTERNAL AUDITORY CANAL: EAC's normal TYMPANIC MEMBRANE: TM's normal bilaterally Eye: COMMON NORMALS: Equal, round and reactive pupils present, EOMs intact bilaterally, conjunctivae normal and no scleral icterus CONJUNCTIVA: Yes conjunctivae normal PUPIL: Yes Equal, round and reactive pupils present Neck/C-Spine: COMMON NORMALS: no JVD Lymph: LYMPHATIC: no lymphadenopathy noted and no lymphedema noted Resp: COMMON NORMALS: normal respiratory effort, No retractions, No use of accessory muscles and clear to auscultation bilaterally AUSCULTATION: clear to auscultation bilaterally Cardio: COMMON NORMALS: no JVD, regular rate, regular rhythm and No murmurs present (Cardio) RATE: regular rate RHYTHM: regular rhythm GI: COMMON NORMALS: Soft to palpation and No hepatosplenomegaly present AUSCULTATION: Yes normoactive bowel sounds PALPATION: Yes Soft to palpation, No Tenderness to palpation present (GI), No Guarding due to palpation present (GI) and Yes No hepatosplenomegaly present Extremity: COMMON NORMALS: normal to inspection, capillary refill normal, no clubbing, cyanosis or edema, no calf tenderness and no pedal edema Neuro: SENSORIUM/ORIENTATION: Yes oriented to person, Yes oriented to place and Yes oriented to time Skin: COMMON NORMALS: no rashes or lesions noted GENERAL SKIN EXAM: no rashes or lesions noted Course Vital Signs: Vital signs: Vital Signs Temperature 97.7 F 02/05/21 09:55 Pulse Rate 68 02/05/21 12:19 Respiratory Rate 16 02/05/21 12:19 Blood Pressure 135/104 02/05/21 12:19 Pulse Oximetry 96 02/05/21 12:19 MDM - General Adult MDM Narrative: Medical decision making narrative: TSH and free T4 are normal. At the time of his last hospitalization they were only slightly out of range. Likely is experiencing now is not a thyroid storm he does need further work-up he does have a further work-up planned at this time does not appear to be anything acute he is feeling better will go ahead and discharge him home encourage him to follow-up as previously planned Lab Data: Labs: Lab Results 02/05/21 02/05/21 02/05/21 10:50 10:50 10:50 WBC 5.6 10^3/uL 10^3/ uL (4.0-10.0) RBC 4.69 10^6/uL 10^6 /uL (4.1-5.3) Hgb 14.4 g/dL g/dL (11.7-16.6) Hct 42.9 % % (42.0-52.0) MCV 91.5 fl fl (80-94) MCH 30.7 pg pg (28.0-34.0) MCHC 33.6 g/dL g/dL (30.0-36.0) RDW 13.2 % % (12.1-15.1) Plt Count 276 10^3/cmm 10^3 /cmm (130-400) MPV 8.8 fL fL (7.4-10.4) Neut % (Auto) 71.9 % % Lymph % (Auto) 19.7 % % [place] % (Auto) 6.6 % % Eos % (Auto) 0.7 % % Baso % (Auto) 0.9 % % Neut # (Auto) 4.02 10^3/uL 10^3 /uL (1.8-7.7) Lymph # (Auto) 1.1 10^3/uL 10^3/ uL (0.8-4.8) [place] # (Auto) 0.4 10^3/uL 10^3/ uL (0.2-0.9) Eos # (Auto) 0.0 10^3/uL 10^3/ uL (0.0-0.8) Baso # (Auto) 0.1 10^3/uL 10^3/ uL (0.0-0.1) Nucleated RBC % (a uto) 0 % % Nucleated RBCs # 0.0 /100WBC /100W BC Sodium 137 mmol/L mmol/L (136-145) Potassium 3.9 mmol/L mmol/L (3.5-5.1) Chloride 104 mmol/L mmol/L (98-107) Carbon Dioxide 23 mmol/L mmol/L (22-29) Anion Gap 13.9 (5-19) BUN 6 mg/dL L mg/dL (8-23) Creatinine 0.4 mg/dL L mg/dL (0.7-1.2) GFR Calculation 216.6 mL/min H mL /min (90-130) Glucose 102 mg/dL mg/dL (65-115) Calculated Osmolal ity 282 mOsm/kg L mOs m/kg (285-295) Calcium 8.9 mg/dL mg/dL (8.5-10.5) Total Bilirubin 0.4 mg/dL mg/dL (0.15-1.2) AST 8 U/L U/L (0-40) ALT 11 U/L U/L (0-41) Alkaline Phosphata se 59 IU/L IU/L (40-130) Creatine Kinase 29 U/L L U/L (39-308) Troponin T Baselin e 7 ng/L ng/L (0-15) NT-Pro-B Natriuret Pep 46 pg/mL pg/mL (0-125) Total Protein 6.7 g/dL g/dL (6.6-8.7) Albumin 3.9 g/dL g/dL (3.5-5.2) Globulin 2.8 g/dL g/dL (1.3-4.6) TSH 0.52 uIU/mL uIU/m L (0.27-4.20) Free T4 1.50 ng/dL ng/dL (0.82-1.77) Discharge Plan Discharge Patient Disposition: Home Clinical Impression: Fatigue, Appetite impaired Condition: Stable Prescriptions: New Lyrica 75 mg capsule 75 mg PO BID Qty: 30 RF: 0 No Action tamsulosin 0.4 mg capsule 0.4 mg PO DAILY RF: 0 omega-3 fatty acids [Fish Oil Concentrate] 1,000 mg capsule 1,000 mg PO DAILY RF: 0 vitamin E mixed 1,000 unit capsule 1,000 unit PO DAILY RF: 0 pantoprazole 40 mg tablet,delayed release (DR/EC) 40 mg PO DAILY Qty: 30 RF: 0 amlodipine 10 mg Tablet 5 mg PO DAILY 30 Days Qty: 15 RF: 0 Isopto Tears 0.5 % Drops 1 drp eye-both Q4H PRN (Reason: Dry Eye(S)) 30 Days Qty: 15 RF: 0 bisacodyl 5 mg Tablet,Delayed Release (Dr/Ec) 10 mg PO DAILY PRN (Reason: Constipation (see protocol)) 30 Days Qty: 60 RF: 0 budesonide 0.5 mg/2 mL Suspension For Nebulization 0.5 mg inhalation BID 30 Days Qty: 120 RF: 0 buspirone 10 mg Tablet 5 mg PO TID 30 Days Qty: 45 RF: 0 Combivent Respimat 20-100 mcg/actuation Mist 1 puff inhalation QID.RESPIRATORY 30 Days Qty: 4 RF: 0 Lanolin (HPA) 100 % Cream 1 applic topical PRN PRN (Reason: Dryness) 30 Days Qty: 40 RF: 0 methimazole 5 mg Tablet 10 mg PO DAILY 30 Days Qty: 60 RF: 0 metoprolol tartrate 25 mg Tablet 25 mg PO BID@0900,2100 30 Days Qty: 30 RF: 0 mirtazapine 15 mg Tablet 15 mg PO BEDTIME 30 Days Qty: 30 RF: 0 Discharge Orders: Discharge ED (Routine); Ordered 02/05/21 Ordered By: Keith Hardin Referrals: Cecille Estrada FNP [Primary Care Provider] - Discharge Diet: Usual diet Discharge Activity: Resume usual activity Patient Instructions: Opioid Safety Activity Restrictions/Additional Instructions: Encourage follow-up with endocrinology as previously scheduled return to your primary care doctor to reevaluate blood pressure medications. Start Lyrica for chronic pain. Coding Level of Care Code ED Entry Level Project Engineer for Chg Fwd Exam Comprehensive
[2021-02-05] MEDS: acetaminophen 1,000 MG/100 ML PIGGYBACK 400 MG IV (11:31)
[2021-02-05 11:32] LABS: Alanine Aminotransferase 11 U/L (0-41); Albumin Level 3.9 g/dL (3.5-5.2); Alkaline Phosphatase 59 IU/L (40-130); Anion Gap 13.9 (5-19); Aspartate Amino Transferase 8 U/L (0-40); Blood Urea Nitrogen 6 mg/dL (8-23); Calcium 8.9 mg/dL (8.5-10.5); Carbon Dioxide 23 mmol/L (22-29); Chloride 104 mmol/L (98-107); Creatine Phosphokinase 29 U/L (39-308); Globulin 2.8 g/dL (1.3-4.6); Glomerular Filtration Rate 216.6 mL/min (90-130); Glucose 102 mg/dL (65-115); NT Pro B Type Natriuretic Pept 46 pg/mL (0-125); Osmolality Calculated 282 mOsm/kg (285-295); Potassium 3.9 mmol/L (3.5-5.1); Sodium 137 mmol/L (136-145); Thyroid Stimulating Hormone 0.52 uIU/mL (0.27-4.20); Total Bilirubin 0.4 mg/dL (0.15-1.2); Total Protein 6.7 g/dL (6.6-8.7)
[2021-02-05 12:19] VITALS: BP 135/104; PULSE 68; RESP 16; O2SAT 96
[2021-02-08 07:18] LABS: T3 Total 115 ng/dL (76-181)
== END 2021-02-05 12:21 | disposition home or self-care (01) ==
PROVIDERS: Internal Medicine; Emergency Provider Family Medicine; PCP Nurse Practitioner
DX: E05.91 Thyrotoxicosis, unspecified with thyrotoxic crisis or storm (principal); R53.83 Other fatigue; B19.20 Unspecified viral hepatitis C without hepatic coma; Z87.891 Personal history of nicotine dependence
CPT/HCPCS: 36415; 71045; 80053; 82550; 83880; 84439; 84443; 84480; 84484; 85025; 93005; 99283

== ENCOUNTER → 2021-02-07 10:50 | Outpatient (BNVA) | payer OTHER, MEDICARE, SELFPAY | PROVIDERS: PCP Nurse Practitioner; Referring Provider Nurse Practitioner; Visit Provider Internal Medicine | DX: E05.90 Thyrotoxicosis, unspecified without thyrotoxic crisis or storm (principal); R63.4 Abnormal weight loss; R53.83 Other fatigue; R63.0 Anorexia; Z68.1 Body mass index [BMI] 19.9 or less, adult | CPT/HCPCS: 99204 ==

== ENCOUNTER → 2021-02-24 12:47 | Outpatient (BNVA) | payer OTHER, SELFPAY | PROVIDERS: PCP Nurse Practitioner; Visit Provider Internal Medicine | DX: E05.90 Thyrotoxicosis, unspecified without thyrotoxic crisis or storm (principal); R53.83 Other fatigue; R63.0 Anorexia; R63.4 Abnormal weight loss; Z68.1 Body mass index [BMI] 19.9 or less, adult | CPT/HCPCS: 99214 ==

== ENCOUNTER 2021-02-26 11:37 | Outpatient (CLI) | payer OTHER, SELFPAY ==
[2021-02-26 12:56] LABS: Free T4 Free Thyroxine 1.38 ng/dL (0.82-1.77); Thyroid Stimulating Hormone 0.83 uIU/mL (0.27-4.20)
[2021-02-27 11:38] LABS: T3 Total 152 ng/dL (76-181)
[2021-02-27 16:36] LABS: Thyroglobulin AB <1 IU/mL (< or = 1)
[2021-03-04 19:32] LABS: TSH Receptor Binding Antibody 1.63 IU/L (< OR = 2.00)
== END 2021-02-26 11:38 | disposition home or self-care (01) ==
LOC: LAB 11:41
PROVIDERS: PCP Nurse Practitioner; Visit Provider Internal Medicine
DX: E05.90 Thyrotoxicosis, unspecified without thyrotoxic crisis or storm (principal)
CPT/HCPCS: 36415; 83516; 84439; 84443; 84480; 86800

== ENCOUNTER → 2021-03-12 13:07 | Outpatient (BNVA) | payer OTHER, SELFPAY | PROVIDERS: PCP Nurse Practitioner; Visit Provider Internal Medicine | DX: R06.02 Shortness of breath (principal); R63.4 Abnormal weight loss; E05.90 Thyrotoxicosis, unspecified without thyrotoxic crisis or storm; R53.83 Other fatigue; R63.0 Anorexia; F17.200 Nicotine dependence, unspecified, uncomplicated; Z68.1 Body mass index [BMI] 19.9 or less, adult | CPT/HCPCS: 99213 ==

== ENCOUNTER 2021-04-30 07:38 | Outpatient (CLI) | payer OTHER, SELFPAY ==
--- NOTE | 2021-04-30 08:07 | ECG_ITS ---
[facility] Test Date: 2021-04-30 Pat Name: Michoacano Paulino Department: Room: Gender: Male Applications System Analyst: Cassandra Graves : 1955 Requested By: Henry Loving Order Number: [id number] Stokes MD: Audrey Collins M.D. Interpretive Statements NAME OF STUDY: LEXISCAN SESTAMIBI STRESS TEST INDICATION: Chest pain, Shortness of breath PROCEDURE: At the baseline, the blood pressure was 114/75 mm Hg with a heart rate of 52 bpm and oxygen saturation of 96%. The electrocardiogram showed normal sinus rhythm,normal axis and possinle old anteroseptal infarct. ??? The Lexiscan was infused over a period of 20 seconds. A total of 0.4 milligrams of Lexiscan was infused. The stress phase was continued for a total of 5 minutes. Heart rate at the end of the stress phase was 83 bpm, oxygen saturation of 97% with a blood pressure og 98/70 mm Hg. The EKG at the peak infusion revealed sinus rhythm with no significant ST-T wave changes.The study was terminated due to protocol completion. ??? Sestamibi was injected 20 seconds after the Lexiscan infusion. ??? Blood pressure at the end of the recovery phase was 103/71 mm Hg with a heart rate of 77 beats per minute and oxygen saturation of 96%. ??? CONCLUSION: 1. No significant EKG changes with the LexiScan infusion. 2. No LexiScan induced chest pain or cardiac arrhythmia. 3. Normal blood pressure and heart rate response. 4. Sestamibi/sestamibi perfusion scan pending; see separate report. Electronically Signed On 05-02-2021 11:05:32 SUPERVISOR FIBERGLASS BOAT ASSEMBLY by Audrey Collins M.D. [id number]
--- NOTE | 2021-04-30 08:07 | NMCV_ITS ---
NM karli perf SPECT r/s* [id number] Michoacano Paulino Age: 65 Gender: M : 1955 Exam Date: 04/30/2021 08:07 Ordering Phys: Henry Loving MD ([email or web address]) Technologist: MARA Greenwood Exam Location: [facility] Indications: SHORTNESS OF BREATH, WEAKNESS STRESS TEST Please see separate stress test report in Ephiphany for full findings IMAGE PROTOCOL Rest/Stress 1 Lexiscan Day Radiopharmaceutical Dose (mCi) Administration Site Administered by Rest: Tc-99m 10.9 IV MARA [place] Sestamibi Stress:Tc-99m 32.2 IV MARA Greenwood Sestamimaki Rest: Invalid 60 Discovery 630 DateTime Stress: 30-Apr-2021 30 Discovery 630 0.4mg Lexiscan. Supine position only as patient was unable to lay prone. SPECT RESULTS Technical Quality: Excellent Raw Data Analysis: Normal Image Corrections: No attenuation or motion correction applied Summed Stress Score: 6 Summed Rest Score: 6 Summed Difference Score: 2 PERFUSION FINDINGS Medium sized perfusion abnormality of mild severity of mid septal, apical septal, apical inferior and apical lateral ornelas on rest images with somewhat improved tracer uptake in septal wall and some reversibility in apical wall on stress images. FUNCTIONAL RESULTS (calculated via Gated SPECT) Stress Image LV EF (%): 60 Stress EDV (mL):86 TID: 1.11 Stress ESV (mL):34 FUNCTIONAL FINDINGS: The left ventricle is normal in size. Transient Ischemia Dilatation of 1.1. There is normal left ventricular systolic function. The left ventricular ejection fraction is normal with a value of 60%. There is normal left ventricular wall thickening. Normal end diastolic and end systolic volumes. IMPRESSIONS 1. Medium sized perfusion abnormality of mild severity of mid septal, apical septal, apical inferior and apical lateral ornelas on rest images with subtle reversibility in apical ornelas. 2. This may represent old myocardial infarction in left anterior descending artery territory with minimal haven-infarct ischemia. Attenuation artifact cannot be ruled out. 3. Overall left ventricular systolic function is normal without regional wall motion abnormalities, LVEF=60%. 4. No prior similar studies to compare. Audrey Collins MD (Electronically Signed) Final Date: 01 May 2021 08:20 S
[2021-04-30 08:52] VITALS: BMI 15.5
[2021-04-30] MEDS: regadenoson 0.4 Mg/5 ml Syringe IVP (09:17)
[2021-04-30 09:41] VITALS: BP 103/71; PULSE 78
== END 2021-04-30 07:39 | disposition home or self-care (01) ==
LOC: RAD 07:42 → CDL 08:52
PROVIDERS: PCP Nurse Practitioner; Visit Provider Internal Medicine Cardiovascular Disease
DX: R07.9 Chest pain, unspecified (principal); R06.02 Shortness of breath; R53.1 Weakness
CPT/HCPCS: 78452; 93017; A9500; J2785

== ENCOUNTER → 2021-06-11 15:27 | Outpatient (BNVA) | payer OTHER, SELFPAY | PROVIDERS: PCP Nurse Practitioner; Visit Provider Internal Medicine Cardiovascular Disease | DX: R07.89 Other chest pain (principal); I50.9 Heart failure, unspecified; R06.02 Shortness of breath | CPT/HCPCS: 80048; 85025; 85610; 86850; 86900; 99215 ==

== ENCOUNTER → 2021-06-16 13:22 | Outpatient (BNVA) | payer OTHER, SELFPAY | PROVIDERS: PCP Nurse Practitioner; Referring Provider Internal Medicine Cardiovascular Disease; Visit Provider Internal Medicine Cardiovascular Disease | DX: Z20.822 Contact with and (suspected) exposure to COVID-19 (principal) | CPT/HCPCS: 87635 ==

== ENCOUNTER 2021-06-19 07:26 | Outpatient (CLI) | payer OTHER, SELFPAY ==
[2021-06-18 08:22] VITALS: BMI 16.1
[2021-06-19] VITALS (20 sets, daily range): BP systolic 93–120; BP diastolic 65–75; PULSE 50–71; RESP 5–18; TEMP 36.6; O2SAT 95–100; BMI 16.1
--- NOTE | 2021-06-19 08:02 | XACV_ITS ---
Exam Room: 2 Ht: 173 cm Wt: 48 kg BSA: 1.50 m2 Gender: Male : 1955 Any Known Allergies: Penicillins Exam Priority: Routine Procedure(s): Procedure Description: Diagnostic procedure Procedure Description: Left Heart Catheterization Procedure Description: Left ventriculography Procedure Description: Coronary Angiography Inder MORELOS; Diagnostic Cath Status: Elective Diagnostic Findings * Left main is a medium caliber vessel with no significant stenotic lesions. * The left anterior descending artery is a medium caliber vessel which appears to wrap around the LV apex. Around the origin of the first diagonal branch, there is an eccentric 30% lesion in the LAD. No other significant stenotic lesions were seen.. * The left circumflex artery is a medium caliber vessel which appears to bifurcate proximally. No significant stenotic lesions were noted. * The right coronary artery is a medium caliber dominant vessel which was found to have around a 20% irregular narrowing at the mid segment. No other significant lesions were noted. Conclusions 1. This is a 65-year-old white male who presented with complaints of shortness of breath and atypical chest pain. He had a features of congestive heart failure. Echocardiogram revealed an LV ejection fraction of 48%. The myocardial perfusion imaging revealed a small area of reversibility in the apical region. Because of the ongoing worsening of symptoms, in order to further evaluate his cardiovascular status, a coronary angiogram was recommended. Patient underwent left heart catheterization with a left and right coronary angiogram and LV angiogram today. The findings are as follows. 2. Mild disease in the left and descending artery and right coronary artery. Normal LV action fraction 55%. LVEDP of 9 mmHg. Diagnostic RX Recommendation: medical therapy and/or counseling LV EDP: 9 mmHg Ventriculography Ejection Fraction: 55.0 % Left Ventriculography Findings: * The LV gram was performed in the TAYLOR projection. The LV appears to be of normal size. No significant wall motion abnormalities. No filling defects were noted. No significant mitral prolapse or mitral regurgitation. Overall ejection fraction was 55%. The LVEDP was 9 mmHg. Pressures Phase:Rest AO : 99 / 67 ( 81 ) @ 9:46:00 AM 88 / 62 ( 75 ) @ 9:47:00 AM 90 / 63 ( 77 ) @ 9:50:00 AM 108 / 60 ( 81 ) @ 9:56:00 AM 112 / 58 ( 80 ) @ 9:56:00 AM LV : 113 / -14 / 9 @ 9:55:00 AM 111 / -9 / 13 @ 9:56:00 AM 111 / -9 / 13 @ 9:56:00 AM Valves Phase:DefaultPhase AV : 3.0 @ 9:02:06 AM AV Mean Gradient: 11.0 @ 9:02:06 AM Clinical Evaluation EBL: 5mL-10mL Procedural Details Pre-Procedure Time Out. Identified patient by full name and date of as verbalized by the patient/guarantor. Does the consent match the physician's order: Yes. Accurate & Complete Informed Consent: Yes. Inpatient/Outpatient History & Physical on Chart: Yes. If H&P is completed, is and addenduem needed: Yes; If yes, is the addendum complete: N/A. Visualize and Verify Site with Patient/Guarantor: N/A. Relevant Radiology Images available: Yes. Pre-op teaching completed and patient verbalized understanding. The risks, benefits, and alternatives of sedation and/or procedure were discussed by physician. The patient agrees to continue. Procedure started. [facility] Clinical Fraility Score: 4: Vulnerable. 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 Chest Pain Symptom Assessment: Typical Angina Symptoms. PERRLA. Strong, equal hand health services administrator bilaterally. Lungs clear x 5 lobes. IV Site on Arrival: 20 gauge in the left anticubital. IV Fluids: 0.9% NaCl at KVO. 0 mL infused prior to catheterization laboratory technician. Pre Procedural Pulses: bilateral dorsalis pedis was 1+. Pre Procedural Pulses: bilateral posterior tibial was 1+. Pre Procedural Pulses: bilateral radial was 2+. Oxygen started at 2liters/min via nasal canula. right groin was prepped with chloroprep then draped in the usual sterile fashion. right radial was prepped with chloroprep then draped in the usual sterile fashion. Baseline sample Acquired. HR: 67 BPM. Physician notified. Physician arrived. Physician scrubbed in. Immediate Pre-Procedure Time Out. Correct Patient: Yes; Correct Procedure: Yes; Correct Site: Yes; Correct Patient Position: Yes; Correct Supplies: Yes; Dried Flammable Prep: Yes; Blood Products Available: N/A;. Lidocaine 1% infiltrated to the right radial. Arterial access obtained. A 5 japanese Anthony catheter in over wire. Multiple views taken of left coronary artery. Catheter redirected to the RCA. Multiple views taken of right coronary artery. Catheter removed over the standard wire. A 5 japanese Angled Pig catheter in over wire. EDP Sample taken: LV 113/-15,9; HR: 68 BPM; SpO2: 95%. LV gram performed in TAYLOR @ 10 mL/second for a total of 30 mL. EDP Sample taken: LV 111/-10,13; HR: 68 BPM; SpO2: 96%. Pullback taken: LV 111/-10,13; AO 108/60(81); Mean: 11mmHg, Peak to Peak: 3mmHg, SEP: 15sec/min; HR: 69 BPM; SpO2: 96%. Catheter removed over the standard wire. Physician scrubbed out. A TR Band was successful obtaining hemostatsis at the Right Radial artery insertion site. Post Procedure: Pulses reassessed and unchanged. PERRLA. Strong, equal hand health services administrator bilaterally. No VTE prophylaxis required. Medication's Wasted: Lidocaine 1% = 18 mL. Medication's Wasted: Nitro = 49.8 mg. Medication's Wasted: Heparin = 2000 units. Vital chart was stopped. Total IV fluids: 250 mL. Contrast type used: Visipaque 320 mgI/mL, 500 mL bottle. Complications: None. Estimated blood loss: 5mL-10mL. Responsiveness - Normal response to verbal stimuli; alert and oriented, PERRLA. Airway - Unaffected, no intervention required; spontaneous ventilation. Circulation: W/N/L, pulses unchanged. Nausea/Vomiting: No. Procedure completed. Patient transferred by stretcher to CPRU. Access Site Site: Right Radial artery Sheath Size: 6 Fr Hemostasis Method: TR Band Hemostasis Success: Successful Procedure Medications Start: 8:32 AM Stop: 8:32 AM Medication: Versed Amount: 1 mg Route: I.V. Start: 8:32 AM Stop: 8:32 AM Medication: Fentanyl Amount: 50 mcg Route: I.V. Start: 8:35 AM Stop: 8:35 AM Medication: Benadryl Amount: 50 mg Route: I.V. Start: 8:39 AM Stop: 8:39 AM Medication: 0.9% Saline Amount: 250 ml Route: I.V. bolus Start: 8:39 AM Stop: 8:39 AM Medication: Versed Amount: 1 mg Route: I.V. Start: 8:40 AM Stop: 8:40 AM Medication: Fentanyl Amount: 50 mcg Route: I.V. Start: 8:42 AM Stop: 8:42 AM Medication: Verapamil Amount: 5 mg Route: I.A. Start: 8:42 AM Stop: 8:42 AM Medication: Nitrogylcerin Amount: 200 mcg Route: I.A. Start: 8:44 AM Stop: 8:44 AM Medication: Versed Amount: 1 mg Route: I.V. Start: 8:44 AM Stop: 8:44 AM Medication: Heparin Amount: 4000 units Route: I.V. Start: 8:45 AM Stop: 8:45 AM Medication: Fentanyl Amount: 50 mcg Route: I.V. Start: 8:55 AM Stop: 8:55 AM Medication: Versed Amount: 1 mg Route: I.V. I, the attending physician, have reviewed and verified all procedure medications. Yes, all medications given per verbal order History/Risk Factors Hypertension: No Dyslipidemia: No Peripheral Arterial Disease (PAD): No Myocardial Infarction ([place]): No Obesity: No Renal Disease: No Tobacco Use: Current/Recent(w/in 1 year) Prior Interventions PCI: No CABG: No Valve Surgery: No Report Signatures Finalized by Dr Henry Loving MD [facility] on 06/20/2021 10:53 AM
--- NOTE | 2021-06-19 08:24 | W.PM.OPSUD ---
Surgery/Procedure H&P Update DATE OF PROCEDURE: June 19, 2021 DATE H&P PERFORMED: 06/11/21 H&P UPDATE INFORMATION: I have reviewed H&P completed within last 30 days, I have examined patient prior to procedure and No changes to prior documentation PREOP DIAGNOSIS: ASHD/cardiomyopathy PRIMARY INDICATION FOR PROCEDURE: Cardiomyopathy/abnormal myocardial perfusion scan/shortness of breath PLANNED PROCEDURE: Operation Date: 06/19/21 08:30 Proposed Procedures p Cardiac Catheterization(Left) - Herny Loving MD PHYSICAL EXAM: alert, oriented x 3, clear to auscultation bilaterally and regular rate & rhythm AIRWAY EVAL/ANESTHESIA PLAN: normal airway, see other exam findings, ASA III, Monitored Anesthesia, Local Anesthesia, Risks, benefits & alternatives of sedation and/or procedure discussed and Patient agrees to continue as planned
--- NOTE | 2021-06-19 09:24 | PC.NURSE ---
received pt from lab intern post diagnostic [facility]. pt complains of back pain. tr band on right wrist with distal pulse palpable. pt hooked to vitals machine and will be monitored per protocol. pt educated on restrictions and stated he understood. will continue to monitor site and pain.
[2021-06-19] MEDS: acetaminophen 325 mg Tablet 650 MG PO (09:45)
[2021-06-19] MEDS: HYDROcodone-acetaminophen 5-325 mg Tablet 1 TAB PO (14:13)
[2021-06-19] MEDS: ALPRAZolam 0.5 mg Tablet PO (15:17)
== END 2021-06-19 16:20 | disposition home or self-care (01) ==
LOC: CCL 07:28 → CSU 12:52
PROVIDERS: PCP Nurse Practitioner; Visit Provider Internal Medicine Cardiovascular Disease
DX: I25.10 Atherosclerotic heart disease of native coronary artery without angina pectoris (principal); I42.9 Cardiomyopathy, unspecified; E05.90 Thyrotoxicosis, unspecified without thyrotoxic crisis or storm; J44.9 Chronic obstructive pulmonary disease, unspecified; Z86.19 Personal history of other infectious and parasitic diseases; K21.9 Gastro-esophageal reflux disease without esophagitis; F43.10 Post-traumatic stress disorder, unspecified; F17.210 Nicotine dependence, cigarettes, uncomplicated
CPT/HCPCS: 36415; 93452; 93458; 96365; C1769; C1887; C1894; G0378; J1200; J1644; J2250; J3010; J3490; J7030; Q9967

== ENCOUNTER 2021-06-24 19:30 | Emergency (ER) | payer OTHER, SELFPAY ==
--- NOTE | 2021-06-24 19:32 | ECG_ITS ---
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 Measurements Intervals Mcleod Rate: 68 P: 82 NV: 162 QRS: 88 QRSD: 92 T: 82 QT: 376 QTc: 401 Interpretive Statements SINUS RHYTHM MODERATE ST DEPRESSION [0.05+ mV ST DEPRESSION] Compared to ECG 02/05/2021 10:21:47 ST (T wave) deviation now present Electronically Signed On 06-25-2021 17:05:20 CDT by Ricardo Barksdale M.D. [id number]
--- NOTE | 2021-06-24 19:32 | XR_ITS ---
WS: [id number] Exam: XR chest 1V portable [id number] Date/Time of Exam: 06/24/2021 7:32 PM Reason For Exam: cp Comparison 02/05/2021. The lungs are hyperinflated and clear. Normal cardiomediastinal silhouette. No pleural effusions. Reg ional bony structures are intact. Slight thoracic dextroscoliosis. Marked DJD of the right shoulder. XR/XR chest 1V portable [id number] IMPRESSION: 1. Pulmonary hyperinflation probably indicating COPD. 2. No acute process noted.
[2021-06-24 19:37] VITALS: BP 128/88; PULSE 88; RESP 16; TEMP 36.8; O2SAT 96; BMI 15.2
--- NOTE | 2021-06-24 19:58 | W.ED.GENADLT ---
HPI - General Adult General: Chief complaint: Weakness Stated complaint: Tremmers\Back,Stomach\Chest on Fire Time Seen by Provider: 06/24/21 19:46 History of Present Illness: Patient is a 65-year-old male with a history of CAD and thyroid issues who presents the emergency for multiple complaints. Patient tells me that he has been having tremors, lack of energy, irritability, difficulty eating, feeling bloated, constipation, and chest and abdominal burning, and feeling cold symptoms for the last 2 years which are now worsening. Patient tells me that he does not have any energy and is feeling tired and decided to come to the emergency room for evaluation today patient tells me that 2 years ago he has had a thyroid storm at which point time needed emergent stabilization. Patient is concerned that he may be having a thyroid storm again. Onset:chronic Duration:ongoing Location:home Severity:moderate Associated symptoms: Reports chest pain (+chest burning); Deny dyspnea, nausea, rash, palpitations or vomiting Review of Systems Const: Reports: chills, fatigue and other (+irritability); Denies: fever(s) Eyes: Denies: change in vision ENMT: Denies: mouth pain Card: Reports: chest pain (+chest burning); Denies: palpitations Resp: Denies: dyspnea or non-productive cough GI: Reports: abdominal pain (+abdominal burning), bloating and other (+constipation (on miralax)); Denies: nausea, vomiting or diarrhea : Denies: dysuria Musc: Denies: extremity pain Skin/Breast: Denies: rash or new lesions Neuro: Denies: weakness in extremities Psych: Reports: other (Normal mood) Giacomo/Lymph: Denies: easy bruising PFSH ED PFSH: Medical History Chronic epigastric pain Drug overdose Endotracheally intubated Gastritis Hepatitis C Nausea and vomiting Physical deconditioning Polysubstance abuse Suicidal overdose Unresponsiveness Surgical History History of bilateral carpal tunnel release History of circumcision History of colonoscopy Normal repeat in 10 years History of esophagogastroduodenoscopy (EGD) (02/26/17) Reflux, esophagitis, Gastritis History of hip replacement, total Right History of knee replacement Right History of laparoscopic cholecystectomy Family History Grandfather Cancer Grandmother Cancer Grandmother Cancer Grandfather Cancer Family/Other Cancer Son Diabetes Father Suicide Brother Suicide Denies family history of CAD (coronary artery disease) Clotting disorder Dementia Chronic kidney disease (CKD) Anesthesia complication Bleeding disorder Lung disease Stroke Social History Smoking and tobacco status: current some day smoker Second hand smoke exposure: No Alcohol intake: former Desire information about alcohol rehabilitation?: No Adopted: No Caregiver/support person: Yes Lives independently: Yes Household members: spouse Housing: House Marital status: Highest education level completed: High School Graduate service: No Current occupational status: disabled Current occupational exposures/hazards: No Pets and animals: No History of recent travel: No Leisure activites: exercise Sexually active: Yes Current gender identity: Male and Female Verito/Hinduism: Hoahaoism Special verito needs: No Agree to transfusion: No Financial difficulty paying for basics: Not Very Hard Physical Exam Const: COMMON NORMALS: alert HENMT: COMMON NORMALS: atraumatic HEAD & SCALP: atraumatic MOUTH: moist mucous membranes not abnormal Eye: COMMON NORMALS: EOMs intact bilaterally and conjunctivae normal CONJUNCTIVA: Yes conjunctivae normal OTHER: no proptosis Neck/C-Spine: COMMON NORMALS: full ROM and supple Resp: COMMON NORMALS: normal respiratory effort and clear to auscultation bilaterally AUSCULTATION: clear to auscultation bilaterally Cardio: COMMON NORMALS: regular rate RATE: regular rate GI: COMMON NORMALS: Soft to palpation and non-tender PALPATION: Yes Soft to palpation OTHER: No focal TTP. NO guarding rebound, guarding, rigidity. No CVA tenderness to percussion. Neg Mantilla/Neg McBurney's point tenderness, no suprabupic tenderness to palpation. Extremity: COMMON NORMALS: full ROM Neuro: SENSORIUM/ORIENTATION: Yes alert MOTOR EXAM: No Abnormal motor strength present and Other motor observations present (no focal motor deficits) Psych: COMMON NORMALS: speech normal SPEECH: Yes normal speech MOOD & AFFECT: Yes euthymic mood Course Vital Signs: Vital signs: Vital Signs Temperature 98.2 F 06/24/21 19:37 Pulse Rate 88 06/24/21 19:37 Respiratory Rate 16 06/24/21 21:33 Blood Pressure 128/88 06/24/21 19:37 Pulse Oximetry 96 06/24/21 19:37 MDM - General Adult Medical Decision Making Patient is a 65-year-old male with a history of suicidal ideation, CAD and thyroid issue presenting to the emergency room for multiple complaints including lack of energy, irritability, difficulty swallowing, bloating, constipation, chest and abdominal burning. On physical exam, patient is afebrile, not tachycardic. Normal abdominal exam. Patient has no skin findings, no proptosis. Troponin x2 within normal limit. EKG x2 within normal limit. TSH/free T4 within normal limit. Patient received GI cocktail IVF, Tylenol and is now able to tolerate p.o. is unclear what is the source of the patient's symptoms today. I have given patient follow up with our rehabilitation caseworker to be seen by our outpatient Neurology for evaluation of possible neurological causes of symptoms. Patient aware of a call from our rehabilitation caseworker to schedule for appointment(s) and verbalizes understanding of the importance of following up. I have given patient follow up with our rehabilitation caseworker to be seen by our outpatient PCP for assortment of symptoms. Patient aware of a call from our rehabilitation caseworker to schedule for appointment(s) and verbalizes understanding of the importance of following up. Rx tylenol PRN abd pain, maalox PRN dyspepsia, and zofran PRN nausea/vomiting Disposition: Discharge. Patient counseled regarding diagnostic impression, treatment plan. Patient given ED strict return precautions to return for continuation, worsening, or development of new symptoms. Instructed to f/u w/ PCP regarding symptoms today. Patient verbalized understanding. Lab Data : 06/24/21 20:15 06/24/21 20:15 Laboratory Results WBC 6.8 10^3/uL (4.0-10.0) 06/24/21 20:15 RBC 5.27 10^6/uL (4.1-5.3) 06/24/21 20:15 Hgb 16.2 g/dL (11.7-16.6) 06/24/21 20:15 Hct 47.8 % (42.0-52.0) 06/24/21 20:15 MCV 90.7 fl (80-94) 06/24/21 20:15 MCH 30.7 pg (28.0-34.0) 06/24/21 20:15 MCHC 33.9 g/dL (30.0-36.0) 06/24/21 20:15 RDW 12.8 % (12.1-15.1) 06/24/21 20:15 Plt Count 236 10^3/cmm (130-400) 06/24/21 20:15 MPV 9.0 fL (7.4-10.4) 06/24/21 20:15 Neut % (Auto) 68.5 % 06/24/21 20:15 Lymph % (Auto) 22.4 % 06/24/21 20:15 Shackelford % (Auto) 7.1 % 06/24/21 20:15 Eos % (Auto) 1.0 % 06/24/21 20:15 Baso % (Auto) 0.7 % 06/24/21 20:15 Neut # (Auto) 4.62 10^3/uL (1.8-7.7) 06/24/21 20:15 Lymph # (Auto) 1.5 10^3/uL (0.8-4.8) 06/24/21 20:15 Shackelford # (Auto) 0.5 10^3/uL (0.2-0.9) 06/24/21 20:15 Eos # (Auto) 0.1 10^3/uL (0.0-0.8) 06/24/21 20:15 Baso # (Auto) 0.1 10^3/uL (0.0-0.1) 06/24/21 20:15 Nucleated RBC % (auto) 0 % 06/24/21 20:15 Nucleated RBCs # 0.0 /100WBC 06/24/21 20:15 Sodium 141 mmol/L (136-145) 06/24/21 20:15 Potassium 4.2 mmol/L (3.5-5.1) 06/24/21 20:15 Chloride 104 mmol/L (98-107) 06/24/21 20:15 Carbon Dioxide 27 mmol/L (22-29) 06/24/21 20:15 Anion Gap 14.2 (5-19) 06/24/21 20:15 BUN 9 mg/dL (8-23) 06/24/21 20:15 Creatinine 0.5 mg/dL (0.7-1.2) L 06/24/21 20:15 GFR Calculation 167.4 mL/min (90-130) H 06/24/21 20:15 Glucose 84 mg/dL (65-115) 06/24/21 20:15 Calculated Osmolality 290 mOsm/kg (285-295) 06/24/21 20:15 Calcium 9.8 mg/dL (8.5-10.5) 06/24/21 20:15 Total Bilirubin 0.4 mg/dL (0.15-1.2) 06/24/21 20:15 AST 11 U/L (0-40) 06/24/21 20:15 ALT 6 U/L (0-41) 06/24/21 20:15 Alkaline Phosphatase 74 IU/L (40-130) 06/24/21 20:15 Troponin T Baseline 6 ng/L (0-15) 06/24/21 20:15 Total Protein 7.5 g/dL (6.6-8.7) 06/24/21 20:15 Albumin 4.5 g/dL (3.5-5.2) 06/24/21 20:15 Globulin 3.0 g/dL (1.3-4.6) 06/24/21 20:15 Lipase 35 U/L (13-60) 06/24/21 20:15 TSH 2.10 uIU/mL (0.27-4.20) 06/24/21 20:15 Salicylates < 0.3 mg/dL (3-10) L 06/24/21 20:15 Acetaminophen < 5.0 ug/mL (10-30) L 06/24/21 20:15 Discharge Plan Discharge Patient Disposition: Home Clinical Impression: Bloating, Fatigue, Chill, Irritability, Cold feeling, Burning sensation Condition: Stable Prescriptions: New acetaminophen 500 mg tablet 500 mg PO Q6H PRN (Reason: pain) 5 Days Qty: 20 0RF Maalox Advanced 1,000-60 mg tablet,chewable 1 tab PO TID PRN (Reason: abdominal pain) 7 Days Qty: 21 0RF No Action buspirone 10 mg tablet 5 mg PO BID 0RF multivitamin Tablet 1 tab PO DAILY 0RF alprazolam 0.5 mg tablet 0.5 mg PO TID 0RF cholecalciferol (vitamin D3) 25 mcg (1,000 unit) capsule 25 mcg PO DAILY 0RF vitamin E mixed 1,000 unit capsule 1,000 unit PO DAILY 0RF Discharge Orders: Discharge ED (Routine); Ordered 06/24/21 Ordered By: Patricia Gupta Referrals: Cecille Estrada FNP [Primary Care Provider] - Discharge Diet: Advance as tolerated Discharge Activity: Increase activity as tolerated Patient Instructions: Chest Pain (ED), Abdominal Pain (ED) Activity Restrictions/Additional Instructions: Come back to the emergency room if your chest/abdominal burning worsens, have any fever or chills, worsening shortness of breath, worsening exertional lightheadedness, or any new or concerning complaints. Coding Level of Care Code ED Sand Mixer Operator for Dawood Fwd Exam Comprehensive
[2021-06-24 20:24] LABS: Basophils # 0.1 10^3/uL (0.0-0.1); Basophils % 0.7 %; Eosinophils # 0.1 10^3/uL (0.0-0.8); Hematocrit 47.8 % (42.0-52.0); Hemoglobin 16.2 g/dL (11.7-16.6); Lymphocytes # 1.5 10^3/uL (0.8-4.8); Lymphocytes % 22.4 %; Mean Corpuscular HGB Conc 33.9 g/dL (30.0-36.0); Mean Corpuscular Hemoglobin 30.7 pg (28.0-34.0); Mean Corpuscular Volume 90.7 fl (80-94); Monocytes # 0.5 10^3/uL (0.2-0.9); Monocytes % 7.1 %; Neutrophils # 4.62 10^3/uL (1.8-7.7); Neutrophils % 68.5 %; Nucleated Red Blood Cells % 0 %; Platelet Count 236 10^3/cmm (130-400); Red Blood Count 5.27 10^6/uL (4.1-5.3); Red Cell Distribution Width 12.8 % (12.1-15.1); White Blood Count 6.8 10^3/uL (4.0-10.0)
[2021-06-24 20:46] LABS: Troponin(5th) Baseline 6 ng/L (0-15)
[2021-06-24 20:54] LABS: Alanine Aminotransferase 6 U/L (0-41); Albumin Level 4.5 g/dL (3.5-5.2); Alkaline Phosphatase 74 IU/L (40-130); Anion Gap 14.2 (5-19); Aspartate Amino Transferase 11 U/L (0-40); Blood Urea Nitrogen 9 mg/dL (8-23); Calcium 9.8 mg/dL (8.5-10.5); Carbon Dioxide 27 mmol/L (22-29); Chloride 104 mmol/L (98-107); Creatinine Clr Calc Pharmacy 95.7579; Glomerular Filtration Rate 167.4 mL/min (90-130); Glucose 84 mg/dL (65-115); Lipase 35 U/L (13-60); Osmolality Calculated 290 mOsm/kg (285-295); Potassium 4.2 mmol/L (3.5-5.1); Sodium 141 mmol/L (136-145); Total Bilirubin 0.4 mg/dL (0.15-1.2); Total Protein 7.5 g/dL (6.6-8.7)
[2021-06-24 20:56] LABS: Acetaminophen < 5.0 ug/mL (10-30); Salicylate < 0.3 mg/dL (3-10)
[2021-06-24] MEDS: lidocaine 2% viscous 15 ML, aluminum-mag hydrox-simethicon 30 ML, sucralfate oral liq 1 GM PO (21:32)
[2021-06-24] MEDS: sodium chloride 0.9% 1,000 ML 999 ML IV (21:32)
[2021-06-24] MEDS: acetaminophen 500 mg Tablet PO (21:32)
[2021-06-24 21:33] VITALS: RESP 16
[2021-06-24] MEDS: morphine 4 mg/mL SDV 1 mL IVP (21:33)
[2021-06-24 21:59] VITALS: BP 130/88; PULSE 62; RESP 16; TEMP 36.7; O2SAT 98
[2021-06-24 22:10] VITALS: BP 130/88; PULSE 62; RESP 16; TEMP 36.7; O2SAT 98
[2021-06-24 22:16] LABS: Adenovirus Not Detected (NOT DETECT); Chlamydia Pneumoniae Not Detected (NOT DETECT); Coronavirus 229E,HKU1,NL63,OC4 Not Detected (NOT DETECT); Human Metapneumovirus Not Detected (NOT DETECT); Human Rhinovirus/Enterovirus Not Detected (NOT DETECT); Influenza A Not Detected (NOT DETECT); Influenza A H1 Not Detected (NOT DETECT); Influenza A H1-2009 Not Detected (NOT DETECT); Influenza A H3 Not Detected (NOT DETECT); Influenza B Not Detected (NOT DETECT); Mycoplasma Pneumoniae Not Detected (NOT DETECT); Parainfluenza Virus Type 1 Not Detected (NOT DETECT); Parainfluenza Virus Type 2 Not Detected (NOT DETECT); Parainfluenza Virus Type 3 Not Detected (NOT DETECT); Parainfluenza Virus Type 4 Not Detected (NOT DETECT); Respiratory Syncytial Virus A Not Detected (NOT DETECT); Respiratory Syncytial Virus B Not Detected (NOT DETECT); SARS-COV-2 Not Detected (NOT DETECT)
[2021-06-24 22:39] LABS: Free T4 Free Thyroxine 1.31 ng/dL (0.82-1.77)
--- NOTE | 2021-06-26 12:04 | DCPLANNER ---
Addendum entered by Conchis Luna 08/22/21 17:50: Patients appointment was cancelled. Addendum entered by Conchis Luna 07/01/21 15:03: Patient has a follow up appointment scheduled for Thursday, August 19, 2021 at 10:[address] Alvarez. Clinic will notify patient with appointment information. Original Note: brand strategy manager had message to schedule a follow up appointment for patient with Dr. Alvarez. brand strategy manager sent patients information to the front staff of neurology thru workload. Patients information will be printed and reviewed. Clinic will call patient with appointment information.
--- NOTE | 2021-07-01 14:04 | DCPLANNER ---
brokerage office manager had message to speak with patient about getting an appointment with his primary care physician. brokerage office manager spoke with patients , she stated that patient has an appointment scheduled with his primary care physician. No case management services needed at this time.
== END 2021-06-24 22:10 | disposition home or self-care (01) ==
PROVIDERS: Emergency Medicine; Emergency Provider Emergency Medicine; PCP Nurse Practitioner
DX: R14.0 Abdominal distension (gaseous) (principal); R53.83 Other fatigue; R68.83 Chills (without fever); R45.4 Irritability and anger; R20.8 Other disturbances of skin sensation; Z86.39 Personal history of other endocrine, nutritional and metabolic disease
CPT/HCPCS: 71045; 80053; 80307; 83690; 84439; 84443; 84484; 85025; 87486; 87581; 87633; 93005; 96361; 96374; 99284; J2270; J7030

== ENCOUNTER 2021-07-11 12:02 | Emergency (ER) | payer OTHER, SELFPAY ==
[2021-07-11] VITALS (10 sets, daily range): BP systolic 95–116; BP diastolic 66–82; PULSE 60–82; RESP 13–16; TEMP 36.5–37.1; O2SAT 96–100; BMI 15.6
--- NOTE | 2021-07-11 12:28 | ED_ITS ---
HPI - Abdominal Pain General: Chief Complaint: Abdominal Pain Stated Complaint: ABD PAin pt states Apendix pain Time Seen by Provider: 07/11/21 12:22 History of Present Illness: 65-year-old presents with right lower quadrant abdominal pain for 2 days. States that it is sharp and achy. Does not radiate. Denies testicular pain. Denies nausea vomiting diarrhea constipation. Denies history of pelvic discharge. Denies fevers or chills. Review of Systems Narrative: - CONSTITUTIONAL: Denies weight loss, fever and chills. - HEENT: Denies changes in vision and hearing. - RESPIRATORY: Denies SOB and cough. - CV: Denies palpitations and CP. - GI: As above - : Denies dysuria and urinary frequency. - MSK: Denies myalgia and joint pain. - SKIN: Denies rash and pruritus. - NEUROLOGICAL: Denies headache, weakness, numbness and syncope. - PSYCHIATRIC: Denies suicidal ideation [facility] ED PFSH: Medical History Chronic epigastric pain Drug overdose Endotracheally intubated Gastritis Hepatitis C Nausea and vomiting Physical deconditioning Polysubstance abuse Suicidal overdose Unresponsiveness Surgical History History of bilateral carpal tunnel release History of circumcision History of colonoscopy Normal repeat in 10 years History of esophagogastroduodenoscopy (EGD) (02/26/17) Reflux, esophagitis, Gastritis History of hip replacement, total Right History of knee replacement Right History of laparoscopic cholecystectomy Family History Grandfather Cancer Grandmother Cancer Grandmother Cancer Grandfather Cancer Family/Other Cancer Son Diabetes Father Suicide Brother Suicide Denies family history of CAD (coronary artery disease) Clotting disorder Dementia Chronic kidney disease (CKD) Anesthesia complication Bleeding disorder Lung disease Stroke Social History Smoking and tobacco status: current some day smoker Second hand smoke exposure: No Alcohol intake: former Desire information about alcohol rehabilitation?: No Adopted: No Caregiver/support person: Yes Lives independently: Yes Household members: spouse Housing: House Marital status: Highest education level completed: High School Graduate service: No Current occupational status: disabled Current occupational exposures/hazards: No Pets and animals: No History of recent travel: No Leisure activites: exercise Sexually active: Yes Current gender identity: Male and Female Verito/Anglican: Shinto Special verito needs: No Agree to transfusion: No Financial difficulty paying for basics: Not Very Hard Physical Exam Narrative: EXAM NARRATIVE: - GENERAL: Alert and oriented x 3. No acute distress. Well-nourished. - EYES: EOMI. Anicteric. - HENT: Atraumatic, no C-spine tenderness. Moist mucous membranes. No scleral icterus. No cervical lymphadenopathy. - LUNGS: Clear to auscultation bilaterally. No accessory muscle use. Equal lung sounds bilaterally. No respiratory distress. - CARDIOVASCULAR: Regular rate and rhythm. No murmur. No JVD. - ABDOMEN: Soft, tender in right lower quadrant. Negative CVA tenderness bilaterally, no rebound or guarding, negative Mantilla sign. No palpable masses. - EXTREMITIES: No edema. Non-tender. - SKIN: No rashes or lesions. Warm. - NEUROLOGIC: No meningismus or focal neurological deficits. CN II-XII grossly intact. - PSYCHIATRIC: Cooperative. Appropriate mood and affect. Course Vital Signs: Vital signs: Vital Signs Temperature 97.7 F 07/11/21 13:42 Pulse Rate 68 07/11/21 13:42 Respiratory Rate 15 07/11/21 14:22 Blood Pressure 107/77 07/11/21 13:42 Pulse Oximetry 100 07/11/21 14:22 MDM - Abdominal Pain Medical Decision Making 65-year-old gentleman presents with lower quadrant abdominal pain. CT scan con cerning for appendicitis. Due to penicillin allergy started on Levaquin. He is hemodynamically stable afebrile nontoxic-appearing. Remainder of lab work unremarkable. Discussed with surgeon at [facility] and they will accept transfer. Patient currently in stable condition awaiting transfer. Lab Data : 07/11/21 12:45 07/11/21 13:50 Labs/Radiology: Radiology Impressions Abdomen/Pelvis CT 07/11/21 12:28 IMPRESSION: 1. Appendix dilated to 7.4 mm and contains fluid with some wall thickening and enhancement of the wall consistent with acute appendicitis in the appropriate clinical setting, negative for abscess. 2. Emphysematous changes. 3. Common bile duct dilated to 14 mm with intrahepatic biliary dilation, similar to prior exam, likely related to prior cholecystectomy, negative for focal obstructing lesion, if clinically indicated an MRCP could further evaluate this. 4. Scattered hepatic cysts. 5. Right hip arthroplasty changes. THIS REPORT CONTAINS FINDINGS THAT MAY BE CRITICAL TO PATIENT CARE. The findings were verbally communicated via telephone conference with Quincy Mann at 1:46 PM CDT on 07/11/2021. The findings were acknowledged and understood. Laboratory Results WBC 9.5 10^3/uL (4.0-10.0) 07/11/21 12:45 RBC 5.21 10^6/uL (4.1-5.3) 07/11/21 12:45 Hgb 15.8 g/dL (11.7-16.6) 07/11/21 12:45 Hct 47.7 % (42.0-52.0) 07/11/21 12:45 MCV 91.6 fl (80-94) 07/11/21 12:45 MCH 30.3 pg (28.0-34.0) 07/11/21 12:45 MCHC 33.1 g/dL (30.0-36.0) 07/11/21 12:45 RDW 12.9 % (12.1-15.1) 07/11/21 12:45 Plt Count 170 10^3/cmm (130-400) 07/11/21 12:45 MPV 9.8 fL (7.4-10.4) 07/11/21 12:45 Neut % (Auto) 83.3 % 07/11/21 12:45 Lymph % (Auto) 10.6 % 07/11/21 12:45 Parke % (Auto) 5.1 % 07/11/21 12:45 Eos % (Auto) 0.2 % 07/11/21 12:45 Baso % (Auto) 0.6 % 07/11/21 12:45 Neut # (Auto) 7.88 10^3/uL (1.8-7.7) H 07/11/21 12:45 Lymph # (Auto) 1.0 10^3/uL (0.8-4.8) 07/11/21 12:45 Parke # (Auto) 0.5 10^3/uL (0.2-0.9) 07/11/21 12:45 Eos # (Auto) 0.0 10^3/uL (0.0-0.8) 07/11/21 12:45 Baso # (Auto) 0.1 10^3/uL (0.0-0.1) 07/11/21 12:45 Nucleated RBC % (auto) 0 % 07/11/21 12:45 Nucleated RBCs # 0.0 /100WBC 07/11/21 12:45 Sodium 142 mmol/L (136-145) 07/11/21 13:50 Potassium 4.9 mmol/L (3.5-5.1) 07/11/21 13:50 Chloride 109 mmol/L (98-107) H 07/11/21 13:50 Carbon Dioxide 25 mmol/L (22-29) 07/11/21 13:50 Anion Gap 12.9 (5-19) 07/11/21 13:50 BUN 10 mg/dL (8-23) 07/11/21 13:50 Creatinine 0.6 mg/dL (0.7-1.2) L 07/11/21 13:50 GFR Calculation 135.6 mL/min (90-130) H 07/11/21 13:50 Glucose 81 mg/dL (65-115) 07/11/21 13:50 Calculated Osmolality 292 mOsm/kg (285-295) 07/11/21 13:50 Lactate 0.7 mmol/L (0.5-2.2) 07/11/21 14:00 Calcium 8.5 mg/dL (8.5-10.5) 07/11/21 13:50 Total Bilirubin 0.2 mg/dL (0.15-1.2) 07/11/21 13:50 AST 8 U/L (0-40) 07/11/21 13:50 ALT 8 U/L (0-41) 07/11/21 13:50 Alkaline Phosphatase 69 IU/L (40-130) 07/11/21 13:50 Total Protein 6.9 g/dL (6.6-8.7) 07/11/21 13:50 Albumin 3.7 g/dL (3.5-5.2) 07/11/21 13:50 Globulin 3.2 g/dL (1.3-4.6) 07/11/21 13:50 Lipase 27 U/L (13-60) 07/11/21 13:50 Discharge Plan Discharge Condition: Stable Prescriptions: No Action buspirone 10 mg tablet 10 mg PO BEDTIME 0RF multivitamin Tablet 1 tab PO DAILY 0RF cholecalciferol (vitamin D3) 25 mcg (1,000 unit) capsule 25 mcg PO DAILY 0RF Miralax 17 gram/dose Powder 17 g PO BEDTIME 0RF Lyrica 100 mg Capsule 100 mg PO BID 0RF Narcan 4 mg/actuation [place],Non-Aerosol See Rx Instructions .ROUTE .COMPLEX 0RF Rx Instructions: as directed intranasally prn Referrals: Cecille Estrada FNP [Primary Care Provider] - Coding Level of Care Code [facility] for Dawood Pina
--- NOTE | 2021-07-11 12:28 | CTR_ITS ---
PROCEDURE INFORMATION: Exam: CT Abdomen And Pelvis With Contrast Exam date and time: 07/11/2021 1:12 PM Age: 65 years old Clinical indication: Abdominal pain; Localized; Right lower quadrant (rlq); Patient HX: C/O rlq pain x 3 days; [place]; Lost 35 lbs in 2 years TECHNIQUE: Imaging protocol: Computed tomography of the abdomen and pelvis with contrast. Radiation optimization: All CT scans at this facility use at least one of these dose optimization techniques: automated exposure control; mA and/or kV adjustment per patient size (includes targeted exams where dose is matched to clinical indication); or iterative reconstruction. Contrast material: OMNI 300; Contrast volume: 95 ml; Contrast route: INTRAVENOUS (IV); COMPARISON: CT angio chest abdomen pelvis 01/19/2021 2:14 PM RADIATION DOSE METRICS: Total DLP (mGy-cm): 749.99 FINDINGS: Lungs: Emphysematous changes. Liver: Scattered hepatic cysts. Gallbladder and bile ducts: Common bile duct dilated to 14 mm with intrahepatic biliary dilation, similar to prior exam, likely related to prior cholecystectomy, negative for focal obstructing lesion, if clinically indicated an MRCP could further evaluate this. Pancreas: Normal. No ductal dilation. Spleen: Normal. No splenomegaly. Adrenal glands: Normal. No mass. Kidneys and ureters: Normal. No hydronephrosis. Stomach and bowel: Unremarkable. No obstruction. No mucosal thickening. Appendix: Appendix dilated to 7.4 mm and contains fluid with some wall thickening and enhancement of the wall consistent with acute appendicitis in the appropriate clinical setting, negative for abscess. Intraperitoneal space: Unremarkable. No free air. No significant fluid collection. Arteries: Unremarkable. No abdominal aortic aneurysm. Lymph nodes: Unremarkable. No enlarged lymph nodes. Urinary bladder: Unremarkable as visualized. Reproductive: Unremarkable as visualized. Bones/joints: Right hip arthroplasty changes. Soft tissues: Unremarkable. CT/CT abdomen pelvis w con* [id number] IMPRESSION: 1. Appendix dilated to 7.4 mm and contains fluid with some wall thickening and enhancement of the wall consistent with acute appendicitis in the appropriate clinical setting, negative for abscess. 2. Emphysematous changes. 3. Common bile duct dilated to 14 mm with intrahepatic biliary dilation, similar to prior exam, likely related to prior cholecystectomy, negative for focal obstructing lesion, if clinically indicated an MRCP could further evaluate this. 4. Scattered hepatic cysts. 5. Right hip arthroplasty changes. THIS REPORT CONTAINS FINDINGS THAT MAY BE CRITICAL TO PATIENT CARE. The findings were verbally communicated via telephone conference with Quincy Mann at 1:46 PM CDT on 07/11/2021. The findings were acknowledged and understood.
[2021-07-11] MEDS: sodium chloride 0.9% 1,000 ML 999 ML IV (12:46)
[2021-07-11] MEDS: fentaNYL 50 mcg/mL INJ 2mL IVP (12:46)
[2021-07-11] MEDS: ondansetron 2 mg/ML SDV 2 mL 4 MG IVP (12:47)
[2021-07-11 12:54] LABS: Basophils # 0.1 10^3/uL (0.0-0.1); Basophils % 0.6 %; Eosinophils % 0.2 %; Hematocrit 47.7 % (42.0-52.0); Hemoglobin 15.8 g/dL (11.7-16.6); Lymphocytes % 10.6 %; Mean Corpuscular HGB Conc 33.1 g/dL (30.0-36.0); Mean Corpuscular Hemoglobin 30.3 pg (28.0-34.0); Mean Corpuscular Volume 91.6 fl (80-94); Mean Platelet Volume 9.8 fL (7.4-10.4); Monocytes # 0.5 10^3/uL (0.2-0.9); Monocytes % 5.1 %; Neutrophils # 7.88 10^3/uL (1.8-7.7); Neutrophils % 83.3 %; Nucleated Red Blood Cells % 0 %; Platelet Count 170 10^3/cmm (130-400); Red Blood Count 5.21 10^6/uL (4.1-5.3); Red Cell Distribution Width 12.9 % (12.1-15.1); White Blood Count 9.5 10^3/uL (4.0-10.0)
[2021-07-11] MEDS: iohexol 300 mg/mL 100 mL Btl IV (13:13)
[2021-07-11 13:14] LABS: Lactate (Lactic Acid level) 1.6 mmol/L (0.5-2.2)
[2021-07-11 14:18] LABS: Alanine Aminotransferase 8 U/L (0-41); Albumin Level 3.7 g/dL (3.5-5.2); Alkaline Phosphatase 69 IU/L (40-130); Anion Gap 12.9 (5-19); Aspartate Amino Transferase 8 U/L (0-40); Blood Urea Nitrogen 10 mg/dL (8-23); Calcium 8.5 mg/dL (8.5-10.5); Carbon Dioxide 25 mmol/L (22-29); Chloride 109 mmol/L (98-107); Globulin 3.2 g/dL (1.3-4.6); Glomerular Filtration Rate 135.6 mL/min (90-130); Glucose 81 mg/dL (65-115); Lipase 27 U/L (13-60); Osmolality Calculated 292 mOsm/kg (285-295); Potassium 4.9 mmol/L (3.5-5.1); Sodium 142 mmol/L (136-145); Total Bilirubin 0.2 mg/dL (0.15-1.2); Total Protein 6.9 g/dL (6.6-8.7)
[2021-07-11] MEDS: levofloxacin-dextrose 5 % 750 MG/150 ML PREMIX 100 MG IV (14:21)
[2021-07-11] MEDS: morphine 4 mg/mL SDV 1 mL IVP ×3 (14:22→22:26)
--- NOTE | 2021-07-11 14:29 | PC.PHAR ---
pt and pts verified pts medication states the pt only takes the medications entered-pts states the pt no longer takes amlodipine 5mg daily,methimazole 10mg daily,metoprolol tartrate 25mg bid, senna 8.6mg bid or mirtazapine 15mg hs those medications were on the pts [place] med list but states pt hasnt taken since mar 2021
[2021-07-11 14:32] LABS: Lactate (Lactic Acid level) 0.7 mmol/L (0.5-2.2)
[2021-07-11 16:07] LABS: Bilirubin Urine Neg (Negative); Blood Urine Neg (Negative); Glucose Urine UA Norm (Normal); Ketones Urine Negative (Negative); Leukocyte Esterase Urine Negative (Negative); Nitrate Urine Negative (Negative); Protein Urine Neg (Negative); Specific Gravity, Urine 1.015 (1.005-1.030); Urine Appearance Clear (CLEAR); Urine Color Yellow (Yellow); Urobilinogen Urine Norm (Negative); pH Urine 5 (5-7)
[2021-07-12 13:22] LABS: Bacillus cereus group Not Detected (NOT DETECT); Bacillus subtillis group Not Detected (NOT DETECT); Corynebacterium Not Detected (NOT DETECT); Cutibacterium acnes (P.acnes) Not Detected (NOT DETECT); Enterococcus Not Detected (NOT DETECT); Enterococcus faecalis Not Detected (NOT DETECT); Enterococcus faecium Not Detected (NOT DETECT); Lactobacillus species Not Detected (NOT DETECT); Listeria Not Detected (NOT DETECT); Listeria monocytogenes Not Detected (NOT DETECT); Micrococcus Not Detected (NOT DETECT); Pan Candida Not Detected (NOT DETECT); Pan Gram-Negative Not Detected (NOT DETECT); Staphylococcus epidermidis Detected (NOT DETECT); Staphylococcus lugdunensis Not Detected (NOT DETECT); Staphylococcus species Detected (NOT DETECT); Streptococcus agalactiae Not Detected (NOT DETECT); Streptococcus anginosus group Not Detected (NOT DETECT); Streptococcus pneumoniae Not Detected (NOT DETECT); Streptococcus pyogenes Not Detected (NOT DETECT); Streptococcus species Not Detected (NOT DETECT); mecA Not Detected (NOT DETECT); mecC Not Detected (NOT DETECT)
== END 2021-07-11 22:27 ==
PROVIDERS: Emergency Provider Emergency Medicine; PCP Nurse Practitioner
DX: K35.80 Unspecified acute appendicitis (principal); B19.20 Unspecified viral hepatitis C without hepatic coma; F17.200 Nicotine dependence, unspecified, uncomplicated; Z88.0 Allergy status to penicillin
CPT/HCPCS: 36415; 74177; 80053; 81001; 83605; 83690; 85025; 87040; 87150; 87205; 96365; 96366; 96375; 96376; 99285; J1956; J2270; J2405; J3010; J7030; Q9967

== ENCOUNTER 2021-07-17 14:26 | Emergency (ER) | payer OTHER, MEDICARE, SELFPAY ==
[2021-07-17 15:09] VITALS: BP 129/81; PULSE 89; RESP 18; TEMP 37.1; O2SAT 96; BMI 15.2
--- NOTE | 2021-07-17 15:16 | CTR_ITS ---
PROCEDURE INFORMATION: Exam: CT Abdomen And Pelvis With Contrast Exam date and time: 07/17/2021 4:21 PM Age: 65 years old Clinical indication: Nausea and vomiting; Abdominal pain; Prior surgery; Surgery date: <1 month; Surgery type: --appy; Patient HX: Abd pain n/v had appy on 07/12/2021 still haspain TECHNIQUE: Imaging protocol: Computed tomography of the abdomen and pelvis with contrast. Radiation optimization: All CT scans at this facility use at least one of these dose optimization techniques: automated exposure control; mA and/or kV adjustment per patient size (includes targeted exams where dose is matched to clinical indication); or iterative reconstruction. Contrast material: OMNI 350; Contrast volume: 95 ml; Contrast route: INTRAVENOUS (IV); COMPARISON: CT abdomen pelvis w con* [id number] 07/11/2021 1:12 PM RADIATION DOSE METRICS: Total DLP (mGy-cm): 763.59 FINDINGS: Liver: Hypodensities in the liver are too small to characterize but are most likely cysts. No follow-up imaging recommended. Gallbladder and bile ducts: Stable intrahepatic and extrahepatic ductal dilatation. The common bile duct measures up to 13 mm. Cholecystectomy. Pancreas: Normal. No ductal dilation. Spleen: Calcified granulomas in the spleen. Adrenal glands: Normal. No mass. Kidneys and ureters: Hypodensities in both kidneys are too small to characterize but are most likely tiny cysts. No follow-up imaging is recommended. No calculus or hydronephrosis. Arterial calcifications. No aneurysm. Stomach and bowel: Moderate stool in the cecum and proximal colon. Scattered gas in decompressed distal colon. The stomach and small bowel are unremarkable. No wall thickening or obstruction. Appendix: Prior appendectomy with sutures and clip in the right lower quadrant. Intraperitoneal space: Unremarkable. No free air. No significant fluid collection. Arteries: See Kidneys and ureters finding. Lymph nodes: Unremarkable. No enlarged lymph nodes. Urinary bladder: Unremarkable as visualized. Reproductive: Inhomogenous prostate with calcifications. Bones/joints: Right hip arthroplasty hardware with significant streak artifact. 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 No acute fracture. Multiple small Schmorl's nodes. Soft tissues: Unremarkable. Other findings: Severe emphysema. CT/CT abdomen pelvis w con* [id number] IMPRESSION: 1. Changes of recent appendectomy. No abscess or complication identified. 2. Stable dilatation of the intrahepatic and extrahepatic bile ducts. This is most likely reservoir effect. If there is clinical evidence for biliary obstruction, follow-up with MRCP should be considered. COMMENTS: Consistent with the [employer]'s Incidental Findings Committee white paper (J Am Nabor Radiol 2018): Any incidental renal lesion less than 1 cm or classified as too small to characterize, or any incidental cystic renal lesion characterized as simple-appearing, is likely benign. No follow-up imaging is recommended for these lesions per consensus recommendations based on imaging criteria.
[2021-07-17 15:21] VITALS: BP 111/71; PULSE 78; RESP 16; O2SAT 98
[2021-07-17] MEDS: morphine 4 mg/mL SDV 1 mL 2 MG IVP (15:36)
[2021-07-17] MEDS: sodium chloride 0.9% 1,000 ML 999 ML IV ×2 (15:45→18:00)
--- NOTE | 2021-07-17 15:50 | ED_ITS ---
HPI - General Adult General: Chief complaint: Weakness Stated complaint: stomach pain / loss of appetite Time Seen by Provider: 07/17/21 15:16 History of Present Illness: Patient is a 65-year-old man with history of cholecystectomy and recent laparoscopic appendectomy on 07/12/2021 presenting to the emergency room for evaluation of chest and abdominal pain, decreased p.o. intake and nausea since surgery. Patient tells me that he was [facility] the surgery and was discharged on Wednesday. Since then, patient has had decreased p.o. intake with chills. Patient denies any bowel movements. Patient still reports periumbilical abdominal pain. Denies any fever, cough, runny nose, sore throat, chest pain, shortness of breath or palpitation. Onset: 07/12/2021 Duration:ongoing Location:home Severity:moderate Associated symptoms: Reports nausea; Deny chest pain, dyspnea, rash, palpitations or vomiting Review of Systems Const: Denies: fever(s) or chills Eyes: Denies: change in vision ENMT: Denies: mouth pain Card: Denies: chest pain or palpitations Resp: Denies: dyspnea or non-productive cough GI: Reports: abdominal pain, nausea and other (+decreased appetite); Denies: vomiting or diarrhea : Denies: dysuria Musc: Denies: extremity pain Skin/Breast: Denies: rash or new lesions Neuro: Denies: weakness in extremities Psych: Reports: other (Normal mood) Giacomo/Lymph: Denies: easy bruising PFS ED PFSH: Medical History Chronic epigastric pain Drug overdose Endotracheally intubated Gastritis Hepatitis C Nausea and vomiting Physical deconditioning Polysubstance abuse Suicidal overdose Unresponsiveness Surgical History History of bilateral carpal tunnel release History of circumcision History of colonoscopy Normal repeat in 10 years History of esophagogastroduodenoscopy (EGD) (02/26/17) Reflux, esophagitis, Gastritis History of hip replacement, total Right History of knee replacement Right History of laparoscopic cholecystectomy Family History Grandfather Cancer Grandmother Cancer Grandmother Cancer Grandfather Cancer Family/Other Cancer Son Diabetes Father Suicide Brother Suicide Denies family history of CAD (coronary artery disease) Clotting disorder Dementia Chronic kidney disease (CKD) Anesthesia complication Bleeding disorder Lung disease Stroke Social History Smoking and tobacco status: current some day smoker Second hand smoke exposure: No Alcohol intake: former Desire information about alcohol rehabilitation?: No Adopted: No Caregiver/support person: Yes Lives independently: Yes Household members: spouse Housing: House Marital status: Highest education level completed: High School Graduate service: No Current occupational status: disabled Current occupational exposures/hazards: No Pets and animals: No History of recent travel: No Leisure activites: exercise Sexually active: Yes Current gender identity: Male and Female 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 Special verito needs: No Agree to transfusion: No Financial difficulty paying for basics: Not Very Hard Physical Exam Const: COMMON NORMALS: alert HENMT: COMMON NORMALS: atraumatic HEAD & SCALP: atraumatic MOUTH: moist mucous membranes abnormal Eye: COMMON NORMALS: EOMs intact bilaterally and conjunctivae normal CONJUNCTIVA: Yes conjunctivae normal Neck/C-Spine: COMMON NORMALS: full ROM and supple Resp: COMMON NORMALS: normal respiratory effort and clear to auscultation bilaterally AUSCULTATION: clear to auscultation bilaterally Cardio: COMMON NORMALS: regular rate RATE: regular rate GI: COMMON NORMALS: Soft to palpation PALPATION: Yes Soft to palpation OTHER: Laparoscopic incisions dry/clean/intact. +Mild periumbilical tenderness to palpation. NO guarding rebound, guarding, rigidity. No CVA tenderness to percussion. Neg Mantilla/Neg McBurney's point tenderness, no suprabupic tenderness to palpation. Extremity: COMMON NORMALS: full ROM Neuro: SENSORIUM/ORIENTATION: Yes alert MOTOR EXAM: No Abnormal motor strength present and Other motor observations present (no focal motor deficits) Psych: COMMON NORMALS: speech normal SPEECH: Yes normal speech MOOD & AFFECT: Yes euthymic mood Course Vital Signs: Vital signs: Vital Signs Temperature 98.8 F 07/17/21 15:09 Pulse Rate 61 07/17/21 19:27 Respiratory Rate 17 07/17/21 19:27 Blood Pressure 103/80 07/17/21 19:27 Pulse Oximetry 97 07/17/21 19:27 MDM - General Adult Medical Decision Making Patient is a 65-year-old male with history of cholecystectomy and recent laparoscopic appendectomy on 07/12/2021 presenting to the emergency room for persistence of periumbilical pain, decreased p.o. intake, and nausea since surgery. Patient has mild periumbilical tenderness palpation and appears dry on exam. No guarding rebound tenderness. Laparoscopic incision sites appear to be dry/intact/dry. Patient received 2L IVF, and Tylenol and morphine with for pain control. No leukocytosis. CT abdomen pelvis showed no acute pathologies or post-operative complications. Patient's been given close follow-up with PCP in 48 hrs for reassessment. Rx Maalox PRN dyspepsia, tylenol PRN pain, and zofran PRN nausea/vomiting Disposition: Discharge. Patient counseled regarding diagnostic impression, treatment plan. Patient given ED strict return precautions to return for continuation, worsening, or development of new symptoms. Instructed to f/u w/ PCP and patient's general surgeon regarding symptoms today. Patient verbalized understanding. Lab Data : 07/17/21 15:48 07/17/21 15:48 Radiology Impressions Abdomen/Pelvis CT 07/17/21 15:16 IMPRESSION: 1. Changes of recent appendectomy. No abscess or complication identified. 2. Stable dilatation of the intrahepatic and extrahepatic bile ducts. This is most likely reservoir effect. If there is clinical evidence for biliary obstruction, follow-up with MRCP should be considered. COMMENTS: Consistent with the [employer]'s Incidental Findings Committee white paper (J Am Nabor Radiol 2018): Any incidental renal lesion less than 1 cm or classified as too small to characterize, or any incidental cystic renal lesion characterized as simple-appearing, is likely benign. No follow-up imaging is recommended for these lesions per consensus recommendations based on imaging criteria. Laboratory Results WBC 5.9 10^3/uL (4.0-10.0) 07/17/21 15:48 RBC 5.31 10^6/uL (4.1-5.3) H 07/17/21 15:48 Hgb 16.3 g/dL (11.7-16.6) 07/17/21 15:48 Hct 46.8 % (42.0-52.0) 07/17/21 15:48 MCV 88.1 fl (80-94) 07/17/21 15:48 MCH 30.7 pg (28.0-34.0) 07/17/21 15:48 MCHC 34.8 g/dL (30.0-36.0) 07/17/21 15:48 RDW 12.6 % (12.1-15.1) 07/17/21 15:48 Plt Count 252 10^3/cmm (130-400) 07/17/21 15:48 MPV 9.5 fL (7.4-10.4) 07/17/21 15:48 Neut % (Auto) 70.7 % 07/17/21 15:48 Lymph % (Auto) 21.6 % 07/17/21 15:48 Sully % (Auto) 5.8 % 07/17/21 15:48 Eos % (Auto) 0.8 % 07/17/21 15:48 Baso % (Auto) 0.8 % 07/17/21 15:48 Neut # (Auto) 4.16 10^3/uL (1.8-7.7) 07/17/21 15:48 Lymph # (Auto) 1.3 10^3/uL (0.8-4.8) 07/17/21 15:48 Sully # (Auto) 0.3 10^3/uL (0.2-0.9) 07/17/21 15:48 Eos # (Auto) 0.1 10^3/uL (0.0-0.8) 07/17/21 15:48 Baso # (Auto) 0.1 10^3/uL (0.0-0.1) 07/17/21 15:48 Nucleated RBC % (auto) 0 % 07/17/21 15:48 Nucleated RBCs # 0.0 /100WBC 07/17/21 15:48 Sodium 140 mmol/L (136-145) 07/17/21 15:48 Potassium 3.8 mmol/L (3.5-5.1) 07/17/21 15:48 Chloride 104 mmol/L (98-107) 07/17/21 15:48 Carbon Dioxide 21 mmol/L (22-29) L 07/17/21 15:48 Anion Gap 18.8 (5-19) 07/17/21 15:48 BUN 11 mg/dL (8-23) 07/17/21 15:48 Creatinine 0.5 mg/dL (0.7-1.2) L 07/17/21 15:48 GFR Calculation 167.4 mL/min (90-130) H 07/17/21 15:48 Glucose 74 mg/dL (65-115) 07/17/21 15:48 Calculated Osmolality 288 mOsm/kg (285-295) 07/17/21 15:48 Lactate 1.0 mmol/L (0.5-2.2) 07/17/21 15:48 Calcium 9.5 mg/dL (8.5-10.5) 07/17/21 15:48 Total Bilirubin 0.4 mg/dL (0.15-1.2) 07/17/21 15:48 AST 19 U/L (0-40) 07/17/21 15:48 ALT 22 U/L (0-41) 07/17/21 15:48 Alkaline Phosphatase 70 IU/L (40-130) 07/17/21 15:48 Total Protein 7.0 g/dL (6.6-8.7) 07/17/21 15:48 Albumin 4.5 g/dL (3.5-5.2) 07/17/21 15:48 Globulin 2.5 g/dL (1.3-4.6) 07/17/21 15:48 Lipase 28 U/L (13-60) 07/17/21 15:48 Imaging Data Other Imaging: Radiologist's impression: [address] [address] [address] Scan Report Signed Patient: Michoacano Paulino Unit #: [id number] : 1955 Age/Sex: 65 / M ADM Date: 07/17/21 Loc: ER Room/Bed: Attending Dr: Ordering Provider/Ordering MD: Patricia Gupta MD Date of Service: 07/17/21 Procedure(s): CT abdomen pelvis w con* [id number] Accession Number(s): [id number] Report Number: [id number] PROCEDURE INFORMATION: Exam: CT Abdomen And Pelvis With Contrast Exam date and time: 07/17/2021 4:21 PM Age: 65 years old Clinical indication: Nausea and vomiting; Abdominal pain; Prior surgery; Surgery date: <1 month; Surgery type: --appy; Patient HX: Abd pain n/v had appy on 07/12/2021 still haspain TECHNIQUE: Imaging protocol: Computed tomography of the abdomen and pelvis with contrast. Radiation optimization: All CT scans at this facility use at least one of these dose optimization techniques: automated exposure control; mA and/or kV adjustment per patient size (includes targeted exams where dose is matched to clinical indication); or iterative reconstruction. Contrast material: OMNI 350; Contrast volume: 95 ml; Contrast route: INTRAVENOUS (IV);? COMPARISON: CT abdomen pelvis w con* [id number] 07/11/2021 1:12 PM RADIATION DOSE METRICS: Total DLP (mGy-cm): 763.59 FINDINGS: Liver: Hypodensities in the liver are too small to characterize but are most likely cysts. No follow-up imaging recommended. Gallbladder and bile ducts: Stable intrahepatic and extrahepatic ductal dilatation. The common bile duct measures up to 13 mm. Cholecystectomy. Pancreas: Normal. No ductal dilation. Spleen: Calcified granulomas in the spleen. Adrenal glands: Normal. No mass. Kidneys and ureters: Hypodensities in both kidneys are too small to characterize but are most likely tiny cysts. No follow-up imaging is recommended. No calculus or hydronephrosis. Arterial calcifications. No aneurysm. Stomach and bowel: Moderate stool in the cecum and proximal colon. Scattered gas in decompressed distal colon. The stomach and small bowel are unremarkable. No wall thickening or obstruction. Appendix: Prior appendectomy with sutures and clip in the right lower quadrant. Intraperitoneal space: Unremarkable. No free air. No significant fluid collection. Arteries: See Kidneys and ureters finding. Lymph nodes: Unremarkable. No enlarged lymph nodes. Urinary bladder: Unremarkable as visualized. Reproductive: Inhomogenous prostate with calcifications. Bones/joints: Right hip arthroplasty hardware with significant streak artifact. 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 No acute fracture. Multiple small Schmorl's nodes. Soft tissues: Unremarkable. Other findings: Severe emphysema. CT/CT abdomen pelvis w con* [id number] IMPRESSION: 1. Changes of recent appendectomy.? No abscess or complication identified. 2. Stable dilatation of the intrahepatic and extrahepatic bile ducts.? This is most likely reservoir effect.? If there is clinical evidence for biliary obstruction, follow-up with MRCP should be considered. ? COMMENTS: Consistent with the [employer]'s Incidental Findings Committee white paper (J Am Nabor Radiol 2018): Any incidental renal lesion less than 1 cm or classified as too small to characterize, or any incidental cystic renal lesion characterized as simple-appearing, is likely benign. No follow-up imaging is recommended for these lesions per consensus recommendations based on imaging criteria. ? Dictated By: Kermit Skinner Signed By: Kermit Skinner Signed Date/Time: 07/17/21 1716 DD/ 1621 Discharge Plan Discharge Patient Disposition: Home Clinical Impression: Abdominal pain, Nausea, Decrease in appetite Condition: Stable Prescriptions: New acetaminophen 500 mg tablet 500 mg PO Q6H PRN (Reason: pain) 5 Days Qty: 20 0RF ondansetron 4 mg tablet,disintegrating 4 mg PO TID PRN (Reason: nausea and vomiting) 4 Days Qty: 12 0RF Maalox Advanced 1,000-60 mg tablet,chewable 1 tab PO TID PRN (Reason: abdominal pain) 7 Days Qty: 21 0RF No Action buspirone 10 mg tablet 10 mg PO BEDTIME 0RF multivitamin Tablet 1 tab PO DAILY 0RF cholecalciferol (vitamin D3) 25 mcg (1,000 unit) capsule 25 mcg PO DAILY 0RF Miralax 17 gram/dose Powder 17 g PO BEDTIME 0RF Lyrica 100 mg Capsule 100 mg PO BID 0RF Narcan 4 mg/actuation [place],Non-Aerosol See Rx Instructions .ROUTE .COMPLEX 0RF Rx Instructions: as directed intranasally prn Discharge Orders: Discharge ED (Routine); Ordered 07/17/21 Ordered By: Patricia Gupta Referrals: Cecille Estrada FNP [Primary Care Provider] - Discharge Diet: Advance as tolerated Discharge Activity: Increase activity as tolerated Activity Restrictions/Additional Instructions: Please come back if you have any worsening abdominal pain, fever or chills, nausea or vomiting, diarrhea, blood in the stool, inability hold down liquid or solids, or any new concerning complaints. 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
[2021-07-17 15:58] LABS: Basophils # 0.1 10^3/uL (0.0-0.1); Basophils % 0.8 %; Eosinophils # 0.1 10^3/uL (0.0-0.8); Eosinophils % 0.8 %; Hematocrit 46.8 % (42.0-52.0); Hemoglobin 16.3 g/dL (11.7-16.6); Lymphocytes # 1.3 10^3/uL (0.8-4.8); Lymphocytes % 21.6 %; Mean Corpuscular HGB Conc 34.8 g/dL (30.0-36.0); Mean Corpuscular Hemoglobin 30.7 pg (28.0-34.0); Mean Corpuscular Volume 88.1 fl (80-94); Mean Platelet Volume 9.5 fL (7.4-10.4); Monocytes # 0.3 10^3/uL (0.2-0.9); Monocytes % 5.8 %; Neutrophils # 4.16 10^3/uL (1.8-7.7); Neutrophils % 70.7 %; Nucleated Red Blood Cells % 0 %; Platelet Count 252 10^3/cmm (130-400); Red Blood Count 5.31 10^6/uL (4.1-5.3); Red Cell Distribution Width 12.6 % (12.1-15.1); White Blood Count 5.9 10^3/uL (4.0-10.0)
[2021-07-17 16:18] LABS: Alanine Aminotransferase 22 U/L (0-41); Albumin Level 4.5 g/dL (3.5-5.2); Alkaline Phosphatase 70 IU/L (40-130); Aspartate Amino Transferase 19 U/L (0-40); Blood Urea Nitrogen 11 mg/dL (8-23); Calcium 9.5 mg/dL (8.5-10.5); Carbon Dioxide 21 mmol/L (22-29); Chloride 104 mmol/L (98-107); Globulin 2.5 g/dL (1.3-4.6); Glomerular Filtration Rate 167.4 mL/min (90-130); Glucose 74 mg/dL (65-115); Lipase 28 U/L (13-60); Osmolality Calculated 288 mOsm/kg (285-295); Sodium 140 mmol/L (136-145); Total Bilirubin 0.4 mg/dL (0.15-1.2)
[2021-07-17 16:19] LABS: Anion Gap 18.8 (5-19); Creatinine Clr Calc Pharmacy 95.7579; Potassium 3.8 mmol/L (3.5-5.1)
[2021-07-17] MEDS: iohexol 350 mg/mL 100 mL Btl IV (16:22)
[2021-07-17] MEDS: acetaminophen 500 mg Tablet PO (18:05)
[2021-07-17] MEDS: lidocaine 2% viscous 15 ML, aluminum-mag hydrox-simethicon 30 ML, sucralfate oral liq 1 GM PO (18:05)
[2021-07-17 19:09] VITALS: RESP 17; O2SAT 97
[2021-07-17] MEDS: morphine 4 mg/mL SDV 1 mL IVP (19:09)
[2021-07-17 19:27] VITALS: BP 103/80; PULSE 61; RESP 17; O2SAT 97
== END 2021-07-17 19:29 | disposition home or self-care (01) ==
PROVIDERS: Emergency Provider Emergency Medicine; PCP Nurse Practitioner
DX: R10.9 Unspecified abdominal pain (principal); F17.210 Nicotine dependence, cigarettes, uncomplicated; R11.0 Nausea
CPT/HCPCS: 74177; 80053; 83605; 83690; 85025; 96361; 96374; 96376; 99284; J2270; J7030; Q9967

== ENCOUNTER 2021-09-14 17:56 | Emergency (ER) | payer OTHER, SELFPAY ==
[2021-09-14 18:02] VITALS: BP 113/77; PULSE 120; RESP 20; TEMP 37.1; O2SAT 91; BMI 15.2
--- NOTE | 2021-09-14 19:41 | CTR_ITS ---
PROCEDURE INFORMATION: Exam: CT Abdomen And Pelvis With Contrast Exam date and time: 09/14/2021 8:32 PM Age: 66 years old Clinical indication: Abdominal pain; Prior surgery; Surgery date: 3-7 days post-operative; Surgery type: Bile duct stents placed x2; Patient HX: Epigastric pain. Appy 3 months ago, 2 stents in bile duct 4 days ago. PT says he has been miserable since appy now pain since recent SX; Additional info: Epigastric abdominal pain TECHNIQUE: Imaging protocol: Computed tomography of the abdomen and pelvis with contrast. Radiation optimization: All CT scans at this facility use at least one of these dose optimization techniques: automated exposure control; mA and/or kV adjustment per patient size (includes targeted exams where dose is matched to clinical indication); or iterative reconstruction. Contrast material: VISI; Contrast volume: 75 ml; Contrast route: INTRAVENOUS (IV); COMPARISON: CT abdomen pelvis w con* [id number] 07/17/2021 4:21 PM RADIATION DOSE METRICS: Total DLP (mGy-cm): 710.1 FINDINGS: Lungs: Moderate-severe pulmonary emphysema. Liver: Liver is normal in size without cirrhosis. Multiple tiny hypodense lesions are again noted, likely hepatic cysts. The largest in the left lobe measuring 1.8 cm. Gallbladder and bile ducts: Interval placement of stent in the mid/distal CBD with the distal end in the proximal duodenum. Interval improvement of biliary dilatation with new diffuse pneumobilia. Next item there is mild fluid-filled distention of the proximal duodenum with no obstructive mass or abrupt transition, which may represent regional ileus. However clinical correlation should be obtained to exclude obstruction. Follow-up imaging may also be obtained if clinically indicated. Cholecystectomy clips. No regional fluid collection or acute inflammatory response. Pancreas: Normal. No ductal dilation. Spleen: Normal spleen size with multiple calcified granulomas. Adrenal glands: Normal. No mass. Kidneys and ureters: No obstructing calculus. No hydronephrosis. Stomach and bowel: Large amount of proximal colonic stool retention with little fecal rectal retention. No bowel obstruction, pneumatosis or suspicious bowel wall thickening. Appendix: No evidence of appendicitis. Intraperitoneal space: Unremarkable. No free air. No significant fluid collection. Vasculature: No abdominal aortic aneurysm. Lymph nodes: No enlarged lymph nodes. Urinary bladder: Unremarkable as visualized. Reproductive: Unremarkable as visualized. Bones/joints: Right hip prosthesis resulting in streak artifacts partially obscuring regional anatomy. Old fracture deformity left inferior pubic ramus. Next item probable osteopenia. Multilevel vertebral disc degeneration and endplate osteophytes. No acute osseous findings otherwise. Soft tissues: No acute findings. CT/CT abdomen pelvis w con* [id number] IMPRESSION: 1. Comparison CT 07/17/2021. 2. Cholecystectomy clips with new interval placement of extrahepatic bile duct stent with interval improvement of bile ductal dilatation. Diffuse pneumobilia is now present. Mild proximal fluid-filled distention of the duodenum which may be related to ileus. See discussion above. No other acute findings. 3. Large proximal colonic stool burden. No bowel obstruction otherwise. 4. Other nonacute findings as above.
[2021-09-14 19:44] LABS: Basophils # 0.1 10^3/uL (0.0-0.1); Basophils % 0.7 %; Eosinophils # 0.1 10^3/uL (0.0-0.8); Eosinophils % 1.6 %; Hematocrit 45.3 % (42.0-52.0); Hemoglobin 15.7 g/dL (11.7-16.6); Lymphocytes # 1.7 10^3/uL (0.8-4.8); Lymphocytes % 24.5 %; Mean Corpuscular HGB Conc 34.7 g/dL (30.0-36.0); Mean Corpuscular Hemoglobin 30.8 pg (28.0-34.0); Mean Corpuscular Volume 88.8 fl (80-94); Mean Platelet Volume 9.3 fL (7.4-10.4); Monocytes # 0.5 10^3/uL (0.2-0.9); Monocytes % 7.7 %; Neutrophils # 4.39 10^3/uL (1.8-7.7); Neutrophils % 65.4 %; Nucleated Red Blood Cells % 0 %; Platelet Count 196 10^3/cmm (130-400); Red Cell Distribution Width 12.9 % (12.1-15.1); White Blood Count 6.7 10^3/uL (4.0-10.0)
--- NOTE | 2021-09-14 19:44 | ED_ITS ---
HPI - Abdominal Pain General: Chief Complaint: Abdominal Pain Stated Complaint: abd pain Time Seen by Provider: 09/14/21 19:16 Source: patient History of Present Illness: 66-year-old gentleman with a somewhat complicated history. He had an appendectomy in June. He had a cholecystectomy 4 years ago. Since that time he had 2 bile duct stents placed. One was placed on , 4 days ago. He notes the first day he did fine. Since then, he has had increasing epigastric pain radiating into his back. No vomiting. No fever. No diarrhea. MD elicited complaint: abdominal pain Pertinent past history: other Onset (ago): day(s) Pain Consistency: constant Location: Epigastric Severity: moderate Quality: stabbing and aching Radiation: back Migration to: no migration Exacerbating factors: eating Relieving factors: nothing Associated Symptoms: Reports bloating, nausea and poor appetite; Denies diarrhea, fever(s), hematemesis, loose stools, melena and vomiting Review of Systems Const: Denies: fever(s) Eyes: Denies: change in vision Card: Denies: chest pain Resp: Denies: dyspnea, productive cough or non-productive cough GI: Reports: nausea and bloating; Denies: vomiting, hematemesis, diarrhea or melena Neuro: Reports: headache(s) PFSH ED PFSH: Medical History Chronic epigastric pain Drug overdose Endotracheally intubated Gastritis Hepatitis C Nausea and vomiting Physical deconditioning Polysubstance abuse Suicidal overdose Unresponsiveness Surgical History History of bilateral carpal tunnel release History of circumcision History of colonoscopy Normal repeat in 10 years History of esophagogastroduodenoscopy (EGD) (02/26/17) Reflux, esophagitis, Gastritis History of hip replacement, total Right History of knee replacement Right History of laparoscopic cholecystectomy Family History Grandfather Cancer Grandmother Cancer Grandmother Cancer Grandfather Cancer Family/Other Cancer Son Diabetes Father Suicide Brother Suicide Denies family history of CAD (coronary artery disease) Clotting disorder Dementia Chronic kidney disease (CKD) Anesthesia complication Bleeding disorder Lung disease Stroke Social History Smoking and tobacco status: current some day smoker Second hand smoke exposure: No Alcohol intake: former Desire information about alcohol rehabilitation?: No Adopted: No Caregiver/support person: Yes Lives independently: Yes Household members: spouse Housing: House Marital status: Highest education level completed: High School Graduate service: No Current occupational status: disabled Current occupational exposures/hazards: No Pets and animals: No History of recent travel: No Leisure activites: exercise Sexually active: Yes Current gender identity: Male and Female Verito/Alevism: Protestant Special verito needs: No Agree to transfusion: No Financial difficulty paying for basics: Not Very Hard Physical Exam Const: GENERAL APPEARANCE: cooperative ORIENTATION/CONSCIOUSNESS: Yes awake and Yes oriented to person HENMT: COMMON NORMALS: normocephalic, atraumatic and Normal external nose present HEAD & SCALP: normocephalic and atraumatic FACE & SINUS: normal facial exam and face symmetric NOSE: Normal external nose present Eye: COMMON NORMALS: Equal, round and reactive pupils present and EOMs intact bilaterally SCLERA: sclerae normal PUPIL: Yes Equal, round and reactive pupils present Chest: COMMONS NORMALS: normal inspection of the chest Resp: COMMON NORMALS: normal respiratory effort, No use of accessory muscles and clear to auscultation bilaterally AUSCULTATION: clear to auscultation bilaterally Cardio: COMMON NORMALS: regular rate and regular rhythm RATE: regular rate RHYTHM: regular rhythm GI: COMMON NORMALS: Normal to inspection, nondistended, normoactive bowel sounds present and Soft to palpation PALPATION: Yes Soft to palpation and Yes Tenderness to palpation present (GI) (Epigastric) Extremity: COMMON NORMALS: no pedal edema Neuro: JOHANNA COMA SCALE: document GCS findings [place] coma scale eye opening: Spontaneous [place] coma scale verbal response: Orientated Johanna coma scale motor response: Obey commands Johanna coma scale total score: 15 SENSORIUM/ORIENTATION: Yes oriented to person Course Vital Signs: Vital signs: Vital Signs Temperature 97.9 F 09/15/21 00:35 Pulse Rate 81 09/15/21 00:35 Respiratory Rate 16 09/15/21 00:35 Blood Pressure 121/62 09/15/21 00:35 Pulse Oximetry 98 09/15/21 00:35 MDM - Abdominal Pain Medical Decision Making 66-year-old gentleman with a complicated history. He presents with epigastric pain recent biliary stent placement. His vitals are good. CBC is normal. BMP is normal. Liver enzymes and lipase are normal. CT reveals stent in normal position, with decreased caliber of bile ducts. There is some pneumobilia that is normal post stent placement. No free air. No definite obstruction. There is an ileus pattern proximally. There is colonic constipation as well. Patient counseled on these findings, and need for resolution. 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 Lab Data : 09/14/21 19:38 09/14/21 19:38 Labs/Radiology: Radiology Impressions Abdomen/Pelvis CT 09/14/21 19:41 IMPRESSION: 1[address] CT 07/17/2021. 2. Cholecystectomy clips with new interval placement of extrahepatic bile duct stent with interval improvement of bile ductal dilatation. Diffuse pneumobilia is now present. Mild proximal fluid-filled distention of the duodenum which may be related to ileus. See discussion above. No other acute findings. 3. Large proximal colonic stool burden. No bowel obstruction otherwise. 4. Other nonacute findings as above. Laboratory Results WBC 6.7 10^3/uL (4.0-10.0) 09/14/21 19:38 RBC 5.10 10^6/uL (4.1-5.3) 09/14/21 19:38 Hgb 15.7 g/dL (11.7-16.6) 09/14/21 19:38 Hct 45.3 % (42.0-52.0) 09/14/21 19:38 MCV 88.8 fl (80-94) 09/14/21 19:38 MCH 30.8 pg (28.0-34.0) 09/14/21 19:38 MCHC 34.7 g/dL (30.0-36.0) 09/14/21 19:38 RDW 12.9 % (12.1-15.1) 09/14/21 19:38 Plt Count 196 10^3/cmm (130-400) 09/14/21 19:38 MPV 9.3 fL (7.4-10.4) 09/14/21 19:38 Neut % (Auto) 65.4 % 09/14/21 19:38 Lymph % (Auto) 24.5 % 09/14/21 19:38 [place] % (Auto) 7.7 % 09/14/21 19:38 Eos % (Auto) 1.6 % 09/14/21 19:38 Baso % (Auto) 0.7 % 09/14/21 19:38 Neut # (Auto) 4.39 10^3/uL (1.8-7.7) 09/14/21 19:38 Lymph # (Auto) 1.7 10^3/uL (0.8-4.8) 09/14/21 19:38 [place] # (Auto) 0.5 10^3/uL (0.2-0.9) 09/14/21 19:38 Eos # (Auto) 0.1 10^3/uL (0.0-0.8) 09/14/21 19:38 Baso # (Auto) 0.1 10^3/uL (0.0-0.1) 09/14/21 19:38 Nucleated RBC % (auto) 0 % 09/14/21 19:38 Nucleated RBCs # 0.0 /100WBC 09/14/21 19:38 Sodium 141 mmol/L (136-145) 09/14/21 19:38 Potassium 3.6 mmol/L (3.5-5.1) 09/14/21 19:38 Chloride 105 mmol/L (98-107) 09/14/21 19:38 Carbon Dioxide 25 mmol/L (22-29) 09/14/21 19:38 Anion Gap 14.6 (5-19) 09/14/21 19:38 BUN 9 mg/dL (8-23) 09/14/21 19:38 Creatinine 0.6 mg/dL (0.7-1.2) L 09/14/21 19:38 GFR Calculation 135.2 mL/min (90-130) H 09/14/21 19:38 Glucose 81 mg/dL (65-115) 09/14/21 19:38 Calculated Osmolality 290 mOsm/kg (285-295) 09/14/21 19:38 Lactic Acid 0.9 mmol/L (0.5-2.2) 09/14/21 19:38 Calcium 9.2 mg/dL (8.5-10.5) 09/14/21 19:38 Total Bilirubin 0.4 mg/dL (0.15-1.2) 09/14/21 19:38 AST 9 U/L (0-40) 09/14/21 19:38 ALT 8 U/L (0-41) 09/14/21 19:38 Alkaline Phosphatase 64 IU/L (40-130) 09/14/21 19:38 Total Protein 7.3 g/dL (6.6-8.7) 09/14/21 19:38 Albumin 4.5 g/dL (3.5-5.2) 09/14/21 19:38 Globulin 2.8 g/dL (1.3-4.6) 09/14/21 19:38 Lipase 31 U/L (13-60) 09/14/21 19:38 Urine Color Yellow (Yellow) 09/14/21 22:29 Urine Appearance Clear (CLEAR) 09/14/21 22:29 Urine pH 5 (5-7) 09/14/21 22:29 Ur Specific [place] 1.015 (1.005-1.030) 09/14/21 22:29 Urine Protein Neg (Negative) 09/14/21 22:29 Urine Glucose (UA) Norm (Normal) 09/14/21 22:29 Urine Ketones Negative (Negative) 09/14/21 22:29 Urine Blood Neg (Negative) 09/14/21 22:29 Urine Nitrate Negative (Negative) 09/14/21 22:29 Urine Bilirubin Neg (Negative) 09/14/21 22:29 Urine Urobilinogen Norm mg/dL (Negative) 09/14/21 22:29 Ur Leukocyte Esterase Negative (Negative) 09/14/21 22:29 Discharge Plan Discharge Patient Disposition: Home Clinical Impression: Ileus, Constipation Condition: Stable Prescriptions: New Reglan 10 mg tablet 10 mg PO Q6H 7 Days Qty: 28 0RF magnesium citrate Solution 296 ml PO DAILY PRN (Reason: constipation) Qty: 296 0RF Percocet 7.5-325 mg tablet 1 tab PO Q6H PRN (Reason: pain) Qty: 10 0RF No Action buspirone 10 mg tablet 10 mg PO BEDTIME 0RF multivitamin Tablet 1 tab PO DAILY 0RF cholecalciferol (vitamin D3) 25 mcg (1,000 unit) capsule 25 mcg PO DAILY 0RF Miralax 17 gram/dose Powder 17 g PO BEDTIME 0RF Lyrica 100 mg Capsule 100 mg PO BID 0RF Narcan 4 mg/actuation [place],Non-Aerosol See Rx Instructions .ROUTE .COMPLEX 0RF Rx Instructions: as directed intranasally prn Discharge Orders: Discharge ED (Routine); Ordered 09/14/21 Ordered By: Neftali Martin Referrals: Cecille Estrada, METEOROLOGY FACULTY MEMBER [Primary Care Provider] - 1-3 days Patient Instructions: Constipation (ED), Ileus (ED), Opioid Safety Activity Restrictions/Additional Instructions: Call your GI doctor in the morning, they may have more suggestions for you. Return for worsening pain despite treatment, fever greater than 100, vomiting liquids or medications, other concerning symptoms. Coding Level of Care Code ED [employer] Sorter for [facility] F[employer] Exam Comprehensive
[2021-09-14 19:53] VITALS: RESP 20
[2021-09-14] MEDS: sodium chloride 0.9% 1,000 ML 999 ML IV (19:53)
[2021-09-14] MEDS: ondansetron 2 mg/ML SDV 2 mL 4 MG IVP (19:53)
[2021-09-14] MEDS: HYDROmorphone 1 mg/mL INJ 1 mL IVP ×2 (19:53→22:32)
[2021-09-14 20:04] LABS: Alanine Aminotransferase 8 U/L (0-41); Albumin Level 4.5 g/dL (3.5-5.2); Alkaline Phosphatase 64 IU/L (40-130); Anion Gap 14.6 (5-19); Aspartate Amino Transferase 9 U/L (0-40); Blood Urea Nitrogen 9 mg/dL (8-23); Calcium 9.2 mg/dL (8.5-10.5); Carbon Dioxide 25 mmol/L (22-29); Chloride 105 mmol/L (98-107); Globulin 2.8 g/dL (1.3-4.6); Glomerular Filtration Rate 135.2 mL/min (90-130); Glucose 81 mg/dL (65-115); Lipase 31 U/L (13-60); Osmolality Calculated 290 mOsm/kg (285-295); Potassium 3.6 mmol/L (3.5-5.1); Sodium 141 mmol/L (136-145); Total Bilirubin 0.4 mg/dL (0.15-1.2); Total Protein 7.3 g/dL (6.6-8.7)
[2021-09-14 20:05] LABS: Lactic Sepsis W/Reflex 0.9 mmol/L (0.5-2.2)
[2021-09-14 20:06] LABS: Creatinine Clr Calc Pharmacy 59.0612
[2021-09-14] MEDS: iodixanol 320 mg/mL 100mL Btl IV (20:45)
[2021-09-14 22:32] VITALS: RESP 18
[2021-09-14 22:38] LABS: Add Urine Microscopic? NO; Charge for UA Resulting for Rev
[2021-09-14 22:41] LABS: Bilirubin Urine Neg (Negative); Blood Urine Neg (Negative); Glucose Urine UA Norm (Normal); Ketones Urine Negative (Negative); Leukocyte Esterase Urine Negative (Negative); Nitrate Urine Negative (Negative); Protein Urine Neg (Negative); Specific Gravity, Urine 1.015 (1.005-1.030); Urine Appearance Clear (CLEAR); Urine Color Yellow (Yellow); Urobilinogen Urine Norm (Negative); pH Urine 5 (5-7)
[2021-09-15 00:35] VITALS: BP 121/62; PULSE 81; RESP 16; TEMP 36.6; O2SAT 98
== END 2021-09-15 00:39 | disposition home or self-care (01) ==
PROVIDERS: Physician Assistant; Emergency Provider Emergency Medicine; PCP Nurse Practitioner
DX: K56.7 Ileus, unspecified (principal); K59.00 Constipation, unspecified; Z86.19 Personal history of other infectious and parasitic diseases; F17.210 Nicotine dependence, cigarettes, uncomplicated
CPT/HCPCS: 74177; 80053; 81003; 83605; 83690; 85025; 96361; 96374; 96375; 96376; 99284; J1170; J2405; J7030; Q9967

== ENCOUNTER → 2021-12-24 11:32 | Outpatient (BNVA) | payer OTHER, SELFPAY | PROVIDERS: PCP Nurse Practitioner; Visit Provider Specialist | DX: G25.0 Essential tremor (principal); F41.9 Anxiety disorder, unspecified; F32.A Depression, unspecified; R74.01 Elevation of levels of liver transaminase levels; R63.4 Abnormal weight loss; Z68.1 Body mass index [BMI] 19.9 or less, adult; Z86.19 Personal history of other infectious and parasitic diseases; R10.9 Unspecified abdominal pain | CPT/HCPCS: 99204; 99205 ==

== ENCOUNTER 2022-01-15 13:22 | Outpatient (CLI) | payer OTHER, SELFPAY ==
--- NOTE | 2022-01-15 14:32 | CTR_ITS ---
PROCEDURE INFORMATION: Exam: CT Chest With Contrast; Diagnostic Exam date and time: 01/15/2022 2:42 PM Age: 66 years old Clinical indication: Condition or disease; Lung condition and disease; Pulmonary nodule, solitary; Additional info: Showed 4mm nodule follow up TECHNIQUE: Imaging protocol: Diagnostic computed tomography of the chest with contrast. Radiation optimization: All CT scans at this facility use at least one of these dose optimization techniques: automated exposure control; mA and/or kV adjustment per patient size (includes targeted exams where dose is matched to clinical indication); or iterative reconstruction. Contrast material: OMNI 350; Contrast volume: 80 ml; Contrast route: INTRAVENOUS (IV); COMPARISON: CT angio chest abdomen pelvis 01/19/2021 2:14 PM RADIATION DOSE METRICS: Total DLP (mGy-cm): 504.91 FINDINGS: Lungs: Advanced destructive emphysema. Calcified granulomas in the right lower lobe. There is a 4 mm left lower lobe pulmonary nodule. This appears stable dating back to at least 08/12/2018. No new or enlarging suspicious pulmonary nodules. Pleural spaces: Unremarkable. No pneumothorax. No pleural effusion. Heart: Unremarkable. No cardiomegaly. No pericardial effusion. Lymph nodes: Unremarkable. No enlarged lymph nodes. Vasculature: Unremarkable. No aortic aneurysm. Liver: Similar small low-density liver lesions. Gallbladder and bile ducts: Pneumobilia in the left hepatic lobe, similar to prior. Spleen: Calcified splenic granulomas. Bones/joints: Unremarkable. No acute fracture. Soft tissues: Unremarkable. CT/CT chest w con* [id number] IMPRESSION: Emphysematous changes with no suspicious pulmonary nodules warranting follow-up imaging.
[2022-01-15] MEDS: iohexol 350 mg/mL 100 mL Btl IV (17:30)
== END 2022-01-15 13:23 | disposition home or self-care (01) ==
LOC: RAD 13:22
PROVIDERS: PCP Nurse Practitioner; Visit Provider Nurse Practitioner
DX: R91.1 Solitary pulmonary nodule (principal)
CPT/HCPCS: 71260

== ENCOUNTER 2022-06-13 05:34 | Outpatient (CLI) | payer OTHER, SELFPAY ==
--- NOTE | 2022-06-13 | PETR_ITS ---
PROCEDURE INFORMATION: Exam: PET/CT Skull Base to Mid-thigh Exam date and time: 06/13/2022 8:03 AM Age: 66 years old Clinical indication: Unexplained weight loss. LABS AND CLINICAL REPORTS: Glucose: 97 mg/dl Treatment strategy for malignancy (PET staging): Initial Staging (PI) TECHNIQUE: Imaging protocol: Following at least four-hour fasting and following the injection of F-18-FDG, low dose CT images were obtained. Then, PET images were obtained. Attenuation corrected images were constructed using the CT scan. Fused images of PET and CT were reviewed. The standardized uptake values (SUV) reported below are maximum values within a region of interest, expressed in gm/ml. Exam includes orbital meatal line to mid-thigh. Radiopharmaceutical: 13.5 mCi F-18 FDG (Fluorodeoxyglucose), IV. Time of imaging post radiopharmaceutical administration: 1 hour Injection site: site COMPARISON: CT chest w con* [id number] 01/15/2022 2:42 PM FINDINGS: Limitations: The beam hardening artifact from the arthroplasty obscures the right side of the pelvis on the CT images. Brain: Visualized brain has normal physiologic uptake. Pharynx: No abnormal uptake. Larynx: No abnormal uptake. Lungs, pleura and trachea: Severe bullous emphysema. No suspicious pulmonary nodule. Marked pulmonary hyperinflation. 10 mm calcified granuloma in the right lower lobe. The lungs are otherwise clear. Heart: Heart size is normal. Mediastinal space: No abnormal uptake. Liver: No abnormal uptake. Gallbladder and bile ducts: Post cholecystectomy. Diffuse pneumobilia is likely due to a CBD stent which was present on the CT abdomen pelvis 09/14/2021. It has been removed. Pancreas: No abnormal uptake. Spleen: Spleen is relatively small. Multiple splenic calcifications are consistent with remote granulomatous disease. Adrenal glands: No abnormal uptake. Kidneys and ureters: Normal physiologic uptake. Stomach and bowel: Sigmoid diverticulosis without evidence of diverticulitis. The colon is otherwise unremarkable. No acute colonic distention or inflammation. Intraperitoneal and retroperitoneal spaces: No free air or free fluid in the abdomen or pelvis. Reproductive: Moderate prostate enlargement. Vasculature: No abnormal uptake. Lymph nodes: No abnormal uptake. No lymphadenopathy in the head, neck, chest, abdomen, pelvis or extremities. Bones/joints: Right total hip arthroplasty appears uncomplicated. No lytic or blastic FDG avid skeletal lesions. Soft tissues: Cachexia. PET/PET skulltothigh INITIAL [id number] IMPRESSION: 1. No evidence of FDG avid malignant neoplasm. 2. Severe emphysema. Pulmonary hyperinflation. 3. Cachexia. 4. Status post cholecystectomy. Stable diffuse pneumobilia.
== END 2022-06-13 05:35 | disposition home or self-care (01) ==
LOC: RAD 06-15 05:35
PROVIDERS: PCP Nurse Practitioner
DX: J43.9 Emphysema, unspecified (principal); R64 Cachexia; Z90.49 Acquired absence of other specified parts of digestive tract
CPT/HCPCS: 78815; A9552

== ENCOUNTER → 2022-06-23 12:41 | Outpatient (BNVA) | payer OTHER, SELFPAY | PROVIDERS: PCP Nurse Practitioner; Visit Provider Internal Medicine | DX: E07.9 Disorder of thyroid, unspecified (principal); E05.90 Thyrotoxicosis, unspecified without thyrotoxic crisis or storm; R63.4 Abnormal weight loss; R53.83 Other fatigue; R63.0 Anorexia; Z68.1 Body mass index [BMI] 19.9 or less, adult | CPT/HCPCS: 99214 ==

== ENCOUNTER 2022-06-25 07:59 | Outpatient (CLI) | payer OTHER, SELFPAY ==
[2022-06-25 09:07] LABS: Testosterone Total 531.5 ng/dL (193-740); Thyroid Stimulating Hormone 3.04 uIU/mL (0.27-4.20)
[2022-06-25 09:12] LABS: Follicle Stimulating Hormone 4.1 mIU/mL (1.5-12.4); Luteinizing Hormone 6.1 mIU/mL (1.7-8.6); Prolactin 10.56 ng/mL (4.0-15.2)
[2022-06-25 09:50] LABS: Calcium 9.1 mg/dL (8.5-10.5)
[2022-06-25 09:58] LABS: Parathyroid Hormone 23.8 pg/mL (15-65)
[2022-06-28 17:19] LABS: Testosterone, Free 33.3 pg/mL (46.0-224.0)
[2022-06-30 18:35] LABS: IGF1 LC/MS 189 ng/mL (41-279)
== END 2022-06-25 08:00 | disposition home or self-care (01) ==
LOC: LAB 08:01
PROVIDERS: PCP Nurse Practitioner; Visit Provider Internal Medicine
DX: E05.90 Thyrotoxicosis, unspecified without thyrotoxic crisis or storm (principal); E07.9 Disorder of thyroid, unspecified; R53.83 Other fatigue; R63.0 Anorexia; R63.4 Abnormal weight loss
CPT/HCPCS: 36415; 82310; 83001; 83002; 83970; 84146; 84305; 84402; 84403; 84439; 84443

== ENCOUNTER → 2022-07-01 11:42 | Day surgery (SDC) | payer OTHER, SELFPAY ==
[2022-07-01] MEDS: cosyntropin 0.25 mg SDV IVP (12:15)
[2022-07-01 12:26] VITALS: BP 110/74; PULSE 113; RESP 18; TEMP 37.1; O2SAT 93
[2022-07-01 12:45] LABS: Cosyntropin Baseline 7.59 mcg/dL
[2022-07-01 13:19] LABS: Cosyntropin 30 Minute 23.19 mcg/dL
[2022-07-01 16:37] LABS: Cosyntropin 1 Hour 25.03 mcg/dL
== END ==
PROVIDERS: PCP Nurse Practitioner; Visit Provider Internal Medicine
DX: E07.9 Disorder of thyroid, unspecified (principal); E05.90 Thyrotoxicosis, unspecified without thyrotoxic crisis or storm; R63.4 Abnormal weight loss; R53.83 Other fatigue; R63.0 Anorexia
CPT/HCPCS: 36415; 82533; 96374; J0834

== ENCOUNTER 2022-07-03 09:47 | Outpatient (CLI) | payer OTHER, SELFPAY ==
[2022-07-07 17:59] LABS: Sex Hormone Binding Globulin 75 nmol/L (22-77)
== END 2022-07-03 09:48 | disposition home or self-care (01) ==
LOC: LAB 09:53
PROVIDERS: PCP Nurse Practitioner; Visit Provider Internal Medicine
DX: E05.90 Thyrotoxicosis, unspecified without thyrotoxic crisis or storm (principal)
CPT/HCPCS: 36415; 84270

== ENCOUNTER → 2022-07-13 13:55 | Outpatient (BNVA) | payer OTHER, SELFPAY | PROVIDERS: PCP Nurse Practitioner; Visit Provider Internal Medicine | DX: E05.90 Thyrotoxicosis, unspecified without thyrotoxic crisis or storm (principal); E07.9 Disorder of thyroid, unspecified; R53.83 Other fatigue; R63.0 Anorexia; R63.4 Abnormal weight loss; Z12.5 Encounter for screening for malignant neoplasm of prostate; Z68.1 Body mass index [BMI] 19.9 or less, adult | CPT/HCPCS: 36415; 99214; G0103 ==

== ENCOUNTER → 2022-07-22 13:47 | Outpatient (BNVA) | payer OTHER, SELFPAY | PROVIDERS: PCP Nurse Practitioner; Visit Provider Internal Medicine | DX: R79.89 Other specified abnormal findings of blood chemistry (principal); E07.9 Disorder of thyroid, unspecified; E05.90 Thyrotoxicosis, unspecified without thyrotoxic crisis or storm; R63.4 Abnormal weight loss; R53.83 Other fatigue; R63.0 Anorexia; R97.20 Elevated prostate specific antigen [PSA]; Z68.1 Body mass index [BMI] 19.9 or less, adult | CPT/HCPCS: 99214 ==

== ENCOUNTER → 2022-10-08 13:24 | Outpatient (BNVA) | payer OTHER, SELFPAY | PROVIDERS: PCP Nurse Practitioner; Visit Provider Psychiatry & Neurology Psychiatry | DX: F33.2 Major depressive disorder, recurrent severe without psychotic features (principal); F41.1 Generalized anxiety disorder; Z79.899 Other long term (current) drug therapy | CPT/HCPCS: 80307 ==

== ENCOUNTER 2022-12-09 12:29 | Emergency (ER) | payer OTHER, SELFPAY ==
[2022-12-09 12:38] VITALS: BP 107/76; PULSE 101; RESP 16; TEMP 36.8; O2SAT 96; BMI 14.7
--- NOTE | 2022-12-09 13:30 | CT_ITS ---
WS: [id number] CT ABDOMEN AND PELVIS WITH CONTRAST HISTORY: abdominal pain for 2 years with weight loss TECHNIQUE: Imaging performed of the abdomen and pelvis with IV contrast. Single phase imaging of the abdomen. Coronal and sagittal reformats are submitted. All CT scans at [facility] use at [address] one of these dose optimization techniques: automated exposure control; mA and/or kV adjustment per patient size (includes targeted exams where dose is matched to clinical indication); or iterative re construction. IV CONTRAST: Omnipaque 350; 100 mL IV. Oral contrast: No DLP: 281.13 mGy.cm COMPARISON: 09/14/2021 Lower thorax: Severe centrilobular emphysema at the lung bases. Heart is normal size. No hiatal herni a. Liver/biliary system: Numerous small low-attenuation masses within the liver are probably cysts. Most of these are too small to characterize. There is also pneumobilia which is probably related to prior cholecystectomy. Previous common bile duct stent has been removed. The common bile duct is just grea ter than normal at 7 mm. This is probably physiologic dilatation. Gallbladder: Cholecystectomy. Pancreas: Mild pancreatic atrophy. Pancreatic duct is very mildly prominent but very similar to the p rior study. No mass at the pancreatic head. Spleen: Normal size with granulomata. Adrenal glands: Normal. Right kidney: Normal. Left kidney: Normal. Aorta: Mild atherosclerosis with no aneurysm. Lymphadenopathy: None. Free fluid: None. GI tract: No obstructive pattern. Marked tortuosity and overlapping loops of colon with marked consti pation. No mucosal thickening. No diverticulitis. The appendix has been removed. Abdominal wall: Cachectic. No abnormality. Pelvis: Urinary bladder is markedly distended. No free fluid. Mild prostate heterogeneity. Bones: RIGHT hip arthroplasty. No destructive bone lesions. IMPRESSION: 1. Prior cholecystectomy. 2. Pneumobilia. Common bile duct stent noted on 09/14/2021 is been removed. There is very mild physio logic dilatation of the common bile duct remaining. 3. Marked constipation with overlapping loops of colon. No obstructive pattern. 4. No ascites or adenopathy. 5. Marked centrilobular emphysema at the lung bases. 6. Prior appendectomy.1
[2022-12-09 13:33] LABS: Basophils # 0.1 10^3/uL (0.0-0.1); Basophils % 0.7 %; Eosinophils % 0.6 %; Lymphocytes # 1.3 10^3/uL (0.8-4.8); Lymphocytes % 17.5 %; Mean Corpuscular HGB Conc 33.3 g/dL (30-55); Mean Corpuscular Hemoglobin 30.5 pg (27-33); Mean Corpuscular Volume 91.4 fl (82-101); Mean Platelet Volume 8.9 fL (7.4-10.4); Monocytes # 0.5 10^3/uL (0.2-0.9); Monocytes % 7.5 %; Neutrophils # 5.32 10^3/uL (1.8-7.7); Neutrophils % 73.4 %; Nucleated Red Blood Cells % 0 %; Platelet Count 218 10^3/cmm (157-399); Red Blood Count 5.25 10^6/uL (3.85-5.65); Red Cell Distribution Width 12.5 % (12.1-15.1); White Blood Count 7.24 10^3/uL (3.29-11.43)
[2022-12-09] MEDS: sodium chloride 0.9% 1,000 ML 999 ML IV (13:37)
[2022-12-09] MEDS: ondansetron 2 mg/ML SDV 2 mL 4 MG IVP (13:38)
[2022-12-09 13:41] VITALS: BP 116/71; PULSE 70; O2SAT 99
[2022-12-09 13:57] LABS: Alanine Aminotransferase 11 U/L (0-41); Albumin Level 4.4 g/dL (3.5-5.2); Alkaline Phosphatase 65 U/L (40-130); Anion Gap 12.4 (5-19); Aspartate Amino Transferase 15 U/L (0-40); Blood Urea Nitrogen 9 mg/dL (8-23); Calcium 9.3 mg/dL (8.5-10.5); Carbon Dioxide 29 mmol/L (22-29); Chloride 101 mmol/L (98-107); Globulin 2.7 g/dL (1.3-4.6); Glomerular Filtration Rate 112.8 mL/min (90-130); Glucose 98 mg/dL (65-115); Lipase 19 U/L (13-60); Osmolality Calculated 285 mOsm/kg (285-295); Potassium 4.4 mmol/L (3.5-5.1); Sodium 138 mmol/L (136-145); Total Bilirubin 0.7 mg/dL (0.15-1.2); Total Protein 7.1 g/dL (6.6-8.7)
[2022-12-09 14:13] LABS: Add Urine Microscopic? NO; Charge for UA Resulting for Rev
--- NOTE | 2022-12-09 14:15 | ED_ITS ---
HPI - Abdominal Pain General: Chief Complaint: Abdominal Pain Stated Complaint: weakness,light headed, abd Time Seen by Provider: 12/09/22 13:21 History of Present Illness: 67-year-old male presents emergency department chief complaint of having ongoing abdominal pain generalized in nature with malaise and fatigue with appetite reduction and weight loss has been progressive getting worse over the last 2 years. Patient reports having a prior history of worked up through the [facility] for cancer including PET scans and multiple work-ups they come back inconclusive. Patient reports last time he was seen in the clinic was over a year ago the patient does not report any recent fevers or chills reports significant appetite reduction he does not endorse any chest pain shortness of breath or palpitations or back pain patient presents to the ER for further assessment and management. Associated Symptoms: Reports nausea; Denies chills, fever(s) and vomiting Review of Systems General: Reports: 10 or more systems reviewed and unremarkable except in HPI and below Const: Reports: fatigue and malaise; Denies: fever(s) or chills Eyes: Denies: change in vision or blurry vision Card: Denies: chest pain or palpitations Resp: Denies: dyspnea or productive cough GI: Reports: abdominal pain and nausea; Denies: vomiting : Denies: flank pain Musc: Denies: extremity pain or extremity swelling Skin/Breast: Denies: rash or pruritus Neuro: Denies: headache(s) Psych: Denies: anxiety or depression Giacomo/Lymph: Denies: easy bleeding All/Imm: Denies: urticaria, throat swelling or facial swelling [facility] ED PFSH: Medical History Chronic epigastric pain Drug overdose Endotracheally intubated Gastritis Hepatitis C Nausea and vomiting Physical deconditioning Polysubstance abuse Psychiatric care Suicidal overdose Unresponsiveness Surgical History History of bilateral carpal tunnel release History of circumcision History of colonoscopy Normal repeat in 10 years History of esophagogastroduodenoscopy (EGD) (02/26/17) Reflux, esophagitis, Gastritis History of hip replacement, total Right History of knee replacement Right History of laparoscopic cholecystectomy Family History Grandfather Cancer Grandmother Cancer Grandmother Cancer Grandfather Cancer Family/Other Cancer Son Diabetes Father Suicide Brother Suicide Denies family history of CAD (coronary artery disease) Clotting disorder Dementia Chronic kidney disease (CKD) Anesthesia complication Bleeding disorder Lung disease Stroke Social History Smoking and tobacco status: current some day smoker Second hand smoke exposure: No Alcohol intake: former Desire information about alcohol rehabilitation?: No Substance/Drug Use: never Adopted: No Caregiver/support person: Yes Lives independently: Yes Household members: spouse Housing: House Marital status: Highest education level completed: High School Graduate service: No Current occupational status: disabled Current occupational exposures/hazards: No Pets and animals: No Leisure activites: exercise Sexually active: Yes Do you think of yourself as: Straight/Heterosexual Current gender identity: Male and Female Verito/Mu-Ism: Spiritism Special verito needs: No Agree to transfusion: No Financial difficulty paying for basics: Not Very Hard Physical Exam Narrative: EXAM NARRATIVE: Patient is a flat affect on exam no focal neurodeficits appreciated does not appear to be overly in any discomfort or pain. Const: COMMON NORMALS: no acute distress, patient oriented x3 and healthy appearing HENMT: COMMON NORMALS: normocephalic and atraumatic HEAD & SCALP: normocephalic and atraumatic Eye: COMMON NORMALS: Equal, round and reactive pupils present and EOMs intact bilaterally PUPIL: Yes Equal, round and reactive pupils present Neck/C-Spine: COMMON NORMALS: full ROM, supple and no JVD Lymph: LYMPHATIC: no lymphadenopathy noted Chest: COMMONS NORMALS: normal inspection of the chest and normal palpation of entire chest wall Resp: COMMON NORMALS: normal respiratory effort, No retractions and clear to auscultation bilaterally EFFORT & INSPECTION: Yes able to speak in complete sentences and Yes symmetric chest movement AUSCULTATION: clear to auscultation bilaterally Cardio: COMMON NORMALS: no JVD, regular rate and regular rhythm RATE: regular rate RHYTHM: regular rhythm GI: COMMON NORMALS: Normal to inspection, nondistended, normoactive bowel sounds present and Soft to palpation; negative for non-tender (Mild tenderness noted to the upper abdomen with no guarding or rebound mild) INSPECTION: Yes normal to inspection PALPATION: Yes Soft to palpation : COMMON NORMALS: Yes no CVA tenderness BLADDER/KIDNEY EXAM: Yes no CVA tenderness Back/Pelvis: COMMON NORMALS: no CVA tenderness Extremity: COMMON NORMALS: normal to inspection and full ROM Neuro: COMMON NORMALS: patient oriented x3, CN's II-XII intact bilaterally, moves all extremities and no focal motor deficits Psych: COMMON NORMALS: mental status grossly normal, Normal thought process present, cooperative and normal affect THOUGHT PROCESS: Normal thought process present Skin: COMMON NORMALS: no rashes or lesions noted GENERAL SKIN EXAM: no rashes or lesions noted Course Vital Signs: Vital signs: Vital Signs Temperature 98.2 F 12/09/22 12:38 Pulse Rate 77 12/09/22 15:00 Respiratory Rate 16 12/09/22 12:38 Blood Pressure 139/85 12/09/22 15:00 Pulse Oximetry 100 12/09/22 15:00 Oxygen Delivery Me thod Room Air 12/09/22 13:41 MDM - Abdominal Pain Medical Decision Making Due to patient's symptoms and condition IV established IV fluids provided for hydration with lab work and imaging obtained we will continue to follow. Lab work imaging came back reassuring no obvious infection electrolyte abn ormality was appreciated patient CT did not reveal any obvious acute underlying findings advised that the patient should further follow-up with his primary care doctor in 2 to 3 days for further assessment and management patient was started on some medications for his symptoms it was further found at the patient has had recent further follow-up care for his condition weakness and appetite reduction by endocrinology over the last 6 months. Which patient has not had known history of low testosterone level as well as other findings. Patient be subcu discharged home advised follow-up follow-up outpatient primary care in which is advised to return the interim if any of his symptoms persist or worse. Lab Data 12/09/22 13:26 12/09/22 13:26 Labs/Radiology: Laboratory Results WBC 7.24 10^3/uL (3.29-11.43) 12/09/22 13: RBC 5.25 10^6/uL (3.85-5.65) 12/09/22 13: Hgb 16.00 g/dL (11.27-16.99) 12/09/22 13: Hct 48.0 % (37-53) 12/09/22 13: MCV 91.4 fl (82-101) 12/09/22 13: MCH 30.5 pg (27-33) 12/09/22 13: MCHC 33.3 g/dL (30-55) 12/09/22 13: RDW 12.5 % (12.1-15.1) 12/09/22 13: Plt Count 218 10^3/cmm (157-399) 12/09/22 13: MPV 8.9 fL (7.4-10.4) 12/09/22 13: Neut % (Auto) 73.4 % 12/09/22 13: Lymph % (Auto) 17.5 % 12/09/22 13: [place] % (Auto) 7.5 % 12/09/22: Eos % (Auto) 0.6 % 12/09/22: Baso % (Auto) 0.7 % 12/09/22: Neut # (Auto) 5.32 10^3/uL (1.8-7.7) 12/09/22 13: Lymph # (Auto) 1.3 10^3/uL (0.8-4.8) 12/09/22 13: [place] # (Auto) 0.5 10^3/uL (0.2-0.9) 12/09/22: Eos # (Auto) 0.0 10^3/uL (0.0-0.8) 12/09/22: Baso # (Auto) 0.1 10^3/uL (0.0-0.1) 12/09/22 13: Nucleated RBC % (auto) 0 % 12/09/22: Nucleated RBCs # 0.0 /100WBC 12/09/22 13: Sodium 138 mmol/L (136-145) 12/09/22 13: Potassium 4.4 mmol/L (3.5-5.1) 12/09/22: Chloride 101 mmol/L (98-107) 12/09/22 13: Carbon Dioxide 29 mmol/L (22-29) 12/09/22 13: Anion Gap 12.4 (5-19) 12/09/22 13: BUN 9 mg/dL (8-23) 12/09/22 13:26 Creatinine 0.7 mg/dL (0.7-1.2) 12/09/22 13:26 GFR Calculation 112.8 mL/min (90-130) 12/09/22 13: Glucose 98 mg/dL (65-115) 12/09/22 13:26 Calculated Osmolality 285 mOsm/kg (285-295) 12/09/22 13:26 Calcium 9.3 mg/dL (8.5-10.5) 12/09/22 13: Total Bilirubin 0.7 mg/dL (0.15-1.2) 12/09/22 13:26 AST 15 U/L (0-40) 12/09/22 13: ALT 11 U/L (0-41) 12/09/22 13: Alkaline Phosphatase 65 U/L (40-130) 12/09/22 13: C-Reactive Protein 3.0 mg/L (0.0-4.9) 12/09/22 13:26 Total Protein 7.1 g/dL (6.6-8.7) 12/09/22 13:26 Albumin 4.4 g/dL (3.5-5.2) 12/09/22 13: Globulin 2.7 g/dL (1.3-4.6) 12/09/22 13:26 Lipase 19 U/L (13-60) 12/09/22 13:26 Urine Color Yellow (Yellow) 12/09/22 14:10 Urine Appearance Clear (CLEAR) 12/09/22 14:10 Urine pH 6 (5-7) 12/09/22 14:10 Ur Specific [place] 1.015 (1.005-1.030) 12/09/22 14:10 Urine Protein Neg (Negative) 12/09/22 14:10 Urine Glucose (UA) Norm (Normal) 12/09/22 14:10 Urine Ketones Negative (Negative) 12/09/22 14:10 Urine Blood Neg (Negative) 12/09/22 14:10 Urine Nitrate Negative (Negative) 12/09/22 14:10 Urine Bilirubin Neg (Negative) 12/09/22 14:10 Urine Urobilinogen Norm mg/dL (Negative) 12/09/22 14:10 Ur Leukocyte Esterase Negative (Negative) 12/09/22 14:10 Urine Opiates Screen Negative ng/mL (Negative) 12/09/22 14:10 Ur Barbiturates Screen Negative ng/mL (Negative) 12/09/22 14:10 Ur Phencyclidine Scrn Negative ng/mL (Negative) 12/09/22 14:10 Ur Amphetamines Screen Negative ng/mL (Negative) 12/09/22 14:10 U Benzodiazepines Scrn Positive ng/mL (Negative) H 12/09/22 14:10 Urine Cocaine Screen Negative ng/mL (Negative) 12/09/22 14:10 U Marijuana (THC) Screen Negative ng/mL (Negative) 12/09/22 14:10 Discharge Plan Discharge Patient Disposition: Home Clinical Impression: Abdominal pain, chronic, generalized, Anorexia, Nausea & vomiting, Constipation Condition: Stable Prescriptions: New ondansetron 4 mg tablet,disintegrating 4 mg PO Q8H PRN (Reason: nausea and vomiting) Qty: 20 0RF Carafate 1 gram tablet 1 g PO TID Qty: 30 0RF No Action multivitamin Tablet 1 tab PO DAILY alprazolam [Xanax] 0.5 mg tablet 0.5 mg PO QID Qty: 120 2RF testosterone 12.5 mg/ 1.25 gram (1 %) gel in metered-dose pump 1 pump transdermal DAILY Qty: 150 0RF polyethylene glycol 3350 [Miralax] 17 gram/dose Powder 17 g PO BEDTIME Discharge Orders: Discharge ED (Routine); Ordered 12/09/22 Ordered By: Arsh Jackson Referrals: Cecille Estrada, [employer]OWERHOU[employer]RICIAN [Primary Care Provider] - 4-7 days Discharge Diet: Advance as tolerated Discharge Activity: Increase activity as tolerated Patient Instructions: Anorexia, Abdominal Pain (ED), Chronic Abdominal Pain (DC) Activity Restrictions/Additional Instructions: Follow-up with your primary care doctor in 2 to 3 days for further evaluation management, take medications as prescribed and please return in the interim if any of your symptoms persist or worse. Coding Level of Care Code ED Supervisor Phosphoric Acid for Dawood Pina
[2022-12-09 14:24] LABS: Amphetamines Screen Urine Negative (Negative); Barbiturates Screen Urine Negative (Negative); Benzodiazepines Screen Urine Positive (Negative); Bilirubin Urine Neg (Negative); Blood Urine Neg (Negative); Cocaine Screen Urine Negative (Negative); Glucose Urine UA Norm (Normal); Ketones Urine Negative (Negative); Leukocyte Esterase Urine Negative (Negative); Nitrate Urine Negative (Negative); Opiate Screen Urine Negative (Negative); PCP Screen Urine Negative (Negative); Protein Urine Neg (Negative); Specific Gravity, Urine 1.015 (1.005-1.030); THC Screen Urine Negative (Negative); Urine Appearance Clear (CLEAR); Urine Color Yellow (Yellow); Urobilinogen Urine Norm (Negative); pH Urine 6 (5-7)
[2022-12-09 15:00] VITALS: BP 139/85; PULSE 77; O2SAT 100
[2022-12-09] MEDS: iohexol 350 mg/mL 500 mL Btl (per mL) IV (15:05)
[2022-12-09] MEDS: pantoprazole 40 mg SDV IVP (15:06)
[2022-12-09] MEDS: dicyclomine 20 mg Tablet PO (15:06)
== END 2022-12-09 16:22 | disposition home or self-care (01) ==
PROVIDERS: Emergency Medicine; Emergency Provider Emergency Medicine; PCP Nurse Practitioner
DX: G89.29 Other chronic pain (principal); R10.84 Generalized abdominal pain; R63.0 Anorexia; Z68.1 Body mass index [BMI] 19.9 or less, adult; R11.2 Nausea with vomiting, unspecified; K59.00 Constipation, unspecified; F17.210 Nicotine dependence, cigarettes, uncomplicated; Z86.19 Personal history of other infectious and parasitic diseases
CPT/HCPCS: 36415; 74177; 80053; 80306; 81003; 83690; 85025; 86140; 96361; 96374; 96375; 99285; C9113; J2405; J7030; Q9967

== ENCOUNTER → 2023-01-20 12:58 | Outpatient (BNVA) | payer OTHER, SELFPAY | PROVIDERS: PCP Nurse Practitioner; Referring Provider Nurse Practitioner; Visit Provider Specialist | DX: M19.012 Primary osteoarthritis, left shoulder | CPT/HCPCS: 73030; 99204 ==

== ENCOUNTER 2023-01-29 11:47 | Emergency (ER) | payer OTHER, SELFPAY ==
[2023-01-29] VITALS (10 sets, daily range): BP systolic 122–136; BP diastolic 77–85; PULSE 65–93; RESP 16–20; TEMP 36.8; O2SAT 92–98; BMI 15.2
--- NOTE | 2023-01-29 12:18 | XRR_ITS ---
PROCEDURE INFORMATION: Exam: XR Chest Exam date and time: 01/29/2023 12:29 PM Age: 67 years old Clinical indication: Cough and dyspnea; Additional info: Dyspnea/cough.No history of trauma or recent surgery is provided. TECHNIQUE: Imaging protocol: Radiologic exam of the chest. 2image(s) are provided. Views: 1 view. COMPARISON: 1. CT chest w con* [id number] 01/15/2022 2:42 PM. PET-CT report of 06/13/2022. 2. CR XR chest 1V portable [id number] 06/24/2021 7:42 PM FINDINGS: Lungs: There are granulomatous related changes similar overall. There is chronic air trapping emphysematous appearance along with some apical bullous related change.No lobar consolidation is appreciated. There is however some interstitial attenuation of the lower lung zone slightly increased in the interval. Some early interstitial or peribronchial inflammation could present in this fashion. Pleural spaces: No pneumothorax or significant pleural effusion is appreciated. Heart/Mediastinum: The cardiomediastinal silhouette is upper normal in size. This can be seen with central averaging as well as danita enlargement.No cardiac decompensation is appreciated. Diaphragm: The hemidiaphragms are symmetric. Bones/joints: Osseous alignment is maintained.No interval displaced fracture or dislocation is appreciated.There is slightly decreased bone mineralization overall. There are chronic degenerative changes of the shoulders bilaterally with some bulky spurring for example on the right. Soft tissues: No radiopaque foreign body or subcutaneous emphysema is appreciated. Other findings: No other significant interval changes are appreciated. XR/XR chest 1V portable [id number] IMPRESSION: There is chronic emphysematous appearance with some subtle increased interstitial opacification of the lower lung zones suggestive of early interstitial inflammation. No lobar type consolidation or cardiac decompensation is appreciated.
--- NOTE | 2023-01-29 12:24 | ED_ITS ---
HPI - SOB/Dyspnea General: Chief Complaint: Shortness of Breath/Dyspnea Stated Complaint: sob Time Seen by Provider: 01/29/23 12:03 Source: patient Mode of arrival: EMS History of Present Illness: HPI Narrative: Patient is a 67-year-old male with past medical history of substance abuse who presents to the emergency department via EMS due to shortness of breath onset today. called EMS, and on arrival patient was very sluggish appearing and had an O2 saturation in the low 70s. He was placed on a nonrebreather and subsequently given Narcan, in which she shortly came to and appeared to have perked up. In the emergency department, he states that he has been sick for 4 to 5 years due to a cholecystectomy surgery. He states that he has been constipated since this time with intermittent chest pains. He also states he is cold all the time with a recent 40 pound unintentional weight loss. He states he is weak and that this is causing his shortness of breath. His vitals are all currently within normal limits and he has been satting 92-95 on room air. He is a somewhat poor historian due to his somnolence. MD elicited complaint: shortness of breath Associated symptoms: Reports abdominal pain (Chronic unchanged at baseline) and chest pain; Deny fever(s), nausea or vomiting Review of Systems Const: Reports: change in weight and fatigue; Denies: fever(s) or chills Card: Reports: chest pain Resp: Reports: dyspnea; Denies: non-productive cough GI: Reports: abdominal pain (Chronic unchanged at baseline) and constipation; Denies: nausea, vomiting or diarrhea : Denies: dysuria, urinary frequency or urinary urgency Musc: Denies: neck pain or back pain Skin/Breast: Denies: rash Neuro: Reports: weakness in extremities Endo: Reports: cold intolerance PFSH ED PFSH: Medical History Chronic epigastric pain Drug overdose Endotracheally intubated Gastritis Hepatitis C Nausea and vomiting Physical deconditioning Polysubstance abuse Psychiatric care Suicidal overdose Unresponsiveness Surgical History History of bilateral carpal tunnel release History of circumcision History of colonoscopy Normal repeat in 10 years History of esophagogastroduodenoscopy (EGD) (12/01/17) Reflux, esophagitis, Gastritis History of hip replacement, total Right History of knee replacement Right History of laparoscopic cholecystectomy Family History Grandfather Cancer Grandmother Cancer Grandmother Cancer Grandfather Cancer Family/Other Cancer Son Diabetes Father Suicide Brother Suicide Denies family history of CAD (coronary artery disease) Clotting disorder Dementia Chronic kidney disease (CKD) Anesthesia complication Bleeding disorder Lung disease Stroke Social History Smoking and tobacco/nicotine status: current some day tobacco/nicotine user Second hand smoke exposure: No Alcohol intake: former Substance/Drug Use: never Adopted: No Caregiver/support person: Yes Lives independently: Yes Household members: spouse Housing: House Marital status: Highest education level completed: High School Graduate service: No Current occupational status: disabled Current occupational exposures/hazards: No Pets and animals: No Leisure activites: exercise Sexually active: Yes Do you think of yourself as: Straight/Heterosexual Current gender identity: Male and Female Verito/Zoroastrian: Sikhism Special verito needs: No Agree to transfusion: No Physical Exam Const: GENERAL APPEARANCE: cooperative and comfortable NUTRITIONAL APPEARANCE: cachectic ORIENTATION/CONSCIOUSNESS: Yes awake, Yes oriented to person, Yes oriented to place and Yes oriented to time HENMT: COMMON NORMALS: normocephalic, atraumatic and hearing grossly normal bilaterally HEAD & SCALP: normocephalic and atraumatic Resp: COMMON NORMALS: normal respiratory effort, No retractions and No use of accessory muscles AUSCULTATION: diminished lung sounds Cardio: COMMON NORMALS: regular rate, regular rhythm and No murmurs present (Cardio) RATE: regular rate RHYTHM: regular rhythm GI: COMMON NORMALS: Soft to palpation and No hepatosplenomegaly present AUSCULTATION: Yes normoactive bowel sounds PALPATION: Yes Soft to palpation, No Tenderness to palpation present (GI), No Guarding due to palpation present (GI) and Yes No hepatosplenomegaly present Extremity: COMMON NORMALS: normal to inspection, capillary refill normal, no clubbing, cyanosis or edema, no calf tenderness and no pedal edema Neuro: SENSORIUM/ORIENTATION: Yes oriented to person, Yes oriented to place and Yes oriented to time Skin: COMMON NORMALS: no rashes or lesions noted GENERAL SKIN EXAM: no rashes or lesions noted Course Vital Signs: Vital signs: Vital Signs Temperature 98.3 F 01/29/23 11:53 Pulse Rate 65 01/29/23 14:01 Respiratory Rate 18 01/29/23 14:01 Blood Pressure 122/78 01/29/23 14:01 Pulse Oximetry 98 01/29/23 14:01 Oxygen Delivery Me thod Room Air 01/29/23 14:01 Oxygen Flow Rate 2 01/29/23 13:03 MDM - SOB/Dyspnea Medical Decision Making Patient initially presents with altered mental status in the field was given Narcan and improved on arrival here initially was able to respond to some words and stimulation but then began to worsen again to the point where she was completely unresponsive he was given 2 mg of IV Narcan and immediately resolved became awake. He denies taking any narcotics reviewed with him we had given him Narcan he completely resolved. He is now awake and alert will discharge home gave a prescription for Narcan encouraged to abstain from narcotics. Chest x-ray shows interstitial changes he is denying any shortness of breath or productive cough at this time no treatment given Medical Records I reviewed the patient's medical records. Lab Data I reviewed the patient's lab results. 01/29/23 11:30 01/29/23 11:30 Labs/Radiology: Radiology Impressions Chest X-Ray 01/29/23 12:18 IMPRESSION: There is chronic emphysematous appearance with some subtle increased interstitial opacification of the lower lung zones suggestive of early interstitial inflammation. No lobar type consolidation or cardiac decompensation is appreciated. Laboratory Results WBC 6.48 10^3/uL (3.29-11.43) 01/29/23 11:30 RBC 5.05 10^6/uL (3.85-5.65) 01/29/23 11:30 Hgb 15.50 g/dL (11.27-16.99) 01/29/23 11:30 Hct 45.8 % (37-53) 01/29/23 11:30 MCV 90.7 fl (82-101) 01/29/23 11:30 MCH 30.7 pg (27-33) 01/29/23 11:30 MCHC 33.8 g/dL (30-55) 01/29/23 11:30 RDW 13.2 % (12.1-15.1) 01/29/23 11:30 Plt Count 255 10^3/cmm (157-399) 01/29/23 11:30 MPV 10.0 fL (7.4-10.4) 01/29/23 11:30 Neut % (Auto) 63.3 % 01/29/23 11:30 Lymph % (Auto) 27.2 % 01/29/23 11:30 [place] % (Auto) 7.6 % 01/29/23 11:30 Eos % (Auto) 0.8 % 01/29/23 11:30 Baso % (Auto) 0.8 % 01/29/23 11:30 Neut # (Auto) 4.11 10^3/uL (1.8-7.7) 01/29/23 11:30 Lymph # (Auto) 1.8 10^3/uL (0.8-4.8) 01/29/23 11:30 [place] # (Auto) 0.5 10^3/uL (0.2-0.9) 01/29/23 11:30 Eos # (Auto) 0.1 10^3/uL (0.0-0.8) 01/29/23 11:30 Baso # (Auto) 0.1 10^3/uL (0.0-0.1) 01/29/23 11:30 Nucleated RBC % (auto) 0 % 01/29/23 11:30 Nucleated RBCs # 0.0 /100WBC 01/29/23 11:30 Sodium 140 mmol/L (136-145) 01/29/23 11:30 Potassium 4.1 mmol/L (3.5-5.1) 01/29/23 11:30 Chloride 104 mmol/L (98-107) 01/29/23 11:30 Carbon Dioxide 25 mmol/L (22-29) 01/29/23 11:30 Anion Gap 15.1 (5-19) 01/29/23 11:30 BUN 9 mg/dL (8-23) 01/29/23 11:30 Creatinine 0.6 mg/dL (0.7-1.2) L 01/29/23 11:30 GFR Calculation 134.8 mL/min (90-130) H 01/29/23 11:30 Glucose 125 mg/dL (65-115) H 01/29/23 11:30 Calculated Osmolality 290 mOsm/kg (285-295) 01/29/23 11:30 Calcium 9.4 mg/dL (8.5-10.5) 01/29/23 11:30 Total Bilirubin 0.6 mg/dL (0.15-1.2) 01/29/23 11:30 AST 12 U/L (0-40) 01/29/23 11:30 ALT 10 U/L (0-41) 01/29/23 11:30 Alkaline Phosphatase 66 U/L (40-130) 01/29/23 11:30 Total Protein 6.8 g/dL (6.6-8.7) 01/29/23 11:30 Albumin 4.6 g/dL (3.5-5.2) 01/29/23 11:30 Globulin 2.2 g/dL (1.3-4.6) 01/29/23 11:30 All radiology interpretation(s) finalized by discharge Discharge Plan Discharge Patient Disposition: Home Clinical Impression: Narcotic overdose Condition: Stable Prescriptions: New Narcan 4 mg/actuation spray,non-aerosol 4 mg intranasal Q2M PRN (Reason: opioid overdose) Qty: 2 0RF Rx Instructions: spray 1 dose into ONE nostril; alternate nostrils w each dose until help arrives No Action alprazolam [Xanax] 0.5 mg tablet 0.5 mg PO QID Qty: 120 2RF polyethylene glycol 3350 [Miralax] 17 gram/dose Powder 17 g PO BEDTIME sucralfate [Carafate] 1 gram tablet 1 g PO TID Qty: 30 0RF Discharge Orders: Discharge ED (Routine); Ordered 01/29/23 Ordered By: Keith Hardin Referrals: Cecille Estrada FNP [Primary Care Provider] - Discharge Diet: Usual diet Discharge Activity: Resume usual activity Patient Instructions: Opioid Safety, Pain Management Activity Restrictions/Additional Instructions: Thank you for choosing [facility] for your healthcare needs today. Please realize this is an emergency room and that we are providing you with a medical screening exam and this may not be complete and all inclusive of all the testing and or work up that you may need to determine your ailment or severity of your illness. It is very important that you follow up as instructed or that you return to the Emergency Department should you have concerns or if your condition changes or worsens in any way. You were treated in the emergency room for narcotics overdose which relieved all of your symptoms he woke up immediately. Avoid the use of narcotics you are given a prescription for Narcan that friends or family can administer should this happen again. Recommend he follow-up with your primary care doctor within the week. Coding Level of Care Code ED Grassland Conservationist for Dawood Pina
[2023-01-29 12:34] LABS: Basophils # 0.1 10^3/uL (0.0-0.1); Basophils % 0.8 %; Eosinophils # 0.1 10^3/uL (0.0-0.8); Eosinophils % 0.8 %; Hematocrit 45.8 % (37-53); Lymphocytes # 1.8 10^3/uL (0.8-4.8); Lymphocytes % 27.2 %; Mean Corpuscular HGB Conc 33.8 g/dL (30-55); Mean Corpuscular Hemoglobin 30.7 pg (27-33); Mean Corpuscular Volume 90.7 fl (82-101); Monocytes # 0.5 10^3/uL (0.2-0.9); Monocytes % 7.6 %; Neutrophils # 4.11 10^3/uL (1.8-7.7); Neutrophils % 63.3 %; Nucleated Red Blood Cells % 0 %; Platelet Count 255 10^3/cmm (157-399); Red Blood Count 5.05 10^6/uL (3.85-5.65); Red Cell Distribution Width 13.2 % (12.1-15.1); White Blood Count 6.48 10^3/uL (3.29-11.43)
--- NOTE | 2023-01-29 12:40 | ECG_ITS ---
[facility] Test Date: 2023-01-29 Pat Name: Michoacano Paulino Department: Room: Gender: Male Flume Tender: : 1955 Requested By: Keith Wayne Order Number: [id number] Divya MD: Luis F Billy M.D. Measurements Intervals [place] Rate: 65 P: 80 [place]: 149 QRS: 73 QRSD: 88 T: 81 QT: 424 QTc: 441 Interpretive Statements SINUS RHYTHM Compared to ECG 06/24/2021 20:34:01 ST (T wave) deviation no longer present Electronically Signed On 01-29-2023 19:37:48 CDT by Luis F Billy M.D. [id number]
[2023-01-29] MEDS: dexamethasone 10 mg/mL INJ IM (12:43)
[2023-01-29 12:51] LABS: Alanine Aminotransferase 10 U/L (0-41); Albumin Level 4.6 g/dL (3.5-5.2); Alkaline Phosphatase 66 U/L (40-130); Aspartate Amino Transferase 12 U/L (0-40); Blood Urea Nitrogen 9 mg/dL (8-23); Calcium 9.4 mg/dL (8.5-10.5); Carbon Dioxide 25 mmol/L (22-29); Chloride 104 mmol/L (98-107); Globulin 2.2 g/dL (1.3-4.6); Glomerular Filtration Rate 134.8 mL/min (90-130); Glucose 125 mg/dL (65-115); Osmolality Calculated 290 mOsm/kg (285-295); Sodium 140 mmol/L (136-145); Total Bilirubin 0.6 mg/dL (0.15-1.2); Total Protein 6.8 g/dL (6.6-8.7)
[2023-01-29] MEDS: ipratropium-albuterol 3 mL Neb INHALATION (12:51)
[2023-01-29 12:53] LABS: Anion Gap 15.1 (5-19); Potassium 4.1 mmol/L (3.5-5.1)
[2023-01-29 21:26] LABS: Glucose Point of Care 113 mg/dL (70-110)
== END 2023-01-29 15:45 | disposition home or self-care (01) ==
PROVIDERS: Emergency Provider Family Medicine; PCP Nurse Practitioner
DX: T40.601A Poisoning by unspecified narcotics, accidental (unintentional), initial encounter (principal); Z86.19 Personal history of other infectious and parasitic diseases
CPT/HCPCS: 36416; 71045; 80053; 82962; 85025; 93005; 94640; 96372; 96374; 99285; J1100; J2310

== ENCOUNTER 2023-01-29 20:49 | Inpatient (IN) | payer OTHER, SELFPAY ==
[2023-01-29 20:58] VITALS: BP 108/77; PULSE 109; RESP 22; TEMP 37.6; O2SAT 92
--- NOTE | 2023-01-29 21:08 | ED_ITS ---
HPI - Overdose General: Chief Complaint: Overdose Stated Complaint: AMS Time Seen by Provider: 01/29/23 21:00 History of Present Illness: Patient is a 67-year-old male that presents to the emergency department via EMS personnel secondary to decreased mental status. The patient was seen earlier today in the emergency department secondary to a attempted overdose with methadone. Earlier today the patient was initially seen for low oxygen saturation and altered mental status he was treated and had a significant improvement at that time and was discharged home. The patient presents to the emergency department now stating that he took 10 additional methadone pills that he had hidden away in an attempt to take Away all of his pain.The patient then states he was not trying to kill himself but states he is tired of all the pain. Review of Systems General: Reports: 10 or more systems reviewed and unremarkable except in HPI and below Psych: Reports: depression and suicidal ideation (Suicide attempt) REPLACED BY [facility] PFSH: Medical History Chronic epigastric pain Drug overdose Endotracheally intubated Gastritis Hepatitis C Nausea and vomiting Physical deconditioning Polysubstance abuse Psychiatric care Suicidal overdose Unresponsiveness Surgical History History of bilateral carpal tunnel release History of circumcision History of colonoscopy Normal repeat in 10 years History of esophagogastroduodenoscopy (EGD) (02/26/17) Reflux, esophagitis, Gastritis History of hip replacement, total Right History of knee replacement Right History of laparoscopic cholecystectomy Family History Grandfather Cancer Grandmother Cancer Grandmother Cancer Grandfather Cancer Family/Other Cancer Son Diabetes Father Suicide Brother Suicide Denies family history of CAD (coronary artery disease) Clotting disorder Dementia Chronic kidney disease (CKD) Anesthesia complication Bleeding disorder Lung disease Stroke Social History Smoking and tobacco/nicotine status: current some day tobacco/nicotine user Second hand smoke exposure: No Alcohol intake: former Substance/Drug Use: never Adopted: No Caregiver/support person: Yes Lives independently: Yes Household members: spouse Housing: House Marital status: Highest education level completed: High School Graduate service: No Current occupational status: disabled Current occupational exposures/hazards: No Pets and animals: No Leisure activites: exercise Sexually active: Yes Do you think of yourself as: Straight/Heterosexual Current gender identity: Male and Female Verito/Mandaen: Anabaptist Special verito needs: No Agree to transfusion: No Physical Exam Narrative: EXAM NARRATIVE: Constitutional: the patient Frail and ill-appearing and lethargic.. Vital signs as documented. HENMT: Head exam is unremarkable. Neck is without jugular venous distension, thyromegaly, or carotid bruits. Carotid upstrokes are brisk bilaterally. Eye: No scleral icterus or corneal arcus noted Resp: Lungs are clear to auscultation and percussion. Cardio: Cardiac exam reveals the PMI to be normally sized and situated. Rhythm is regular. First and second heart sounds normal. No murmurs, rubs or gallops. GI: Abdominal exam reveals normal bowel sounds, no masses, no organomegaly and no aortic enlargement. Soft, nontender to palpation. No obvious palpable m asses noted. No hepatomegaly appreciated. Extremity: Extremities are non-edematous and both femoral and pedal pulses are normal. Moves all extremities well, she has sensation in all extremities. Neuro: Somnolent and lethargic. With noxious stimuli the patient becomes awake and alert. Cranial nerves II through XII are grossly intact, there is no focal neurological deficits that I can appreciate at present. Motor strength in the upper and lower extremities are equal and bilateral 5/5. Psych: Cooperative, calm, normal thought process, appropriate judgment. Skin: No lesions, rashes. Course Vital Signs: Vital signs: Vital Signs Temperature 99.6 F 01/29/23 20:58 Pulse Rate 96 01/29/23 21:47 Respiratory Rate 30 H 01/29/23 21:47 Blood Pressure 99/73 01/29/23 21:47 Pulse Oximetry 92 01/29/23 21:47 Oxygen Delivery Me thod Room Air 01/29/23 20:58 MDM - Overdose Medical Decision Making Given his previous admission to the emergency department today as well as his discharge and now return visit to the emergency department with another methadone induced overdose I have significant concern for his wellbeing and his underlying depression. I will contact the hospitalist for admission given the duration of action of the methadone and ultimately the psychiatric department for additional evaluation treatment and care. Medical Records I reviewed the patient's medical records. Lab Data I reviewed the patient's lab results. 01/29/23 21:14 01/29/23 21:14 Laboratory Results WBC 14.95 10^3/uL (3.29-11.43) H 01/29/23 21:14 RBC 5.35 10^6/uL (3.85-5.65) 01/29/23 21:14 Hgb 16.50 g/dL (11.27-16.99) 01/29/23 21:14 Hct 51.8 % (37-53) 01/29/23 21:14 MCV 96.8 fl (82-101) D 01/29/23 21:14 MCH 30.8 pg (27-33) 01/29/23 21:14 MCHC 31.9 g/dL (30-55) D 01/29/23 21:14 RDW 13.2 % (12.1-15.1) 01/29/23 21:14 Plt Count 255 10^3/cmm (157-399) 01/29/23 21:14 MPV 9.0 fL (7.4-10.4) 01/29/23 21:14 Neut % (Auto) 90.6 % 01/29/23 21:14 Lymph % (Auto) 3.4 % 01/29/23 21:14 [place] % (Auto) 2.7 % 01/29/23 21:14 Eos % (Auto) 0.1 % 01/29/23 21:14 Baso % (Auto) 0.3 % 01/29/23 21:14 Neut # (Auto) 13.55 10^3/uL (1.8-7.7) H 01/29/23 21:14 Lymph # (Auto) 0.5 10^3/uL (0.8-4.8) L 01/29/23 21:14 [place] # (Auto) 0.4 10^3/uL (0.2-0.9) 01/29/23 21:14 Eos # (Auto) 0.0 10^3/uL (0.0-0.8) 01/29/23 21:14 Baso # (Auto) 0.0 10^3/uL (0.0-0.1) 01/29/23 21:14 Nucleated RBC % (auto) 0 % 01/29/23 21:14 Nucleated RBCs # 0.0 /100WBC 01/29/23 21:14 Sodium 139 mmol/L (136-145) 01/29/23 21:14 Potassium 4.9 mmol/L (3.5-5.1) 01/29/23 21:14 Chloride 99 mmol/L (98-107) 01/29/23 21:14 Carbon Dioxide 18 mmol/L (22-29) L 01/29/23 21:14 Anion Gap 26.9 (5-19) H 01/29/23 21:14 BUN 14 mg/dL (8-23) 01/29/23 21:14 Creatinine 1.2 mg/dL (0.7-1.2) 01/29/23 21:14 GFR Calculation 60.6 mL/min (90-130) L 01/29/23 21:14 Glucose 119 mg/dL (65-115) H 01/29/23 21:14 Calculated Osmolality 290 mOsm/kg (285-295) 01/29/23 21:14 Calcium 9.2 mg/dL (8.5-10.5) 01/29/23 21:14 Total Bilirubin 0.9 mg/dL (0.15-1.2) 01/29/23 21:14 AST 700 U/L (0-40) H 01/29/23 21:14 ALT 574 U/L (0-41) H 01/29/23 21:14 Alkaline Phosphatase 103 U/L (40-130) 01/29/23 21:14 Total Protein 7.7 g/dL (6.6-8.7) 01/29/23 21:14 Albumin 4.9 g/dL (3.5-5.2) 01/29/23 21:14 Globulin 2.8 g/dL (1.3-4.6) 01/29/23 21:14 No radiology studies performed this visit Critical Care Time Critical Care Time: Critical Care Time: Yes Total Critical Care Time: 60 Attestation: This case had a high probability of a clinically significant, sudden, or life threatening deterioration of this patient's condition which required my full and direct attention, intervention and personal management. Discharge Plan Discharge Patient Disposition: Admitted As Inpatient Admit Provider: Sis Whitman Clinical Impression: Drug overdose Condition: Stable Coding Level of Care Code ED Hyperion Administrator for Dawood Pina
[2023-01-29 21:19] LABS: Basophils % 0.3 %; Eosinophils % 0.1 %; Hematocrit 51.8 % (37-53); Lymphocytes # 0.5 10^3/uL (0.8-4.8); Lymphocytes % 3.4 %; Mean Corpuscular HGB Conc 31.9 g/dL (30-55); Mean Corpuscular Hemoglobin 30.8 pg (27-33); Mean Corpuscular Volume 96.8 fl (82-101); Monocytes # 0.4 10^3/uL (0.2-0.9); Monocytes % 2.7 %; Neutrophils # 13.55 10^3/uL (1.8-7.7); Neutrophils % 90.6 %; Nucleated Red Blood Cells % 0 %; Platelet Count 255 10^3/cmm (157-399); Red Blood Count 5.35 10^6/uL (3.85-5.65); Red Cell Distribution Width 13.2 % (12.1-15.1); White Blood Count 14.95 10^3/uL (3.29-11.43)
[2023-01-29 21:20] VITALS: BP 111/76; PULSE 98; RESP 26; O2SAT 100
[2023-01-29 21:36] LABS: Alanine Aminotransferase 574 U/L (0-41); Albumin Level 4.9 g/dL (3.5-5.2); Alkaline Phosphatase 103 U/L (40-130); Anion Gap 26.9 (5-19); Aspartate Amino Transferase 700 U/L (0-40); Blood Urea Nitrogen 14 mg/dL (8-23); Calcium 9.2 mg/dL (8.5-10.5); Carbon Dioxide 18 mmol/L (22-29); Chloride 99 mmol/L (98-107); Creatinine Clr Calc Pharmacy 36.5187; Globulin 2.8 g/dL (1.3-4.6); Glomerular Filtration Rate 60.6 mL/min (90-130); Glucose 119 mg/dL (65-115); Osmolality Calculated 290 mOsm/kg (285-295); Potassium 4.9 mmol/L (3.5-5.1); Sodium 139 mmol/L (136-145); Total Bilirubin 0.9 mg/dL (0.15-1.2); Total Protein 7.7 g/dL (6.6-8.7)
[2023-01-29 21:47] VITALS: BP 99/73; PULSE 96; RESP 30; O2SAT 92
[2023-01-30] VITALS (26 sets, daily range): BP systolic 96–130; BP diastolic 64–89; PULSE 67–127; RESP 12–34; TEMP 36.1–36.4; O2SAT 86–98
[2023-01-30] MEDS: lactated ringers 1,000 ML 100 ML IV ×3 (00:30→19:59)
--- NOTE | 2023-01-30 01:17 | P.HP_ITS ---
Providers/Chief Complaint Admitting Physician: Sis Whitman MD Primary Care Provider: SINA Gerardo Chief Complaint: AMS History of Present Illness Michoacano Paulino is a 67 year old male who is brought to ER today with methadone overdose. Patient has had generaly deteriorating health for about 3 years now. Patient states that all of his problems started about 3 to 4 years ago when he underwent a cholecystectomy. Since then he has had excessive bloating, nausea vomiting and has been steadily losing weight. He has previously had a biliary duct stent placed which did not appear to have helped with his symptoms. He has also undergone a laparoscopic appendectomy which appears to have worsened all of his abdominal symptoms. He has been evaluated by gastroenterology in [place] and also in [place] and per review of notes it appears he has had extensive GI work-up including colonoscopy and endoscopy, trial of [id number] enzyme supplements however nothing has really helped. Patient continues to lose weight, he is malnourished with BMI down to 14.3. It appears he was recommended to have a PEG placed to help with feeds and nutrition but he had declined the same previously. He has been seen by neurology for tremors without a clear cause. He has also seen endocrinology due to suspicion for hyperthyroidism, has been taken off methimazole with normal thyroid labs, has a normal ACTH stim test, recently performed PET scan is negative for any malignancy. Patient reports being severely depressed due to his overall failing health over the past 3 years. He is also very upset about his 's failing health. Just last week she was admitted here at [facility] with COPD exacerbation, has an end-stage COPD per his description, she was placed on hospice just last week. Both of their failing health, inability to manage independently at home has added to his frustration. He has recently also started experiencing several joint pains including his shoulders hands legs and back. He took leftover methadone from 6 years ago earlier this morning to help ease his pain. Patient reports that when he was on a prescription methadone program he used to take up to 5 to 6 pills a day and today he estimated that he will take the same number of pills and do okay however now acknowledges that his body is probably not used to high doses of methadone anymore and he has lost a significant amount of weight since then. He was initially brought into the emergency room this morning when he was lethargic, disoriented, he received Narcan with improvement in symptoms and was discharged home. Upon reaching back home he took an additional 10 tablets of methadone to ease the pain and was brought back into the emergency room due to depressed mental status. Again he is improved with regards to his mentation currently however states that he is feeling extremely nauseous has vomited several times during the course of the day and is generally not feeling well at all. He is unable to tolerate any p.o. intake at this time. Transaminitis has increased from normal to > 700 Review of Systems General: Reports: 10 or more systems reviewed and unremarkable except in HPI and below Const: Denies: fever(s), chills or body aches Eyes: Denies: change in vision, blurry vision or photophobia ENMT: Reports: hoarseness; Denies: throat pain, enlarged tonsils, odynophagia or nasal congestion Card: Denies: chest pain, palpitations, irregular heart rhythm, edema, swelling of feet/ankles, lightheadedness, pre-syncope, dyspnea on exertion or orthopnea Resp: Denies: dyspnea, productive cough, non-productive cough, wheezing, stridor, pain on inspiration, change in phlegm color, hemoptysis or chest congestion GI: Denies: abdominal pain, nausea, vomiting, hematemesis, coffee ground emesis, dysphagia, heartburn, diarrhea, constipation, GI cramping, change in stool character, hematochezia or melena : Denies: flank pain, dysuria, urinary frequency, urinary urgency, urinary hesitancy or hematuria Musc: Denies: neck pain, back pain, extremity pain, joint swelling, joint warmth or deformity Neuro: Denies: headache(s), numbness in extremities, weakness in extremities, sensory changes, difficulty walking, frequent falls, dizziness, vertigo, behavioral changes, Slurred speech present or seizure-like activity Psych: Denies: anxiety, depression, suicidal ideation or homicidal ideation Endo: Denies: polyuria, polydipsia, tired all the time, cold intolerance or hot flashes Giacomo/Lymph: Denies: easy bruising or easy bleeding Medications/Allergies Home Medications Medication Instructions Recorded Confirmed Last Taken Type polyethylene glycol 3350 17 17 g PO BEDTIME 07/11/21 01/29/23 01/28/23 History gram/dose oral powder (Miralax) alprazolam 0.5 mg tablet (Xanax) 0.5 mg PO QID #120 tabs 11/11/22 01/29/23 01/29/23 Rx sucralfate 1 gram tablet (Carafate) 1 g PO TID #30 tabs 12/09/22 01/29/23 01/29/23 Rx naloxone 4 mg/actuation nasal 4 mg intranasal Q2M PRN opioid 01/29/23 Unknown Rx spray (Narcan) overdose #2 ea Allergies Allergy/AdvReac Type Severity Reaction Status Date / Time codeine Allergy ADR-Itching Verified 01/29/23 21:07 esomeprazole [From Nexium] Allergy Unknown Verified 01/29/23 21:07 ketorolac [From Toradol] Allergy Unknown Verified 01/29/23 21:07 omeprazole Allergy Unknown Verified 01/29/23 21:07 Penicillins Allergy Unknown Verified 01/29/23 21:07 ranitidine AdvReac ADR-Headach Verified 01/29/23 21:07 e PFSH Acute PFSH: Medical History Chronic epigastric pain Drug overdose Endotracheally intubated Gastritis Hepatitis C Nausea and vomiting Physical deconditioning Polysubstance abuse Psychiatric care Suicidal overdose Unresponsiveness Surgical History History of bilateral carpal tunnel release History of circumcision History of colonoscopy Normal repeat in 10 years History of esophagogastroduodenoscopy (EGD) (02/26/17) Reflux, esophagitis, Gastritis History of hip replacement, total Right History of knee replacement Right History of laparoscopic cholecystectomy Family History Grandfather Cancer Grandmother Cancer Grandmother Cancer Grandfather Cancer Family/Other Cancer Son Diabetes Father Suicide Brother Suicide Denies family history of CAD (coronary artery disease) Clotting disorder Dementia Chronic kidney disease (CKD) Anesthesia complication Bleeding disorder Lung disease Stroke Social History Smoking and tobacco/nicotine status: current some day tobacco/nicotine user Second hand smoke exposure: No Alcohol intake: former Substance/Drug Use: never Adopted: No Caregiver/support person: Yes Lives independently: Yes Household members: spouse Housing: House Marital status: Highest education level completed: High School Graduate service: No Current occupational status: disabled Current occupational exposures/hazards: No Pets and animals: No Leisure activites: exercise Sexually active: Yes Do you think of yourself as: Straight/Heterosexual Current gender identity: Male and Female Verito/Tenriism: Yazidism Special verito needs: No Agree to transfusion: No Vitals/I&O/Wt Last Vital Signs Temp 99.6 F 01/29/23 20:58 Pulse 96 01/29/23 21:47 Resp 30 H 01/29/23 21:47 BP 99/73 01/29/23 21:47 Pulse Ox 92 01/29/23 21:47 O2 Del Method Room Air 01/29/23 20:58 Weight last 48 hrs Weight 42.638 kg Physical Exam Narrative: General: No acute distress, AO x3, cachexic , malnourished HEENT: PERRLA, pupils bilaterally equal and reactive, pallors not present Chest: Normal vesicular breath sounds, no added sounds, equal good air entry bilaterally CVS: S1-S2 regular, no murmurs, no tachycardia, no gallops, no rubs Abdomen: Soft, nontender, no organomegaly, bowel sounds present Neuro: No focal deficits, no facial deformity, AO x3, power 5/5 in all limbs Data 01/29/23 21:14 01/29/23 21:14 A&P Assessment and plan (1) Narcotic overdose: Methadone overdose as above s/p narcan with improvement in mentation intentional intake of methadone but in doses excess of what he has taken in the past denies suicidal ideation but reports being severely depressed and frustarted with his and his 's declining health. Patient attempted multiple ingestion x 2 in the last 24 hrs. Monitor closely in the ICU with close cardiac and respiratory status monitoring IVF NS @ 100 cc/hr to continue psychiatry consult given high risk/abuse potential (2) Severe depression: Psychiatry consult as above (3) Transaminitis: Unclear etiology currently Check Hep A IgM, hep Bs AG and hep C pcr given h/o hep C may be related to dehydration from GI losses due to intractable vomiting given quick development during the day check liver US past h/o biliary stent placement ?? indication which has since been removed acetaminophen and salicylate level not elevated (4) Urinary retention: Needing placement of [place] catheter due to urinary retention Suspect related to BPH, reports increased straining and poor flow over several months Start Flomax 0.4 mg daily Attestations Medical Necessity Statement*: > 2 midnight stay anticipated Coding Level of Care Code Acute Code for Chg Fwd Moderate MDM includes number and complexity of problems actively addressed during encounter, amount and/or complexity of data reviewed/ordered and desc ribed risk of complication, morbidity or mortality of management as documented Diagnoses Narcotic overdose T40.601A Severe depression F32.2 Transaminitis R74.01 Urinary retention R33.9
[2023-01-30 01:29] LABS: Glucose Point of Care 114 mg/dL (70-110)
[2023-01-30] MEDS: ondansetron 2 mg/ML SDV 2 mL 4 MG IVP (01:34)
[2023-01-30] MEDS: enoxaparin 40 mg/0.4 mL Syringe SUBCUT (01:34)
[2023-01-30] MEDS: lanolin oint 7 gm 1 APPLIC TOPICAL (02:02)
--- NOTE | 2023-01-30 02:54 | USR_ITS ---
PROCEDURE INFORMATION: Exam: US Abdomen, Limited; Right Upper Quadrant Exam date and time: 01/30/2023 8:26 AM Age: 67 years old Clinical indication: Condition or disease; Liver condition; Hepatitis and other: Transaminitis; Prior surgery; Surgery date: 6+ months; Surgery type: Gb removed; Additional info: Transaminitis, h/o hep c.No history of trauma or recent surgery is provided. TECHNIQUE: Imaging protocol: Real time ultrasound of the abdomen with image documentation. Limited exam focused on the right upper quadrant. 58image(s) are provided. Other technique: Grayscale, color images are provided. COMPARISON: 1. US abdomen limited [id number] 04/02/2020 7:[address] abdomen pelvis w con* [id number] 12/09/2022 2:55 PM. PET-CT report of 06/13/2022. FINDINGS: Liver: The liver measures 12.2 cm. The hepatic echotexture is overall heterogeneous. No contour abnormalities are currently appreciated. There is history of a septated lobulated cystic structure of the central liver similar of around 2.2 x 1 x 2.1 cm. Some of the other smaller foci described are less conspicuous currently as well as less conspicuous pneumobilia on ultrasound. There appears to be some subtle periportal tracking of the liver as well as borderline bile ducts. Gallbladder: History of previous cholecystectomy is provided. No history of tenderness is currently provided. Biliary ducts: The common bile duct measures 0.33 cm distally. No echogenic obstructive calculus is currently appreciated.Distal most, ampullary level evaluation is limited. Pancreas: The pancreas is largely obscured. Right kidney: The right kidney measures 9.4 x 3.9 x 3.6 cm. No echogenic obstructive calculus or hydronephrosis is appreciated. Aorta: The proximal aorta measures 1.9 cm, mid and distal obscured. Adjacent IVC color Doppler flow is demonstrated. Portal venous: Central portal venous color flow is demonstrated. Intraperitoneal space: No free fluid is appreciated. Other findings: No other significant interval changes are appreciated. US/US liver [id number] IMPRESSION: 1. There is slightly heterogeneous echogenicity of the liver along with slight periportal tracking and borderline bile ducts.This can be seen with steatosis as well as chronic hepatic changes. Consider hepatobiliary profile studies. 2. No interval free fluid collections are appreciated.
[2023-01-30] MEDS: metoclopramide 5 mg/mL SDV 2 mL IVP ×4 (03:46→20:18)
[2023-01-30 03:51] LABS: Alcohol Level < 10 mg/dL (0-10)
[2023-01-30 04:49] LABS: Basophils % 0.1 %; Hematocrit 45.6 % (37-53); Lymphocytes # 0.4 10^3/uL (0.8-4.8); Lymphocytes % 1.8 %; Mean Corpuscular HGB Conc 32.5 g/dL (30-55); Mean Corpuscular Hemoglobin 30.9 pg (27-33); Mean Corpuscular Volume 95.2 fl (82-101); Mean Platelet Volume 9.2 fL (7.4-10.4); Monocytes # 1.2 10^3/uL (0.2-0.9); Monocytes % 5.4 %; Neutrophils # 20.88 10^3/uL (1.8-7.7); Neutrophils % 91.6 %; Nucleated Red Blood Cells % 0 %; Platelet Count 217 10^3/cmm (157-399); Red Blood Count 4.79 10^6/uL (3.85-5.65); Red Cell Distribution Width 13.4 % (12.1-15.1); White Blood Count 22.81 10^3/uL (3.29-11.43)
[2023-01-30 06:08] LABS: Anion Gap 16.4 (5-19); Blood Urea Nitrogen 20 mg/dL (8-23); Calcium 9.2 mg/dL (8.5-10.5); Carbon Dioxide 24 mmol/L (22-29); Chloride 104 mmol/L (98-107); Glomerular Filtration Rate 96.7 mL/min (90-130); Glucose 102 mg/dL (65-115); Osmolality Calculated 293 mOsm/kg (285-295); Potassium 4.4 mmol/L (3.5-5.1); Sodium 140 mmol/L (136-145)
[2023-01-30] MEDS: tamsulosin 0.4 mg Capsule PO (09:00)
--- NOTE | 2023-01-30 12:20 | CTR_ITS ---
PROCEDURE INFORMATION: Exam: CT Abdomen And Pelvis With Contrast Exam date and time: 01/30/2023 3:45 PM Age: 67 years old Clinical indication: Abdominal tenderness and other: Weight loss; Additional info: Weightloss TECHNIQUE: Imaging protocol: Computed tomography of the abdomen and pelvis with contrast. Radiation optimization: All CT scans at this facility use at least one of these dose optimization techniques: automated exposure control; mA and/or kV adjustment per patient size (includes targeted exams where dose is matched to clinical indication); or iterative reconstruction. Contrast material: OMNI 350; Contrast volume: 100 ml; Contrast route: INTRAVENOUS (IV); REPORTING DATA: Count of CT and Cardiac NM exams in prior 12 months: This patient has received 3 known CTs and 0 known cardiac nuclear medicine studies in the 12 months prior to the current study. COMPARISON: CT abdomen pelvis w con* [id number] 12/09/2022 2:55 PM RADIATION DOSE METRICS: Total DLP (mGy-cm): 279.03 FINDINGS: Lungs: COPD with emphysematous changes at the lung bases. Liver: Multiple liver cysts both lobes unchanged. Gallbladder and bile ducts: Gallbladder is been removed. There is stable dilatation of the common bile duct measuring up to 1 cm in maximum diameter likely postsurgical in nature. Pancreas: Unremarkable. Main pancreatic duct is not significantly dilated. Spleen: There are scattered calcified granulomas within the spleen, longstanding, otherwise spleen is unremarkable. Adrenal glands: Normal. No mass. Kidneys and ureters: There are few small hypodensities both kidneys some of which are too small to adequately characterize but statistically likely benign, otherwise kidneys are unremarkable. Stomach and bowel: Unremarkable. No obstruction. No mucosal thickening. Appendix: No evidence of appendicitis. Intraperitoneal space: Unremarkable. No free air. No significant fluid collection. Vasculature: Scattered atherosclerotic changes of the abdominal aorta and iliac vessels. No aortic aneurysm. Lymph nodes: Unremarkable. No enlarged lymph nodes. Urinary bladder: There is a C[place] catheter balloon within the urinary bladder which is collapsed and difficult to further assess. Reproductive: Prostate gland is mildly enlarged. Bones/joints: Bipolar right hip prosthesis creating metallic artifact along the pelvic floor limiting assessment. No acute bony abnormalities. No suspicious bone lesions detected. Soft tissues: Paucity of body fat limiting assessment of fat and fascial planes in this patient. CT/CT abdomen pelvis w con* [id number] IMPRESSION: 1. No evidence of abdominal or pelvic malignancy. 2. Multiple chronic findings as above.
--- NOTE | 2023-01-30 12:37 | CTR_ITS ---
PROCEDURE INFORMATION: Exam: CT Head Without Contrast Exam date and time: 01/30/2023 3:34 PM Age: 67 years old Clinical indication: Malaise or fatigue; Additional info: Weight loss, fatigue, TECHNIQUE: Imaging protocol: Computed tomography of the head without contrast. Radiation optimization: All CT scans at this facility use at least one of these dose optimization techniques: automated exposure control; mA and/or kV adjustment per patient size (includes targeted exams where dose is matched to clinical indication); or iterative reconstruction. REPORTING DATA: Count of CT and Cardiac NM exams in prior 12 months: This patient has received 3 known CTs and 0 known cardiac nuclear medicine studies in the 12 months prior to the current study. COMPARISON: MR head wo/w con [id number] 03/06/2022 1:34 PM RADIATION DOSE METRICS: Total DLP (mGy-cm): 1171.84 FINDINGS: Brain: No midline shift. Ventricles, cisterns, and sulci are normal. No mass, acute infarct, hemorrhage, or extraaxial fluid collection. Cerebral ventricles: No ventriculomegaly. Paranasal sinuses: Visualized sinuses are unremarkable. No fluid levels. Mastoid air cells: Visualized mastoid air cells are well aerated. Bones/joints: Unremarkable. No acute fracture. Soft tissues: Unremarkable. CT/CT head wo con* [id number] IMPRESSION: No acute intracranial abnormality.
[2023-01-30 14:16] LABS: Erythrocyte Sedimentation Rate < 1 mm/hr (0-10)
--- NOTE | 2023-01-30 14:28 | ECG_ITS ---
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 Measurements Intervals [place] Rate: 76 P: 77 MO: 127 QRS: 87 QRSD: 90 T: 74 QT: 381 QTc: 430 Interpretive Statements SINUS RHYTHM Compared to ECG 01/29/2023 12:40:57 No significant changes Electronically Signed On 01-30-2023 17:53:04 CDT by Audrey Collins M.D. [email or web address]
[2023-01-30 14:29] LABS: Amphetamines Screen Urine Negative (Negative); Barbiturates Screen Urine Negative (Negative); Benzodiazepines Screen Urine Positive (Negative); Cocaine Screen Urine Negative (Negative); Opiate Screen Urine Negative (Negative); PCP Screen Urine Negative (Negative); THC Screen Urine Negative (Negative)
[2023-01-30 14:40] LABS: INR 1.19 (0.8-1.2)
[2023-01-30 14:44] LABS: Ammonia 47 umol/L (16-60)
[2023-01-30 14:45] LABS: Lactic Sepsis W/Reflex 1.7 mmol/L (0.5-2.2)
[2023-01-30 14:46] LABS: Troponin(5th) Baseline 26 ng/L (0-15)
[2023-01-30 14:47] LABS: Blood Urine 3+ (Negative); Glucose Urine UA Norm (Normal); Ketones Urine Negative (Negative); Protein Urine Neg (Negative); Specific Gravity, Urine 1.025 (1.005-1.030); Urine Appearance Hazy (CLEAR); Urine Color Yellow (Yellow); pH Urine 5 (5-7)
[2023-01-30 14:48] LABS: Add Urine Microscopic? YES; Bacteria Urine 1+ /hpf; Bilirubin Urine Neg (Negative); Coarse Granular Casts Urine 15-25 /lpf; Leukocyte Esterase Urine Negative (Negative); Nitrate Urine Negative (Negative); RBC Urine 0-4 /hpf (0-2); Urobilinogen Urine Norm (Negative)
[2023-01-30 14:49] LABS: Add Urine Culture? No; Sperm Urine 1+ /hpf
[2023-01-30 14:53] LABS: Free T4 Free Thyroxine 1.61 ng/dL (0.82-1.77); Procalcitonin 3.53 ng/mL (0-0.5); T3 Free 2.6 PG/ML (2.0-4.4); Thyroid Stimulating Hormone 1.84 uIU/mL (0.27-4.20)
[2023-01-30 15:05] LABS: C Reactive Protein 8.7 mg/L (0.0-4.9)
[2023-01-30 15:11] LABS: Amylase 103 U/L (28-100); Cortisol Random 27.81 ug/dL (2.47-19.5); Lipase 16 U/L (13-60)
--- NOTE | 2023-01-30 15:17 | P.PN_ITS ---
Subjective Subjective: Patient was seen this morning, patient tells me that he has been losing weight for the last few years, he tells me that it will happen when his gallbladder was taken out and his appendix was taken out, since then he has had a poor appetite, has been losing weight, he feels bloated, he tells me that he has had multiple evaluations, multiple scans, EGDs, colonoscopies without any significant find ings, but he continues to lose weight, continues to feel fatigue, he tells me that he also has diffuse muscular aches and pains, diffuse joint pains that is why he took the methadone, he does have a history of drug overdose in the past, history of suicidal ideation in the past, however currently denies any suicidal ideation, no homicidal ideation, no suicide attempt, does report feeling down and depressed, recently his has been hospitalized for COPD she is chronically on oxygen, she has end-stage COPD and he is quite depressed that he cannot help take care of her he can even carry her oxygen tanks for her he tells me, denies any falls, no injuries, no history of alcoholism, no history of IV drug use, Vitals/I&O/Wt Last Vital Signs Temp 97.2 F L 01/30/23 04:00 Pulse 99 01/30/23 12:00 Resp 18 01/30/23 12:00 BP 113/68 01/30/23 12:00 Pulse Ox 97 01/30/23 12:00 O2 Del Method Nasal Cannula 01/30/23 04:00 O2 Flow Rate 2 01/30/23 04:00 01/30/23 01/30/23 01/30/23 06:59 14:59 22:59 Intake Total 150 / 150 1220 / 1220 Output Total 700 / 700 Balance -550 / -550 1220 / 1220 Weight last 48 hrs Weight 43.409 kg Weight 42.638 kg Physical Exam Narrative: Bilateral temporal muscle wasting, diffuse sarcopenia, muscle wasting, muscle loss, bilateral shoulders, arms, bilateral legs, bilateral thighs Const: COMMON NORMALS: no acute distress and patient oriented x3 Resp: COMMON NORMALS: normal respiratory effort, No retractions, No use of accessory muscles and clear to auscultation bilaterally AUSCULTATION: clear to auscultation bilaterally Cardio: COMMON NORMALS: regular rate, regular rhythm, S1 normal heart sound present and S2 normal heart sound present RATE: regular rate RHYTHM: regular rhythm HEART SOUNDS: S1 normal heart sound present and S2 normal heart sound present GI: COMMON NORMALS: Normal to inspection, nondistended, normoactive bowel sounds present, Soft to palpation and non-tender PALPATION: Yes Soft to palpation Extremity: COMMON NORMALS: no pedal edema Neuro: COMMON NORMALS: patient oriented x3 Psych: COMMON NORMALS: mental status grossly normal Urinary Catheter Management: Coude: Cath Placed During This Visit: yes Reason for Continuing Indwelling Catheter: Accurate Measurement of Urinary Out put in Critically Ill Patients Urinary Catheter Date of Insertion: 01/30/23 Urinary Catheter Time of Insertion: 01:15 Data 01/30/23 04:29 01/30/23 05:14 Micro: Microbiology 01/30/23 13:41 Blood Culture - Preliminary Blood SPECIMEN COLLECTED 01/30/23 13:35 Blood Culture - Preliminary Blood SPECIMEN COLLECTED A&P Assessment and plan (1) Narcotic overdose: Methadone overdose as above s/p narcan with improvement in mentation intentional intake of methadone but in doses excess of what he has taken in the past denies suicidal ideation but reports being severely depressed and frustarted with his and his 's declining health. Patient attempted multiple ingestion x 2 in the last 24 hrs Patient has a history of drug overdose in the past, history of drug overdose requiring intubation, history of suicidal ideation in the past, Currently no active suicidal ideation, no suicidal plan, no homicidal ideation, will consult psychiatry, spoke to Dr. Rahman Monitor closely in the ICU with close cardiac and respiratory status monitoring IVF NS @ 100 cc/hr to continue, psychiatry consult given high risk/abuse potential (2) Severe depression: Psychiatry consult as above, with concerns for anorexia nervosa as a possible complication (3) Transaminitis: Unclear etiology currently Check Hep A IgM, hep Bs AG and hep C pcr given h/o hep C may be related to dehydration from GI losses due to intractable vomiting given quick development during the day check liver US past h/o biliary stent placement ?? indication which has since been removed ? CT scan abdomen pelvis acetaminophen and salicylate level not elevated (4) Urinary retention: Needing placement of [place] catheter due to urinary retention Suspect related to BPH, reports increased straining and poor flow over several months Start Flomax 0.4 mg daily (5) Anorexia nervosa: (6) Muscle wasting: (7) Protein calorie malnutrition: (8) Physical deconditioning: Plan Protein calorie malnutrition, physical deconditioning, muscle wasting, anorexia nervosa ? Monitor for refeeding syndrome, mag, Phos, calcium, ? Patient has had an extensive evaluation for his weight loss, muscle wasting, anorexia nervosa, ? He had a PET scan in May 2022 with no acute findings ? He has had multiple CT scans of abdomen pelvis, which showed pneumobilia, removal of his biliary stent, no other acute findings, ? He has had CTs of his chest without any acute findings, but did show emphysema he has had a cath in 2021, Mild disease in the left and descending artery and right coronary artery. Normal LV action fraction 55%.? LVEDP of 9 mmHg. -Has had an extensive work-up by endocrinology for his weight loss as outpatient with normal ACTH stimulation test,, ? It was recommended for him to have a PEG tube, however he has declined, ? He has had extensive GI work-up including colonoscopy endoscopy which according to patient has been normal, Plan -We will do further work-up for anorexia nervosa including sanchez CT scan ? ESR, ? Hep C, HIV, ? CRP, Pro-Royal, ? Blood cultures as he in the past grew staph epidermis and his blood ? We will consider cardiac echo based upon blood cultures, ? Troponin series, BMP, lactic acid, ? Will discuss with patient again about possible PEG tube placement, ? He has had multiple drug overdoses, he has severe depression, could have anorexia nervosa, related to severe depression,, consult psychiatry, ? Consider psychotropic medications, appetite stimulant, ? Strongly consider PEG tube placement ? Monitor for refeeding syndrome, ? Consult PT OT, dietary, speech therapy ? Reviewed prior records, reviewed prior CT scans, reviewed prior PET scan, reviewed prior hospitalization, reviewed prior specialist notes, reviewed prior outpatient physicians notes Attestations Medical Necessity Statement*: Patient requires hospitalization for anorexia nervosa, weight loss, deconditioning, methadone overdose, severe depression and High MDM includes number and complexity of problems actively addressed during encounter, amount and/or complexity of data reviewed/ordered and described risk of complication, morbidity or mortality of management as documented Diagnoses Narcotic overdose T40.601A Severe depression F32.2 Transaminitis R74.01 Urinary retention R33.9 Anorexia nervosa F50.00 Muscle wasting M62.50 Protein calorie malnutrition E46 Physical deconditioning R53.81
[2023-01-30 15:20] LABS: Hepatitis A Antibody IgM Non-Reactive (Nonreactive); Hepatitis B Core IgM Non-Reactive (Nonreactive); Hepatitis B Surface Antigen Non-Reactive (Nonreactive); Hepatitis C Virus Antibody Reactive (Nonreactive)
[2023-01-30 15:23] LABS: Calcium 8.9 mg/dL (8.5-10.5); Gamma Glutamyl Transferase 148 U/L (8-61)
--- NOTE | 2023-01-30 15:26 | CTR_ITS ---
PROCEDURE INFORMATION: Exam: CT Chest Without Contrast; Diagnostic Exam date and time: 01/30/2023 3:39 PM Age: 67 years old Clinical indication: Dyspnea; Additional info: Weightloss TECHNIQUE: Imaging protocol: Diagnostic computed tomography of the chest without contrast. Radiation optimization: All CT scans at this facility use at least one of these dose optimization techniques: automated exposure control; mA and/or kV adjustment per patient size (includes targeted exams where dose is matched to clinical indication); or iterative reconstruction. REPORTING DATA: Count of CT and Cardiac NM exams in prior 12 months: This patient has received 3 known CTs and 0 known cardiac nuclear medicine studies in the 12 months prior to the current study. COMPARISON: CT chest w con* [id number] 01/15/2022 2:42 PM RADIATION DOSE METRICS: Total DLP (mGy-cm): 324.11 FINDINGS: Lungs: COPD with pronounced emphysematous changes both lung bryan, stable. Large calcified granuloma right lower lobe, stable. 4 mm irregular shaped pulmonary nodule left lower lobe unchanged. Pleural spaces: Unremarkable. No pneumothorax. No pleural effusion. Heart: Heart is not significantly enlarged. No significant coronary artery calcifications. No significant pericardial effusion. Mediastinal space: Chronic granulomatous calcifications within the mediastinum and right hilum, stable. Lymph nodes: Unremarkable. No enlarged lymph nodes. Vasculature: Unremarkable. No aortic aneurysm. Bones/joints: There are no acute bony abnormalities or suspicious bone lesions detected. Soft tissues: Unremarkable. CT/CT chest wo con [id number] IMPRESSION: 1. No evidence of malignancy within the chest. 2. COPD with marked emphysematous changes in stable small pulmonary nodule left lower lobe. COMMENTS: In the absence of a history or active diagnosis of lung cancer, it is recommended that this patient with emphysema be evaluated for enrollment in a low dose CT lung cancer screening program.
[2023-01-30 15:29] LABS: Parathyroid Hormone 30.9 pg/mL (15-65)
[2023-01-30 16:05] LABS: HIV 1 & 2 Antibody Non-Reactive (Non-Reactiv); HIV 1 & 2 Antigen Non-Reactive (Non-Reactiv)
[2023-01-30] MEDS: iohexol 350 mg/mL 500 mL Btl (per mL) IV (16:05)
[2023-01-30 16:24] LABS: Troponin 5 2HR 23.99 ng/L (0-15)
[2023-01-30 16:31] LABS: Troponin 5 2HR Delta -2.01 ABS# (0-10)
--- NOTE | 2023-01-30 17:38 | ECG_ITS ---
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 Measurements Intervals [place] Rate: 82 P: 152 GA: 144 QRS: 139 QRSD: 82 T: 147 QT: 365 QTc: 427 Interpretive Statements SINUS RHYTHM ARM LEADS REVERSED [INVERTED P AND QRS IN I] Compared to ECG 01/30/2023 14:06:45 No significant changes Electronically Signed On 01-30-2023 17:52:34 CDT by Audrey Collins M.D. [id number]
--- NOTE | 2023-01-30 19:40 | PC.NURSE ---
Spoke with regarding patients request for his home dose of Xanax. Patient states he is starting to get irritable and shaking having not taking it, he takes it 4xday at home. said resume it Q8HR PRN
[2023-01-30] MEDS: ALPRAZolam 0.5 mg Tablet PO (20:18)
[2023-01-30 20:25] LABS: Troponin 5 6HR 24.65 ng/L (0-15)
[2023-01-30 20:28] LABS: Troponin 5 6HR Delta -1.35 ng/L (0-12)
[2023-01-31] VITALS (12 sets, daily range): BP systolic 93–147; BP diastolic 60–99; PULSE 57–96; RESP 7–17; TEMP 36.4–37; O2SAT 88–99
[2023-01-31] MEDS: enoxaparin 40 mg/0.4 mL Syringe SUBCUT (00:14)
[2023-01-31] MEDS: ALPRAZolam 0.5 mg Tablet PO ×3 (03:01→21:00)
[2023-01-31 04:44] LABS: Basophils % 0.2 %; Eosinophils % 0.1 %; Hematocrit 38.7 % (37-53); Lymphocytes # 0.9 10^3/uL (0.8-4.8); Lymphocytes % 8.9 %; Mean Corpuscular HGB Conc 32.8 g/dL (30-55); Mean Corpuscular Hemoglobin 30.8 pg (27-33); Mean Corpuscular Volume 93.9 fl (82-101); Mean Platelet Volume 9.7 fL (7.4-10.4); Monocytes # 1.1 10^3/uL (0.2-0.9); Monocytes % 11.1 %; Neutrophils % 79.5 %; Nucleated Red Blood Cells % 0 %; Platelet Count 166 10^3/cmm (157-399); Red Blood Count 4.12 10^6/uL (3.85-5.65); Red Cell Distribution Width 13.3 % (12.1-15.1); White Blood Count 9.69 10^3/uL (3.29-11.43)
[2023-01-31] MEDS: lactated ringers 1,000 ML 100 ML IV ×2 (04:59→15:45)
[2023-01-31 05:20] LABS: Alanine Aminotransferase 333 U/L (0-41); Albumin Level 3.9 g/dL (3.5-5.2); Alkaline Phosphatase 61 U/L (40-130); Anion Gap 10.9 (5-19); Aspartate Amino Transferase 110 U/L (0-40); Blood Urea Nitrogen 17 mg/dL (8-23); Calcium 8.9 mg/dL (8.5-10.5); Carbon Dioxide 30 mmol/L (22-29); Chloride 100 mmol/L (98-107); Globulin 1.7 g/dL (1.3-4.6); Glomerular Filtration Rate 166.4 mL/min (90-130); Glucose 82 mg/dL (65-115); Osmolality Calculated 285 mOsm/kg (285-295); Potassium 3.9 mmol/L (3.5-5.1); Sodium 137 mmol/L (136-145); Total Bilirubin 0.7 mg/dL (0.15-1.2); Total Protein 5.6 g/dL (6.6-8.7)
[2023-01-31] MEDS: tamsulosin 0.4 mg Capsule PO (07:39)
--- NOTE | 2023-01-31 07:39 | W.PM.NPUH&PS ---
Providers/Chief Complaint Admitting Physician: Sis Whitman MD Primary Care Provider: SINA Gerardo Chief Complaint: AMS HPI NPU History of Present Illness Michoacano Paulino is a 67 year old male presented the emergency department with the following report: Chief Complaint: Overdose Stated Complaint: AMS Time Seen by Provider: 01/29/23 21:00 History of Present Illness: Patient is a 67-year-old male that presents to the emergency department via EMS personnel secondary to decreased mental status. The patient was seen earlier today in the emergency department secondary to a attempted overdose with methadone. Earlier today the patient was initially seen for low oxygen saturation and altered mental status he was treated and had a significant improvement at that time and was discharged home. The patient presents to the emergency department now stating that he took 10 additional methadone pills that he had hidden away in an attempt to take Away all of his pain.The patient then states he was not trying to kill himself but states he is tired of all the pain. The patient was admitted to the ICU for definitive treatment of those issues. The patient presents today reporting that he has not had any psychiatric hospitalizations. He reports that he has been taking Xanax, for about eight months. He reports that his has COPD, stage four, which is really stressful. He denies other psychiatric medications. He endorses that he has been depressed and anxious recently. He endorses feelings of hopelessness and helplessness, sleep difficulties, big decrease in appetite, reporting that he has been losing a lot of weight recently and has actually been losing weight since having his gall bladder removed twelve years ago, and a year after that he had an appendectomy and reports that he has felt queasy and nauseated a lot since then. He denies paranoia or auditory or visual hallucinations. He denies nightmares or flashbacks. He reports that he used to smoke cigarettes and marijuana but quit about six to eight months ago. He reports that in 1989 was the last time he drank alcohol. He denies drug rehabilitation or DUI. We discussed the risks, benefits, and alternatives of starting Remeron to help with sleep, anxiety and appetite, and he understood and agreed to proceed as is documented in this note. Meds NPU Home Medications Medication Instructions Recorded Confirmed Last Taken Type alprazolam 0.5 mg tablet (Xanax) 0.5 mg PO QID #120 tabs 11/11/22 01/30/23 01/29/23 Rx sucralfate 1 gram tablet (Carafate) 1 g PO TID #30 tabs 12/09/22 01/30/23 01/29/23 Rx naloxone 4 mg/actuation nasal 4 mg intranasal Q2M PRN opioid 01/29/23 01/30/23 Unknown Rx spray (Narcan) overdose #2 ea Allergies Allergy/AdvReac Type Severity Reaction Status Date / Time codeine Allergy ADR-Itching Verified 01/29/23 21:07 esomeprazole [From Nexium] Allergy Unknown Verified 01/29/23 21:07 ketorolac [From Toradol] Allergy Unknown Verified 01/29/23 21:07 omeprazole Allergy Unknown Verified 01/29/23 21:07 Penicillins Allergy Unknown Verified 01/29/23 21:07 ranitidine AdvReac ADR-Headach Verified 01/29/23 21:07 e PFSH NPU PFSH: Medical History Chronic epigastric pain Drug overdose Endotracheally intubated Gastritis Hepatitis C Nausea and vomiting Physical deconditioning Polysubstance abuse Psychiatric care Suicidal overdose Unresponsiveness Surgical History History of bilateral carpal tunnel release History of circumcision History of colonoscopy Normal repeat in 10 years History of esophagogastroduodenoscopy (EGD) (02/26/17) Reflux, esophagitis, Gastritis History of hip replacement, total Right History of knee replacement Right History of laparoscopic cholecystectomy Family History Grandfather Cancer Grandmother Cancer Grandmother Cancer Grandfather Cancer Family/Other Cancer Son Diabetes Father Suicide Brother Suicide Denies family history of CAD (coronary artery disease) Clotting disorder Dementia Chronic kidney disease (CKD) Anesthesia complication Bleeding disorder Lung disease Stroke Social History Smoking and tobacco/nicotine status: current some day tobacco/nicotine user Second hand smoke exposure: No Alcohol intake: former Substance/Drug Use: never Adopted: No Caregiver/support person: Yes Lives independently: Yes Household members: spouse Housing: House Marital status: Highest education level completed: High School Graduate service: No Current occupational status: disabled Current occupational exposures/hazards: No Pets and animals: No Leisure activites: exercise Sexually active: Yes Do you think of yourself as: Straight/Heterosexual Current gender identity: Male and Female Verito/Samaritan: Orthodoxy Special verito needs: No Agree to transfusion: No Mental Status Exam MSE Comments: This is a cachectic, white male, in hospital gown, in a hospital bed, with limited grooming and adequate eye contact. No abnormal movements, except for significant psychomotor retardation. Cooperative with exam in mild distress. Speech was slightly decreased rate and normal volume. Mood described as good; affect congruent. Thought process, organized. Thought content: patient denied any suicidal or homicidal ideation, there were no delusions reported or noted, patient denied any auditory or visual hallucinations. Attention, concentration, and memory appeared intact, but none were formally tested. Alert and oriented times three. Insight and judgment appear limited. Impulse control is impaired. Vitals/I&O/Wt Last Vital Signs Temp 97.6 F 01/31/23 00:00 Pulse 57 L 01/31/23 06:00 Resp 7 L 01/31/23 04:00 BP 107/65 01/31/23 04:00 Pulse Ox 98 01/31/23 04:00 O2 Del Method Nasal Cannula 01/31/23 00:00 O2 Flow Rate 2 01/31/23 00:00 01/30/23 01/31/23 01/31/23 23:59 06:59 14:59 Intake Total Output Total Balance Weight last 48 hrs Weight 48.5 kg Weight 43.409 kg Weight 42.638 kg Physical Exam Urinary Catheter Management: Coude: Cath Placed During This Visit: yes Reason for Continuing Indwelling Catheter: Acute Urinary Retention or Obstruction Urinary Catheter Date of Insertion: 01/30/23 Urinary Catheter Time of Insertion: 01:15 Data NPU 02/01/23 02:49 02/01/23 02:49 Micro: Microbiology 01/30/23 13:41 Blood Culture - Preliminary Blood SPECIMEN COLLECTED 01/30/23 13:35 Blood Culture - Preliminary Blood SPECIMEN COLLECTED Microbiology 01/30/23 13:41 Blood Blood Culture - Preliminary SPECIMEN COLLECTED 01/30/23 13:35 Blood Blood Culture - Preliminary SPECIMEN COLLECTED A&P Assessment and plan (1) Physical deconditioning: (2) Protein calorie malnutrition: (3) Muscle wasting: (4) Anorexia nervosa: (5) Urinary retention: (6) Narcotic overdose: (7) Drug overdose: (8) Severe alcohol use disorder, in sustained remission: (9) Major depressive disorder, severe: Plan This is a 67-year-old white male with a long history of depression without treatment with essentially failure to thrive that he blames on past surgeries and stress as well as depression but denies active anorexic behaviors. 1. Continue current medication. We will add Remeron 15 mg p.o. daily. 2. We will monitor for need for inpatient psychiatric treatment. 3. We will continue to follow. Involuntary Hold Information 96 Hour Hold: 96 Hour Involuntary Admission: Yes 96 Hour Hold Ending Date: 01/24/21 96 Hour Hold Ending Time: 14:00 Attestations U Medical Necessity Statement*: N/A. Please see primary note for medical necessity. Coding Level of Care Code Acute Code for [facility] Diagnoses Physical deconditioning R53.81 Protein calorie malnutrition E46 Muscle wasting M62.50 Anorexia nervosa F50.00 Urinary retention R33.9 Narcotic overdose T40.601A Drug overdose T50.901A Severe alcohol use disorder, in sustained remission F10.21 Major depressive disorder, severe F32.2
[2023-01-31] MEDS: methylphenidate 10 mg Tablet 5 MG PO (08:45)
[2023-01-31] MEDS: dexamethasone 10 mg/mL INJ 6 MG IVP (08:53)
[2023-01-31] MEDS: diphenhydrAMINE 50 mg/mL SDV 1mL 25 MG IVP (08:54)
[2023-01-31] MEDS: metoclopramide 5 mg/mL SDV 2 mL IVP (08:55)
[2023-01-31] MEDS: polyethylene glycol 3350 Pkt 17 gm PO (08:56)
--- NOTE | 2023-01-31 13:18 | P.PN_ITS ---
Subjective Subjective: Patient was seen this morning, he is alert oriented x3, follows all commands, does report that whenever he eats he feels bloated, he has a lot of belching, he tells me the Reglan seems to help, I had a discussion with him that I feel that his underlying weight loss certainly could have a component related to his gallbladder surgery and his appendectomy, but I think the significant component is likely related to severe underlying depression, we discussed trying Remeron to help with that in addition to Ritalin, to help stimulate his appetite he is agreeable, as he has a lot of bloating, belching, feeling full quite early, I will do a gastric emptying study tomorrow, Vitals/I&O/Wt Last Vital Signs Temp 97.6 F 01/31/23 00:00 Pulse 74 01/31/23 10:06 Resp 16 01/31/23 10:06 BP 143/85 01/31/23 10:06 Pulse Ox 92 01/31/23 10:06 O2 Del Method Nasal Cannula 01/31/23 08:00 O2 Flow Rate 2 01/31/23 08:00 01/30/23 01/31/23 01/31/23 23:59 06:59 14:59 Intake Total Output Total Balance Weight last 48 hrs Weight 48.5 kg Weight 43.409 kg Weight 42.638 kg Physical Exam Const: COMMON NORMALS: no acute distress and patient oriented x3 Resp: COMMON NORMALS: normal respiratory effort, No retractions, No use of accessory muscles and clear to auscultation bilaterally AUSCULTATION: clear to auscultation bilaterally Cardio: COMMON NORMALS: regular rate, regular rhythm, S1 normal heart sound present and S2 normal heart sound present RATE: regular rate RHYTHM: regular rhythm HEART SOUNDS: S1 normal heart sound present and S2 normal heart sound present GI: COMMON NORMALS: Normal to inspection, nondistended, normoactive bowel sounds present and non-tender Extremity: COMMON NORMALS: no pedal edema Neuro: COMMON NORMALS: patient oriented x3 Psych: COMMON NORMALS: mental status grossly normal Urinary Catheter Management: Coude: Cath Placed During This Visit: yes Reason for Continuing Indwelling Catheter: Acute Urinary Retention or Obstruction Urinary Catheter Date of Insertion: 01/30/23 Urinary Catheter Time of Insertion: 01:15 Data 01/31/23 04:01 01/31/23 04:01 Micro: Microbiology 01/30/23 13:41 Urine Culture - Preliminary Urine Catheterized 01/30/23 13:41 Blood Culture - Preliminary Blood SPECIMEN COLLECTED 01/30/23 13:35 Blood Culture - Preliminary Blood SPECIMEN COLLECTED A&P Assessment and plan (1) Narcotic overdose: Resolved Methadone overdose as above s/p narcan with improvement in mentation intentional intake of methadone but in doses excess of what he has taken in the past denies suicidal ideation but reports being severely depressed and frustarted with his and his 's declining health. Patient attempted multiple ingestion x 2 in the last 24 hrs Patient has a history of drug overdose in the past, history of drug overdose requiring intubation, history of suicidal ideation in the past, Currently no active suicidal ideation, no suicidal plan, no homicidal ideation, will consult psychiatry, spoke to Dr. Rahman Move out of ICU psychiatry consult given high risk/abuse potential (2) Severe depression: Psychiatry consult as above, with concerns for anorexia nervosa as a possible complication (3) Transaminitis: Possibly related to anorexia nervosa, nausea, vomiting, Check Hep A IgM, hep Bs AG and hep C pcr given h/o hep C Hep C PCR pending may be related to dehydration from GI losses due to intractable vomiting given quick development during the day ? CT scan abdomen pelvis acetaminophen and salicylate level not elevated (4) Urinary retention: Needing placement of [place] catheter due to urinary retention Suspect related to BPH, reports increased straining and poor flow over several months Start Flomax 0.4 mg daily (5) Anorexia nervosa: (6) Muscle wasting: (7) Protein calorie malnutrition: (8) Physical deconditioning: Plan Protein calorie malnutrition, physical deconditioning, muscle wasting, anorexia nervosa ? Monitor for refeeding syndrome, mag, Phos, calcium, ? Patient has had an extensive evaluation for his weight loss, muscle wasting, anorexia nervosa, ? He had a PET scan in May 2022 with no acute findings ? He has had multiple CT scans of abdomen pelvis, which showed pneumobilia, lorna elsa of his biliary stent, no other acute findings, ? He has had CTs of his chest without any acute findings, but did show emphysema he has had a cath in 2021, Mild disease in the left and descending artery and right coronary artery. Normal LV action fraction 55%.? LVEDP of 9 mmHg. -Has had an extensive work-up by endocrinology for his weight loss as outpatient with normal ACTH stimulation test,, ? It was recommended for him to have a PEG tube, however he has declined, ? He has had extensive GI work-up including colonoscopy endoscopy which according to patient has been normal, Plan -We will do further work-up for anorexia nervosa including sanchez CT scan, no acute findings ? ESR, within normal limits ? HIV, within normal limits, hep C PCR pending, follow-up with infectious disease as outpatient ? CRP, Pro-Royal, within normal limits ? Blood cultures as he in the past grew staph epidermis and his blood, so far negative ? We will consider cardiac echo based upon blood cultures, ? Troponin series, BMP, lactic acid, within normal limits ? Will discuss with patient again about possible PEG tube placement, he is agreeable but wants to do a trial of medical therapy ? He has had multiple drug overdoses, he has severe depression, could have anorexia nervosa, related to severe depression,, consult psychiatry, ? Consider psychotropic medications, appetite stimulant, ? Strongly consider PEG tube placement if medical therapy does not improve his condition ? Monitor for refeeding syndrome, ? Consult PT OT, dietary, speech therapy ? Reviewed prior records, reviewed prior CT scans, reviewed prior PET scan, reviewed prior hospitalization, reviewed prior specialist notes, reviewed prior outpatient physicians notes Attestations Medical Necessity Statement*: Patient requires hospitalization for protein-calorie malnutrition, anorexia nervosa, monitoring for refeeding syndrome Diagnoses Narcotic overdose T40.601A Severe depression F32.2 Transaminitis R74.01 Urinary retention R33.9 Anorexia nervosa F50.00 Muscle wasting M62.50 Protein calorie malnutrition E46 Physical deconditioning R53.81
--- NOTE | 2023-01-31 14:24 | PC.NURSE ---
Rec'd pt from ICU at 1400.
[2023-01-31] MEDS: mirtazapine 15 mg Tablet PO (20:53)
[2023-02-01] VITALS (8 sets, daily range): BP systolic 110–147; BP diastolic 64–81; PULSE 61–93; RESP 15–16; TEMP 36.6–37; O2SAT 92–96
[2023-02-01] MEDS: enoxaparin 40 mg/0.4 mL Syringe SUBCUT (01:04)
[2023-02-01] MEDS: lactated ringers 1,000 ML 100 ML IV ×2 (01:05→11:40)
[2023-02-01 03:23] LABS: Basophils % 0.1 %; Mean Corpuscular Volume 91.1 fl (82-101); Mean Platelet Volume 9.5 fL (7.4-10.4); Monocytes # 0.9 10^3/uL (0.2-0.9); Monocytes % 12.8 %; Neutrophils # 5.44 10^3/uL (1.8-7.7); Nucleated Red Blood Cells % 0 %; Platelet Count 164 10^3/cmm (157-399); Red Blood Count 3.84 10^6/uL (3.85-5.65); Red Cell Distribution Width 12.9 % (12.1-15.1); White Blood Count 7.36 10^3/uL (3.29-11.43)
[2023-02-01 03:47] LABS: Alanine Aminotransferase 200 U/L (0-41); Albumin Level 3.5 g/dL (3.5-5.2); Alkaline Phosphatase 63 U/L (40-130); Anion Gap 9.4 (5-19); Aspartate Amino Transferase 56 U/L (0-40); Blood Urea Nitrogen 7 mg/dL (8-23); Calcium 8.6 mg/dL (8.5-10.5); Carbon Dioxide 31 mmol/L (22-29); Chloride 104 mmol/L (98-107); Globulin 1.8 g/dL (1.3-4.6); Glomerular Filtration Rate 215.2 mL/min (90-130); Glucose 89 mg/dL (65-115); Magnesium 1.9 mg/dL (1.7-2.3); Osmolality Calculated 289 mOsm/kg (285-295); Potassium 3.4 mmol/L (3.5-5.1); Sodium 141 mmol/L (136-145); Total Bilirubin 0.6 mg/dL (0.15-1.2); Total Protein 5.3 g/dL (6.6-8.7)
[2023-02-01] MEDS: ALPRAZolam 0.5 mg Tablet PO ×3 (04:28→22:24)
[2023-02-01] MEDS: polyethylene glycol 3350 Pkt 17 gm PO (08:28)
[2023-02-01] MEDS: phosphorus 250 mg Tablet PO ×2 (08:31→17:16)
[2023-02-01] MEDS: methylphenidate 10 mg Tablet 5 MG PO (08:31)
[2023-02-01] MEDS: tamsulosin 0.4 mg Capsule PO (08:31)
[2023-02-01] MEDS: potassium chloride ER 20 mEq Tablet 40 MEQ PO (08:31)
--- NOTE | 2023-02-01 11:00 | P.NPUPN_ITS ---
Subjective NPU Subjective: Patient presented today reporting that he is feeling much better. He had continually showered and shaved and was looking more positive. He denied any issues with negative thoughts or lethal considerations. He discussed getting home and gaining weight and getting stronger so he can continue to help his with her challenges. He is very future oriented in his discussions and we discussed having follow-up to have outpatient supports. He denied any issues with the medications. Mental Status Exam MSE Comments: This is a cachectic, white male, in hospital [facility], in a hospital bed, with ap propriate grooming and adequate eye contact. No abnormal movements, except for improving psychomotor retardation. Cooperative with exam in mild distress. Speech was slightly decreased rate and normal volume. Mood described as good; affect congruent. Thought process, organized. Thought content: patient denied any suicidal or homicidal ideation, there were no delusions reported or noted, patient denied any auditory or visual hallucinations. Attention, concentration, and memory appeared intact, but none were formally tested. Alert and oriented times three. Insight and judgment appear fair. Impulse control is improving. Vitals/I&O/Wt Last Vital Signs Temp 98.6 F 02/01/23 07:49 Pulse 75 02/01/23 08:00 Resp 15 02/01/23 07:49 BP 116/66 02/01/23 07:49 Pulse Ox 96 02/01/23 08:00 O2 Del Method Room Air 02/01/23 08:00 O2 Flow Rate 2.5 01/31/23 20:56 01/31/23 02/01/23 02/01/23 22:59 06:59 14:59 Intake Total 480 / 1480 933.333 / 2413.333 Output Total 2900 / 2900 Balance -2420 / -1420 933.333 / -486.667 Weight last 48 hrs Weight 48.5 kg Physical Exam Urinary Catheter Management: Coude: Cath Placed During This Visit: yes Reason for Continuing Indwelling Catheter: Acute Urinary Retention or Obstruction Urinary Catheter Date of Insertion: 01/30/23 Urinary Catheter Time of Insertion: 01:15 Data NPU 02/02/23 04:39 02/02/23 04:39 Micro: Microbiology 01/30/23 13:41 Urine Culture - Final Urine Catheterized 01/30/23 13:41 Blood Culture - Preliminary Blood NEGATIVE TO DATE 01/30/23 13:35 Blood Culture - Preliminary Blood NEGATIVE TO DATE Microbiology 01/30/23 13:41 Urine Catheterized Urine Culture - Final 01/30/23 13:41 Blood Blood Culture - Preliminary NEGATIVE TO DATE 01/30/23 13:35 Blood Blood Culture - Preliminary NEGATIVE TO DATE A&P Assessment and plan (1) Physical deconditioning: (2) Protein calorie malnutrition: (3) Muscle wasting: (4) Anorexia nervosa: (5) Urinary retention: (6) Narcotic overdose: (7) Drug overdose: (8) Severe alcohol use disorder, in sustained remission: (9) Major depressive disorder, severe: Plan This is a 67-year-old white male with a long history of depression without treatment with essentially failure to thrive that he blames on past surgeries and stress as well as depression but denies active anorexic behaviors. 1. Continue current medication. We added Remeron 15 mg p.o. daily. 2. No acute lethality noted. Discharge per primary team plan with referral to outpatient mental health services. 3. We will continue to follow. Involuntary Hold Information 96 Hour Hold: 96 Hour Involuntary Admission: Yes 96 Hour Hold Ending Date: 01/24/21 96 Hour Hold Ending Time: 14:00 Attestations NPU Medical Necessity Statement*: N/A. Please see primary note for medical necessity. Coding Level of Care Code Acute Code for [facility] Fwd Diagnoses Physical deconditioning R53.81 Protein calorie malnutrition E46 Muscle wasting M62.50 Anorexia nervosa F50.00 Urinary retention R33.9 Narcotic overdose T40.601A Drug overdose T50.901A Severe alcohol use disorder, in sustained remission F10.21 Major depressive disorder, severe F32.2
[2023-02-01] MEDS: dexamethasone 4 mg Tablet 6 MG PO (11:41)
--- NOTE | 2023-02-01 13:32 | PC.SOCIAL ---
IMM Update pg 2 of IMM updated and reviewed w/ patient. Copy provided and Copy dated, initialed and placed in chart.
--- NOTE | 2023-02-01 14:47 | P.PN_ITS ---
Vitals/I&O/Wt Last Vital Signs Temp 98.6 F 02/01/23 07:49 Pulse 87 02/01/23 12:00 Resp 16 02/01/23 12:00 BP 141/75 02/01/23 12:00 Pulse Ox 96 02/01/23 12:00 O2 Del Method Room Air 02/01/23 12:00 O2 Flow Rate 2.5 01/31/23 20:56 01/31/23 02/01/23 02/01/23 22:59 06:59 14:59 Intake Total 480 / 1480 933.333 / 2413.333 1240 / 1240 Output Total 2900 / 2900 300 / 300 Balance -2420 / -1420 933.333 / -486.667 940 / 940 Weight last 48 hrs Weight 48.5 kg Physical Exam Const: COMMON NORMALS: no acute distress and patient oriented x3 Resp: COMMON NORMALS: normal respiratory effort, No retractions, No use of accessory muscles and clear to auscultation bilaterally AUSCULTATION: clear to auscultation bilaterally Cardio: COMMON NORMALS: regular rate, regular rhythm, S1 normal heart sound present and S2 normal heart sound present RATE: regular rate RHYTHM: regular rhythm HEART SOUNDS: S1 normal heart sound present and S2 normal heart sound present GI: COMMON NORMALS: Normal to inspection, nondistended, normoactive bowel sounds present and non-tender Extremity: COMMON NORMALS: no pedal edema Neuro: COMMON NORMALS: patient oriented x3 Psych: COMMON NORMALS: mental status grossly normal Urinary Catheter Management: Coude: Cath Placed During This Visit: yes Reason for Continuing Indwelling Catheter: Acute Urinary Retention or Obstruction Urinary Catheter Date of Insertion: 01/30/23 Urinary Catheter Time of Insertion: 01:15 Data 02/01/23 02:49 02/01/23 02:49 Micro: Microbiology 01/30/23 13:41 Urine Culture - Final Urine Catheterized 01/30/23 13:41 Blood Culture - Preliminary Blood NEGATIVE TO DATE 01/30/23 13:35 Blood Culture - Preliminary Blood NEGATIVE TO DATE A&P Assessment and plan (1) Narcotic overdose: Resolved Methadone overdose as above s/p narcan with improvement in mentation intentional intake of methadone but in doses excess of what he has taken in the past denies suicidal ideation but reports being severely depressed and frustarted with his and his 's declining health. Patient attempted multiple ingestion x 2 in the last 24 hrs Patient has a history of drug overdose in the past, history of drug overdose requiring intubation, history of suicidal ideation in the past, Currently no active suicidal ideation, no suicidal plan, no homicidal ideation, will consult psychiatry, spoke to Dr. Josiah Bush currently psychiatry consult given high risk/abuse potential (2) Severe depression: Psychiatry consult as above, with concerns for anorexia nervosa as a possible complication (3) Transaminitis: Possibly related to anorexia nervosa, nausea, vomiting, Check Hep A IgM, hep Bs AG and hep C pcr given h/o hep C Hep C PCR pending may be related to dehydration from GI losses due to intractable vomiting given quick development during the day ? CT scan abdomen pelvis acetaminophen and salicylate level not elevated (4) Urinary retention: Needing placement of [place] catheter due to urinary retention Suspect related to BPH, reports increased straining and poor flow over several months Start Flomax 0.4 mg daily (5) Anorexia nervosa: (6) Muscle wasting: (7) Protein calorie malnutrition: (8) Physical deconditioning: Plan Protein calorie malnutrition, physical deconditioning, muscle wasting, anorexia nervosa ? Monitor for refeeding syndrome, mag, Phos, calcium, ? Patient has had an extensive evaluation for his weight loss, muscle wasting, anorexia nervosa, ? He had a PET scan in May 2022 with no acute findings ? He has had multiple CT scans of abdomen pelvis, which showed pneumobilia, removal of his biliary stent, no other acute findings, ? He has had CTs of his chest without any acute findings, but did show emphysema he has had a cath in 2021, Mild disease in the left and descending artery and right coronary artery. Normal LV action fraction 55%.? LVEDP of 9 mmHg. -Has had an extensive work-up by endocrinology for his weight loss as outpatient with normal ACTH stimulation test,, ? It was recommended for him to have a PEG tube, however he has declined, ? He has had extensive GI work-up including colonoscopy endoscopy which according to patient has been normal, Plan -We will do further work-up for anorexia nervosa including sanhce[place] CT scan, no acute findings ? ESR, within normal limits ? HIV, within normal limits, hep C PCR pending, follow-up with infectious disease as outpatient ? CRP, Pro-Royal, within normal limits ? Blood cultures as he in the past grew staph epidermis and his blood, so far negative ? We will consider cardiac echo based upon blood cultures, ? Troponin series, BMP, lactic acid, within normal limits ? Will discuss with patient again about possible PEG tube placement, he is agreeable but wants to do a trial of medical therapy ? He has had multiple drug overdoses, he has severe depression, could have anorexia nervosa, related to severe depression,, consult psychiatry, ? Consider psychotropic medications, appetite stimulant, ? Strongly consider PEG tube placement if medical therapy does not improve his condition ? Monitor for refeeding syndrome, ? Consult PT OT, dietary, speech therapy ? Reviewed prior records, reviewed prior CT scans, reviewed prior PET scan, reviewed prior hospitalization, reviewed prior specialist notes, reviewed prior outpatient physicians notes Patient was seen this morning, he tells me that whenever he has received steroids in the past, that stimulated his appetite he does tell me that the Ritalin, and the Remeron has stimulated his appetite but he would like to try steroids, he denies any lightheadedness, dizziness, wants his [place] catheter removed, we discussed continue to watch him for refeeding syndrome his appetite is improving, he tells me that he wanted a hamburger yesterday,, the bloating and belching is minimal today, his phosphorus is 1, magnesium 1.9 potassium 3.4 we will have to replace calcium, is 8.6 Attestations Medical Necessity Statement*: Patient requires hospitalization for weight loss, monitoring for refeeding syndrome, weight loss, poor appetite, protein, nutrition, physical decondit ioning, muscle wasting, anorexia, , With hypokalemia, hypophosphatemia Diagnoses Narcotic overdose T40.601A Severe depression F32.2 Transaminitis R74.01 Urinary retention R33.9 Anorexia nervosa F50.00 Muscle wasting M62.50 Protein calorie malnutrition E46 Physical deconditioning R53.81
[2023-02-01] MEDS: magnesium lactate 84 mg Tablet PO (17:16)
[2023-02-01] MEDS: mirtazapine 15 mg Tablet PO (20:27)
[2023-02-02] MEDS: enoxaparin 40 mg/0.4 mL Syringe SUBCUT (01:32)
[2023-02-02] MEDS: lactated ringers 1,000 ML 50 ML IV (03:10)
[2023-02-02 03:34] VITALS: BP 116/74; PULSE 73; RESP 16; TEMP 36.6; O2SAT 96
[2023-02-02 05:00] LABS: Hematocrit 37.9 % (37-53); Lymphocytes # 0.6 10^3/uL (0.8-4.8); Lymphocytes % 7.7 %; Mean Corpuscular HGB Conc 33.8 g/dL (30-55); Mean Corpuscular Volume 91.8 fl (82-101); Mean Platelet Volume 9.3 fL (7.4-10.4); Monocytes # 0.6 10^3/uL (0.2-0.9); Monocytes % 8.1 %; Neutrophils # 6.32 10^3/uL (1.8-7.7); Neutrophils % 83.8 %; Nucleated Red Blood Cells % 0 %; Platelet Count 171 10^3/cmm (157-399); Red Blood Count 4.13 10^6/uL (3.85-5.65); Red Cell Distribution Width 13.1 % (12.1-15.1); White Blood Count 7.54 10^3/uL (3.29-11.43)
[2023-02-02 05:28] LABS: Alanine Aminotransferase 147 U/L (0-41); Albumin Level 3.8 g/dL (3.5-5.2); Alkaline Phosphatase 84 U/L (40-130); Anion Gap 11.9 (5-19); Aspartate Amino Transferase 22 U/L (0-40); Blood Urea Nitrogen 9 mg/dL (8-23); Carbon Dioxide 26 mmol/L (22-29); Chloride 108 mmol/L (98-107); Globulin 1.9 g/dL (1.3-4.6); Glucose 131 mg/dL (65-115); Magnesium 1.9 mg/dL (1.7-2.3); Osmolality Calculated 294 mOsm/kg (285-295); Phosphorus 2.4 mg/dL (2.5-4.5); Potassium 3.9 mmol/L (3.5-5.1); Sodium 142 mmol/L (136-145); Total Bilirubin 0.4 mg/dL (0.15-1.2); Total Protein 5.7 g/dL (6.6-8.7)
[2023-02-02] MEDS: ALPRAZolam 0.5 mg Tablet PO ×2 (06:17→11:45)
[2023-02-02 07:28] VITALS: BP 116/73; PULSE 82; RESP 16; TEMP 36.7; O2SAT 94
[2023-02-02 08:00] VITALS: PULSE 77; O2SAT 94
[2023-02-02] MEDS: polyethylene glycol 3350 Pkt 17 gm PO (08:34)
[2023-02-02] MEDS: methylphenidate 10 mg Tablet 5 MG PO (08:34)
[2023-02-02] MEDS: tamsulosin 0.4 mg Capsule PO (08:35)
[2023-02-02] MEDS: magnesium lactate 84 mg Tablet PO (08:35)
[2023-02-02] MEDS: phosphorus 250 mg Tablet PO (08:35)
[2023-02-02 11:09] VITALS: BP 136/74; PULSE 85; RESP 14; TEMP 36.4; O2SAT 98
--- NOTE | 2023-02-02 11:21 | PM.DCS ---
Discharge Providers Date of Admission: 01/29/23 23:23 Date of Discharge: February 02, 2023 Attending Provider at Admission: Sis Whitman MD Attending Provider at Discharge: Griffin Keane MD Primary Care Provider: SINA Gerardo Diagnoses at Discharge Discharge Diagnosis (1) Physical deconditioning: Status: Acute (2) Protein calorie malnutrition: Status: Acute (3) Muscle wasting: Status: Acute (4) Anorexia nervosa: Status: Acute (5) Urinary retention: Status: Acute (6) Narcotic overdose: Status: Acute (7) Drug overdose: Status: Acute (8) Severe alcohol use disorder, in sustained remission: Status: Acute (9) Major depressive disorder, severe: Status: Acute Reason for Visit Reason for Visit: AMS Hospital Course Hospital Course Michoacano Paulino is a 67 year old male who is brought to ER today with methadone overdose. Patient has had generaly deteriorating health for about 3 years now.? Patient states that all of his problems started about 3 to 4 years ago when he underwent a cholecystectomy.? Since then he has had excessive bloating, nausea vomiting and has been steadily losing weight.? He has previously had a biliary duct stent placed which did not appear to have helped with his symptoms.? He has also undergone a laparoscopic appendectomy which appears to have worsened all of his abdominal symptoms.? He has been evaluated by gastroenterology in [place] and also in [place] and per review of notes it appears he has had extensive GI work-up including colonoscopy and endoscopy, trial of [id number] enzyme supplements however nothing has really helped.? Patient continues to lose weight, he is malnourished with BMI down to 14.3.? It appears he was recommended to have a PEG placed to help with feeds and nutrition but he had declined the same previously.? He has been seen by neurology for tremors without a clear cause.? He has also seen endocrinology due to suspicion for hyperthyroidism, has been taken off methimazole with normal thyroid labs, has a normal ACTH stim test, recently performed PET scan is negative for any malignancy. Patient reports being severely depressed due to his overall failing health over the past 3 years.? He is also very upset about his 's failing health.? Just last week she was admitted here at [facility] with COPD exacerbation, has an end-stage COPD per his description, she was placed on hospice just last week.? Both of their failing health, inability to manage independently at home has added to his frustration. He has recently also started experiencing several joint pains including his shoulders hands legs and back.? He took leftover methadone from 6 years ago earlier this morning to help ease his pain.? Patient reports that when he was on a prescription methadone program he used to take up to 5 to 6 pills a day and today he estimated that he will take the same number of pills and do okay however now acknowledges that his body is probably not used to high doses of methadone anymore and he has lost a significant amount of weight since then.? He was initially brought into the emergency room this morning when he was lethargic, disoriented, he received Narcan with improvement in symptoms and was discharged home.? Upon reaching back home he took an additional 10 tablets of methadone to ease the pain and was brought back into the emergency room due to depressed mental status.? Again he is improved with regards to his mentation currently however states that he is feeling extremely nauseous has vomited several times during the course of the day and is generally not feeling well at all.? He is unable to tolerate any p.o. intake at this time. Transaminitis has increased from normal to > 700 This is a 67-year-old male, who presents to to [facility] for narcotic overdose, unintentional, monitored in the ICU, mentation improved with Narcan, psychiatry was consulted, denies any suicidal ideation, no plan, no homicidal ideation, does report severe depression, will be discharged on Remeron with a close follow-up with psychiatry provider as outpatient. Patient was advised that she have any suicidal ideation, or homicidal ideation, please call 911 or go to the emergency room For patient's severe protein calorie malnutrition, physical deconditioning, muscle wasting, anorexia nervosa, BMI 14.5, ? He was monitored as inpatient, for refeeding syndrome, discharged on electrolyte replacement therapy, ? Patient has had an extensive work-up for his work weight loss, ? Please look at my last progress note for further detail, ? I believe patient's weight loss is likely related to severe depression, we had an extensive discussion about medical therapy versus PEG tube placement for weight gain, patient agreed with medical therapy -patient was managed with methylphenidate, 5 milligrams once daily, with Remeron 15 mg at bedtime with Decadron ? He was monitored as inpatient, he had improved appetite, felt better, will be discharged on methylphenidate 5 mg once daily, with Remeron 15mg at bedtime, with Decadron, for 4 days, ? Patient must follow-up with a primary care provider as outpatient for weekly weight checks, ? If he continues to lose weight, or is a poor appetite, he will likely need a PEG tube placement, ? Follow-up with psychiatry providers as outpatient, ? Repeat electrolytes in 1 week through primary care provider to monitor for refeeding syndrome The patient did have transaminitis during his hospitalization likely secondary to nausea, vomiting, dehydration, continue to monitor electrolyte as outpatient Physical Exam Const: COMMON NORMALS: no acute distress and patient oriented x3 Resp: COMMON NORMALS: normal respiratory effort, No retractions, No use of accessory muscles and clear to auscultation bilaterally AUSCULTATION: clear to auscultation bilaterally Cardio: COMMON NORMALS: regular rate, regular rhythm, S1 normal heart sound present and S2 normal heart sound present RATE: regular rate RHYTHM: regular rhythm HEART SOUNDS: S1 normal heart sound present and S2 normal heart sound present GI: COMMON NORMALS: Normal to inspection, nondistended, normoactive bowel sounds present and non-tender Extremity: COMMON NORMALS: no pedal edema Neuro: COMMON NORMALS: patient oriented x3 Psych: COMMON NORMALS: mental status grossly normal Urinary Catheter Management: Coude: Cath Placed During This Visit: yes Reason for Continuing Indwelling Catheter: Acute Urinary Retention or Obstruction Urinary Catheter Date of Insertion: 01/30/23 Urinary Catheter Time of Insertion: 01:15 Discharge Data Studies Completed and Pending Completed Studies During Hospitalization Category Date Time Status CT abdomen pelvis w con* [id number] Routine Cat Scan 01/30/23 12:[address] chest wo con [id number] Routine Cat Scan 01/30/23 15:[address] head wo con* [id number] Routine Cat Scan 01/30/23 12:37 [place] liver [id number] Routine Ultrasound 01/30/23 02:54 Completed Pending at discharge Category Date Time Status AMA [Mitochondrial AB Screen] Stat Lab 01/30/23 13:35 Received OSIEL Profile Rheumatology Stat Lab 01/30/23 13:35 Received Blood Culture Stat Lab 01/30/23 13:41 Results Celiac Disease Diagniostic Alonzo Stat Lab 01/30/23 13:35 Received Complete Blood Count w/Auto AM LABS Lab 02/03/23 04:00 Ordered Comprehensive Metabolic Panel AM LABS Lab 02/03/23 04:00 Ordered Hepatitis C RNA Viral Load Qnt Routine Lab 01/30/23 16:01 Received Magnesium AM LABS Lab 02/03/23 04:00 Ordered Metals Acute Poisoning Panel Routine Lab 01/30/23 13:35 Received Phosphorus AM LABS Lab 02/03/23 04:00 Ordered Serum Drug Panel 7 Routine Lab 01/30/23 13:35 Received Radiology Impressions Liver Ultrasound 01/30/23 02:54 IMPRESSION: 1. There is slightly heterogeneous echogenicity of the liver along with slight periportal tracking and borderline bile ducts.This can be seen with steatosis as well as chronic hepatic changes. Consider hepatobiliary profile studies. 2. No interval free fluid collections are appreciated. Abdomen/Pelvis CT 01/30/23 12:20 IMPRESSION: 1. No evidence of abdominal or pelvic malignancy. 2. Multiple chronic findings as above. Head CT 01/30/23 12:37 IMPRESSION: No acute intracranial abnormality. Chest CT 01/30/23 15:26 IMPRESSION: 1. No evidence of malignancy within the chest. 2. COPD with marked emphysematous changes in stable small pulmonary nodule left lower lobe. COMMENTS: In the absence of a history or active diagnosis of lung cancer, it is recommended that this patient with emphysema be evaluated for enrollment in a low dose CT lung cancer screening program. Laboratory Results WBC 7.54 10^3/uL (3.29-11.43) 02/02/23 04:39 RBC 4.13 10^6/uL (3.85-5.65) 02/02/23 04:39 Hgb 12.80 g/dL (11.27-16.99) 02/02/23 04:39 Hct 37.9 % (37-53) 02/02/23 04:39 MCV 91.8 fl (82-101) 02/02/23 04:39 MCH 31.0 pg (27-33) 02/02/23 04:39 MCHC 33.8 g/dL (30-55) 02/02/23 04:39 RDW 13.1 % (12.1-15.1) 02/02/23 04:39 Plt Count 171 10^3/cmm (157-399) 02/02/23 04:39 MPV 9.3 fL (7.4-10.4) 02/02/23 04:39 Neut % (Auto) 83.8 % 02/02/23 04:39 Lymph % (Auto) 7.7 % 02/02/23 04:39 [place] % (Auto) 8.1 % 02/02/23 04:39 Eos % (Auto) 0.0 % 02/02/23 04:39 Baso % (Auto) 0.0 % 02/02/23 04:39 Neut # (Auto) 6.32 10^3/uL (1.8-7.7) 02/02/23 04:39 Lymph # (Auto) 0.6 10^3/uL (0.8-4.8) L 02/02/23 04:39 [place] # (Auto) 0.6 10^3/uL (0.2-0.9) 02/02/23 04:39 Eos # (Auto) 0.0 10^3/uL (0.0-0.8) 02/02/23 04:39 Baso # (Auto) 0.0 10^3/uL (0.0-0.1) 02/02/23 04:39 Nucleated RBC % (auto) 0 % 02/02/23 04:39 Nucleated RBCs # 0.0 /100WBC 02/02/23 04:39 ESR < 1 mm/hr (0-10) 01/30/23 13:35 PT 15.50 SECONDS (12.1-14.9) H 01/30/23 13:35 INR 1.19 (0.8-1.2) 01/30/23 13:35 Sodium 142 mmol/L (136-145) 02/02/23 04:39 Potassium 3.9 mmol/L (3.5-5.1) 02/02/23 04:39 Chloride 108 mmol/L (98-107) H 02/02/23 04:39 Carbon Dioxide 26 mmol/L (22-29) 02/02/23 04:39 Anion Gap 11.9 (5-19) 02/02/23 04:39 BUN 9 mg/dL (8-23) 02/02/23 04:39 Creatinine 0.3 mg/dL (0.7-1.2) L 02/02/23 04:39 GFR Calculation 300.0 mL/min (90-130) H 02/02/23 04:39 Glucose 131 mg/dL (65-115) H 02/02/23 04:39 POC Glucose 114 mg/dL (70-110) H 01/30/23 00:35 Calculated Osmolality 294 mOsm/kg (285-295) 02/02/23 04:39 Lactic Acid 1.7 mmol/L (0.5-2.2) 01/30/23 13:35 Calcium 9.0 mg/dL (8.5-10.5) 02/02/23 04:39 Phosphorus 2.4 mg/dL (2.5-4.5) L 02/02/23 04:39 Magnesium 1.9 mg/dL (1.7-2.3) 02/02/23 04:39 Total Bilirubin 0.4 mg/dL (0.15-1.2) 02/02/23 04:39 GGT 148 U/L (8-61) H 01/30/23 13:35 AST 22 U/L (0-40) 02/02/23 04:39 ALT 147 U/L (0-41) H 02/02/23 04:39 Alkaline Phosphatase 84 U/L (40-130) 02/02/23 04:39 Ammonia 47 umol/L (16-60) 01/30/23 13:35 Troponin T Baseline 26 ng/L (0-15) H 01/30/23 13:35 Troponin T 120 Minute 23.99 ng/L (0-15) H 01/30/23 15:28 Delta Troponin T -2.01 ABS# (0-10) L 01/30/23 15:28 Troponin T Hi Sens 6Hr 24.65 ng/L (0-15) H 01/30/23 19:38 Troponin T Hi Sens 6Hr Delta -1.35 ng/L (0-12) L 01/30/23 19:38 C-Reactive Protein 8.7 mg/L (0.0-4.9) H 01/30/23 13:35 Total Protein 5.7 g/dL (6.6-8.7) L 02/02/23 04:39 Albumin 3.8 g/dL (3.5-5.2) 02/02/23 04:39 Globulin 1.9 g/dL (1.3-4.6) 02/02/23 04:39 Amylase 103 U/L (28-100) H 01/30/23 13:35 Lipase 16 U/L (13-60) 01/30/23 13:35 Procalcitonin 3.53 ng/mL (0-0.5) H 01/30/23 13:35 TSH 1.84 uIU/mL (0.27-4.20) 01/30/23 13:35 Free T4 1.61 ng/dL (0.82-1.77) 01/30/23 13:35 Free T3 2.6 PG/ML (2.0-4.4) 01/30/23 13:35 Total Testosterone 49.0 ng/dL (193-740) L 01/30/23 13:35 PTH Intact 30.9 pg/mL (15-65) 01/30/23 13:35 Calcium (PTH Intact) 8.9 mg/dL (8.5-10.5) 01/30/23 13:35 Random Cortisol 27.81 ug/dL (2.47-19.5) H 01/30/23 13:35 Urine Color Yellow (Yellow) 01/30/23 13:41 Urine Appearance Hazy (CLEAR) A 01/30/23 13:41 Urine pH 5 (5-7) 01/30/23 13:41 Ur Specific [place] 1.025 (1.005-1.030) 01/30/23 13:41 Urine Protein Neg (Negative) 01/30/23 13:41 Urine Glucose (UA) Norm (Normal) 01/30/23 13:41 Urine Ketones Negative (Negative) 01/30/23 13:41 Urine Blood 3+ (Negative) H 01/30/23 13:41 Urine Nitrate Negative (Negative) 01/30/23 13:41 Urine Bilirubin Neg (Negative) 01/30/23 13:41 Urine Urobilinogen Norm mg/dL (Negative) 01/30/23 13:41 Ur Leukocyte Esterase Negative (Negative) 01/30/23 13:41 Urine RBC 0-4 /hpf (0-2) H 01/30/23 13:41 Urine WBC 5-10 /hpf (0-5) H 01/30/23 13:41 Ur Squamous Epith Cells None /hpf (0-5) 01/30/23 13:41 Amorphous Sediment Not Reportable 01/30/23 13:41 Urine Bacteria 1+ /hpf (NONE) H 01/30/23 13:41 Coarse Granular Casts 15-25 /lpf H 01/30/23 13:41 Urine Sperm 1+ /hpf 01/30/23 13:41 Urine Opiates Screen Negative ng/mL (Negative) 01/30/23 13:41 Ur Barbiturates Screen Negative ng/mL (Negative) 01/30/23 13:41 Ur Phencyclidine Scrn Negative ng/mL (Negative) 01/30/23 13:41 Ur Amphetamines Screen Negative ng/mL (Negative) 01/30/23 13:41 U Benzodiazepines Scrn Positive ng/mL (Negative) H 01/30/23 13:41 Urine Cocaine Screen Negative ng/mL (Negative) 01/30/23 13:41 U Marijuana (THC) Screen Negative ng/mL (Negative) 01/30/23 13:41 Ethyl Alcohol < 10 mg/dL (0-10) 01/29/23 21:14 Hepatitis A IgM Ab Non-reactive (Nonreactive) 01/30/23 13:35 Hep Bs Antigen Non-reactive (Nonreactive) 01/30/23 13:35 Hep B Core IgM Ab Non-reactive (Nonreactive) 01/30/23 13:35 Hepatitis C Antibody Reactive (Nonreactive) H 01/30/23 13:35 HIV 1&2 Ab & HIV 1 Ag Non-reactive (Non-Reactiv) 01/30/23 13:35 HIV 1&2 Antibody Non-reactive (Non-Reactiv) 01/30/23 13:35 Vitals Last Vital Signs Temp 97.6 F 02/02/23 11:09 Pulse 85 02/02/23 11:09 Resp 14 02/02/23 11:09 BP 136/74 02/02/23 11:09 Pulse Ox 98 02/02/23 11:09 O2 Del Method Room Air 02/02/23 11:09 O2 Flow Rate 2.5 01/31/23 20:56 Discharge Plan Discharge Patient Disposition: Home Condition: Stable Prescriptions: New methylphenidate HCl 10 mg Tablet 5 mg PO Q24H 30 Days Qty: 15 0RF mirtazapine 15 mg Tablet 15 mg PO BEDTIME 30 Days Qty: 30 0RF Phospha 250 Neutral 250 mg Tablet 250 mg PO DAILY 30 Days Qty: 30 0RF dexamethasone 0.5 mg/5 mL elixir 5 mg PO DAILY 5 Days Qty: 200 0RF tamsulosin 0.4 mg Capsule 0.4 mg PO DAILY 30 Days Qty: 30 0RF magnesium L-lactate [Magtab] 84 mg Tablet Extended Release 84 mg PO BID 30 Days Qty: 60 0RF potassium chloride [K-Tab] 10 mEq tablet extended release 10 meq PO DAILY 30 Days Qty: 30 0RF simethicone [Gas Relief 80 (simethicone)] 80 mg tablet,chewable 80 mg PO BID PRN (Reason: abdominal distention) 30 Days Qty: 60 0RF Continued alprazolam [Xanax] 0.5 mg tablet 0.5 mg PO QID Qty: 120 2RF naloxone [Narcan] 4 mg/actuation spray,non-aerosol 4 mg intranasal Q2M PRN (Reason: opioid overdose) Qty: 2 0RF Rx Instructions: spray 1 dose into ONE nostril; alternate nostrils w each dose until help arrives Discontinued sucralfate [Carafate] 1 gram tablet 1 g PO TID Qty: 30 0RF Discharge Orders: Discharge Order (Routine); Ordered 02/02/23 Ordered By: Griffin Keane Referrals: Ryan Kaminski MD [Physician] - 1-3 days Cecille Estrada FNP [Primary Care Provider] - Discharge Diet: Regular Discharge Activity: Resume usual activity Patient Instructions: Opioid Safety Activity Restrictions/Additional Instructions: - Please slowly advance diet ? Please use methylphenidate as prescribed, if you have any chest pain or palpitations please go to emergency room ? Please follow-up with primary care provider for recheck electrolytes in 1 week, ? Please follow-up with psychiatry in 1 week, ? If you have any suicidal or homicidal ideation, please call 911 or go to the emergency room, ? Discharge Attestations Time Spent in Discharge Care*: greater than 30 min Status at Discharge: Cognitive status at discharge: cognitively intact, Behavioral status at discharge: cooperative and independent in ADL's, Quality Metrics Clinical Quality Measures [ No reported AMI, CVA or VTE this stay] Coding Level of Care Code 47868 Total time (in minutes) for Discharge: 45 Diagnoses Physical deconditioning R53.81 Protein calorie malnutrition E46 Muscle wasting M62.50 Anorexia nervosa F50.00 Urinary retention R33.9 Narcotic overdose T40.601A Drug overdose T50.901A Severe alcohol use disorder, in sustained remission F10.21 Major depressive disorder, severe F32.2
[2023-02-02 12:35] VITALS: BP 136/74; PULSE 85; RESP 14; TEMP 36.4; O2SAT 98
--- NOTE | 2023-02-02 12:36 | PC.NURSE ---
Discharge instructions provided to pt No questions at this time. Pt to private vehicle via wheelchair with all belongings.
[2023-02-02 13:30] LABS: HEP C RNA Viral Load Quant <1.18 NOT DETECTED Log IU/mL (NOT DETECTED); HEP C RNA Viral Load Quant <15 NOT DETECTED IU/mL (NOT DETECTED)
[2023-02-02 15:09] LABS: CENTROMERE B ANTIBODY <1.0 NEG AI (<1.0 NEG); JO-1 ANTIBODY <1.0 NEG AI (<1.0 NEG); RNP ANTIBODY <1.0 NEG AI (<1.0 NEG); SCL-70 ANTIBODY <1.0 NEG AI (<1.0 NEG); SJOGREN'S ANTIBODY (SS-A) <1.0 NEG AI (<1.0 NEG); SM ANTIBODY <1.0 NEG AI (<1.0 NEG); SS-B <1.0 NEG AI (<1.0 NEG)
[2023-02-02 15:25] LABS: ANA SCREEN, IFA NEGATIVE (NEGATIVE)
[2023-02-02 18:05] LABS: Immunoglobulin A 199 mg/dL (70-320)
[2023-02-04 01:29] LABS: Amphetamine negative; Barbiturates negative; Benzodiazepines negative; Cocaine Metabolites negative; Marijuana(Tetrahydrocannabino) negative; Opiates negative; PCP (Phencyclidine) negative
[2023-02-04 03:20] LABS: Gliadin Ab.IgA <1.0 U/mL; Gliadin Ab.IgG <1.0 U/mL
[2023-02-04 03:35] LABS: Tissue Transglutaminase IgA Ab <1.0 U/mL; Tissue transglutaminase Ab.IgG <1.0 U/mL
[2023-02-04 11:34] LABS: THYROID PEROXIDASE ANTIBODIES 1 IU/mL (<9)
[2023-02-08 10:59] LABS: DNA AB (DS) CRITHIDIA,IFA NEGATIVE (NEGATIVE)
[2023-02-12 16:33] LABS: Metal Acute Poison Antimony 1.8 mcg/L; Metal Acute Poison Arsenic None Detected mcg/L; Metal Acute Poison Bismuth None Detected mcg/L; Metal Acute Poison Copper 62 mcg/dL; Metal Acute Poison Mercury None Detected mcg/L; Metal Acute Poison Molybden None Detected mcg/L; Metal Acute Poison Nickel (B) None Detected mcg/L; Metal Acute Poison Selenium 150 mcg/L; Metal Acute Poison Tellurium None Detected mcg/L; Metal Acute Poison Zinc 570 mcg/dL; Metal Acute Poisoning Cadmium 0.51 mcg/L; Metal Acute Poisoning Chromium None Detected mcg/L; Metal Acute Poisoning Cobalt None Detected mcg/L
== END 2023-02-02 12:39 | disposition home or self-care (01) | DRG 917 ==
LOC: ER 23:35 → ICU 23:48 → MEDSURG 01-31 14:21
PROVIDERS: Admitting Provider Student in an Organized Health Care Education/Training Program; Emergency Provider Internal Medicine; PCP Nurse Practitioner; Visit Provider Family Medicine
DX: T40.3X1A Poisoning by methadone, accidental (unintentional), initial encounter (principal); E43 Unspecified severe protein-calorie malnutrition; Z68.1 Body mass index [BMI] 19.9 or less, adult; F50.00 Anorexia nervosa, unspecified; F33.9 Major depressive disorder, recurrent, unspecified; R33.9 Retention of urine, unspecified; F10.21 Alcohol dependence, in remission; R25.1 Tremor, unspecified; E86.0 Dehydration; Z87.891 Personal history of nicotine dependence; E87.6 Hypokalemia; Y92.019 Unspecified place in single-family (private) house as the place of occurrence of the external cause
CPT/HCPCS: 36415; 36416; 51702; 70450; 71250; 74177; 76705; 80048; 80053; 80074; 80306; 80307; 81001; 82140; 82150; 82175; 82300; 82310; 82495; 82525; 82533; 82784; 82962; 82977; 83018; 83516; 83605; 83690; 83735; 83825; 83885; 83970; 84100; 84145; 84255; 84403; 84439; 84443; 84481; 84484; 84630; 85025; 85610; 85651; 86140; 86160; 86162; 86235; 86255; 86376; 87040; 87086; 87522; 87806; 92507; 92526; 92610; 93005; 96360; 96372; 97110; 97161; 97167; 97530; 99285; J1100; J1200; J1650; J2405; J2765; J7120; J8540; Q9967

== ENCOUNTER → 2023-02-05 10:36 | Outpatient (BNVA) | payer OTHER, SELFPAY | PROVIDERS: PCP Nurse Practitioner; Visit Provider Specialist | DX: G62.89 Other specified polyneuropathies (principal); M25.512 Pain in left shoulder; M79.602 Pain in left arm; R20.2 Paresthesia of skin; R20.0 Anesthesia of skin | CPT/HCPCS: 95910; 95911 ==

== ENCOUNTER 2023-03-04 07:46 | Outpatient (CLI) | payer OTHER, SELFPAY ==
--- NOTE | 2023-03-04 | USCV_ITS ---
Michoacano Paulino Age: 67 Gender: M : 1955 Exam Date: 03/04/2023 08:03 Ordering Phys: Cecille Estrada Technologist: DILLAN [place] [facility] [place] HISTORY: Diameter (cm) AP x Transverse x Length Velocity (cm/s) Waveform Prox Aorta: 2.40 x 2.28 x 52.90 Triphasic Mid Aorta: 1.63 x 2.04 x 31.60 Triphasic Distal Aorta: 1.37 x 1.40 x 34.60 Triphasic Right Iliac Prox: 0.71 x 0.90 x 89.20 Triphasic Left Iliac Prox: 0.73 x 0.97 x 63.60 Triphasic Stent Prox Landing x x Aneurysmal Sac Max x x Lt Lat Sac Dim Rt Lat Sac Dim Stent Dist Landing x x Right Iliac Stent x x Left Iliac Stent x x Right Renal Art Left Renal Art FINDINGS: Comparison: none available. Ectatic abdominal aorta with evidence of atherosclerotic plaque noted. No evidence of abdominal aortic aneurysm. There is evidence of atherosclerotic plaque no significan stenosis in the right common iliac artery. There is evidence of atherosclerotic plaque no significan stenosis in the left common iliac artery. CONCLUSIONS No evidence of abdominal aortic or bilateral iliac aneurysm. Dr. Marion Zayas DO (Electronically Signed) Final Date: 04 March 2023 09:37 S
== END 2023-03-04 07:47 | disposition home or self-care (01) ==
LOC: RAD 07:46
PROVIDERS: PCP Nurse Practitioner; Visit Provider Nurse Practitioner
DX: Z13.6 Encounter for screening for cardiovascular disorders (principal)
CPT/HCPCS: 76706

== ENCOUNTER 2023-08-06 15:12 | Emergency (ER) | payer OTHER, SELFPAY ==
[2023-08-06 15:19] VITALS: BP 107/77; PULSE 92; RESP 18; TEMP 37; O2SAT 96; BMI 13.9
[2023-08-06 16:16] LABS: Basophils # 0.1 10^3/uL (0.0-0.1); Basophils % 0.8 %; Eosinophils % 0.1 %; Hematocrit 47.2 % (37-53); Lymphocytes # 0.8 10^3/uL (0.8-4.8); Lymphocytes % 10.7 %; Mean Corpuscular HGB Conc 33.3 g/dL (30-55); Mean Corpuscular Volume 93.3 fl (82-101); Mean Platelet Volume 8.6 fL (7.4-10.4); Monocytes # 0.3 10^3/uL (0.2-0.9); Monocytes % 4.4 %; Neutrophils # 6.09 10^3/uL (1.8-7.7); Neutrophils % 83.7 %; Nucleated Red Blood Cells % 0 %; Platelet Count 289 10^3/cmm (157-399); Red Blood Count 5.06 10^6/uL (3.85-5.65); Red Cell Distribution Width 12.3 % (12.1-15.1); White Blood Count 7.28 10^3/uL (3.29-11.43)
[2023-08-06 16:33] LABS: Alanine Aminotransferase 10 U/L (0-41); Albumin Level 4.1 g/dL (3.5-5.2); Alkaline Phosphatase 64 U/L (40-130); Anion Gap 14.5 (5-19); Aspartate Amino Transferase 9 U/L (0-40); Blood Urea Nitrogen 10 mg/dL (8-23); Calcium 9.7 mg/dL (8.5-10.5); Carbon Dioxide 28 mmol/L (22-29); Chloride 101 mmol/L (98-107); Creatinine Clr Calc Pharmacy 53.6115; Globulin 3.5 g/dL (1.3-4.6); Glomerular Filtration Rate 96.7 mL/min (90-130); Glucose 125 mg/dL (65-115); Lipase 16 U/L (13-60); Osmolality Calculated 289 mOsm/kg (285-295); Potassium 4.5 mmol/L (3.5-5.1); Sodium 139 mmol/L (136-145); Total Bilirubin 0.3 mg/dL (0.15-1.2); Total Protein 7.6 g/dL (6.6-8.7)
--- NOTE | 2023-08-06 16:36 | CTR_ITS ---
PROCEDURE INFORMATION: Exam: CT Abdomen And Pelvis With Contrast Exam date and time: 08/06/2023 5:04 PM Age: 67 years old Clinical indication: Abdominal pain; Tenderness; Right; Prior surgery; Surgery date: 6+ months; Surgery type: Gb, appy, R hip; Patient HX: 40 lbs weight loss, frequent falls; Additional info: Abd pain TECHNIQUE: Imaging protocol: Computed tomography of the abdomen and pelvis with contrast. Radiation optimization: All CT scans at this facility use at least one of these dose optimization techniques: automated exposure control; mA and/or kV adjustment per patient size (includes targeted exams where dose is matched to clinical indication); or iterative reconstruction. Contrast material: OMNI 350; Contrast volume: 80 ml; Contrast route: INTRAVENOUS (IV); COMPARISON: CT abdomen pelvis w con* [id number] 01/30/2023 3:45 PM RADIATION DOSE METRICS: Total DLP (mGy-cm): 291.33 FINDINGS: Lungs: Severe emphysematous changes. Liver: Unchanged multiple liver cysts. Gallbladder and bile ducts: There has been a cholecystectomy. There is pneumobilia. Unchanged 1 cm dilated common bile duct. Pancreas: The pancreas is normal. Spleen: Spleen is normal in size. Multiple calcified granulomas are noted. Adrenal glands: The adrenal glands are normal. Kidneys and ureters: There is no evidence of hydronephrosis. There is no evidence of renal calcifications. There are multiple renal hypodensities that cannot be further characterized on the current examination. Stomach and bowel: There is no evidence of intestinal perforation or obstruction. There is moderate to severe diffuse excessive colonic stool content. There is no evidence of colitis/diverticulitis. Appendix: There has been an appendectomy. Intraperitoneal space: Unremarkable. No free air. No significant fluid collection. Vasculature: The aorta is normal. Lymph nodes: Unremarkable.No enlarged lymph nodes. Urinary bladder: There is nonspecific bladder wall thickening. This may be related to incomplete distention. Reproductive: The prostate demonstrates moderate nonspecific enlargement. The seminal vesicles are normal. Bones/joints: Satisfactory appearance of the right hip arthroplasty. No acute bony abnormality. Bone infarct versus intraosseous hemangioma in the left iliac wing with surrounding fat density. Soft tissues: There is diffuse induration of the subcutaneous fat and mesenteric fat compatible with anasarca type changes. There is interval progression of cachexia with extensive anatomic crowding. CT/CT abdomen pelvis w con* [id number] IMPRESSION: 1. No mass or adenopathy. No acute abnormality in the abdomen or pelvis. 2. Interval progression of cachexia. Anasarca type changes. 3. Moderate to severe constipation. 4. Severe emphysematous changes in the lungs. COMMENTS: Consistent with the [employer]'s Incidental Findings Committee white paper (J Am Nabor Radiol 2018): Any incidental renal lesion less than 1 cm or classified as too small to characterize, or any incidental cystic renal lesion characterized as simple-appearing, is likely benign. No follow-up imaging is recommended for these lesions per consensus recommendations based on imaging criteria.
--- NOTE | 2023-08-06 16:37 | ED_ITS ---
HPI - Abdominal Pain 2 General: Chief Complaint: Abdominal Pain Stated Complaint: sent by Dr. Natalie abd pain Time Seen by Provider: 08/06/23 16:33 Source: patient Mode of arrival: ambulatory Limitations: no limitations History of Present Illness: 67-year-old male states he had his feedi ng tube removed 6 days ago. He states when they removed it they did not deflate the cuff and pulled twice really hard to get it out he states that since then he had severe pain at the site. [facility] sure it Jessica [facility] and wanted a CT scan done. Said some nausea denies any vomiting denies any fevers. Associated Symptoms: Denies chills, diarrhea, fever(s), nausea and vomiting Review of Systems 2 Const: Denies: fever(s), chills, body aches or change in appetite ENMT: Denies: throat pain or dental pain Card: Denies: chest pain Resp: Denies: dyspnea GI: Reports: abdominal pain; Denies: nausea, vomiting or diarrhea Musc: Denies: neck pain or back pain Skin/Breast: Denies: rash Neuro: Denies: headache(s) PFSH ED 2 PFSH: Medical History (Updated 08/06/23 @ 17:30 by Amy Juarez MD) Muscle wasting Psychiatric care Polysubstance abuse Suicidal overdose Hepatitis C Drug overdose Endotracheally intubated Unresponsiveness Physical deconditioning Nausea and vomiting Gastritis Chronic epigastric pain Surgical History History of laparoscopic cholecystectomy History of hip replacement, total Right History of bilateral carpal tunnel release History of circumcision History of esophagogastroduodenoscopy (EGD) (02/26/17) Reflux, esophagitis, Gastritis History of knee replacement Right History of colonoscopy Normal repeat in 10 years Family History Grandfather Cancer Grandmother Cancer Grandmother Cancer Grandfather Cancer Family/Other Cancer Son Diabetes Father Suicide Brother Suicide Denies family history of CAD (coronary artery disease) Clotting disorder Dementia Chronic kidney disease (CKD) Anesthesia complication Bleeding disorder Lung disease Stroke Social History Smoking and tobacco/nicotine status: current some day tobacco/nicotine user Second hand smoke exposure: No Alcohol intake: former Substance/Drug Use: never Adopted: No Caregiver/support person: Yes Lives independently: Yes Household members: spouse Housing: House Marital status: Highest education level completed: High School Graduate service: No Current occupational status: disabled Current occupational exposures/hazards: No Pets and animals: No Leisure activites: exercise Sexually active: Yes Do you think of yourself as: Straight/Heterosexual Current gender identity: Male and Female Verito/Uatsdin: Advent Special verito needs: No Agree to transfusion: No Physical Exam 2 Const: COMMON NORMALS: patient oriented x3 and healthy appearing HENMT: COMMON NORMALS: normocephalic and atraumatic HEAD & SCALP: n ormocephalic and atraumatic Eye: COMMON NORMALS: conjunctivae normal CONJUNCTIVA: Yes conjunctivae normal Neck/C-Spine: COMMON NORMALS: full ROM and supple Chest: COMMONS NORMALS: normal inspection of the chest Resp: COMMON NORMALS: normal respiratory effort Cardio: COMMON NORMALS: regular rate RATE: regular rate GI: COMMON NORMALS: Normal to inspection, nondistended, normoactive bowel sounds present, Soft to palpation, non-tender and no masses PALPATION: Yes Soft to palpation OTHER: Site with feeding tube is well-appearing no erythema no drainage Extremity: COMMON NORMALS: normal to inspection and full ROM Neuro: COMMON NORMALS: patient oriented x3, moves all extremities and no focal motor deficits Psych: COMMON NORMALS: mental status grossly normal, Normal thought process present and cooperative THOUGHT PROCESS: Normal thought process present Skin: COMMON NORMALS: no rashes or lesions noted and no wounds GENERAL SKIN EXAM: no rashes or lesions noted Course 2 Vital Signs: Vital signs: Vital Signs Temperature 98.6 F 08/06/23 15:19 Pulse Rate 92 08/06/23 15:19 Respiratory Rate 18 08/06/23 15:19 Blood Pressure 107/77 08/06/23 15:19 Pulse Oximetry 96 08/06/23 15:19 Oxygen Delivery Me thod Room Air 08/06/23 15:19 MDM - Abdominal Pain Medical Decision Making Patient presents with abdominal pain is likely from his feeding tube removal imaging blood work here is all normal he is stable for discharge he is follow-up with PCP and return if worsening he understands agrees plan Medical Records I reviewed the patient's medical records. Lab Data I reviewed the patient's lab results. 08/06/23 15:56 08/06/23 15:56 Labs/Radiology: Radiology Impressions Abdomen/Pelvis CT 08/06/23 16:36 IMPRESSION: 1. No mass or adenopathy. No acute abnormality in the abdomen or pelvis. 2. Interval progression of cachexia. Anasarca type changes. 3. Moderate to severe constipation. 4. Severe emphysematous changes in the lungs. COMMENTS: Consistent with the [place] [employer]'s Incidental Findings Committee white paper (J Am Nabor Radiol 2018): Any incidental renal lesion less than 1 cm or classified as too small to characterize, or any incidental cystic renal lesion characterized as simple-appearing, is likely benign. No follow-up imaging is recommended for these lesions per consensus recommendations based on imaging criteria. Laboratory Results WBC 7.28 10^3/uL (3.29-11.43) 08/06/23 15:56 RBC 5.06 10^6/uL (3.85-5.65) 08/06/23 15:56 Hgb 15.70 g/dL (11.27-16.99) 08/06/23 15:56 Hct 47.2 % (37-53) 08/06/23 15:56 MCV 93.3 fl (82-101) 08/06/23 15:56 MCH 31.0 pg (27-33) 08/06/23 15:56 MCHC 33.3 g/dL (30-55) 08/06/23 15:56 RDW 12.3 % (12.1-15.1) 08/06/23 15:56 Plt Count 289 10^3/cmm (157-399) 08/06/23 15:56 MPV 8.6 fL (7.4-10.4) 08/06/23 15:56 Neut % (Auto) 83.7 % 08/06/23 15:56 Lymph % (Auto) 10.7 % 08/06/23 15:56 Hickman % (Auto) 4.4 % 08/06/23 15:56 Eos % (Auto) 0.1 % 08/06/23 15:56 Baso % (Auto) 0.8 % 08/06/23 15:56 Neut # (Auto) 6.09 10^3/uL (1.8-7.7) 08/06/23 15:56 Lymph # (Auto) 0.8 10^3/uL (0.8-4.8) 08/06/23 15:56 Hickman # (Auto) 0.3 10^3/uL (0.2-0.9) 08/06/23 15:56 Eos # (Auto) 0.0 10^3/uL (0.0-0.8) 08/06/23 15:56 Baso # (Auto) 0.1 10^3/uL (0.0-0.1) 08/06/23 15:56 Nucleated RBC % (auto) 0 % 08/06/23 15:56 Nucleated RBCs # 0.0 /100WBC 08/06/23 15:56 Sodium 139 mmol/L (136-145) 08/06/23 15:56 Potassium 4.5 mmol/L (3.5-5.1) 08/06/23 15:56 Chloride 101 mmol/L (98-107) 08/06/23 15:56 Carbon Dioxide 28 mmol/L (22-29) 08/06/23 15:56 Anion Gap 14.5 (5-19) 08/06/23 15:56 BUN 10 mg/dL (8-23) 08/06/23 15:56 Creatinine 0.8 mg/dL (0.7-1.2) 08/06/23 15:56 GFR Calculation 96.7 mL/min (90-130) 08/06/23 15:56 Glucose 125 mg/dL (65-115) H 08/06/23 15:56 Calculated Osmolality 289 mOsm/kg (285-295) 08/06/23 15:56 Calcium 9.7 mg/dL (8.5-10.5) 08/06/23 15:56 Total Bilirubin 0.3 mg/dL (0.15-1.2) 08/06/23 15:56 AST 9 U/L (0-40) 08/06/23 15:56 ALT 10 U/L (0-41) 08/06/23 15:56 Alkaline Phosphatase 64 U/L (40-130) 08/06/23 15:56 Total Protein 7.6 g/dL (6.6-8.7) 08/06/23 15:56 Albumin 4.1 g/dL (3.5-5.2) 08/06/23 15:56 Globulin 3.5 g/dL (1.3-4.6) 08/06/23 15:56 Lipase 16 U/L (13-60) 08/06/23 15:56 All radiology interpretation(s) finalized by discharge Discharge Plan Discharge Patient Disposition: Home Clinical Impression: Abdominal pain Condition: Stable Prescriptions: New hydrocodone-acetaminophen 5-325 mg tablet 1 tab PO Q6H PRN (Reason: pain) Qty: 14 0RF No Action tamsulosin [Flomax] 0.4 mg capsule 0.4 mg PO DAILY alprazolam 0.5 mg tablet 0.5 mg PO TID Qty: 90 2RF naloxone [Narcan] 4 mg/actuation spray,non-aerosol 4 mg intranasal Q2M PRN (Reason: opioid overdose) Qty: 2 0RF Rx Instructions: spray 1 dose into ONE nostril; alternate nostrils w each dose until help arrives Discharge Orders: Discharge ED (Routine); Ordered 08/06/23 Ordered By: Amy Juarez Referrals: Cecille Estrada FNP [Primary Care Provider] - 1-3 days Discharge Diet: Advance as tolerated Discharge Activity: Resume usual activity Patient Instructions: Abdominal Pain (ED), Opioid Safety Coding Level of Care Code ED Avionics Manager for Dawood Pina
[2023-08-06] MEDS: iohexol 350 mg/mL 500 mL Btl (per mL) IV (17:05)
== END 2023-08-06 18:05 | disposition home or self-care (01) ==
PROVIDERS: Emergency Provider Emergency Medicine; PCP Nurse Practitioner
DX: R10.9 Unspecified abdominal pain (principal); Z72.0 Tobacco use; Z86.19 Personal history of other infectious and parasitic diseases
CPT/HCPCS: 36415; 74177; 80053; 83690; 85025; 99285; Q9967

== ENCOUNTER 2024-12-09 11:52 | Emergency (ER) | payer OTHER, SELFPAY ==
--- OUTSIDE RECORDS SUMMARY | 2024-12-09 12:00 | XMS_ITS | Clinical Summary ---
Author Organization [facility] Address [address] [place] [address] Phone Care Team Providers Care Herb Digger Name Role Phone Unavailable Primary Care Provider Unavailabl e Allergies Active Allergy Reactions Criticality Noted Date Comments Codeine Rash High 07/12/2021 Penicillins Hives High 07/12/2021 Medications ALPRAZolam (XANAX) 1 mg tablet Take 1 mg by mouth 3 times daily as needed for Anxiety. Active naloxone (NARCAN) 4 mg/spray [place], Non-Aerosol EMERGENCY USE ONLY: Administer 1 spray (4 mg) in one nostril one time. May repeat in alternating nostrils every 2-3 min until responsive or EMS arrives. 2 Each 3 2 Active morphine (MS IR) 15 mg tabletIndication s:Acute appendicitis with localized peritonitis, unspecified whether abscess present, unspecified whether gangrene present, unspecified whether perforation present Take 1 Tablet (15 mg) by mouth every 8 hours as needed for Pain. Max Daily Amount: 45 mg 20 Tablet 2 Active Active Problems Problem Noted Date Diagnosed Date Acute appendicitis with localized peritonitis Social History Tobacco Use Types Packs/Day Years Used Date Smoking Tobacco: Former Cigarettes Q uit: 03/29/1992 Smokeless Tobacco: Never Alcohol Use Standard Drinks/Week Comments Not Currently 0 (1 standard drink = 0.6 oz pur e alcohol) Sex and Gender Information Value Date Recorded Sex Assigned at Not on file Legal Sex Male 2:49 PM CDT Gender Identity Not on file Sexual Orientation Not on file Last Filed Vital Signs Vital Sign Reading Time Taken Comments Blood Pressure 116/74 07/12/2021 12:00 PM CDT Pulse 70 07/12/2021 12:00 PM CDT Temperature 36.6 C (97.9 F) 07/12/2021 12:00 PM CDT Respiratory Rate 17 07/12/2021 12:00 PM CDT Oxygen Saturation 99% 07/12/2021 12:00 PM CDT Inhaled Oxygen Concentration - - Weight 48.2 kg (106 lb 3.2 oz) 07/12/2021 4:18 A M CDT Height 172.7 cm (5' 8 ) 07/12/2021 1:24 AM CDT Body Mass Index 16.15 07/12/2021 1:24 AM CDT Plan of Treatment Health Maintenance Due Date Last Done Comments DTAP/TDAP/TD VACCINES (1 - Tdap) 09/03/1975 COLORECTAL SCREENING 2001 Colorectal Cancer Screening 2001 FIT-DNA Q 3 years 2001 FIT/FOBT Q 1 year 2001 Flex Sig/CT Colonography Q 5 years 2001 PNEUMOCOCCAL VACCINE 50+ YEARS (1 of 1 - PCV) 09/03/19 07 ZOSTER VACCINE (1 of 2) 2006 INFLUENZA VACCINE (#1) 2024 RSV VACCINE (60+ or ) (1 - 1-dose 75+ series) 09/03/2031 Medical Devices Implanted Type Area Printed Circuit Layout Taper Device Identifier Shelf Expiration Date Model / Serial / Lot Loading Machine Tool Setter Ligamax Endo Multi Clip 5mm El5ml - [id number] Implanted:Qty: 1 on 07/12/2021 by Ryan Barrios Jr., MD at [facility] Clip N/A: Abdomen [employer]- [employer] [id number] 05/26/2026 [id number] / / [id number] Insurance [facility] [employer] [address] [place] [address] Advance Directives For more information, please contact: [phone] * Full Code (Latest Code Status on File) Date Activated Date Inactivated Comments 07/12/2021 8:31 AM 07/12/2021 8:36 PM
--- OUTSIDE RECORDS SUMMARY | 2024-12-09 12:00 | XMS_ITS | Encounter Summary ---
Author Organization [facility] Address [address] [place] [address] Care Team Providers Care Casting And Curing Operator Name Role Phone Unavailable Primary Care Provider Unavailabl e Encounter Details Date Type Department Care Team (Late st Contact Info) Description 07/12/2021 [facility] General and Trauma Surgery-[place] [address] [place] [address] Festus Daily, [address] [place] [address] Social History Tobacco Use Types Packs/Day Years [...] on file Sexual Orientation Not on file COVID-19 Exposure Response Date Recorded In the last 10 days, have yo u been in contact with someone who was confirmed or suspected to have Coronavirus/COVID-19? No / Unsure 07/12/2021 1:28 AM CDT documented as of this encounter Plan of Treatment Not on file documented as of this encounter Visit Diagnoses Not on filedocumented in this encounter
--- OUTSIDE RECORDS SUMMARY | 2024-12-09 12:00 | XMS_ITS | Patient Health Record ---
Author Organization [facility] Address [address] [place] [address] Care Team Providers Care Stripper Printed Circuit Boards Name Role Phone [facility] Cecille Primary Care Provid er Unavailable Mauro Ferreira Unavailable [phone] [facility] Unavailable Unavailable Allergies Allergen (clinical drug ingredient) Drug/Non Drug Allergy documented on EMR Reaction Allergy Type Onset Date Status esomeprazole NexIUM Unknown Drug Allergy Acti ve citalopram Citalopram Unknown Drug Allergy Activ e codeine Codeine Unknown Drug Allergy Active omeprazole Omeprazole Unknown Drug Allergy Activ e Penicillin Unknown Drug Allergy Active torsemide Torsemide Unknown Drug Allergy Active Reason For Referral No Information Medications Medication SIG (Take, Route, Frequency, Duration) Notes Start Date End Date Status Flomax 0.4 MG Capsule 1 capsule Orally O nce a day Active Pantoprazole Sodium 40 MG Tablet Delayed Release 1 tablet Orally twice a day Not-Taking methIMAzole 10 MG Tablet 1 tablet Orally Once a day Not-Taking Naloxone HCl 4 MG/10ML Solution as directed Injection Not-[facility] amLODIPine Besylate 5 MG Tablet 1 tablet Orally Once a day Not-Taking Xanax 0.5 MG Tablet 1 tablet Orally Thre e a day Active Metoprolol Tartrate 50 MG Tablet 1/2 tablet Orally Twice a day Not-Taking Mirtazapine 30 MG Tablet 1/2 tablet Oral ly Once a day Not-Taking busPIRone HCl 10 MG Tablet 1/2 tablet Orally three times a day Not-Taking Pregabalin 75 MG Capsule 1 capsule Orall y Twice a day Not-Taking Pregabalin 100 MG Capsule 1 capsule Oral ly Twice a day Not-Taking DULoxetine HCl 20 MG Capsule Delayed Release Particles 1 capsule Orally Once a day Not-Taking Erythromycin Base 250 MG Tablet 1 tab Orally BID; Duration: 30 days Not-Taking Protonix 40 MG Tablet Delayed Release 1 tablet Orally Once a day; Duration: 30 day(s) 02/17/2023 Not-Taking Sennosides 8.6 MG Tablet 1 tablet Orally twice a day Not-Taking Multivitamin - Tablet 1 tablet Orally On ce a day Active Methadone HCl 10 MG Tablet 1 tablet Orally Once a day Not-Taking oxyCODONE HCl 5 MG Tablet 1 tablet as ne eded Orally every 6 hrs Not-Taking Social History Tobacco Use: Social History Observation Description Date Details (start date - stop date) Former Smoker NA - NA Social History Drugs/Alcohol: Social Info Question Answer Notes Alcohol Screen (Audit-C) Did you have a drink containing alcohol in the past year? No Points 0 Interpretation Negative Drugs Have you used drugs other than those for medical reasons in the past 12 months? 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) Nutritional marasmus (E41) Active confirmed Problem Anorexia (77702144) Anorexia (R63.0) Active confirmed Problem Early satiety (847625255) Early satiety (R68.81) Active confirmed Problem Chronic fatigue syndrome (97711051) Chronic fatigue (R53.82) Active confirmed Problem Crohn's disease of large bowel (0405946) Crohn's disease of colon without complication (K50.10) Active confirmed Problem Weight loss (284447368) Weight loss (R63.4) Active confirmed Problem Delayed gastric emptying (959060850) Delayed gastric emptying (K30) Active confirmed 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 Plan Of Treatment No Information Insurance Providers Payer Name Payer Address Payer Phone Subscriber Number Group Number Insured Name Patient Relationship to Insured Coverage Start Date Coverage End Date [employer] [address] [place] [address] [id number] [place] Paulino Self - patient is the insured [employer] [address] [place] [address] [id number] [employer] Auth [place] Paulino Self - patient is the insured 2019 0 Medical (General) History Medical History History ICD Code measles and mumps as a child back trouble hemorrhoids chf thyroid storm hx ED anxiety hep C knee pain hx upper gi bleed gerd right hip pain PTSD osteoarthritis gastroparesis hyperthyroid H pylori Surgical History Surgery Date(Month/Year) cholecystectomy 2018 ERCP x3 Bertha 2019 angiogram 05/2021 gall bladder removal 2019 appendectomy 2019 EGD 01/2023 Hospitalization History Reason Date(Month/Year) egd/colon-Giurgius 2019 see surgical hx egd/colon Giuseppe Moscoso 2020 egd/colon-Edward 2019 egd/colon-Ferreira 2017
[2024-12-09 12:05] VITALS: BP 144/88; PULSE 80; RESP 18; TEMP 36.8; O2SAT 97
--- NOTE | 2024-12-09 12:32 | CTR_ITS ---
PROCEDURE INFORMATION: Exam: CT Neck With Contrast Exam date and time: 12/09/2024 1:29 PM Age: 69 years old Clinical indication: Other: Dysphagia, lymphadenopathy TECHNIQUE: Imaging protocol: Computed tomography of the neck with contrast. Radiation optimization: All CT scans at this facility use at least one of these dose optimization techniques: automated exposure control; mA and/or kV adjustment per patient size (includes targeted exams where dose is matched to clinical indication); or iterative reconstruction. Contrast material: OMNI 350; Contrast volume: 75 ml; Contrast route: INTRAVENOUS (IV); COMPARISON: PT PET skull to thigh INIT [id number] 06/13/2022 8:03 AM RADIATION DOSE METRICS: Total DLP (mGy-cm): 193.42 FINDINGS: Nasal cavity: Nasal septal deviation to the right. Salivary glands: Normal. Glands are normal in size. Pharynx: Unremarkable. No significant tonsillar enlargement. Larynx: Unremarkable. Epiglottis is normal. Thyroid: Normal. No enlarged or calcified nodules. Trachea: Visualized trachea is unremarkable. Lungs: Severe bilateral emphysematous changes. Lymph nodes: No enlarged cervical lymph nodes. Bones/joints: Moderate degenerative changes are seen at the cervical spine. Soft tissues: Unremarkable. No significant soft tissue swelling. CT/CT neck w con* [id number] IMPRESSION: 1. Severe bilateral emphysematous changes. 2. No enlarged cervical lymph nodes. 3. Nasal septal deviation to the right. 4. Moderate degenerative changes are seen at the cervical spine.
--- NOTE | 2024-12-09 12:35 | W.ED.GENADLT ---
HPI - General Adult General: Chief complaint: Abdominal Pain Stated complaint: Hard to swollow ABD Pain Time Seen by Provider: 12/09/24 12:07 History of Present Illness: Patient is 69-year-old male, BPH, presents to ED due to dysphagia. This has been worsening over the last 2 weeks he states. He states he has lymphadenopathy in his right upper cervical chain that is worse at night. He feels as if he cannot swallow. He feels as if his neck is closing in. He has not yet called his primary care physician. Patient also has ongoing pain to his left groin, he has not yet discussed with his primary care physician, however no issues with walking, voiding. He also admits to a kink in his penis in the mornings over the last 2 weeks. Denies any dysuria. His main issue today that is emergent in nature is his association of dysphagia. Associated symptoms: Reports malaise; Deny chest pain, dyspnea, headache(s), nausea, rash, palpitations or vomiting Related Data Home Medications ?Medication ?Instructions ?Recorded ?Confirmed tamsulosin 0.4 mg capsule (Flomax) 0.4 mg PO DAILY 07/15/23 12/01/24 Previous Rx's ?Medication ?Instructions ?Recorded naloxone 4 mg/actuation nasal 4 mg intranasal Q2M PRN opioid 01/29/23 spray (Narcan) overdose #2 ea alprazolam 0.5 mg tablet 0.5 mg PO TID #90 tabs 10/06/24 famotidine 20 mg tablet 20 mg PO BID 6 weeks #84 tabs 12/09/24 Allergies Allergy/AdvReac Type Severity Reaction Status Date / Time codeine Allergy ADR-Itching Verified 12/01/24 13:40 esomeprazole (From Nexium) Allergy Unknown Verified 12/01/24 13:40 ketorolac (From Toradol) Allergy Unknown Verified 12/01/24 13:40 omeprazole Allergy Unknown Verified 12/01/24 13:40 Penicillins Allergy Unknown Verified 12/01/24 13:40 ranitidine AdvReac ADR-Headach Verified 12/01/24 13:40 e Review of Systems General: Reports: 10 or more systems reviewed and unremarkable except in HPI and below Const: Reports: change in appetite, change in weight, fatigue and malaise; Denies: fever(s), chills or body aches Eyes: Denies: change in vision or blurry vision ENMT: Reports: other (Dysphagia, fullness in neck); Denies: throat pain or dental pain Card: Denies: chest pain or palpitations Resp: Reports: non-productive cough (chronic); Denies: dyspnea, wheezing, change in phlegm color or hemoptysis GI: Reports: abdominal pain; Denies: nausea, vomiting, diarrhea or change in bowel habits : Reports: other (Penile disfigurement in a.m.); Denies: flank pain, difficulty urinating, hematuria or testicular pain Musc: Denies: neck pain or back pain Skin/Breast: Denies: rash or pruritus Neuro: Denies: headache(s) or numbness in extremities Psych: Denies: anxiety or depression PFSH ED PFSH: Medical History (Updated 12/09/24 @ 15:05 by CELESTE Miles) Muscle wasting Psychiatric care Polysubstance abuse Suicidal overdose Hepatitis C Drug overdose Endotracheally intubated Unresponsiveness Physical deconditioning Nausea and vomiting Gastritis Chronic epigastric pain Surgical History History of laparoscopic cholecystectomy History of hip replacement, total Right History of bilateral carpal tunnel release History of circumcision History of esophagogastroduodenoscopy (EGD) (02/26/17) Reflux, esophagitis, Gastritis History of knee replacement Right History of colonoscopy Normal repeat in 10 years Family History Grandfather Cancer Grandmother Cancer Grandmother Cancer Grandfather Cancer Family/Other Cancer Son Diabetes Father Suicide Brother Suicide Denies family history of CAD (coronary artery disease) Clotting disorder Dementia Chronic kidney disease (CKD) Anesthesia complication Bleeding disorder Lung disease Stroke Social History Smoking and tobacco/nicotine status: current some day tobacco/nicotine user Second hand smoke exposure: No Alcohol intake: former Substance/Drug Use: never Adopted: No Caregiver/support person: Yes Lives independently: Yes Household members: spouse Housing: House Marital status: Highest education level completed: High School Graduate service: No Current occupational status: disabled Current occupational exposures/hazards: No Pets and animals: No Leisure activites: exercise Sexually active: Yes Do you think of yourself as: Straight/Heterosexual Current gender identity: Male and Female Verito/Buddhist: Protestant Special verito needs: No Agree to transfusion: No Physical Exam Const: COMMON NORMALS: patient oriented x3 and healthy appearing HENMT: COMMON NORMALS: normocephalic, atraumatic and TM's normal bilaterally HEAD & SCALP: normocephalic and atraumatic TYMPANIC MEMBRANE: TM's normal bilaterally Eye: COMMON NORMALS: conjunctivae normal CONJUNCTIVA: Yes conjunctivae normal Neck/C-Spine: COMMON NORMALS: full ROM and supple Lymph: LYMPHATIC: lymphadenopathy (Right upper cervical chain, left groin) Chest: COMMONS NORMALS: normal inspection of the chest Resp: COMMON NORMALS: normal respiratory effort Cardio: COMMON NORMALS: regular rate RATE: regular rate GI: COMMON NORMALS: Normal to inspection, nondistended, normoactive bowel sounds present, Soft to palpation, non-tender and no masses PALPATION: Yes Soft to palpation : COMMON NORMALS: Yes no CVA tenderness BLADDER/KIDNEY EXAM: Yes no CVA tenderness MALE GROIN/PERINEUM EXAM: Yes inguinal lymphadenopathy (Left) Back/Pelvis: COMMON NORMALS: no CVA tenderness Extremity: COMMON NORMALS: normal to inspection and full ROM Neuro: COMMON NORMALS: patient oriented x3, moves all extremities and no focal motor deficits Psych: COMMON NORMALS: mental status grossly normal, Normal thought process present and cooperative THOUGHT PROCESS: Normal thought process present Skin: COMMON NORMALS: no rashes or lesions noted and no wounds GENERAL SKIN EXAM: no rashes or lesions noted Course Vital Signs: Vital signs: Vital Signs Temperature 98.2 F 12/09/24 12:05 Pulse Rate 80 12/09/24 12:05 Respiratory Rate 18 12/09/24 12:05 Blood Pressure 128/90 12/09/24 15:03 Pulse Oximetry 94 12/09/24 15:03 Oxygen Delivery Me thod Room Air 12/09/24 15:03 [facility] - General Adult Medical Decision Making Patient is a 69-year-old male, reports to emergency room today with dysphagia. He states this has been worsening over the last 2 weeks. He has not seen his primary care physician for this. As well, patient notes left groin lymphadenopathy, however he had recent CT of abdomen pelvis in July. He states this has been ongoing and has not seen his primary care physician to follow-up on this as well. Given the emergency issues of dysphagia, and the fullness in his neck, it is fair to obtain a CT of neck with contrast. Differential regarding cardiac oncological in nature. I had a candid discussion with patient regarding understanding the frustration of not working through things with her primary care physician, however with his left groin without change, he needs to work through this with his primary care physician. It sounds like this has been ongoing since performing his well which has been addressed in the emergency room prior to this visit. Medical Records I reviewed the patient's medical records. Lab Data 12/09/24 12:15 12/09/24 12:[address] 12/09/24 12:32 IMPRESSION: 1. Severe bilateral emphysematous changes. 2. No enlarged cervical lymph nodes. 3. Nasal septal deviation to the right. 4. Moderate degenerative changes are seen at the cervical spine. Laboratory Results WBC 5.42 10^3/uL (3.29-11.43) 12/09/24 12:15 RBC 5.05 10^6/uL (3.85-5.65) 12/09/24 12:15 Hgb 15.30 g/dL (11.27-16.99) 12/09/24 12:15 Hct 45.4 % (37-53) 12/09/24 12:15 MCV 89.9 fl (82-101) 12/09/24 12:15 MCH 30.3 pg (27-33) 12/09/24 12:15 MCHC 33.7 g/dL (30-55) 12/09/24 12:15 RDW 12.6 % (12.1-15.1) 12/09/24 12:15 Plt Count 187 10^3/cmm (157-399) 12/09/24 12:15 MPV 10.2 fL (7.4-10.4) 12/09/24 12:15 Neut % (Auto) 64.6 % 12/09/24 12:15 Lymph % (Auto) 24.2 % 12/09/24 12:15 [place] % (Auto) 8.1 % 12/09/24 12:15 Eos % (Auto) 1.8 % 12/09/24 12:15 Baso % (Auto) 1.1 % 12/09/24 12:15 Neut # (Auto) 3.50 10^3/uL (1.8-7.7) 12/09/24 12:15 Lymph # (Auto) 1.3 10^3/uL (0.8-4.8) 12/09/24 12:15 [place] # (Auto) 0.4 10^3/uL (0.2-0.9) 12/09/24 12:15 Eos # (Auto) 0.1 10^3/uL (0.0-0.8) 12/09/24 12:15 Baso # (Auto) 0.1 10^3/uL (0.0-0.1) 12/09/24 12:15 Nucleated RBC % (auto) 0 % 12/09/24 12:15 Nucleated RBCs # 0.0 /100WBC 12/09/24 12:15 Sodium 138 mmol/L (136-145) 12/09/24 12:15 Potassium 4.1 mmol/L (3.5-5.1) 12/09/24 12:15 Chloride 103 mmol/L (98-107) 12/09/24 12:15 Carbon Dioxide 23 mmol/L (22-29) 12/09/24 12:15 Anion Gap 16.1 (5-19) 12/09/24 12:15 BUN 10 mg/dL (8-23) 12/09/24 12:15 Creatinine 0.6 mg/dL (0.7-1.2) L 12/09/24 12:15 GFR Calculation 134.0 mL/min (90-130) H 12/09/24 12:15 Glucose 109 mg/dL (65-115) 12/09/24 12:15 Calculated Osmolality 286 mOsm/kg (285-295) 12/09/24 12:15 Calcium 9.3 mg/dL (8.5-10.5) 12/09/24 12:15 Total Bilirubin 0.5 mg/dL (0.15-1.2) 12/09/24 12:15 AST 12 U/L (0-40) 12/09/24 12:15 ALT 9 U/L (0-41) 12/09/24 12:15 Alkaline Phosphatase 80 U/L (40-130) 12/09/24 12:15 Total Protein 7.2 g/dL (6.6-8.7) 12/09/24 12:15 Albumin 4.2 g/dL (3.5-5.2) 12/09/24 12:15 Globulin 3.0 g/dL (1.3-4.6) 12/09/24 12:15 Urine Color Yellow (Yellow) 12/09/24 13:24 Urine Appearance Clear (CLEAR) 12/09/24 13:24 Urine pH 7.0 (5-7) 12/09/24 13:24 Ur Specific [place] 1.005 (1.005-1.030) 12/09/24 13:24 Urine Protein Negative (Negative) 12/09/24 13:24 Urine Glucose (UA) Negative (Normal) 12/09/24 13:24 Urine Ketones Negative (Negative) 12/09/24 13:24 Urine Blood Negative (Negative) 12/09/24 13:24 Urine Nitrate Negative (Negative) 12/09/24 13:24 Urine Bilirubin Negative (Negative) 12/09/24 13:24 Urine Urobilinogen 0.2 mg/dL (Negative) 12/09/24 13:24 Ur Leukocyte Esterase Negative (Negative) 12/09/24 13:24 Urine RBC 0-2 /hpf (0-2) 12/09/24 13:24 Urine WBC 0-5 /hpf (0-5) 12/09/24 13:24 Ur Squamous Epith Cells 0-5 /hpf (0-5) 12/09/24 13:24 Amorphous Sediment Not Reportable 12/09/24 13:24 Urine Bacteria None seen /hpf (NONE) 12/09/24 13:24 Hyaline Casts 0-4 /lpf H 12/09/24 13:24 All radiology interpretation(s) finalized by discharge Discharge Plan Discharge Patient Disposition: Home Clinical Impression: Dysphagia Qualifiers: Dysphagia type: oropharyngeal phase Qualified Code(s): R13.12 - Dysphagia, oropharyngeal phase Condition: Stable Prescriptions: New famotidine 20 mg tablet 20 mg PO BID 42 Days Qty: 84 0RF No Action tamsulosin [Flomax] 0.4 mg capsule 0.4 mg PO DAILY alprazolam 0.5 mg tablet 0.5 mg PO TID Qty: 90 5RF naloxone [Narcan] 4 mg/actuation spray,non-aerosol 4 mg intranasal Q2M PRN (Reason: opioid overdose) Qty: 2 0RF Rx Instructions: spray 1 dose into ONE nostril; alternate nostrils w each dose until help arrives Discharge Orders: Discharge ED (Routine); Ordered 12/09/24 Ordered By: Katherine Beverly Referrals: Cecille Estrada FNP [Primary Care Provider, Nurse Practitioner] Discharge Diet: Soft Mechanical Discharge Activity: Resume usual activity Patient Instructions: GERD (Gastroesophageal Reflux Disease) (ED), Patient Portal & [facility] Instructions Activity Restrictions/Additional Instructions: - Call your doctor on Wednesday to set up a follow-up for all the things we discussed: Your upper airway and not being able to swallow, your left groin, your weight loss, appropriate protein intake. -Try a soft diet with dense protein - Continue to hydrate as you are with noncaffeinated beverages - Return to ED if you have worsening swallowing issues. - Your famotidine/Pepcid has been sent to the pharmacy. Please take this consistently for the next 6 weeks to see if this makes a difference in your swallowing. As we discussed, you can have silent reflux that is causing a lot of your problems. As well, you will need to talk to your doctor about possibly having a referral to ENT to look at your upper airway with concern of what is called esophagitis that is causing your symptoms. We cannot see this on the test you did today. Print Language: Turkish Coding Level of Care Code ED Chipper Operator for Dawood Pina
[2024-12-09 12:45] LABS: Hematocrit 45.4 % (37-53); Hemoglobin 15.30 g/dL (11.27-16.99); Mean Corpuscular HGB Conc 33.7 g/dL (30-55); Mean Corpuscular Hemoglobin 30.3 pg (27-33); Mean Corpuscular Volume 89.9 fl (82-101); Nucleated Red Blood Cells % 0 %; Platelet Count 187 10^3/cmm (157-399); Red Blood Count 5.05 10^6/uL (3.85-5.65); White Blood Count 5.42 10^3/uL (3.29-11.43)
[2024-12-09 13:04] LABS: Alanine Aminotransferase 9 U/L (0-41); Albumin Level 4.2 g/dL (3.5-5.2); Alkaline Phosphatase 80 U/L (40-130); Anion Gap 16.1 (5-19); Aspartate Amino Transferase 12 U/L (0-40); Blood Urea Nitrogen 10 mg/dL (8-23); Calcium 9.3 mg/dL (8.5-10.5); Carbon Dioxide 23 mmol/L (22-29); Chloride 103 mmol/L (98-107); Creatinine Clr Calc Pharmacy 54.4313; Globulin 3.0 g/dL (1.3-4.6); Glucose 109 mg/dL (65-115); Osmolality Calculated 286 mOsm/kg (285-295); Potassium 4.1 mmol/L (3.5-5.1); Sodium 138 mmol/L (136-145); Total Protein 7.2 g/dL (6.6-8.7)
[2024-12-09 13:17] VITALS: BP 144/88
[2024-12-09 13:30] LABS: Glucose Urine UA Negative (Normal); Nitrate Urine Negative (Negative); Specific Gravity, Urine 1.005 (1.005-1.030)
[2024-12-09] MEDS: iohexol 350 mg/mL 500 mL Btl (per mL) IV (13:34)
[2024-12-09 13:36] LABS: Add Urine Microscopic? YES
[2024-12-09 14:34] VITALS: BP 128/79; O2SAT 97
[2024-12-09 15:03] VITALS: BP 128/90; O2SAT 94
[2024-12-09 15:16] VITALS: BP 128/90; PULSE 68; RESP 16; O2SAT 97
== END 2024-12-09 15:17 | disposition home or self-care (01) ==
PROVIDERS: Emergency Provider Physician Assistant; PCP Nurse Practitioner
DX: R13.12 Dysphagia, oropharyngeal phase (principal); Z72.0 Tobacco use
CPT/HCPCS: 36415; 70491; 80053; 81001; 85025; 99285